=== PATIENT | male | born 1975 | race Caucasian/White ===

== ENCOUNTER 2021-09-03 09:50 | Inpatient (IN) | payer OTHER, MEDICAID ==
[2021-09-03] VITALS (11 sets, daily range): BP systolic 78–133; BP diastolic 50–86
[~2021-09-03] VITALS: Ht 177.8 cm; Wt 59.9 kg
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
[2021-09-03 15:05] LABS: BASO % 0 % (0-3); EOS % 0 % (0-3); HEMOGLOBIN 9.9 g/dL (13.0-17.5); LYMPH # 0.2 x10^3/uL (1.0-4.8); LYMPH % 2 % (24-48); MEAN CORPUSCULAR HEMOGLOBIN 30 pg (25-35); MEAN CORPUSCULAR HGB CONC 33 g/dL (31-37); MEAN CORPUSCULAR VOLUME 89 fL (79-100); MONO # 0.4 x10^3/uL (0.0-1.1); MONO % 4 % (0-9); NEUT # 9.2 x10^3/uL (1.8-7.7); NEUT % 94 % (31-73); PLATELET COUNT 472 x10^3/uL (140-400); RED BLOOD COUNT 3.36 x10^6/uL (4.30-5.70); RED CELL DISTRIBUTION WIDTH 14.4 % (11.5-14.5); WHITE BLOOD COUNT 9.8 x10^3/uL (4.0-11.0)
[2021-09-03 15:20] LABS: ALBUMIN 1.9 g/dL (3.4-5.0); ALBUMIN/GLOBULIN RATIO 0.5 (1.0-1.7); CALCIUM 7.9 mg/dL (8.5-10.1); CREATININE 0.5 mg/dL (0.7-1.3); GFR 177.5; POTASSIUM 3.7 mmol/L (3.5-5.1); TOTAL BILIRUBIN 0.1 mg/dL (0.2-1.0); TOTAL PROTEIN 6.1 g/dL (6.4-8.2)
[2021-09-03] MEDS ORDERED: VANCOMYCIN PER PHARMACY MC PRN (16:00)
--- NOTE | 2021-09-03 16:03 | NUR ---
Pharmacy Vancomycin Dosing Note S:Consulted to monitor and dose vancomycin started 09/03/21. O:KRISTA SOSA is a 46 year old M with r/o Osteomyelitis. Height: 5 feet, 10 inches Weight: 68.2 kg [place] Body Weight: 73.00 Adjusted Body Weight: 71.08 Dosing Weight: Actual Other Antibiotics: ceftriaxone doxy LABS: Last BUN: 32 Last Creatinine: 0.5 Creatinine Clearance: > 100 mL/min Last WBC: 9.8 Last Procalcitonin: -- Tmax (past 24 hours): Last dose given 09/03/21 at 1040 Vancomycin Dosing: Loading Dose: 1750 mg x1 (at [facility]) Dosing Weight: Actual Target Trough: 15-20 A: Based on: patient's age, weight and renal function. P: 1. Begin Vancomycin 1000 mg IV q8h after initial loading dose at [facility]. 2. Follow up Trough level on 09/04/21 at 1030. 3. Pharmacy will continue to monitor, follow and adjust therapy as needed. WALI LE, [facility], 09/03/21 [id number]
[2021-09-03 16:16] LABS: % BANDS 15 % (0-9); % LYMPHS 3 % (24-48); % MONOS 2 % (0-10); % SEGS 80 % (35-66)
[2021-09-03 16:17] LABS: PLT ESTIMATE INCREASED (ADEQUATE)
[2021-09-03] MEDS: DOXYCYCLINE HYCLATE 100 MG TABLET PO SCH ×2 (16:47→21:00)
[2021-09-03 18:18] LABS: COLOR,URINE YELLOW
[2021-09-03 18:19] LABS: BILIRUBIN,URINE NEGATIVE (NEG); CLARITY,URINE HAZY; NITRITE,URINE POSITIVE (NEG); PH,URINE 6.5 (<5.0-8.0); PROTEIN,URINE NEGATIVE (NEG-TRACE); UROBILINOGEN,URINE 0.2 mg/dL (0.2 mg/dL)
[2021-09-03 18:22] LABS: BACTERIA,URINE MANY /HPF (0-FEW)
[2021-09-03] MEDS ORDERED: ROCURONIUM 50 MG/5 ML VIAL. ONE (18:38)
[2021-09-03] MEDS ORDERED: PROPOFOL 50 ML IV ONE ×2 (18:47→20:04)
[2021-09-03] MEDS ORDERED: ePHEDrine PF IN SALINE 50 MG/10 ML SYRINGE. IV ONE (18:47)
[2021-09-03] MEDS ORDERED: DEXAMETHASONE SOD PHOS 4 MG/ML VIAL ONE (18:47)
[2021-09-03] MEDS ORDERED: REMIFENTANIL 2 MG VIAL. IV ONE (18:47)
[2021-09-03] MEDS ORDERED: LIDOCAINE 2% PF 5 ML VIAL. ONE (18:47)
[2021-09-03] MEDS ORDERED: PHENYLEPHRINE 10 MG/ML VIAL. ONE (18:48)
[2021-09-03] MEDS ORDERED: DESFLURANE > 120 MINUTES IH ONE (18:52)
[2021-09-03] MEDS ORDERED: GLYCOPYRROLATE 1 MG/5 ML VIAL. ONE (19:43)
[2021-09-03] MEDS ORDERED: GADOTERATE 7.5 MMOL/15ML VIAL. IVP ONE (19:45)
[2021-09-03] MEDS ORDERED: ONDANSETRON PF 4 MG/2 ML VIAL. ONE (20:16)
[2021-09-03] MEDS ORDERED: SEVOFLURANE > 120 MINUTES. IH ONE (20:17)
[2021-09-03] MEDS ORDERED: THROMBIN TOPICAL 20,000 UNIT SPRAY.SYRN KIT TP ONE ×2 (20:43→23:56)
[2021-09-03] MEDS ORDERED: GELATIN SPONGE SIZE 100. ONE (20:43)
[2021-09-03] MEDS ORDERED: BUPIVACAINE-EPI 0.5% 30 ML VIAL KIT. ONE (20:43)
--- NOTE | 2021-09-03 20:44 | RAD ---
EXAM: MRI CERVICAL SPINE WITH AND WITHOUT CONTRAST. HISTORY: Pain, discitis. TECHNIQUE: Magnetic resonance images of the cervical spine were obtained before and after the intrave nous administration of 13 mL Clariscan. COMPARISON: None. FINDINGS: There are limitations from motion artifact, decreased [id number] ratio and other techn ical artifacts. The examination remains diagnostic for the following. There is fluid within the disc space at C6-7. There are endplate erosions at C6 and C7 with mild volu me loss. Alignment is maintained. An epidural collection consistent with an abscess extends from the C4-5 disc level to the C7-T1 disc level. It is thin at C5, but becomes thicker on the left at C6-7. T his severely narrows the central canal on the left greater than right. Minimal anteroposterior centra l canal diameter is 4 mm a left. It is more severe within the left aspect of the central canal. The c ord is flattened. Fluid collections also extend into the retropharyngeal space bilaterally, measuring up to 1.4 x 1.1 cm transaxially on the right. Neural foraminal stenosis at C6-7 is severe on the rig ht and moderate on the left, mostly from uncovertebral osteoarthritis. More superiorly, there is no clear fluid within the disc spaces. Degenerative disc disease is moderat e to severe from C4 through C6 and moderate at C3-4. No fractures are identified. The craniocervical junction is unremarkable. There is no abnormal cord signal. There are no enhancing parenchymal lesion s. At C2-3, there is a small posterior disc bulge. There is no stenosis. At C3-4, there is a moderate posterior disc-osteophyte complex. Central canal stenosis is mild. There is abutment of the anterior cord without deformity. Uncovertebral osteoarthritis is moderate on the right and moderate to severe on the left. Neural foraminal stenosis is moderate to severe on the left and moderate on the right. At C4-5, there is a moderate posterior disc-osteophyte complex. This flattens the anterior cord with minimal anteroposterior central canal diameter 7 mm. Anterior cord is mildly flattened. Uncovertebral osteoarthritis is moderate to severe bilaterally. Neural foraminal stenosis is moderate to severe bi laterally. At C5-6, the epidural collection measures severe central canal stenosis with minimal anteroposterior central canal diameter 6 mm. There is more severe stenosis in the left lateral recess. Uncovertebral osteoarthritis is moderate to severe on the right and moderate on the right. Neural foraminal stenosi s is severe on the right and moderate on the left. At C6-7, the anterior epidural collection is small within the central and left paracentral territorie s. IMPRESSION: 1. Discitis at C5-6. There is no associated epidural abscess extending from C4-5 through C7-T1. This is largest at C5-6, resulting in severe central canal stenosis with cord flattening. There is lesser moderate to severe central canal stenosis at other involved levels as above. 2. Additional fluid collections extending from C5-6 into the retropharyngeal space bilaterally. 3. Severe degenerative changes for patient age resulting in additional moderate central canal stenosi s and multilevel severe central canal stenosis as above. These findings were called to Dr. Gonzalez by Bimal Cox on 09/03/2021 at 8:20 PM. Electronically signed by: Mona Cox MD (09/03/2021 8:42 PM) [facility]
[2021-09-03] MEDS: VANCOMYCIN 1 GM in IV NORMAL SALINE 250ML 250 ML IV SCH (20:45)
[2021-09-03] MEDS ORDERED: SUCCINYLCHOLINE 200 MG/10 ML VIAL. ONE (21:17)
[2021-09-03] MEDS ORDERED: fentaNYL PF VIAL 100 MCG/2 ML VIAL ONE (22:32)
[2021-09-04] VITALS (24 sets, daily range): BP systolic 81–108; BP diastolic 58–73
[2021-09-04] MEDS ORDERED: fentaNYL PF VIAL 100 MCG/2 ML VIAL IVP PRN ×3 (01:15→01:30)
[2021-09-04] MEDS ORDERED: HYDROmorphone 2 MG/ML INJ. IV PRN ×2 (01:15)
[2021-09-04] MEDS ORDERED: LABETALOL 20 MG/4 ML DISP.SYRIN. IVP PRN (01:15)
[2021-09-04] MEDS ORDERED: hydrALAZINE 20 MG/ML VIAL. IVP PRN (01:15)
[2021-09-04] MEDS ORDERED: PROCHLORPERAZINE 10 MG/2 ML VIAL. IVP PRN (01:15)
[2021-09-04] MEDS ORDERED: ONDANSETRON PF 4 MG/2 ML VIAL. IVP PRN (01:15)
[2021-09-04] MEDS: IV RINGERS,LACTATED 1000ML 1,000 ML IV SCH ×3 (01:15→20:16)
[2021-09-04] MEDS ORDERED: NALOXONE 0.4 MG/ML VIAL. IV PRN (01:30)
[2021-09-04] MEDS ORDERED: ACETAMINOPHEN 325 MG TABLET. PO PRN (01:30)
[2021-09-04] MEDS ORDERED: MAG HYDROX/ALUMINUM HYD/SIMETH 30 ML ORAL.SUSP PO PRN (01:30)
[2021-09-04] MEDS ORDERED: HYDROcodone/APAP 5/325MG 1 TAB TABLET PO PRN (01:30)
[2021-09-04] MEDS ORDERED: diphenhydrAMINE HCL 25 MG CAPSULE PO PRN (01:30)
[2021-09-04] MEDS ORDERED: 0.9 % SODIUM CHLORIDE 10 ML DISP.SYRIN. IV PRN (01:30)
[2021-09-04] MEDS ORDERED: CALCIUM CARBONATE 500 MG TAB.CHEW PO PRN (01:30)
[2021-09-04] MEDS: POTASSIUM CL 20MEQ D5-0.45NACL 1,000 ML IV SCH ×2 (02:32→14:42)
[2021-09-04] MEDS: VANCOMYCIN 1 GM in IV NORMAL SALINE 250ML 250 ML IV SCH (04:55)
--- NOTE | 2021-09-04 05:19 | NUR ---
Patient refused C-collar. Pt educated on the purpose and importance of the collar. Pt says he is claustrophobic and will freak out if he has anything around his neck. Pt went to surgery at 2114 Addendum: 09/04/21 at 0538 by ROSETTA LOPEZ RN RN Amended: Links added.
[2021-09-04 06:51] LABS: CREATININE 0.6 mg/dL (0.7-1.3); GFR 143.8
--- NOTE | 2021-09-04 06:52 | RAD ---
XR CHEST 1V 09/04/2021 6:30 AM INDICATION: Chest tube COMPARISON: 10/01/2021 TECHNIQUE: Portable frontal view of the chest is provided. FINDINGS: The cardiomediastinal silhouette is within normal limits. Lungs are clear. Left-sided thoracostomy tu be is in similar position. Left IJ central venous catheter is in similar position. Anterior cervical discectomy and fusion hardware is partially profiled. There are no significant pleural effusions. There is no pulmonary vascular congestion. No pneumothora x. No suspicious osseous abnormality. There is colonic distention. IMPRESSION: There is no acute cardiopulmonary process. There is colonic distention similar to the prior examination. Anterior discectomy and fusion hardware is partially profiled. No pneumothorax. Electronically signed by: Wendy Bloom MD (09/04/2021 6:50 AM) [facility]
[2021-09-04] MEDS ORDERED: HALOPERIDOL LACTATE 5 MG/ML VIAL. IM ONE (07:15)
[2021-09-04] MEDS: NOREPINEPHRINE VIAL 8 MG in IV DEXTROSE 5% 250 ML IV PRN (07:23)
--- NOTE | 2021-09-04 07:23 | CONS ---
DATE OF CONSULTATION: 09/03/2021 REASON FOR CONSULTATION: Abnormal CT scan of the cervical spine. HISTORY OF PRESENT ILLNESS: The patient was transferred to this institution and placed in intensive care unit today after presenting to the Emergency Room at [facility]. He was transferred there from [facility]. He was initially sent here because of mental status changes and worsening hypotension. When he arrived here, he was confused, hypotensive, hypothermic and the nurse reported to me that priapism was noted. He was gradually warmed, fluids given. His blood pressure improved and it became apparently in the afternoon that the patient was not moving his lower extremities. He denied any sensation below the shoulders inferiorly. He had difficulty with his hands bilaterally. He did have priapism. As far as his history, it is unclear how long the patient had been weak. The nurse reported that as he regained function, he thought initially he was able to drink without assistance, but when I saw him at about 6:00 in the evening, there was evidence of quadriplegia with normal strength in his biceps, 2/5 triceps and 0/5 hand intrinsics. There is no sensation below the C4 collar inferiorly. He did have priapism. He was somewhat hypotensive. His systolic blood pressure was in the 90s. I did review a CT scan, which showed abnormalities at C6-7 suggestive of osteomyelitis, diskitis or trauma. He did have a pneumothorax when he was admitted to the ICU and a rib fracture, so trauma was a leading diagnosis at that time. We moved ahead with an emergency MRI scan to evaluate his cervical spine. PAST MEDICAL HISTORY: Includes problems with drug addiction using crystal meth. He rarely drinks alcohol. His past medical history is unremarkable overall except for a psych history, in which he had anxiety, addiction problems, bipolar and schizophrenia. FAMILY HISTORY: There is no known significant family history. ALLERGIES: HE DID REPORT ALLERGIES TO PENICILLIN, TORADOL, AND TRAMADOL. He was unable to give a history and was uncooperative for the history and we were unable to do a good review of systems, but in the chart other than above it was negative. PHYSICAL EXAMINATION: He was poorly cooperative. He did move his upper extremities to command. He denied sensation in his trunk or lower extremities. He did have loss of intrinsic function in his hands. He was oriented and his speech was clear. ASSESSMENT AND PLAN: I was concerned that the most likely diagnosis was cervical epidural abscess. We proceeded with an emergency MRI scan. On that study, there was a large anterior spinal epidural abscess, which was centered at C6-7, but it was extended up to behind the body of C5 and down to the top of T1. I recommended emergent surgery anteriorly to evacuate the abscess. I did speak personally with the radiologist and reviewed the films with him. I did discuss this with the patient and we discussed the rationale and the risks. He understood and agreed to surgery. JACKY/MARINA/MORE DR: Teddy TID: [id number] IRIS
--- NOTE | 2021-09-04 07:25 | OP ---
DATE OF SURGERY: 09/03/2021 PREOPERATIVE DIAGNOSES: Cervical epidural abscess at C6-7 with severe cervical myelopathy. POSTOPERATIVE DIAGNOSES: Cervical epidural abscess at C6-7 with severe cervical myelopathy. OPERATIONS PERFORMED: Anterior cervical decompression with corpectomy of C6, partial corpectomy C7, evacuation of epidural abscess, placement of interbody fusion cage and anterior plate. The operation was done with multimodality monitoring including EMG, SSEP, NIMS monitoring, motor evoked potentials, fluoroscopy, microscopic dissection. SURGEON: Kali Gonzalez M.D. TECHNICAL BUSINESS ANALYST: KIP Jiang; assisted with the surgery. She assisted with the exposure, the decompression and corpectomy as well as the fusion. OPERATIVE INDICATIONS: This patient presented to the ICU today with hypotension, confusion, hypothermia and as he became more awake and alert, it was found that he was quadriplegic with no intrinsic hand function and no sensation from the neck down. He was evaluated and found to have a large cervical epidural abscess predominantly anterior of the cervical spine centered at about C6-7 and I recommended emergent surgery. He, I believe, understood the surgery and the risks and wished for me to go ahead. DESCRIPTION OF PROCEDURE: Following general endotracheal anesthesia, which was done very carefully to avoid any neck movement, he was placed in a neutral position. Anterior cervical region was then clipped, prepped and draped in the standard fashion. TIARA hose and AV impulse boots were applied for DVT prophylaxis. The microscope was draped, fluoroscopy was draped and brought in the field. Monitoring was established. He was on scheduled antibiotics, which included vancomycin and Rocephin. Using fluoroscopic guidance, an incision was made from the midline around to the right side in a skin crease. I dissected around the medial aspect of the sternocleidomastoid and carotid artery sheath down the anterior cervical vertebral bodies, which were largely obscured by thick tenacious phlegmon and tissue. I gradually worked through this, visualized the spine. There was spontaneous egress of pus, which I then cultured and collected. I then worked on my exposure and could visualize the body of C6 largely as well as the superior portion of body of C7. The inferior portion of C6 was not structurally sound and I removed this material in a piecemeal fashion. I did drill bone away working superiorly performing a corpectomy of C6, stopping the last several millimeters before reaching the disc at C5-6. Inferiorly, then I drilled the superior 25% of C7 and decompressing that region as I worked to considerable amount of purulence was removed from the epidural space. I did pass a Navjot superiorly behind C5 and again removed a great deal of purulent material and again worked and decompressed below the exposure with the Navjot and removing purulent material from the epidural space inferiorly behind the body of C7. The region was well decompressed. Then, I measured and placed interbody fusion cage of 14 mm. I did drill into it carefully to assure that it would fuse with the exposed bone above and below. I placed a plate and placed 2 screws above, which were purchased in the remnant of bone at C6, which did traverse into the disc space and inferiorly, I put 2 screws, which went into the body of C7. At this point, then, I felt I had an excellent decompression. A large amount of purulent material had been removed. I irrigated copiously. Hemostasis was excellent at this point. I irrigated again, closed the wound in layers with absorbable suture. The skin was closed with 4-0 subcuticular stitch. I felt the surgery went very well. JACKY/MARINA/LO DR: Teddy TID: [id number] IRIS
--- NOTE | 2021-09-04 07:41 | CONS ---
DATE OF CONSULTATION: 09/04/2021 REASON FOR CONSULTATION: I was asked to see this 46-year-old gentleman for left pneumothorax. HISTORY OF PRESENT ILLNESS: He does have significant history of smoking and using marijuana and methamphetamine. He is at [facility], details of history is not known, but he was taken to [facility] Emergency Room for mental status changes. He had multiple CTs done, which did show C5-C6 diskitis and left pneumothorax. Left chest tube was placed. Dr. Gonzalez, neurosurgeon did surgery last night. Details are not known. The patient is alert. He is moving his upper extremity, but is not able to move his lower extremities. He does have shortness of breath. He has cough. PAST MEDICAL HISTORY: Positive for smoking cigarettes and using marijuana and methamphetamine. FAMILY HISTORY: Hypertension. ALLERGIES: PENICILLIN, KETOROLAC, TRAMADOL. MEDICATIONS: Currently, he is on vancomycin, Rocephin, doxycycline, IV fluid, fentanyl p.r.n. REVIEW OF SYSTEMS: As mentioned as above. He has had cough. Other systems otherwise negative. PHYSICAL EXAMINATION: GENERAL: This is a chronically ill-appearing gentleman. VITAL SIGNS: His O2 saturation on room air is 93%, respiratory rate 16, heart rate 76, blood pressure 98/66, temperature 97.5. HEENT: Normocephalic, atraumatic. Pupils equal, round, reactive to light. Nose is clear. He has poor dentition. NECK: There is no JVD or lymphadenopathy. CARDIOVASCULAR: Regular rate and rhythm. PMI is nondisplaced. CHEST INSPECTION: There is left chest tube in place. LUNGS: Clear to auscultation. ABDOMEN: Soft, slightly distended. Bowel sounds are good. EXTREMITIES: There is no edema. LYMPHATICS: There is no lymphadenopathy. NEUROLOGIC: Alert and oriented. LABORATORY DATA: I reviewed the following lab data: WBC 9.8, hemoglobin 9.9, platelets 472. Sodium 142, potassium 3.7, chloride 105, CO2 is 30, BUN 32, creatinine 0.5, glucose 126. Lactic acid 1.5, AST 37, ALT 26, alkaline phosphatase 65. LDH 253. Apparently, his COVID testing is negative. IMPRESSION: 1. Left pneumothorax, status post chest tube placement. 2. C5-C6 diskitis, status post surgery. 3. Smoker question vanessa chronic obstructive pulmonary disease. 4. Drug abuse. 5. Anemia. 6. Sepsis. PLAN AND RECOMMENDATIONS: 1. Titrate FiO2 to keep O2 saturation 92%. 2. Start bronchodilator. 3. Stat portable chest x-ray was done. Left chest tube in place and no pneumothorax. There is distended bowel. 4. Neurosurgery is on the case. 5. I do recommend ID consultation. 6. Follow up blood cultures. 7. Monitor respiratory status very closely in ICU. 8. Urine drug screen. 9. The findings and recommendations were discussed with RN. 10. I have advised him to stop smoking and using drugs. Thank you very much for allowing me to participate in care of this very nice gentleman. LUCIA DR: Owen TID: [id number]
[2021-09-04] MEDS: IPRATRPIUM/ALBUTEROL 0.5/2.5MG 3 ML NEBU. NEB SCH ×4 (08:00→20:00)
[2021-09-04] MEDS ORDERED: BENZOCAINE/MENTHOL LOZENGE. PO PRN (09:15)
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
[2021-09-04] MEDS: DOXYCYCLINE HYCLATE 100 MG TABLET PO SCH (09:54)
[2021-09-04] MEDS ORDERED: cefTRIAXone IV Push 1 GM VIAL. IVP SCH (10:00)
--- NOTE | 2021-09-04 10:09 | NUR ---
approximately 10 am, this RN came to patient bedside, patient stated "i want to sign a refusal for the MRI!" This RN asked why he would want to refuse and patient states " I have my reasoning." when asked by this RN to elaborate on his reasonings, he states "My pedro in [employer]." This RN explained the medical necessity of an MRI, patient remains hostile and is adamant that he will not get the MRI. Patient repeatedly states " take me back to long term bro, just take me back to long term!" Shital SHIN notified of patients refusal for follow up MRI. Dr. Macario also notified.
[2021-09-04] MEDS ORDERED: BISACODYL 10 MG SUPP.RECT. PR ONE (11:00)
--- NOTE | 2021-09-04 11:51 | PDOC ---
PROGRESS NOTES Date of Service DATE: 09/04/21 TIME: 11:48 Subjective Subjective POD #1 S/P C6 corpectomy and partial corpectomy C7, fusion, evacuation of epidural abscess refusing follow up MRI drowsy currently after Ativan some sensation noted per Dr. Macario Objective Objective Vital Signs Date Time Temp Pulse Resp B/P (MAP) Pulse Ox O2 Delivery O2 Flow Rate FiO2 09/04/21 11:00 62 16 99/64 100 Nasal Cannula 2.0 09/04/21 08:00 97.0 97.0 Intake and Output 09/04/21 07:00 Intake Total 4283 ml Output Total 1230 ml Balance 3053 ml Intake Oral 815 ml IV Total 1571 ml Other 1897 ml Output Urine Total 1200 ml Chest Tube Drainage Total 0 ml Estimated Blood Loss 30 ml Physical Exam General: Other (Drowsy) Plan Plan of Care cervical x rays if patient will cooperate MRI when patient is agreeable D/W RN Comment Review of Relevant I have reviewed the following items vanessa (where applicable) has been applied. Labs Laboratory Tests Test 09/03/21 14:49 09/03/21 17:08 09/04/21 06:20 White Blood Count 9.8 x10^3/uL (4.0-11.0) Red Blood Count 3.36 x10^6/uL (4.30-5.70) Hemoglobin 9.9 g/dL (13.0-17.5) Hematocrit 30.0 % (39.0-53.0) Mean Corpuscular Volume 89 fL (79-100) Mean Corpuscular Hemoglobin 30 pg (25-35) Mean Corpuscular Hemoglobin Concent 33 g/dL (31-37) Red Cell Distribution Width 14.4 % (11.5-14.5) Platelet Count 472 x10^3/uL (140-400) Neutrophils (%) (Auto) 94 % (31-73) Lymphocytes (%) (Auto) 2 % (24-48) Monocytes (%) (Auto) 4 % (0-9) Eosinophils (%) (Auto) 0 % (0-3) Basophils (%) (Auto) 0 % (0-3) Neutrophils # (Auto) 9.2 x10^3/uL (1.8-7.7) Lymphocytes # (Auto) 0.2 x10^3/uL (1.0-4.8) Monocytes # (Auto) 0.4 x10^3/uL (0.0-1.1) Eosinophils # (Auto) 0.0 x10^3/uL (0.0-0.7) Basophils # (Auto) 0.0 x10^3/uL (0.0-0.2) Segmented Neutrophils % 80 % (35-66) Band Neutrophils % 15 % (0-9) Lymphocytes % 3 % (24-48) Monocytes % 2 % (0-10) Platelet Estimate Increased (ADEQUATE) Sodium Level 142 mmol/L (136-145) Potassium Level 3.7 mmol/L (3.5-5.1) Chloride Level 105 mmol/L (98-107) Carbon Dioxide Level 30 mmol/L (21-32) Anion Gap 7 (6-14) Blood Urea Nitrogen 32 mg/dL (8-26) Creatinine 0.5 mg/dL (0.7-1.3) 0.6 mg/dL (0.7-1.3) Estimated GFR (Cockcroft-Gault) 177.5 143.8 BUN/Creatinine Ratio 64 (6-20) Glucose Level 126 mg/dL (70-99) Lactic Acid Level 1.5 mmol/L (0.4-2.0) Calcium Level 7.9 mg/dL (8.5-10.1) Total Bilirubin 0.1 mg/dL (0.2-1.0) Aspartate Amino Transf (AST/SGOT) 37 U/L (15-37) Alanine Aminotransferase (ALT/SGPT) 26 U/L (16-63) Alkaline Phosphatase 65 U/L (46-116) Lactate Dehydrogenase 253 U/L (85-227) Total Protein 6.1 g/dL (6.4-8.2) Albumin 1.9 g/dL (3.4-5.0) Albumin/Globulin Ratio 0.5 (1.0-1.7) Thyroid Stimulating Hormone (TSH) 2.491 uIU/mL (0.358-3.74) Urine Collection Type Unknown Urine Color Yellow Urine Clarity Hazy Urine pH 6.5 (<5.0-8.0) Urine Specific [place] 1.015 (1.000-1.030) Urine Protein Negative mg/dL (NEG-TRACE) Urine Glucose (UA) Negative mg/dL (NEG) Urine Ketones (Stick) Negative mg/dL (NEG) Urine Blood Small (NEG) Urine Nitrite Positive (NEG) Urine Bilirubin Negative (NEG) Urine Urobilinogen Dipstick 0.2 mg/dL (0.2 mg/dL) Urine Leukocyte Esterase Negative (NEG) Urine RBC 3-5 /HPF (0-2) Urine WBC 1-4 /HPF (0-4) Urine Bacteria Many /HPF (0-FEW) Urine Mucus Mod /LPF Laboratory Tests Test 09/03/21 14:49 09/03/21 17:08 09/04/21 06:20 White Blood Count 9.8 x10^3/uL (4.0-11.0) Red Blood Count 3.36 x10^6/uL (4.30-5.70) Hemoglobin 9.9 g/dL (13.0-17.5) Hematocrit 30.0 % (39.0-53.0) Mean Corpuscular Volume 89 fL (79-100) Mean Corpuscular Hemoglobin 30 pg (25-35) Mean Corpuscular Hemoglobin Concent 33 g/dL (31-37) Red Cell Distribution Width 14.4 % (11.5-14.5) Platelet Count 472 x10^3/uL (140-400) Neutrophils (%) (Auto) 94 % (31-73) Lymphocytes (%) (Auto) 2 % (24-48) Monocytes (%) (Auto) 4 % (0-9) Eosinophils (%) (Auto) 0 % (0-3) Basophils (%) (Auto) 0 % (0-3) Neutrophils # (Auto) 9.2 x10^3/uL (1.8-7.7) Lymphocytes # (Auto) 0.2 x10^3/uL (1.0-4.8) Monocytes # (Auto) 0.4 x10^3/uL (0.0-1.1) Eosinophils # (Auto) 0.0 x10^3/uL (0.0-0.7) Basophils # (Auto) 0.0 x10^3/uL (0.0-0.2) Segmented Neutrophils % 80 % (35-66) Band Neutrophils % 15 % (0-9) Lymphocytes % 3 % (24-48) Monocytes % 2 % (0-10) Platelet Estimate Increased (ADEQUATE) Sodium Level 142 mmol/L (136-145) Potassium Level 3.7 mmol/L (3.5-5.1) Chloride Level 105 mmol/L (98-107) Carbon Dioxide Level 30 mmol/L (21-32) Anion Gap 7 (6-14) Blood Urea Nitrogen 32 mg/dL (8-26) Creatinine 0.5 mg/dL (0.7-1.3) 0.6 mg/dL (0.7-1.3) Estimated GFR (Cockcroft-Gault) 177.5 143.8 BUN/Creatinine Ratio 64 (6-20) Glucose Level 126 mg/dL (70-99) Lactic Acid Level 1.5 mmol/L (0.4-2.0) Calcium Level 7.9 mg/dL (8.5-10.1) Total Bilirubin 0.1 mg/dL (0.2-1.0) Aspartate Amino Transf (AST/SGOT) 37 U/L (15-37) Alanine Aminotransferase (ALT/SGPT) 26 U/L (16-63) Alkaline Phosphatase 65 U/L (46-116) Lactate Dehydrogenase 253 U/L (85-227) Total Protein 6.1 g/dL (6.4-8.2) Albumin 1.9 g/dL (3.4-5.0) Albumin/Globulin Ratio 0.5 (1.0-1.7) Thyroid Stimulating Hormone (TSH) 2.491 uIU/mL (0.358-3.74) Urine Collection Type Unknown Urine Color Yellow Urine Clarity Hazy Urine pH 6.5 (<5.0-8.0) Urine Specific [place] 1.015 (1.000-1.030) Urine Protein Negative mg/dL (NEG-TRACE) Urine Glucose (UA) Negative mg/dL (NEG) Urine Ketones (Stick) Negative mg/dL (NEG) Urine Blood Small (NEG) Urine Nitrite Positive (NEG) Urine Bilirubin Negative (NEG) Urine Urobilinogen Dipstick 0.2 mg/dL (0.2 mg/dL) Urine Leukocyte Esterase Negative (NEG) Urine RBC 3-5 /HPF (0-2) Urine WBC 1-4 /HPF (0-4) Urine Bacteria Many /HPF (0-FEW) Urine Mucus Mod /LPF Medications Current Medications Ceftriaxone Sodium (Rocephin) 1 gm Q24H IVP Last administered on 09/04/21at 09:54; Start 09/04/21 at 10:00 Doxycycline Hyclate (Vibra-Tab) 100 mg BID PO Last administered on 09/04/21at 09:54; Start 09/03/21 at 15:30 Vancomycin HCl (Vanco Per Pharmacy) 1 each PRN DAILY PRN MC SEE COMMENTS Last administered on 09/03/21at 16:01; Start 09/03/21 at 16:00 Vancomycin HCl 1 gm/Sodium Chloride 250 ml @ 250 mls/hr Q8H IV Last administered on 09/04/21at 04:55; Start 09/03/21 at 19:00 Vancomycin HCl (Vancomycin Trough Level) 1 each 1X ONCE MC ; Start 09/04/21 at 12:30; Stop 09/04/21 at 12:31 Norepinephrine Bitartrate 8 mg/ Dextrose 258 ml @ 13.197 mls/ hr CONT PRN IV PER PROTOCOL Last administered on 09/04/21at 07:23; Start 09/03/21 at 17:00 Gadoterate Meglumine (Clariscan) 13 ml 1X ONCE IVP Last administered on 09/03/21at 19:54; Start 09/03/21 at 19:45; Stop 09/03/21 at 19:46; Status DC Rocuronium Sidell (Zemuron) 50 mg STK-MED ONCE .ROUTE ; Start 09/03/21 at 18:38; Stop 09/03/21 at 20:39; Status DC Gelatin (Gelfoam Size 100) 1 each STK-MED ONCE .ROUTE Last administered on 09/03/21at 22:35; Start 09/03/21 at 20:43; Stop 09/03/21 at 20:43; Status DC Bupivacaine HCl/ Epinephrine Bitart (Sensorcain-Epi 0.5% Kit) 30 ml STK-MED ONCE .ROUTE Last administered on 09/03/21at 22:35; Start 09/03/21 at 20:43; Stop 09/03/21 at 20:43; Status DC Thrombin 20,000 unit STK-MED ONCE TP Last administered on 09/03/21 22:35; Start 09/03/21 at 20:43; Stop 09/03/21 at 20:43; Status DC Remifentanil HCl (Ultiva) 2 mg STK-MED ONCE IV ; Start 09/03/21 at 18:47; Stop 09/03/21 at 20:47; Status DC Propofol 50 ml @ As Directed STK-MED ONCE IV ; Start 09/03/21 at 18:47; Stop 09/03/21 at 20:47; Status DC Ephedrine Sulfate (ePHEDrine PF IN SALINE SYRINGE) 50 mg STK-MED ONCE IV ; Start 09/03/21 at 18:47; Stop 09/03/21 at 20:48; Status DC Lidocaine HCl (Lidocaine Pf 2% Vial) 5 ml STK-MED ONCE .ROUTE ; Start 09/03/21 at 18:47; Stop 09/03/21 at 20:48; Status DC Dexamethasone Sodium Phosphate (Decadron) 4 mg STK-MED ONCE .ROUTE ; Start 09/03/21 at 18:47; Stop 09/03/21 at 20:48; Status DC Phenylephrine HCl (Jerome-Synephrine Inj) 10 mg STK-MED ONCE .ROUTE ; Start 09/03/21 at 18:48; Stop 09/03/21 at 20:48; Status DC Desflurane (Suprane) 90 ml STK-MED ONCE IH ; Start 09/03/21 at 18:52; Stop 09/03/21 at 20:52; Status DC Succinylcholine Chloride (Anectine) 200 mg STK-MED ONCE .ROUTE ; Start 09/03/21 at 21:17; Stop 09/03/21 at 21:17; Status DC Glycopyrrolate (Robinul) 1 mg STK-MED ONCE .ROUTE ; Start 09/03/21 at 19:43; Stop 09/03/21 at 21:44; Status DC Propofol 50 ml @ As Directed STK-MED ONCE IV ; Start 09/03/21 at 20:04; Stop 09/03/21 at 22:05; Status DC Ondansetron HCl (Zofran) 4 mg STK-MED ONCE .ROUTE ; Start 09/03/21 at 20:16; Stop 09/03/21 at 22:16; Status DC Sevoflurane (Ultane) 90 ml STK-MED ONCE IH ; Start 09/03/21 at 20:17; Stop 09/03/21 at 22:17; Status DC Thrombin 20,000 unit STK-MED ONCE TP ; Start 09/03/21 at 23:56; Stop 09/03/21 at 23:56; Status DC Fentanyl Citrate (Fentanyl 2ml Vial) 100 mcg STK-MED ONCE .ROUTE ; Start 09/03/21 at 22:32; Stop 09/04/21 at 00:33; Status DC Fentanyl Citrate (Fentanyl 2ml Vial) 25 mcg PRN Q5MIN PRN IVP Acute Pain; Start 09/04/21 at 01:15; Stop 09/05/21 at 01:14 Fentanyl Citrate (Fentanyl 2ml Vial) 50 mcg PRN Q5MIN PRN IVP Acute Pain; Start 09/04/21 at 01:15; Stop 09/05/21 at 01:14 Hydromorphone HCl (Dilaudid) 0.2 mg PRN Q10MIN PRN IV MILD PAIN 1-3; Start 09/04/21 at 01:15; Stop 09/05/21 at 01:14 Hydromorphone HCl (Dilaudid) 0.4 mg PRN Q10MIN PRN IV MODERATE TO SEVERE PAIN; Start 09/04/21 at 01:15; Stop 09/05/21 at 01:14 Ondansetron HCl (Zofran) 4 mg PRN Q6HRS PRN IVP Nausea, 1st Choice; Start 09/04/21 at 01:15; Stop 09/05/21 at 01:14 Prochlorperazine Edisylate (Compazine) 5 mg PRN Q6HRS PRN IVP Nausea/Vomiting, 2nd Choice; Start 09/04/21 at 01:15; Stop 09/05/21 at 01:14 Hydralazine HCl (Apresoline Inj) 5 mg PRN Q15MIN PRN IVP SBP>180; Start 09/04/21 at 01:15; Stop 09/05/21 at 01:14 Labetalol HCl (Normodyne Iv Push) 5 mg PRN Q15MIN PRN IVP SBP GREATER THAN [18 0]; Start 09/04/21 at 01:15; Stop 09/05/21 at 01:14 Ringer's Solution 1,000 ml @ 100 mls/hr Q10H IV ; Start 09/04/21 at 01:15; Stop 09/05/21 at 01:14 Acetaminophen (Tylenol) 650 mg PRN Q6HRS PRN PO MILD PAIN / TEMP > 100.3'F; Start 09/04/21 at 01:30 Al Hydroxide/Mg Hydroxide (Mylanta Plus Xs) 30 ml PRN Q3HRS PRN PO HEARTBURN / GAS; Start 09/04/21 at 01:30 Calcium Carbonate/ Glycine (Tums) 500 mg PRN Q3HRS PRN PO INDIGESTION; Start 09/04/21 at 01:30 Diphenhydramine HCl (Benadryl) 25 mg PRN Q6HRS PRN PO ITCHING Last administered on 09/04/21at 09:54; Start 09/04/21 at 01:30 Naloxone HCl (Narcan) 0.1 mg PRN Q2MIN PRN IV SEE COMMENTS; Start 09/04/21 at 01:30 Sodium Chloride (Normal Saline Flush) 3 ml QSHIFT PRN IV AFTER MEDS AND BLOOD DRAWS; Start 09/04/21 at 01:30 Acetaminophen/ Hydrocodone Bitart (Lortab 5/325) 1 tab PRN Q4HRS PRN PO MILD PAIN 1-3; Start 09/04/21 at 01:30 Fentanyl Citrate (Fentanyl 2ml Vial) 50 mcg PRN Q2HR PRN IVP SEVERE PAIN 7-10; Start 09/04/21 at 01:30 Potassium Chloride/Dextrose/ Sod Cl 1,000 ml @ 75 mls/hr [id number] IV Last administered on 09/04/21at 02:32; Start 09/04/21 at 01:30 Albuterol/ Ipratropium (Duoneb) 3 ml RTQID NEB Last administered on 09/04/21at 11:46; Start 09/04/21 at 08:00 Haloperidol Lactate (Haldol Inj) 1 mg 1X ONCE IM Last administered on 09/04/21at 07:23; Start 09/04/21 at 07:15; Stop 09/04/21 at 07:17; Status DC Lorazepam (Ativan Inj) 2 mg PRN Q4HRS PRN IVP ANXIETY / AGITATION Last administered on 09/04/21at 09:54; Start 09/04/21 at 09:15 Throat Lozenges (Cepacol Sore Throat Lozenge) 1 amparo PRN Q2HRS PRN PO SORE THROAT Last administered on 09/04/21at 09:54; Start 09/04/21 at 09:15 Haloperidol (Haldol) 2 mg BID PO ; Start 09/04/21 at 11:00 Sertraline HCl (Zoloft) 25 mg DAILY PO ; Start 09/04/21 at 11:00 Bisacodyl (Dulcolax Supp) 10 mg 1X ONCE OR ; Start 09/04/21 at 11:00; Stop 09/04/21 at 11:01; Status DC Vitals/I & O Vital Sign - Last 24 Hours 09/03/21 09/03/21 09/03/21 09/03/21 14:59 15:01 16:00 17:00 Temp 92.0 92.0 Pulse 55 63 62 Resp 16 16 16 B/P (MAP) 97/70 81/55 85/57 Pulse Ox 100 100 93 O2 Delivery Nasal Cannula Nasal Cannula Nasal Cannula Room Air O2 Flow Rate 2.0 2.0 2.0 09/03/21 09/03/21 09/03/21 09/03/21 18:00 19:00 20:00 20:45 Temp 97.1 97.1 Pulse 77 77 77 77 Resp 16 16 16 16 B/P (MAP) 91/65 103/76 78/65 82/56 Pulse Ox 95 94 95 95 O2 Delivery Room Air Room Air Room Air Room Air 09/03/21 09/03/21 09/03/21 09/03/21 20:50 21:00 22:00 23:00 Pulse 77 69 63 76 Resp 16 16 16 16 B/P (MAP) 85/50 119/80 133/86 92/65 Pulse Ox 95 99 99 98 O2 Delivery Room Air Room Air Room Air Room Air 09/04/21 09/04/21 09/04/21 09/04/21 00:00 01:00 01:20 01:20 Temp 97.8 97.8 Pulse 64 74 84 Resp 16 16 18 B/P (MAP) 95/62 99/67 94/63 Pulse Ox 98 100 97 O2 Delivery Room Air Room Air Mask Simple Mask O2 Flow Rate 10 10 09/04/21 09/04/21 09/04/21 09/04/21 01:35 01:50 01:56 02:00 Pulse 74 79 76 Resp 16 16 16 B/P (MAP) 99/67 94/62 81/59 Pulse Ox 97 96 93 O2 Delivery Room Air Nasal Cannula Room Air Room Air O2 Flow Rate 2 09/04/21 09/04/21 09/04/21 09/04/21 02:07 03:00 04:00 05:00 Temp 97.5 97.5 Pulse 68 78 76 70 Resp 16 16 16 16 B/P (MAP) 87/59 98/66 98/66 102/70 Pulse Ox 94 93 93 94 O2 Delivery Room Air Room Air Room Air Room Air 09/04/21 09/04/21 09/04/21 09/04/21 06:00 07:00 08:00 08:00 Temp 97.0 97.0 Pulse 70 68 68 Resp 16 16 16 B/P (MAP) 94/58 102/70 104/70 Pulse Ox 93 95 94 O2 Delivery Room Air Room Air Room Air Room Air 09/04/21 09/04/21 09/04/21 09:00 10:00 11:00 Pulse 65 62 62 Resp 16 16 16 B/P (MAP) 104/73 108/67 99/64 Pulse Ox 93 92 100 O2 Delivery Room Air Room Air Nasal Cannula O2 Flow Rate 2.0 Intake and Output 09/03/21 09/03/21 09/04/21 15:00 23:00 07:00 Intake Total 400 ml 3883 ml Output Total 0 ml 700 ml 530 ml Balance 0 ml -300 ml 3353 ml Justifications for Admission Other Justification NIXON SAVAGE MD Sep 04, 2021 11:51
[2021-09-04 12:34] LABS: VANC TR 12.3 mcg/mL (10.0-20.0)
[2021-09-04] MEDS: DAPTOmycin (GENERIC) IVPB 680 MG in IV NORMAL SALINE 50ML 50 ML IV SCH (13:46)
[2021-09-04] MEDS: CEFEPIME HCL IV Push 2 GM VIAL. IVP SCH ×3 (13:46→22:21)
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
[2021-09-04] MEDS: HALOPERIDOL 2 MG TABLET. PO SCH ×2 (16:16→20:16)
[2021-09-04] MEDS: SERTRALINE 25 MG TABLET. PO SCH (16:16)
--- NOTE | 2021-09-04 16:29 | RAD ---
Three-view cervical spine dated 09/04/2021. COMPARISON: None. INDICATION: Postop corpectomy. FINDINGS: 3 views obtained. There has been interval corpectomy with anterior plate fixation screws from the C5- C6 disc level to the C7 superior endplate. This is not well evaluated due to overlap. Straightening o f the normal cervical lordosis. Sagittal alignment is otherwise anatomic. Vertebral body heights are maintained. Mild prevertebral soft tissue swelling with surgical drain in place. IMPRESSION: 1. Postsurgical changes at C6. Electronically signed by: Sotero Barahona MD (09/04/2021 4:27 PM) CHERI
[2021-09-04] MEDS: LACTOBACILLUS RHAMNOSUS GG 1 CAPSULE. PO SCH (20:15)
[2021-09-05] VITALS (24 sets, daily range): BP systolic 86–134; BP diastolic 52–82
[2021-09-05] MEDS: POTASSIUM CL 20MEQ D5-0.45NACL 1,000 ML IV SCH ×2 (01:48→17:48)
[2021-09-05] MEDS: NOREPINEPHRINE VIAL 8 MG in IV DEXTROSE 5% 250 ML IV PRN (01:59)
[2021-09-05] MEDS: CEFEPIME HCL IV Push 2 GM VIAL. IVP SCH ×3 (05:03→22:45)
--- NOTE | 2021-09-05 05:25 | RAD ---
EXAM: XR CHEST 1V 09/05/2021 4:47 AM CLINICAL INDICATION: Chest tube, pneumothorax COMPARISON: Chest radiograph 09/04/2021 TECHNIQUE: AP semiupright view of the chest FINDINGS: A left IJ central venous catheter is unchanged with tip over the superior vena cava. The le ft pleural catheter is now oriented toward the medial base. There is anterior cervical fusion hardwar e. There is an increased small left pleural effusion and basilar predominant opacities. No pneumothor ax. Mild right basilar opacities and small right pleural effusion. Heart is normal in size. IMPRESSION: 1. The left pleural catheter is now oriented toward the medial left lung base. No pneumothorax. 2. New small left greater than right pleural effusions and basilar opacities. Electronically signed by: Tiff Dunbar MD (09/05/2021 5:22 AM) MARIEL
--- NOTE | 2021-09-05 06:09 | PDOC ---
PULMONARY PROGRESS NOTES DATE: 09/05/21 TIME: 06:09 Subjective 02 02 8lpm is tired has cough Vitals Vital Signs Date Time Temp Pulse Resp B/P (MAP) Pulse Ox O2 Delivery O2 Flow Rate FiO2 09/05/21 00:00 96.1 61 16 108/76 98 Nasal Cannula 2.0 96.1 Comments ros as mentioned as above other sys otherwise neg ROS: No Nausea General: Alert HEENT: Other (nc at perrl nose throat clear neck no lad no thyromegaly) Lungs: Crackles, Other (dull at bases ) Cardiovascular: S1, S2 Abdomen: Soft, Non-tender Neuro Exam: Alert Extremities: No Edema Skin: Warm Labs Laboratory Tests Test 09/03/21 14:49 09/03/21 17:08 09/04/21 06:20 09/04/21 11:55 White Blood Count 9.8 x10^3/uL (4.0-11.0) Red Blood Count 3.36 x10^6/uL (4.30-5.70) Hemoglobin 9.9 g/dL (13.0-17.5) Hematocrit 30.0 % (39.0-53.0) Mean Corpuscular Volume 89 fL (79-100) Mean Corpuscular Hemoglobin 30 pg (25-35) Mean Corpuscular Hemoglobin Concent 33 g/dL (31-37) Red Cell Distribution Width 14.4 % (11.5-14.5) Platelet Count 472 x10^3/uL (140-400) Neutrophils (%) (Auto) 94 % (31-73) Lymphocytes (%) (Auto) 2 % (24-48) Monocytes (%) (Auto) 4 % (0-9) Eosinophils (%) (Auto) 0 % (0-3) Basophils (%) (Auto) 0 % (0-3) Neutrophils # (Auto) 9.2 x10^3/uL (1.8-7.7) Lymphocytes # (Auto) 0.2 x10^3/uL (1.0-4.8) Monocytes # (Auto) 0.4 x10^3/uL (0.0-1.1) Eosinophils # (Auto) 0.0 x10^3/uL (0.0-0.7) Basophils # (Auto) 0.0 x10^3/uL (0.0-0.2) Segmented Neutrophils % 80 % (35-66) Band Neutrophils % 15 % (0-9) Lymphocytes % 3 % (24-48) Monocytes % 2 % (0-10) Platelet Estimate Increased (ADEQUATE) Sodium Level 142 mmol/L (136-145) Potassium Level 3.7 mmol/L (3.5-5.1) Chloride Level 105 mmol/L (98-107) Carbon Dioxide Level 30 mmol/L (21-32) Anion Gap 7 (6-14) Blood Urea Nitrogen 32 mg/dL (8-26) Creatinine 0.5 mg/dL (0.7-1.3) 0.6 mg/dL (0.7-1.3) Estimated GFR (Cockcroft-Gault) 177.5 143.8 BUN/Creatinine Ratio 64 (6-20) Glucose Level 126 mg/dL (70-99) Lactic Acid Level 1.5 mmol/L (0.4-2.0) Calcium Level 7.9 mg/dL (8.5-10.1) Total Bilirubin 0.1 mg/dL (0.2-1.0) Aspartate Amino Transf (AST/SGOT) 37 U/L (15-37) Alanine Aminotransferase (ALT/SGPT) 26 U/L (16-63) Alkaline Phosphatase 65 U/L (46-116) Lactate Dehydrogenase 253 U/L (85-227) Total Protein 6.1 g/dL (6.4-8.2) Albumin 1.9 g/dL (3.4-5.0) Albumin/Globulin Ratio 0.5 (1.0-1.7) Thyroid Stimulating Hormone (TSH) 2.491 uIU/mL (0.358-3.74) Urine Collection Type Unknown Urine Color Yellow Urine Clarity Hazy Urine pH 6.5 (<5.0-8.0) Urine Specific [place] 1.015 (1.000-1.030) Urine Protein Negative mg/dL (NEG-TRACE) Urine Glucose (UA) Negative mg/dL (NEG) Urine Ketones (Stick) Negative mg/dL (NEG) Urine Blood Small (NEG) Urine Nitrite Positive (NEG) Urine Bilirubin Negative (NEG) Urine Urobilinogen Dipstick 0.2 mg/dL (0.2 mg/dL) Urine Leukocyte Esterase Negative (NEG) Urine RBC 3-5 /HPF (0-2) Urine WBC 1-4 /HPF (0-4) Urine Bacteria Many /HPF (0-FEW) Urine Mucus Mod /LPF Vancomycin Level Trough 12.3 mcg/mL (10.0-20.0) Vancomycin Last Dose Date 09/04/21 Vancomycin Last Dose Time 0500 Laboratory Tests Test 09/04/21 06:20 09/04/21 11:55 Creatinine 0.6 mg/dL (0.7-1.3) Estimated GFR (Cockcroft-Gault) 143.8 Vancomycin Level Trough 12.3 mcg/mL (10.0-20.0) Vancomycin Last Dose Date 09/04/21 Vancomycin Last Dose Time 0500 Comments 09/05 cxr reviewed 1. The left pleural catheter is now oriented toward the medial left lung base. No pneumothorax. 2. New small left greater than right pleural effusions and basilar opacities. Impression . IMPRESSION: 1. Left pneumothorax, status post chest tube placement. 2. S/P C6 corpectomy and partial corpectomy C7, fusion, evacuation of epidural abscess POD #2 3. Smoker question vanessa chronic obstructive pulmonary disease. 4. Drug abuse. 5. Anemia. 6. Sepsis/septic shock. 7. hypoxia multifactorial 8. abnl cxr b lat effusion infilt volume overload vs asp pneumonia/pneumonitis no ptx Plan . PLAN AND RECOMMENDATIONS: 1. Titrate FiO2 to keep O2 saturation 90%. 2. bronchodilator. IS to use multiple times an hr 3. cxr reviewed b lat effusion infilt volume overload vs asp pneumonia/pneumonitis no ptx cont ct increase suction to -40 decrease iv fluid 4. follow Neurosurgery rec 5. abx per id cefepime daptomycin 6. Follow up blood cultures. 7. Monitor respiratory status very closely in ICU. 8. Urine drug screen. neg 9. refusing follow up MRI advised to reconsider 10. I have advised him to stop smoking and using drugs. The findings and recommendations were discussed with KATIANA. SAYRA SALINAS MD Sep 05, 2021 06:09
[2021-09-05] MEDS ORDERED: BISACODYL 10 MG SUPP.RECT. PR PRN (07:45)
[2021-09-05] MEDS ORDERED: ACETAMINOPHEN 650 MG SUPP.RECT. PR PRN (07:45)
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
[2021-09-05 08:16] LABS: BASO % 0 % (0-3); EOS % 0 % (0-3); HEMATOCRIT 28.8 % (39.0-53.0); HEMOGLOBIN 9.3 g/dL (13.0-17.5); LYMPH # 0.5 x10^3/uL (1.0-4.8); LYMPH % 7 % (24-48); MEAN CORPUSCULAR HEMOGLOBIN 29 pg (25-35); MEAN CORPUSCULAR HGB CONC 32 g/dL (31-37); MEAN CORPUSCULAR VOLUME 91 fL (79-100); MONO # 0.3 x10^3/uL (0.0-1.1); MONO % 5 % (0-9); NEUT # 5.6 x10^3/uL (1.8-7.7); NEUT % 88 % (31-73); PLATELET COUNT 405 x10^3/uL (140-400); RED BLOOD COUNT 3.18 x10^6/uL (4.30-5.70); RED CELL DISTRIBUTION WIDTH 15.1 % (11.5-14.5); WHITE BLOOD COUNT 6.4 x10^3/uL (4.0-11.0)
[2021-09-05] MEDS: IPRATRPIUM/ALBUTEROL 0.5/2.5MG 3 ML NEBU. NEB SCH ×4 (08:26→21:43)
[2021-09-05] MEDS ORDERED: FUROSEMIDE 20 MG/2 ML VIAL. IVP ONE (08:30)
[2021-09-05 08:32] LABS: ALBUMIN 1.5 g/dL (3.4-5.0); ALBUMIN/GLOBULIN RATIO 0.4 (1.0-1.7); CALCIUM 7.4 mg/dL (8.5-10.1); CREATININE 0.4 mg/dL (0.7-1.3); GFR 229.6; POTASSIUM 3.5 mmol/L (3.5-5.1); TOTAL BILIRUBIN 0.1 mg/dL (0.2-1.0); TOTAL PROTEIN 5.7 g/dL (6.4-8.2)
[2021-09-05] MEDS: HALOPERIDOL 2 MG TABLET. PO SCH ×3 (08:57→20:43)
[2021-09-05] MEDS: SERTRALINE 25 MG TABLET. PO SCH ×2 (08:57→09:00)
[2021-09-05] MEDS: LACTOBACILLUS RHAMNOSUS GG 1 CAPSULE. PO SCH ×3 (08:57→20:43)
--- NOTE | 2021-09-05 12:00 | NUR ---
Patient refuses to wear soft collar. I educated importance of wearing the collar, patient still refuses. Per Dr Gonzalez patient is not to sit up to side of bed without soft collar in place.
--- NOTE | 2021-09-05 13:40 | PDOC ---
Infectious Disease Note Subjective: Subjective Pt awake and alert has cough on O2 by NC Vital Signs: Vital Signs Vital Signs Date Time Temp Pulse Resp B/P (MAP) Pulse Ox O2 Delivery O2 Flow Rate FiO2 09/05/21 13:00 70 16 96/61 91 Nasal Cannula 7.0 09/05/21 12:00 97.6 97.6 Physical Exam: PHYSICAL EXAM GENERAL: awake alert male in no acute distress, on O2 by nasal cannula. HEENT: Normocephalic, atraumatic. Anicteric. Pupils equal, reactive. Poor dentition. NECK: No JVD, no lymphadenopathy. Anterior cervical dressing present, intact, not taken down. LUNGS: Left chest tube, decreased breath sounds, otherwise no accessory muscle use. Clear on the right side. ABDOMEN: Soft, nontender, nondistended. Bowel sounds present. GENITOURINARY: Kuo in place. EXTREMITIES: No edema, no cyanosis. DERMATOLOGIC: Warm, dry, no generalized rash. NEUROLOGIC: alert awake able to move both upper ext, could not move lower ext PSYCHIATRIC: calm cooperative Central line RT Neck clean Placed 09/03 Medications: Inpatient Meds: Medications reviewed. Labs: Lab Laboratory Tests Test 09/05/21 05:50 White Blood Count 6.4 x10^3/uL (4.0-11.0) Red Blood Count 3.18 x10^6/uL (4.30-5.70) Hemoglobin 9.3 g/dL (13.0-17.5) Hematocrit 28.8 % (39.0-53.0) Mean Corpuscular Volume 91 fL (79-100) Mean Corpuscular Hemoglobin 29 pg (25-35) Mean Corpuscular Hemoglobin Concent 32 g/dL (31-37) Red Cell Distribution Width 15.1 % (11.5-14.5) Platelet Count 405 x10^3/uL (140-400) Neutrophils (%) (Auto) 88 % (31-73) Lymphocytes (%) (Auto) 7 % (24-48) Monocytes (%) (Auto) 5 % (0-9) Eosinophils (%) (Auto) 0 % (0-3) Basophils (%) (Auto) 0 % (0-3) Neutrophils # (Auto) 5.6 x10^3/uL (1.8-7.7) Lymphocytes # (Auto) 0.5 x10^3/uL (1.0-4.8) Monocytes # (Auto) 0.3 x10^3/uL (0.0-1.1) Eosinophils # (Auto) 0.0 x10^3/uL (0.0-0.7) Basophils # (Auto) 0.0 x10^3/uL (0.0-0.2) Sodium Level 140 mmol/L (136-145) Potassium Level 3.5 mmol/L (3.5-5.1) Chloride Level 104 mmol/L (98-107) Carbon Dioxide Level 34 mmol/L (21-32) Anion Gap 2 (6-14) Blood Urea Nitrogen 13 mg/dL (8-26) Creatinine 0.4 mg/dL (0.7-1.3) Estimated GFR (Cockcroft-Gault) 229.6 BUN/Creatinine Ratio 33 (6-20) Glucose Level 92 mg/dL (70-99) Calcium Level 7.4 mg/dL (8.5-10.1) Total Bilirubin 0.1 mg/dL (0.2-1.0) Aspartate Amino Transf (AST/SGOT) 24 U/L (15-37) Alanine Aminotransferase (ALT/SGPT) 24 U/L (16-63) Alkaline Phosphatase 57 U/L (46-116) Creatine Kinase 152 U/L (39-308) Total Protein 5.7 g/dL (6.4-8.2) Albumin 1.5 g/dL (3.4-5.0) Albumin/Globulin Ratio 0.4 (1.0-1.7) Objective: Assessment: 1 Cervical epidural abscess at C6-C7 with severe cervical myelopathy. 1. Status post anterior cervical decompression with corpectomy of C6, evacuation of epidural abscess, placement of interbody fusion cage and anterior plate on 09/04/2021. Cultures positive for staph aureus 3 Staphylococcus aureus bacteremia at [facility] on 09/03/2021 and here at [facility]. 4. Left pneumothorax, status post CDS. 5 polysubstance dependence. 6. Schizophrenia, bipolar disorder, anxiety. 7 chronic low back pain. 8 hypertension. 9. Protein-calorie malnutrition. 10 anemia. 11. PCN allergy with hives, does not recall taking amoxicillin or augmentin Plan: Plan of Care Continue daptomycin and cefepime. Follow-up BC staph aureus Follow repeat blood culture here Follow-up blood culture from [place] Maintain aspiration precautions Monitor labs and cultures Sputum for cult Continue supportive care Wound care as directed Critically ill Prognosis is guarded. Discussed with BENJI VICENTE MD Sep 05, 2021 13:40
--- NOTE | 2021-09-05 14:01 | PDOC ---
PROGRESS NOTES Date of Service DATE: 09/05/21 TIME: 13:58 Subjective Subjective POD #2 POD #1 S/P C6 corpectomy and partial corpectomy C7, fusion, evacuation of epidural abscess More cooperative today but still refusing follow up MRI denies pain, hungry remains NPO Objective Objective Vital Signs Date Time Temp Pulse Resp B/P (MAP) Pulse Ox O2 Delivery O2 Flow Rate FiO2 09/05/21 13:00 70 16 96/61 91 Nasal Cannula 7.0 09/05/21 12:00 97.6 97.6 Intake and Output 09/05/21 07:00 Intake Total 1207 ml Output Total 2750 ml Balance -1543 ml IV Total 1207 ml Output Urine Total 2750 ml Chest Tube Drainage Total 0 ml Physical Exam General: Alert, No acute distress Neuro: Normal speech, Other (remains weak, exam essentailly unchanged except he has sensation in LE ) Skin: Other (dressing dry and intact) Plan Plan of Care attempt MRI again tomorrow swallow eval SCDs Comment Review of Relevant I have reviewed the following items vanessa (where applicable) has been applied. Labs Laboratory Tests Test 09/03/21 14:49 09/03/21 17:08 09/04/21 06:20 09/04/21 11:55 White Blood Count 9.8 x10^3/uL (4.0-11.0) Red Blood Count 3.36 x10^6/uL (4.30-5.70) Hemoglobin 9.9 g/dL (13.0-17.5) Hematocrit 30.0 % (39.0-53.0) Mean Corpuscular Volume 89 fL (79-100) Mean Corpuscular Hemoglobin 30 pg (25-35) Mean Corpuscular Hemoglobin Concent 33 g/dL (31-37) Red Cell Distribution Width 14.4 % (11.5-14.5) Platelet Count 472 x10^3/uL (140-400) Neutrophils (%) (Auto) 94 % (31-73) Lymphocytes (%) (Auto) 2 % (24-48) Monocytes (%) (Auto) 4 % (0-9) Eosinophils (%) (Auto) 0 % (0-3) Basophils (%) (Auto) 0 % (0-3) Neutrophils # (Auto) 9.2 x10^3/uL (1.8-7.7) Lymphocytes # (Auto) 0.2 x10^3/uL (1.0-4.8) Monocytes # (Auto) 0.4 x10^3/uL (0.0-1.1) Eosinophils # (Auto) 0.0 x10^3/uL (0.0-0.7) Basophils # (Auto) 0.0 x10^3/uL (0.0-0.2) Segmented Neutrophils % 80 % (35-66) Band Neutrophils % 15 % (0-9) Lymphocytes % 3 % (24-48) Monocytes % 2 % (0-10) Platelet Estimate Increased (ADEQUATE) Sodium Level 142 mmol/L (136-145) Potassium Level 3.7 mmol/L (3.5-5.1) Chloride Level 105 mmol/L (98-107) Carbon Dioxide Level 30 mmol/L (21-32) Anion Gap 7 (6-14) Blood Urea Nitrogen 32 mg/dL (8-26) Creatinine 0.5 mg/dL (0.7-1.3) 0.6 mg/dL (0.7-1.3) Estimated GFR (Cockcroft-Gault) 177.5 143.8 BUN/Creatinine Ratio 64 (6-20) Glucose Level 126 mg/dL (70-99) Lactic Acid Level 1.5 mmol/L (0.4-2.0) Calcium Level 7.9 mg/dL (8.5-10.1) Total Bilirubin 0.1 mg/dL (0.2-1.0) Aspartate Amino Transf (AST/SGOT) 37 U/L (15-37) Alanine Aminotransferase (ALT/SGPT) 26 U/L (16-63) Alkaline Phosphatase 65 U/L (46-116) Lactate Dehydrogenase 253 U/L (85-227) Total Protein 6.1 g/dL (6.4-8.2) Albumin 1.9 g/dL (3.4-5.0) Albumin/Globulin Ratio 0.5 (1.0-1.7) Thyroid Stimulating Hormone (TSH) 2.491 uIU/mL (0.358-3.74) Urine Collection Type Unknown Urine Color Yellow Urine Clarity Hazy Urine pH 6.5 (<5.0-8.0) Urine Specific [place] 1.015 (1.000-1.030) Urine Protein Negative mg/dL (NEG-TRACE) Urine Glucose (UA) Negative mg/dL (NEG) Urine Ketones (Stick) Negative mg/dL (NEG) Urine Blood Small (NEG) Urine Nitrite Positive (NEG) Urine Bilirubin Negative (NEG) Urine Urobilinogen Dipstick 0.2 mg/dL (0.2 mg/dL) Urine Leukocyte Esterase Negative (NEG) Urine RBC 3-5 /HPF (0-2) Urine WBC 1-4 /HPF (0-4) Urine Bacteria Many /HPF (0-FEW) Urine Mucus Mod /LPF Vancomycin Level Trough 12.3 mcg/mL (10.0-20.0) Vancomycin Last Dose Date 09/04/21 Vancomycin Last Dose Time 0500 Test 09/05/21 05:50 White Blood Count 6.4 x10^3/uL (4.0-11.0) Red Blood Count 3.18 x10^6/uL (4.30-5.70) Hemoglobin 9.3 g/dL (13.0-17.5) Hematocrit 28.8 % (39.0-53.0) Mean Corpuscular Volume 91 fL (79-100) Mean Corpuscular Hemoglobin 29 pg (25-35) Mean Corpuscular Hemoglobin Concent 32 g/dL (31-37) Red Cell Distribution Width 15.1 % (11.5-14.5) Platelet Count 405 x10^3/uL (140-400) Neutrophils (%) (Auto) 88 % (31-73) Lymphocytes (%) (Auto) 7 % (24-48) Monocytes (%) (Auto) 5 % (0-9) Eosinophils (%) (Auto) 0 % (0-3) Basophils (%) (Auto) 0 % (0-3) Neutrophils # (Auto) 5.6 x10^3/uL (1.8-7.7) Lymphocytes # (Auto) 0.5 x10^3/uL (1.0-4.8) Monocytes # (Auto) 0.3 x10^3/uL (0.0-1.1) Eosinophils # (Auto) 0.0 x10^3/uL (0.0-0.7) Basophils # (Auto) 0.0 x10^3/uL (0.0-0.2) Sodium Level 140 mmol/L (136-145) Potassium Level 3.5 mmol/L (3.5-5.1) Chloride Level 104 mmol/L (98-107) Carbon Dioxide Level 34 mmol/L (21-32) Anion Gap 2 (6-14) Blood Urea Nitrogen 13 mg/dL (8-26) Creatinine 0.4 mg/dL (0.7-1.3) Estimated GFR (Cockcroft-Gault) 229.6 BUN/Creatinine Ratio 33 (6-20) Glucose Level 92 mg/dL (70-99) Calcium Level 7.4 mg/dL (8.5-10.1) Total Bilirubin 0.1 mg/dL (0.2-1.0) Aspartate Amino Transf (AST/SGOT) 24 U/L (15-37) Alanine Aminotransferase (ALT/SGPT) 24 U/L (16-63) Alkaline Phosphatase 57 U/L (46-116) Creatine Kinase 152 U/L (39-308) Total Protein 5.7 g/dL (6.4-8.2) Albumin 1.5 g/dL (3.4-5.0) Albumin/Globulin Ratio 0.4 (1.0-1.7) Laboratory Tests Test 09/05/21 05:50 White Blood Count 6.4 x10^3/uL (4.0-11.0) Red Blood Count 3.18 x10^6/uL (4.30-5.70) Hemoglobin 9.3 g/dL (13.0-17.5) Hematocrit 28.8 % (39.0-53.0) Mean Corpuscular Volume 91 fL (79-100) Mean Corpuscular Hemoglobin 29 pg (25-35) Mean Corpuscular Hemoglobin Concent 32 g/dL (31-37) Red Cell Distribution Width 15.1 % (11.5-14.5) Platelet Count 405 x10^3/uL (140-400) Neutrophils (%) (Auto) 88 % (31-73) Lymphocytes (%) (Auto) 7 % (24-48) Monocytes (%) (Auto) 5 % (0-9) Eosinophils (%) (Auto) 0 % (0-3) Basophils (%) (Auto) 0 % (0-3) Neutrophils # (Auto) 5.6 x10^3/uL (1.8-7.7) Lymphocytes # (Auto) 0.5 x10^3/uL (1.0-4.8) Monocytes # (Auto) 0.3 x10^3/uL (0.0-1.1) Eosinophils # (Auto) 0.0 x10^3/uL (0.0-0.7) Basophils # (Auto) 0.0 x10^3/uL (0.0-0.2) Sodium Level 140 mmol/L (136-145) Potassium Level 3.5 mmol/L (3.5-5.1) Chloride Level 104 mmol/L (98-107) Carbon Dioxide Level 34 mmol/L (21-32) Anion Gap 2 (6-14) Blood Urea Nitrogen 13 mg/dL (8-26) Creatinine 0.4 mg/dL (0.7-1.3) Estimated GFR (Cockcroft-Gault) 229.6 BUN/Creatinine Ratio 33 (6-20) Glucose Level 92 mg/dL (70-99) Calcium Level 7.4 mg/dL (8.5-10.1) Total Bilirubin 0.1 mg/dL (0.2-1.0) Aspartate Amino Transf (AST/SGOT) 24 U/L (15-37) Alanine Aminotransferase (ALT/SGPT) 24 U/L (16-63) Alkaline Phosphatase 57 U/L (46-116) Creatine Kinase 152 U/L (39-308) Total Protein 5.7 g/dL (6.4-8.2) Albumin 1.5 g/dL (3.4-5.0) Albumin/Globulin Ratio 0.4 (1.0-1.7) Microbiology 09/03/21 Gram Stain - Final, Resulted 09/03/21 Aerobic and Anaerobic Culture - Preliminary, Resulted Staphylococcus Aureus 09/03/21 Blood Culture - Final, Complete 09/03/21 Urine Culture - Preliminary, Resulted Staphylococcus Aureus Medications Current Medications Ceftriaxone Sodium (Rocephin) 1 gm Q24H IVP Last administered on 09/04/21at 09:54; Start 09/04/21 at 10:00; Stop 09/04/21 at 12:33; Status DC Doxycycline Hyclate (Vibra-Tab) 100 mg BID PO Last administered on 09/04/21at 09:54; Start 09/03/21 at 15:30; Stop 09/04/21 at 16:21; Status DC Vancomycin HCl (Vanco Per Pharmacy) 1 each PRN DAILY PRN MC SEE COMMENTS Last administered on 09/03/21 16:01; Start 09/03/21 at 16:00; Stop 09/04/21 at 12:33; Status DC Vancomycin HCl 1 gm/Sodium Chloride 250 ml @ 250 mls/hr Q8H IV Last administered on 09/04/21at 04:55; Start 09/03/21 at 19:00; Stop 09/04/21 at 12: 32; Status DC Vancomycin HCl (Vancomycin Trough Level) 1 each 1X ONCE MC Last administered on 09/04/21at 12:30; Start 09/04/21 at 12:30; Stop 09/04/21 at 12:31; Status DC Norepinephrine Bitartrate 8 mg/ Dextrose 258 ml @ 13.197 mls/ hr CONT PRN IV PER PROTOCOL Last administered on 09/05/21 01:59; Start 09/03/21 at 17:00 Gadoterate Meglumine (Clariscan) 13 ml 1X ONCE IVP Last administered on 09/03/21 19:54; Start 09/03/21 at 19:45; Stop 09/03/21 at 19:46; Status DC Rocuronium [place] (Zemuron) 50 mg STK-MED ONCE .ROUTE ; Start 09/03/21 at 18:38; Stop 09/03/21 at 20:39; Status DC Gelatin (Gelfoam Size 100) 1 each STK-MED ONCE .ROUTE Last administered on 09/03/21 22:35; Start 09/03/21 at 20:43; Stop 09/03/21 at 20:43; Status DC Bupivacaine HCl/ Epinephrine Bitart (Sensorcain-Epi 0.5% Kit) 30 ml STK-MED ONCE .ROUTE Last administered on 09/03/21 22:35; Start 09/03/21 at 20:43; Stop 09/03/21 at 20:43; Status DC Thrombin 20,000 unit STK-MED ONCE TP Last administered on 09/03/21 22:35; Start 09/03/21 at 20:43; Stop 09/03/21 at 20:43; Status DC Remifentanil HCl (Ultiva) 2 mg STK-MED ONCE IV ; Start 09/03/21 at 18:47; Stop 09/03/21 at 20:47; Status DC Propofol 50 ml @ As Directed STK-MED ONCE IV ; Start 09/03/21 at 18:47; Stop 09/03/21 at 20:47; Status DC Ephedrine Sulfate (ePHEDrine PF IN SALINE SYRINGE) 50 mg STK-MED ONCE IV ; Start 09/03/21 at 18:47; Stop 09/03/21 at 20:48; Status DC Lidocaine HCl (Lidocaine Pf 2% Vial) 5 ml STK-MED ONCE .ROUTE ; Start 09/03/21 at 18:47; Stop 09/03/21 at 20:48; Status DC Dexamethasone Sodium Phosphate (Decadron) 4 mg STK-MED ONCE .ROUTE ; Start 09/03/21 at 18:47; Stop 09/03/21 at 20:48; Status DC Phenylephrine HCl ([place]-Synephrine Inj) 10 mg STK-MED ONCE .ROUTE ; Start 09/03/21 at 18:48; Stop 09/03/21 at 20:48; Status DC Desflurane (Suprane) 90 ml STK-MED ONCE IH ; Start 09/03/21 at 18:52; Stop 09/03/21 at 20:52; Status DC Succinylcholine Chloride (Anectine) 200 mg STK-MED ONCE .ROUTE ; Start 09/03/21 at 21:17; Stop 09/03/21 at 21:17; Status DC Glycopyrrolate (Robinul) 1 mg STK-MED ONCE .ROUTE ; Start 09/03/21 at 19:43; Stop 09/03/21 at 21:44; Status DC Propofol 50 ml @ As Directed STK-MED ONCE IV ; Start 09/03/21 at 20:04; Stop 09/03/21 at 22:05; Status DC Ondansetron HCl (Zofran) 4 mg STK-MED ONCE .ROUTE ; Start 09/03/21 at 20:16; Stop 09/03/21 at 22:16; Status DC Sevoflurane (Ultane) 90 ml STK-MED ONCE IH ; Start 09/03/21 at 20:17; Stop 09/03/21 at 22:17; Status DC Thrombin 20,000 unit STK-MED ONCE TP ; Start 09/03/21 at 23:56; Stop 09/03/21 at 23:56; Status DC Fentanyl Citrate (Fentanyl 2ml Vial) 100 mcg STK-MED ONCE .ROUTE ; Start 09/03/21 at 22:32; Stop 09/04/21 at 00:33; Status DC Fentanyl Citrate (Fentanyl 2ml Vial) 25 mcg PRN Q5MIN PRN IVP Acute Pain; Start 09/04/21 at 01:15; Stop 09/05/21 at 01:14; Status DC Fentanyl Citrate (Fentanyl 2ml Vial) 50 mcg PRN Q5MIN PRN IVP Acute Pain; Start 09/04/21 at 01:15; Stop 09/05/21 at 01:14; Status DC Hydromorphone HCl (Dilaudid) 0.2 mg PRN Q10MIN PRN IV MILD PAIN 1-3; Start 09/04/21 at 01:15; Stop 09/05/21 at 01:14; Status DC Hydromorphone HCl (Dilaudid) 0.4 mg PRN Q10MIN PRN IV MODERATE TO SEVERE PAIN; Start 09/04/21 at 01:15; Stop 09/05/21 at 01:14; Status DC Ondansetron HCl (Zofran) 4 mg PRN Q6HRS PRN IVP Nausea, 1st Choice; Start 09/04/21 at 01:15; Stop 09/05/21 at 01:14; Status DC Prochlorperazine Edisylate (Compazine) 5 mg PRN Q6HRS PRN IVP Nausea/Vomiting, 2nd Choice; Start 09/04/21 at 01:15; Stop 09/05/21 at 01:14; Status DC Hydralazine HCl (Apresoline Inj) 5 mg PRN Q15MIN PRN IVP SBP>180; Start 09/04/21 at 01:15; Stop 09/05/21 at 01:14; Status DC Labetalol HCl (Normodyne Iv Push) 5 mg PRN Q15MIN PRN IVP SBP GREATER THAN [180]; Start 09/04/21 at 01:15; Stop 09/05/21 at 01:14; Status DC Ringer's Solution 1,000 ml @ 100 mls/hr Q10H IV ; Start 09/04/21 at 01:15; Stop 09/05/21 at 01:14; Status DC Acetaminophen (Tylenol) 650 mg PRN Q6HRS PRN PO MILD PAIN / TEMP > 100.3'F; Start 09/04/21 at 01:30 Al Hydroxide/Mg Hydroxide (Mylanta Plus Xs) 30 ml PRN Q3HRS PRN PO HEARTBURN / GAS; Start 09/04/21 at 01:30 Calcium Carbonate/ Glycine (Tums) 500 mg PRN Q3HRS PRN PO INDIGESTION; Start 09/04/21 at 01:30 Diphenhydramine HCl (Benadryl) 25 mg PRN Q6HRS PRN PO ITCHING Last administered on 09/04/21at 09:54; Start 09/04/21 at 01:30 Naloxone HCl (Narcan) 0.1 mg PRN Q2MIN PRN IV SEE COMMENTS; Start 09/04/21 at 01:30 Sodium Chloride (Normal Saline Flush) 3 ml QSHIFT PRN IV AFTER MEDS AND BLOOD DRAWS; Start 09/04/21 at 01:30 Acetaminophen/ Hydrocodone Bitart (Lortab 5/325) 1 tab PRN Q4HRS PRN PO MODERATE-SEVERE PAIN; Start 09/04/21 at 01:30 Fentanyl Citrate (Fentanyl 2ml Vial) 50 mcg PRN Q2HR PRN IVP SEVERE PAIN 7-10; Start 09/04/21 at 01:30 Potassium Chloride/Dextrose/ Sod Cl 1,000 ml @ 50 mls/hr Q20H IV Last administered on 09/05/21at 01:48; Start 09/04/21 at 01:30 Albuterol/ Ipratropium (Duoneb) 3 ml RTQID NEB Last administered on 09/05/21at 12:24; Start 09/04/21 at 08:00 Haloperidol Lactate (Haldol Inj) 1 mg 1X ONCE IM Last administered on 09/04/21at 07:23; Start 09/04/21 at 07:15; Stop 09/04/21 at 07:17; Status DC Lorazepam (Ativan Inj) 2 mg PRN Q4HRS PRN IVP ANXIETY / AGITATION Last administered on 09/04/21at 16:31; Start 09/04/21 at 09:15; Stop 09/05/21 at 07:47; Status DC Throat Lozenges (Cepacol Sore Throat Lozenge) 1 amparo PRN Q2HRS PRN PO SORE T HROAT Last administered on 09/04/21at 09:54; Start 09/04/21 at 09:15 Haloperidol (Haldol) 2 mg BID PO Last administered on 09/04/21at 16:16; Start 09/04/21 at 11:00 Sertraline HCl (Zoloft) 25 mg DAILY PO Last administered on 09/04/21at 16:16; Start 09/04/21 at 11:00 Bisacodyl (Dulcolax Supp) 10 mg 1X ONCE DC Last administered on 09/04/21at 11:00; Start 09/04/21 at 11:00; Stop 09/04/21 at 11:01; Status DC Daptomycin 680 mg/ Sodium Chloride 50 ml @ 100 mls/hr Q24H IV Last administered on 09/04/21at 13:46; Start 09/04/21 at 14:00 Cefepime HCl (Maxipime) 2 gm Q8HRS IVP Last administered on 09/05/21at 05:03; Start 09/04/21 at 13:30 Lactobacillus Rhamnosus (Culturelle) 1 cap BID PO ; Start 09/04/21 at 21:00 Lorazepam (Ativan Inj) 1 mg PRN Q4HRS PRN IVP ANXIETY / AGITATION; Start 09/05/21 at 07:45 Bisacodyl (Dulcolax Supp) 10 mg PRN DAILY PRN DC CONSTIPATION; Start 09/05/21 at 07:45 Acetaminophen (Tylenol Supp) 650 mg PRN Q6HRS PRN DC MILD PAIN / TEMP > 100.3'F; Start 09/05/21 at 07:45 Furosemide (Lasix) 20 mg 1X ONCE IVP Last administered on 09/05/21at 08:40; Start 09/05/21 at 08:30; Stop 09/05/21 at 08:31; Status DC Vitals/I & O Vital Sign - Last 24 Hours 09/04/21 09/04/21 09/04/21 09/04/21 14:00 15:00 16:00 16:02 Temp 97.4 97.4 Pulse 58 58 60 Resp 14 16 16 B/P (MAP) 103/67 95/68 93/61 Pulse Ox 100 100 100 100 O2 Delivery Nasal Cannula Nasal Cannula Nasal Cannula Nasal Cannula O2 Flow Rate 2.0 2.0 2.0 2.0 09/04/21 09/04/21 09/04/21 09/04/21 17:00 18:00 19:00 20:00 Temp 96.5 96.5 Pulse 54 65 63 53 Resp 16 16 16 16 B/P (MAP) 91/66 87/63 89/69 98/64 Pulse Ox 99 99 99 99 O2 Delivery Nasal Cannula Nasal Cannula Nasal Cannula Nasal Cannula O2 Flow Rate 2.0 2.0 2.0 2.0 09/04/21 09/04/21 09/04/21 09/04/21 20:00 20:49 21:00 22:00 Pulse 56 58 Resp 16 18 B/P (MAP) 98/68 95/69 Pulse Ox 100 98 98 O2 Delivery Nasal Cannula Nasal Cannula Nasal Cannula Nasal Cannula O2 Flow Rate 10.0 2.0 2.0 2.0 09/04/21 09/05/21 09/05/21 09/05/21 23:00 00:00 01:00 02:00 Temp 96.1 96.1 Pulse 66 61 62 60 Resp 18 16 18 18 B/P (MAP) 102/71 108/76 100/62 100/58 Pulse Ox 98 98 98 98 O2 Delivery Nasal Cannula Nasal Cannula Nasal Cannula Nasal Cannula O2 Flow Rate 2.0 2.0 6.0 6.0 09/05/21 09/05/21 09/05/21 09/05/21 03:00 04:00 05:00 06:00 Pulse 64 64 64 69 Resp 18 18 18 18 B/P (MAP) 92/67 95/67 95/68 106/75 Pulse Ox 98 98 98 98 O2 Delivery Nasal Cannula Nasal Cannula Nasal Cannula Nasal Cannula O2 Flow Rate 6.0 6.0 6.0 6.0 09/05/21 09/05/21 09/05/21 09/05/21 07:00 08:00 08:00 08:31 Temp 97.7 97.7 Pulse 68 68 Resp 18 18 B/P (MAP) 99/64 94/66 Pulse Ox 98 98 100 O2 Delivery Nasal Cannula Nasal Cannula Nasal Cannula Nasal Cannula O2 Flow Rate 6.0 6.0 5.0 2.0 09/05/21 09/05/21 09/05/21 09/05/21 09:00 10:00 11:00 12:00 Temp 97.6 97.6 Pulse 70 70 70 70 Resp 20 20 16 16 B/P (MAP) 97/65 86/54 95/64 101/66 Pulse Ox 93 93 93 94 O2 Delivery Nasal Cannula Nasal Cannula Nasal Cannula Nasal Cannula O2 Flow Rate 7.0 7.0 7.0 7.0 09/05/21 09/05/21 12:32 13:00 Pulse 70 Resp 16 B/P (MAP) 96/61 Pulse Ox 100 91 O2 Delivery Nasal Cannula Nasal Cannula O2 Flow Rate 2.0 7.0 Intake and Output 09/04/21 09/04/21 09/05/21 15:00 23:00 07:00 Intake Total 1207 ml Output Total 1100 ml 750 ml 900 ml Balance -1100 ml 457 ml -900 ml Justifications for Admission Other Justification NIXON SAVAGE MD Sep 05, 2021 14:01
[2021-09-05] MEDS: DAPTOmycin (GENERIC) IVPB 680 MG in IV NORMAL SALINE 50ML 50 ML IV SCH (14:57)
--- NOTE | 2021-09-05 15:36 | RAD ---
Single view chest dated 09/05/2021 3:32 PM: COMPARISON: 09/05/2021 Clinical Indication: Shortness of breath. Findings: Single upright portable exam of the chest was performed. Heart and mediastinal contours are stable. L eft internal jugular catheter and smallbore chest tube on the left, unchanged. There is been interval improvement in left basilar consolidation and pleural effusion. No pneumothorax. Mild patchy opacity at the right base. IMPRESSION: 1. Improving left basilar airspace disease and pleural effusion. 2. Mild patchy airspace disease at the right lung base, unchanged. 3. Stable position of tubes and lines. Electronically signed by: Sotero Barahona MD (09/05/2021 3:33 PM) [id number]
--- NOTE | 2021-09-05 15:45 | NUR ---
1515- Patient in resp distress, using accessory muscles to breath, O2 sat 68% on 10LNC. Placed 100% NRB on patient, O2 sat recovered >92%. RT paged and NTS suctioned patient. Large amount of thick white secretions suctioned from patient. O2 sats now 99% on 100% NRB. Will monitor
[2021-09-06] VITALS (24 sets, daily range): BP systolic 76–116; BP diastolic 38–79
[2021-09-06] MEDS: CEFEPIME HCL IV Push 2 GM VIAL. IVP SCH ×4 (05:25→22:00)
[2021-09-06 06:00] LABS: CALCIUM 7.6 mg/dL (8.5-10.1); CREATININE 0.5 mg/dL (0.7-1.3); GFR 177.5; POTASSIUM 3.6 mmol/L (3.5-5.1)
[2021-09-06 06:57] LABS: BASO % 0 % (0-3); EOS % 0 % (0-3); HEMATOCRIT 28.3 % (39.0-53.0); HEMOGLOBIN 9.2 g/dL (13.0-17.5); LYMPH # 0.5 x10^3/uL (1.0-4.8); LYMPH % 8 % (24-48); MEAN CORPUSCULAR HEMOGLOBIN 29 pg (25-35); MEAN CORPUSCULAR HGB CONC 32 g/dL (31-37); MEAN CORPUSCULAR VOLUME 90 fL (79-100); MONO # 0.4 x10^3/uL (0.0-1.1); MONO % 6 % (0-9); NEUT # 5.8 x10^3/uL (1.8-7.7); NEUT % 86 % (31-73); PLATELET COUNT 322 x10^3/uL (140-400); RED BLOOD COUNT 3.15 x10^6/uL (4.30-5.70); RED CELL DISTRIBUTION WIDTH 15.3 % (11.5-14.5); WHITE BLOOD COUNT 6.7 x10^3/uL (4.0-11.0)
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
[2021-09-06] MEDS: SERTRALINE 25 MG TABLET. PO SCH (09:00)
[2021-09-06] MEDS: HALOPERIDOL 2 MG TABLET. PO SCH ×2 (09:00→21:00)
[2021-09-06] MEDS: LACTOBACILLUS RHAMNOSUS GG 1 CAPSULE. PO SCH ×2 (09:00→21:00)
--- NOTE | 2021-09-06 09:01 | PDOC ---
PULMONARY PROGRESS NOTES DATE: 09/06/21 TIME: 09:01 Subjective Patient is currently on nonrebreather, wishes to eat, cough is weak Vitals Vital Signs Date Time Temp Pulse Resp B/P (MAP) Pulse Ox O2 Delivery O2 Flow Rate FiO2 09/06/21 07:00 14 76/38 99 NonRebreather Mask 15.0 09/06/21 04:00 99.6 99.6 09/06/21 01:00 64 Comments ros as mentioned as above other sys otherwise neg ROS: No Nausea, No Chest Pain, No Abdominal Pain, No Increase Cough General: Alert Lungs: Crackles, Other (dull at bases ) Cardiovascular: S1, S2 Abdomen: Soft, Non-tender Neuro Exam: Alert Extremities: No Edema Skin: Warm Labs Laboratory Tests Test 09/04/21 11:55 09/05/21 05:50 09/06/21 03:30 Vancomycin Level Trough 12.3 mcg/mL (10.0-20.0) Vancomycin Last Dose Date 09/04/21 Vancomycin Last Dose Time 0500 White Blood Count 6.4 x10^3/uL (4.0-11.0) 6.7 x10^3/uL (4.0-11.0) Red Blood Count 3.18 x10^6/uL (4.30-5.70) 3.15 x10^6/uL (4.30-5.70) Hemoglobin 9.3 g/dL (13.0-17.5) 9.2 g/dL (13.0-17.5) Hematocrit 28.8 % (39.0-53.0) 28.3 % (39.0-53.0) Mean Corpuscular Volume 91 fL (79-100) 90 fL (79-100) Mean Corpuscular Hemoglobin 29 pg (25-35) 29 pg (25-35) Mean Corpuscular Hemoglobin Concent 32 g/dL (31-37) 32 g/dL (31-37) Red Cell Distribution Width 15.1 % (11.5-14.5) 15.3 % (11.5-14.5) Platelet Count 405 x10^3/uL (140-400) 322 x10^3/uL (140-400) Neutrophils (%) (Auto) 88 % (31-73) 86 % (31-73) Lymphocytes (%) (Auto) 7 % (24-48) 8 % (24-48) Monocytes (%) (Auto) 5 % (0-9) 6 % (0-9) Eosinophils (%) (Auto) 0 % (0-3) 0 % (0-3) Basophils (%) (Auto) 0 % (0-3) 0 % (0-3) Neutrophils # (Auto) 5.6 x10^3/uL (1.8-7.7) 5.8 x10^3/uL (1.8-7.7) Lymphocytes # (Auto) 0.5 x10^3/uL (1.0-4.8) 0.5 x10^3/uL (1.0-4.8) Monocytes # (Auto) 0.3 x10^3/uL (0.0-1.1) 0.4 x10^3/uL (0.0-1.1) Eosinophils # (Auto) 0.0 x10^3/uL (0.0-0.7) 0.0 x10^3/uL (0.0-0.7) Basophils # (Auto) 0.0 x10^3/uL (0.0-0.2) 0.0 x10^3/uL (0.0-0.2) Sodium Level 140 mmol/L (136-145) 140 mmol/L (136-145) Potassium Level 3.5 mmol/L (3.5-5.1) 3.6 mmol/L (3.5-5.1) Chloride Level 104 mmol/L (98-107) 101 mmol/L (98-107) Carbon Dioxide Level 34 mmol/L (21-32) 38 mmol/L (21-32) Anion Gap 2 (6-14) 1 (6-14) Blood Urea Nitrogen 13 mg/dL (8-26) 10 mg/dL (8-26) Creatinine 0.4 mg/dL (0.7-1.3) 0.5 mg/dL (0.7-1.3) Estimated GFR (Cockcroft-Gault) 229.6 177.5 BUN/Creatinine Ratio 33 (6-20) Glucose Level 92 mg/dL (70-99) 90 mg/dL (70-99) Calcium Level 7.4 mg/dL (8.5-10.1) 7.6 mg/dL (8.5-10.1) Total Bilirubin 0.1 mg/dL (0.2-1.0) Aspartate Amino Transf (AST/SGOT) 24 U/L (15-37) Alanine Aminotransferase (ALT/SGPT) 24 U/L (16-63) Alkaline Phosphatase 57 U/L (46-116) Creatine Kinase 152 U/L (39-308) Total Protein 5.7 g/dL (6.4-8.2) Albumin 1.5 g/dL (3.4-5.0) Albumin/Globulin Ratio 0.4 (1.0-1.7) Laboratory Tests Test 09/06/21 03:30 White Blood Count 6.7 x10^3/uL (4.0-11.0) Red Blood Count 3.15 x10^6/uL (4.30-5.70) Hemoglobin 9.2 g/dL (13.0-17.5) Hematocrit 28.3 % (39.0-53.0) Mean Corpuscular Volume 90 fL (79-100) Mean Corpuscular Hemoglobin 29 pg (25-35) Mean Corpuscular Hemoglobin Concent 32 g/dL (31-37) Red Cell Distribution Width 15.3 % (11.5-14.5) Platelet Count 322 x10^3/uL (140-400) Neutrophils (%) (Auto) 86 % (31-73) Lymphocytes (%) (Auto) 8 % (24-48) Monocytes (%) (Auto) 6 % (0-9) Eosinophils (%) (Auto) 0 % (0-3) Basophils (%) (Auto) 0 % (0-3) Neutrophils # (Auto) 5.8 x10^3/uL (1.8-7.7) Lymphocytes # (Auto) 0.5 x10^3/uL (1.0-4.8) Monocytes # (Auto) 0.4 x10^3/uL (0.0-1.1) Eosinophils # (Auto) 0.0 x10^3/uL (0.0-0.7) Basophils # (Auto) 0.0 x10^3/uL (0.0-0.2) Sodium Level 140 mmol/L (136-145) Potassium Level 3.6 mmol/L (3.5-5.1) Chloride Level 101 mmol/L (98-107) Carbon Dioxide Level 38 mmol/L (21-32) Anion Gap 1 (6-14) Blood Urea Nitrogen 10 mg/dL (8-26) Creatinine 0.5 mg/dL (0.7-1.3) Estimated GFR (Cockcroft-Gault) 177.5 Glucose Level 90 mg/dL (70-99) Calcium Level 7.6 mg/dL (8.5-10.1) Comments Chest x-ray from 09/06 reviewed no significant pneumo Impression . IMPRESSION: 1. Left pneumothorax, status post chest tube placement., Suspect from trauma, presented with a pneumo 2. S/P C6 corpectomy and partial corpectomy C7, fusion, evacuation of epidural abscess POD #2 3. Smoker question vanessa chronic obstructive pulmonary disease. 4. Drug abuse. 5. Anemia. 6. Sepsis/septic shock. 7. Suspect COPD 8. Abnormal x-ray revealing pneumothorax, bilateral effusions, atelectasis. 9. Multifactorial hypoxemic respiratory failure Plan . Updated 09/06 Continue current support with oxygen supplementation as needed BiPAP Antibiotics per ID Chest x-ray reviewed, no air leak seen, place chest tube on waterseal Repeat x-ray in the a.m. Follow neurosurgery input Speech eval CCT 30 minutes PLAN AND RECOMMENDATIONS: 1. Titrate FiO2 to keep O2 saturation 90%. 2. bronchodilator. IS to use multiple times an hr 3. cxr reviewed b lat effusion infilt volume overload vs asp pneumonia/pneumonitis no ptx cont ct increase suction to -40 decrease iv fluid 4. follow Neurosurgery rec 5. abx per id cefepime daptomycin 6. Follow up blood cultures. 7. Monitor respiratory status very closely in ICU. 8. Urine drug screen. neg 9. refusing follow up MRI advised to reconsider 10. I have advised him to stop smoking and using drugs. The findings and recommendations were discussed with KATIANA. GREGORY ROSE MD Sep 06, 2021 09:01
--- NOTE | 2021-09-06 09:21 | RAD ---
XR CHEST 1V History: Worsening hypoxia, left pneumothorax, possible aspiration. Comparison: 09/05/21 Technique: Portable AP chest radiograph. FINDINGS/ IMPRESSION: Tubes and lines: Left internal jugular central venous catheter tip projects at the mid SVC. Left ches t small bore thoracostomy tube. Lungs and pleura: Small bilateral pleural effusions, increased from comparison. Redemonstrated bilate ral lower lobe opacities. Cardiac silhouette and pulmonary vasculature: Unchanged. Osseous structures and other: Rib fracture not well seen on current exam. Electronically signed by: Crow Fagan MD (09/06/2021 9:19 AM) [id number]
[2021-09-06] MEDS: NOREPINEPHRINE VIAL 8 MG in IV DEXTROSE 5% 250 ML IV PRN (09:23)
[2021-09-06] MEDS: IPRATRPIUM/ALBUTEROL 0.5/2.5MG 3 ML NEBU. NEB SCH ×4 (09:31→20:00)
--- NOTE | 2021-09-06 10:27 | NUR ---
SS following for discharge planning. SS reviewed pt chart and discussed with pt RN. Pt was brought to hospital by [facility] on 09/03/2021. Pt was issued medical furlough while in the hospital but is to be remanded back into custody upon discharge from the hospital. SS contacted [facility] and verified discharge plans. SS was notified that the plan at this time is to remand pt back to police custody at discharge. Pt is currently requiring non-rebreather. Pt on IV Cefepime and IV Daptomycin. TAN ordered. Per physician and staff pharmacist hospital, it is probable that pt will be W/C bound at discharge. SS spoke with nuclear medical tech at the [facility] and provided update. SS will continue to follow for discharge planning.
[2021-09-06] MEDS: POTASSIUM CL 20MEQ D5-0.45NACL 1,000 ML IV SCH (11:24)
--- NOTE | 2021-09-06 12:40 | PDOC ---
Infectious Disease Note Subjective Subjective Pt awake and alert has cough on O2 by ROS ROS no n/v/d/sob Vital Sign Vital Signs Vital Signs Date Time Temp Pulse Resp B/P (MAP) Pulse Ox O2 Delivery O2 Flow Rate FiO2 09/06/21 11:00 12 116/71 97 NonRebreather Mask 15.0 09/06/21 08:00 98.1 98.1 09/06/21 01:00 64 Physical Exam PHYSICAL EXAM GENERAL: awake alert male in no acute distress, on O2 by HEENT: Normocephalic, atraumatic. Anicteric. Pupils equal, reactive. Poor dentition. NECK: No JVD, no lymphadenopathy. Anterior cervical dressing present, intact, not taken down. LUNGS: Left chest tube, decreased breath sounds, otherwise no accessory muscle use. Clear on the right side. ABDOMEN: Soft, nontender, nondistended. Bowel sounds present. GENITOURINARY: Kuo in place. EXTREMITIES: No edema, no cyanosis. DERMATOLOGIC: Warm, dry, no generalized rash. NEUROLOGIC: alert awake able to move both upper ext, could not move lower ext PSYCHIATRIC: calm cooperative Central line RT Neck clean Placed 09/03 Labs Lab Laboratory Tests Test 09/06/21 03:30 White Blood Count 6.7 x10^3/uL (4.0-11.0) Red Blood Count 3.15 x10^6/uL (4.30-5.70) Hemoglobin 9.2 g/dL (13.0-17.5) Hematocrit 28.3 % (39.0-53.0) Mean Corpuscular Volume 90 fL (79-100) Mean Corpuscular Hemoglobin 29 pg (25-35) Mean Corpuscular Hemoglobin Concent 32 g/dL (31-37) Red Cell Distribution Width 15.3 % (11.5-14.5) Platelet Count 322 x10^3/uL (140-400) Neutrophils (%) (Auto) 86 % (31-73) Lymphocytes (%) (Auto) 8 % (24-48) Monocytes (%) (Auto) 6 % (0-9) Eosinophils (%) (Auto) 0 % (0-3) Basophils (%) (Auto) 0 % (0-3) Neutrophils # (Auto) 5.8 x10^3/uL (1.8-7.7) Lymphocytes # (Auto) 0.5 x10^3/uL (1.0-4.8) Monocytes # (Auto) 0.4 x10^3/uL (0.0-1.1) Eosinophils # (Auto) 0.0 x10^3/uL (0.0-0.7) Basophils # (Auto) 0.0 x10^3/uL (0.0-0.2) Sodium Level 140 mmol/L (136-145) Potassium Level 3.6 mmol/L (3.5-5.1) Chloride Level 101 mmol/L (98-107) Carbon Dioxide Level 38 mmol/L (21-32) Anion Gap 1 (6-14) Blood Urea Nitrogen 10 mg/dL (8-26) Creatinine 0.5 mg/dL (0.7-1.3) Estimated GFR (Cockcroft-Gault) 177.5 Glucose Level 90 mg/dL (70-99) Calcium Level 7.6 mg/dL (8.5-10.1) Micro Microbiology 09/05/21 Blood Culture - Preliminary, Resulted NO GROWTH AFTER 1 DAY 09/03/21 Gram Stain - Final, Resulted 09/03/21 Aerobic and Anaerobic Culture - Preliminary, Resulted Staphylococcus Aureus 09/03/21 Urine Culture - Final, Complete Staphylococcus Aureus Objective Assessment 1 Cervical epidural abscess at C6-C7 with severe cervical myelopathy. 1. Status post anterior cervical decompression with corpectomy of C6, evacuation of epidural abscess, placement of interbody fusion cage and anterior plate on 09/04/2021. Cultures positive for staph aureus 3 Staphylococcus aureus bacteremia at [facility] on 09/03/2021 and here at [facility]. 4. Left pneumothorax, status post CDS. 5 polysubstance dependence. 6. Schizophrenia, bipolar disorder, anxiety. 7 chronic low back pain. 8 hypertension. 9. Protein-calorie malnutrition. 10 anemia. 11. PCN allergy with hives, does not recall taking amoxicillin or augmentin Plan Plan of Care Continue daptomycin and cefepime. Follow-up BC staph aureus Follow repeat blood culture here Follow-up blood culture from [place] Maintain aspiration precautions Monitor labs and cultures Sputum for cult Continue supportive care Wound care as directed Critically ill Prognosis is guarded. Discussed with LOGAN VICENTE MD Sep 06, 2021 12:40
[2021-09-06 13:10] LABS: BASE EXCESS ABG 13 mmol/L (-3-3); HCO3 ABG 37 mmol/L (21-28); PCO2 ABG 46 mmHg (35-46); PO2 ABG 60 mmHg (75-108); SAT O2 ABG 92 % (92-99)
[2021-09-06 13:13] LABS: FIO2 ABG 100
--- NOTE | 2021-09-06 15:29 | PDOC ---
PROGRESS NOTES Date of Service DATE: 09/06/21 TIME: 15:20 Subjective Subjective patient seen at 0930 POD #3 S/P C6 corpectomy and partial corpectomy C7, fusion, evacuation of epidural abscess still refusing follow up MRI denies pain, hungry remains NPO Objective Objective Vital Signs Date Time Temp Pulse Resp B/P (MAP) Pulse Ox O2 Delivery O2 Flow Rate FiO2 09/06/21 13:00 77 16 90/53 90 NonRebreather Mask 15.0 09/06/21 12:00 98.4 98.4 Intake and Output 09/06/21 07:00 Intake Total 1434.3 ml Output Total 5070 ml Balance -3635.7 ml IV Total 1434.3 ml Output Urine Total 5070 ml Chest Tube Drainage Total 0 ml Physical Exam General: Alert, Other (W) Neuro: Normal speech, Other (remains weak, exam essentailly unchanged, he has sensation in LE, not moving lower extemities) Skin: Other (dressing C,D,I, flat) Plan Plan of Care attempt MRI again tomorrow swallow eval SCDs Comment Review of Relevant I have reviewed the following items vanessa (where applicable) has been applied. Labs Laboratory Tests Test 09/05/21 05:50 09/06/21 03:30 09/06/21 13:00 White Blood Count 6.4 x10^3/uL (4.0-11.0) 6.7 x10^3/uL (4.0-11.0) Red Blood Count 3.18 x10^6/uL (4.30-5.70) 3.15 x10^6/uL (4.30-5.70) Hemoglobin 9.3 g/dL (13.0-17.5) 9.2 g/dL (13.0-17.5) Hematocrit 28.8 % (39.0-53.0) 28.3 % (39.0-53.0) Mean Corpuscular Volume 91 fL (79-100) 90 fL (79-100) Mean Corpuscular Hemoglobin 29 pg (25-35) 29 pg (25-35) Mean Corpuscular Hemoglobin Concent 32 g/dL (31-37) 32 g/dL (31-37) Red Cell Distribution Width 15.1 % (11.5-14.5) 15.3 % (11.5-14.5) Platelet Count 405 x10^3/uL (140-400) 322 x10^3/uL (140-400) Neutrophils (%) (Auto) 88 % (31-73) 86 % (31-73) Lymphocytes (%) (Auto) 7 % (24-48) 8 % (24-48) Monocytes (%) (Auto) 5 % (0-9) 6 % (0-9) Eosinophils (%) (Auto) 0 % (0-3) 0 % (0-3) Basophils (%) (Auto) 0 % (0-3) 0 % (0-3) Neutrophils # (Auto) 5.6 x10^3/uL (1.8-7.7) 5.8 x10^3/uL (1.8-7.7) Lymphocytes # (Auto) 0.5 x10^3/uL (1.0-4.8) 0.5 x10^3/uL (1.0-4.8) Monocytes # (Auto) 0.3 x10^3/uL (0.0-1.1) 0.4 x10^3/uL (0.0-1.1) Eosinophils # (Auto) 0.0 x10^3/uL (0.0-0.7) 0.0 x10^3/uL (0.0-0.7) Basophils # (Auto) 0.0 x10^3/uL (0.0-0.2) 0.0 x10^3/uL (0.0-0.2) Sodium Level 140 mmol/L (136-145) 140 mmol/L (136-145) Potassium Level 3.5 mmol/L (3.5-5.1) 3.6 mmol/L (3.5-5.1) Chloride Level 104 mmol/L (98-107) 101 mmol/L (98-107) Carbon Dioxide Level 34 mmol/L (21-32) 38 mmol/L (21-32) Anion Gap 2 (6-14) 1 (6-14) Blood Urea Nitrogen 13 mg/dL (8-26) 10 mg/dL (8-26) Creatinine 0.4 mg/dL (0.7-1.3) 0.5 mg/dL (0.7-1.3) Estimated GFR (Cockcroft-Gault) 229.6 177.5 BUN/Creatinine Ratio 33 (6-20) Glucose Level 92 mg/dL (70-99) 90 mg/dL (70-99) Calcium Level 7.4 mg/dL (8.5-10.1) 7.6 mg/dL (8.5-10.1) Total Bilirubin 0.1 mg/dL (0.2-1.0) Aspartate Amino Transf (AST/SGOT) 24 U/L (15-37) Alanine Aminotransferase (ALT/SGPT) 24 U/L (16-63) Alkaline Phosphatase 57 U/L (46-116) Creatine Kinase 152 U/L (39-308) Total Protein 5.7 g/dL (6.4-8.2) Albumin 1.5 g/dL (3.4-5.0) Albumin/Globulin Ratio 0.4 (1.0-1.7) O2 Saturation 92 % (92-99) Arterial Blood pH 7.53 (7.35-7.45) Arterial Blood pCO2 at Patient Temp 46 mmHg (35-46) Arterial Blood pO2 at Patient Temp 60 mmHg (75-108) Arterial Blood HCO3 37 mmol/L (21-28) Arterial Blood Base Excess 13 mmol/L (-3-3) FiO2 100 Laboratory Tests Test 09/06/21 03:30 09/06/21 13:00 White Blood Count 6.7 x10^3/uL (4.0-11.0) Red Blood Count 3.15 x10^6/uL (4.30-5.70) Hemoglobin 9.2 g/dL (13.0-17.5) Hematocrit 28.3 % (39.0-53.0) Mean Corpuscular Volume 90 fL (79-100) Mean Corpuscular Hemoglobin 29 pg (25-35) Mean Corpuscular Hemoglobin Concent 32 g/dL (31-37) Red Cell Distribution Width 15.3 % (11.5-14.5) Platelet Count 322 x10^3/uL (140-400) Neutrophils (%) (Auto) 86 % (31-73) Lymphocytes (%) (Auto) 8 % (24-48) Monocytes (%) (Auto) 6 % (0-9) Eosinophils (%) (Auto) 0 % (0-3) Basophils (%) (Auto) 0 % (0-3) Neutrophils # (Auto) 5.8 x10^3/uL (1.8-7.7) Lymphocytes # (Auto) 0.5 x10^3/uL (1.0-4.8) Monocytes # (Auto) 0.4 x10^3/uL (0.0-1.1) Eosinophils # (Auto) 0.0 x10^3/uL (0.0-0.7) Basophils # (Auto) 0.0 x10^3/uL (0.0-0.2) Sodium Level 140 mmol/L (136-145) Potassium Level 3.6 mmol/L (3.5-5.1) Chloride Level 101 mmol/L (98-107) Carbon Dioxide Level 38 mmol/L (21-32) Anion Gap 1 (6-14) Blood Urea Nitrogen 10 mg/dL (8-26) Creatinine 0.5 mg/dL (0.7-1.3) Estimated GFR (Cockcroft-Gault) 177.5 Glucose Level 90 mg/dL (70-99) Calcium Level 7.6 mg/dL (8.5-10.1) O2 Saturation 92 % (92-99) Arterial Blood pH 7.53 (7.35-7.45) Arterial Blood pCO2 at Patient Temp 46 mmHg (35-46) Arterial Blood pO2 at Patient Temp 60 mmHg (75-108) Arterial Blood HCO3 37 mmol/L (21-28) Arterial Blood Base Excess 13 mmol/L (-3-3) FiO2 100 Microbiology 09/05/21 Blood Culture - Preliminary, Resulted NO GROWTH AFTER 1 DAY 09/03/21 Gram Stain - Final, Resulted 09/03/21 Aerobic and Anaerobic Culture - Preliminary, Resulted Staphylococcus Aureus 09/03/21 Urine Culture - Final, Complete Staphylococcus Aureus Medications Current Medications Ceftriaxone Sodium (Rocephin) 1 gm Q24H IVP Last administered on 09/04/21at 09:54; Start 09/04/21 at 10:00; Stop 09/04/21 at 12:33; Status DC Doxycycline Hyclate (Vibra-Tab) 100 mg BID PO Last administered on 09/04/21at 09:54; Start 09/03/21 at 15:30; Stop 09/04/21 at 16:21; Status DC Vancomycin HCl (Vanco Per Pharmacy) 1 each PRN DAILY PRN MC SEE COMMENTS Last administered on 09/03/21at 16:01; Start 09/03/21 at 16:00; Stop 09/04/21 at 12:33; Status DC Vancomycin HCl 1 gm/Sodium Chloride 250 ml @ 250 mls/hr Q8H IV Last administered on 09/04/21at 04:55; Start 09/03/21 at 19:00; Stop 09/04/21 at 12:32; Status DC Vancomycin HCl (Vancomycin Trough Level) 1 each 1X ONCE MC Last administered on 09/04/21at 12:30; Start 09/04/21 at 12:30; Stop 09/04/21 at 12:31; Status DC Norepinephrine Bitartrate 8 mg/ Dextrose 258 ml @ 13.197 mls/ hr CONT PRN IV PER PROTOCOL Last administered on 09/06/21at 09:23; Start 09/03/21 at 17:00 Gadoterate Meglumine (Clariscan) 13 ml 1X ONCE IVP Last administered on 09/03/21at 19:54; Start 09/03/21 at 19:45; Stop 09/03/21 at 19:46; Status DC Rocuronium [place] (Zemuron) 50 mg STK-MED ONCE .ROUTE ; Start 09/03/21 at 18:38; Stop 09/03/21 at 20:39; Status DC Gelatin (Gelfoam Size 100) 1 each STK-MED ONCE .ROUTE Last administered on 09/03/21at 22:35; Start 09/03/21 at 20:43; Stop 09/03/21 at 20:43; Status DC Bupivacaine HCl/ Epinephrine Bitart (Sensorcain-Epi 0.5% Kit) 30 ml STK-MED ONCE .ROUTE Last administered on 09/03/21at 22:35; Start 09/03/21 at 20:43; Stop 09/03/21 at 20:43; Status DC Thrombin 20,000 unit STK-MED ONCE TP Last administered on 09/03/21at 22:35; S tart 09/03/21 at 20:43; Stop 09/03/21 at 20:43; Status DC Remifentanil HCl (Ultiva) 2 mg STK-MED ONCE IV ; Start 09/03/21 at 18:47; Stop 09/03/21 at 20:47; Status DC Propofol 50 ml @ As Directed STK-MED ONCE IV ; Start 09/03/21 at 18:47; Stop 09/03/21 at 20:47; Status DC Ephedrine Sulfate (ePHEDrine PF IN SALINE SYRINGE) 50 mg STK-MED ONCE IV ; Start 09/03/21 at 18:47; Stop 09/03/21 at 20:48; Status DC Lidocaine HCl (Lidocaine Pf 2% Vial) 5 ml STK-MED ONCE .ROUTE ; Start 09/03/21 at 18:47; Stop 09/03/21 at 20:48; Status DC Dexamethasone Sodium Phosphate (Decadron) 4 mg STK-MED ONCE .ROUTE ; Start 09/03/21 at 18:47; Stop 09/03/21 at 20:48; Status DC Phenylephrine HCl (Jerome-Synephrine Inj) 10 mg STK-MED ONCE .ROUTE ; Start 09/03/21 at 18:48; Stop 09/03/21 at 20:48; Status DC Desflurane (Suprane) 90 ml STK-MED ONCE IH ; Start 09/03/21 at 18:52; Stop 09/03/21 at 20:52; Status DC Succinylcholine Chloride (Anectine) 200 mg STK-MED ONCE .ROUTE ; Start 09/03/21 at 21:17; Stop 09/03/21 at 21:17; Status DC Glycopyrrolate (Robinul) 1 mg STK-MED ONCE .ROUTE ; Start 09/03/21 at 19:43; Stop 09/03/21 at 21:44; Status DC Propofol 50 ml @ As Directed STK-MED ONCE IV ; Start 09/03/21 at 20:04; Stop 09/03/21 at 22:05; Status DC Ondansetron HCl (Zofran) 4 mg STK-MED ONCE .ROUTE ; Start 09/03/21 at 20:16; Stop 09/03/21 at 22:16; Status DC Sevoflurane (Ultane) 90 ml STK-MED ONCE IH ; Start 09/03/21 at 20:17; Stop 09/03/21 at 22:17; Status DC Thrombin 20,000 unit STK-MED ONCE TP ; Start 09/03/21 at 23:56; Stop 09/03/21 at 23:56; Status DC Fentanyl Citrate (Fentanyl 2ml Vial) 100 mcg STK-MED ONCE .ROUTE ; Start 09/03/21 at 22:32; Stop 09/04/21 at 00:33; Status DC Fentanyl Citrate (Fentanyl 2ml Vial) 25 mcg PRN Q5MIN PRN IVP Acute Pain; Start 09/04/21 at 01:15; Stop 09/05/21 at 01:14; Status DC Fentanyl Citrate (Fentanyl 2ml Vial) 50 mcg PRN Q5MIN PRN IVP Acute Pain; Start 09/04/21 at 01:15; Stop 09/05/21 at 01:14; Status DC Hydromorphone HCl (Dilaudid) 0.2 mg PRN Q10MIN PRN IV MILD PAIN 1-3; Start 09/04/21 at 01:15; Stop 09/05/21 at 01:14; Status DC Hydromorphone HCl (Dilaudid) 0.4 mg PRN Q10MIN PRN IV MODERATE TO SEVERE PAIN; Start 09/04/21 at 01:15; Stop 09/05/21 at 01:14; Status DC Ondansetron HCl (Zofran) 4 mg PRN Q6HRS PRN IVP Nausea, 1st Choice; Start 09/04/21 at 01:15; Stop 09/05/21 at 01:14; Status DC Prochlorperazine Edisylate (Compazine) 5 mg PRN Q6HRS PRN IVP Nausea/Vomiting, 2nd Choice; Start 09/04/21 at 01:15; Stop 09/05/21 at 01:14; Status DC Hydralazine HCl (Apresoline Inj) 5 mg PRN Q15MIN PRN IVP SBP>180; Start 09/04/21 at 01:15; Stop 09/05/21 at 01:14; Status DC Labetalol HCl (Normodyne Iv Push) 5 mg PRN Q15MIN PRN IVP SBP GREATER THAN [180]; Start 09/04/21 at 01:15; Stop 09/05/21 at 01:14; Status DC Ringer's Solution 1,000 ml @ 100 mls/hr Q10H IV ; Start 09/04/21 at 01:15; Stop 09/05/21 at 01:14; Status DC Acetaminophen (Tylenol) 650 mg PRN Q6HRS PRN PO MILD PAIN / TEMP > 100.3'F; Start 09/04/21 at 01:30 Al Hydroxide/Mg Hydroxide (Mylanta Plus Xs) 30 ml PRN Q3HRS PRN PO HEARTBURN / GAS; Start 09/04/21 at 01:30 Calcium Carbonate/ Glycine (Tums) 500 mg PRN Q3HRS PRN PO INDIGESTION; Start 09/04/21 at 01:30 Diphenhydramine HCl (Benadryl) 25 mg PRN Q6HRS PRN PO ITCHING Last administered on 09/04/21at 09:54; Start 09/04/21 at 01:30 Naloxone HCl (Narcan) 0.1 mg PRN Q2MIN PRN IV SEE COMMENTS; Start 09/04/21 at 01:30 Sodium Chloride (Normal Saline Flush) 3 ml QSHIFT PRN IV AFTER MEDS AND BLOOD DRAWS; Start 09/04/21 at 01:30 Acetaminophen/ Hydrocodone Bitart (Lortab 5/325) 1 tab PRN Q4HRS PRN PO MO DERATE-SEVERE PAIN; Start 09/04/21 at 01:30 Fentanyl Citrate (Fentanyl 2ml Vial) 50 mcg PRN Q2HR PRN IVP SEVERE PAIN 7-10; Start 09/04/21 at 01:30 Potassium Chloride/Dextrose/ Sod Cl 1,000 ml @ 50 mls/hr Q20H IV Last administered on 09/06/21at 11:24; Start 09/04/21 at 01:30 Albuterol/ Ipratropium (Duoneb) 3 ml RTQID NEB Last administered on 09/06/21at 12:33; Start 09/04/21 at 08:00 Haloperidol Lactate (Haldol Inj) 1 mg 1X ONCE IM Last administered on 09/04/21at 07:23; Start 09/04/21 at 07:15; Stop 09/04/21 at 07:17; Status DC Lorazepam (Ativan Inj) 2 mg PRN Q4HRS PRN IVP ANXIETY / AGITATION Last administered on 09/04/21at 16:31; Start 09/04/21 at 09:15; Stop 09/05/21 at 07:47; Status DC Throat Lozenges (Cepacol Sore Throat Lozenge) 1 amparo PRN Q2HRS PRN PO SORE THROAT Last administered on 09/04/21at 09:54; Start 09/04/21 at 09:15 Haloperidol (Haldol) 2 mg BID PO Last administered on 09/04/21at 16:16; Start 09/04/21 at 11:00 Sertraline HCl (Zoloft) 25 mg DAILY PO Last administered on 09/04/21at 16:16; Start 09/04/21 at 11:00 Bisacodyl (Dulcolax Supp) 10 mg 1X ONCE [place] Last administered on 09/04/21at 11:00; Start 09/04/21 at 11:00; Stop 09/04/21 at 11:01; Status DC Daptomycin 680 mg/ Sodium Chloride 50 ml @ 100 mls/hr Q24H IV Last administered on 09/05/21at 14:57; Start 09/04/21 at 14:00 Cefepime HCl (Maxipime) 2 gm Q8HRS IVP Last administered on 09/05/21at 22:45; Start 09/04/21 at 13:30 Lactobacillus Rhamnosus (Culturelle) 1 cap BID PO ; Start 09/04/21 at 21:00 Lorazepam (Ativan Inj) 1 mg PRN Q4HRS PRN IVP ANXIETY / AGITATION; Start 09/05/21 at 07:45 Bisacodyl (Dulcolax Supp) 10 mg PRN DAILY PRN [place] CONSTIPATION; Start 09/05/21 at 07:45 Acetaminophen (Tylenol Supp) 650 mg PRN Q6HRS PRN [place] MILD PAIN / TEMP > 100.3'F; Start 09/05/21 at 07:45 Furosemide (Lasix) 20 mg 1X ONCE IVP Last administered on 09/05/21at 08:40; Start 09/05/21 at 08:30; Stop 09/05/21 at 08:31; Status DC Vitals/I & O Vital Sign - Last 24 Hours 09/05/21 09/05/21 09/05/21 09/05/21 16:00 16:08 17:00 18:00 Pulse 75 82 73 Resp 16 16 16 B/P (MAP) 91/54 86/52 96/56 Pulse Ox 97 97 95 98 O2 Delivery Nasal Cannula High Flow Nasal Cannula Nasal Cannula Nasal Cannula O2 Flow Rate 7.0 7.0 6.0 6.0 09/05/21 09/05/21 09/05/21 09/05/21 19:00 20:00 20:00 21:00 Temp 99.8 99.8 Pulse 72 66 68 Resp 18 19 18 B/P (MAP) 101/60 96/60 99/62 Pulse Ox 98 99 99 O2 Delivery Nasal Cannula Nasal Cannula Nasal Cannula Nasal Cannula O2 Flow Rate 6.0 6.0 5.0 6.0 09/05/21 09/05/21 09/05/21 09/06/21 21:43 22:00 23:00 00:00 Temp 99.0 99.0 Pulse 86 78 Resp 16 18 B/P (MAP) 92/52 103/76 Pulse Ox 99 92 98 O2 Delivery High Flow Nasal Cannula Nasal Cannula Nasal Cannula O2 Flow Rate 6.0 6.0 6.0 09/06/21 09/06/21 09/06/21 09/06/21 00:00 01:00 02:00 03:00 Pulse 68 64 Resp 14 13 12 14 B/P (MAP) 105/61 105/73 114/72 107/71 Pulse Ox 98 99 99 99 O2 Delivery Nasal Cannula Nasal Cannula Nasal Cannula Nasal Cannula O2 Flow Rate 6.0 6.0 6.0 6.0 09/06/21 09/06/21 09/06/21 09/06/21 04:00 05:00 06:00 07:00 Temp 99.6 99.6 Resp 11 11 11 14 B/P (MAP) 116/73 85/48 84/51 76/38 Pulse Ox 100 98 98 99 O2 Delivery Nasal Cannula Nasal Cannula Nasal Cannula NonRebreather Mask O2 Flow Rate 5.0 5.0 5.0 15.0 09/06/21 09/06/21 09/06/21 09/06/21 08:00 08:00 09:00 09:31 Temp 98.1 98.1 Resp 14 14 B/P (MAP) 103/61 83/58 Pulse Ox 91 91 92 O2 Delivery Non-Rebreather NonRebreather Mask NonRebreather Mask NonRebreather Mask O2 Flow Rate 15.0 15.0 15.0 15.0 09/06/21 09/06/21 09/06/2109/06/22 10:00 10:00 11:00 12:00 Temp 98.4 98.4 Pulse 86 Resp 16 12 12 16 B/P (MAP) 95/61 105/68 116/71 103/60 Pulse Ox 94 94 97 91 O2 Delivery NonRebreather Mask NonRebreather Mask NonRebreather Mask NonRebreather Mask O2 Flow Rate 15.0 15.0 15.0 15.0 09/06/21 09/06/21 12:34 13:00 Pulse 77 Resp 16 B/P (MAP) 90/53 Pulse Ox 91 90 O2 Delivery NonRebreather Mask NonRebreather Mask O2 Flow Rate 15.0 15.0 Intake and Output 09/05/21 09/05/21 09/06/21 15:00 23:00 07:00 Intake Total 579.8 ml 854.5 ml Output Total 1735 ml 1200 ml 2135 ml Balance -1735 ml -620.2 ml -1280.5 ml Justifications for Admission Other Justification CLAIRE KAM APRN Sep 06, 2021 15:29
[2021-09-06] MEDS: DAPTOmycin (GENERIC) IVPB 680 MG in IV NORMAL SALINE 50ML 50 ML IV SCH (15:59)
[2021-09-07] VITALS (24 sets, daily range): BP systolic 61–133; BP diastolic 52–84
[2021-09-07] MEDS: POTASSIUM CL 20MEQ D5-0.45NACL 1,000 ML IV SCH ×2 (04:28→21:16)
--- NOTE | 2021-09-07 05:49 | RAD ---
EXAM: XR CHEST 1V 09/07/2021 4:11 AM CLINICAL INDICATION: Pneumothorax COMPARISON: Chest radiograph 08/29/2021 TECHNIQUE: AP upright view of the chest FINDINGS: A left basilar pleural catheter is unchanged. A left IJ central venous catheter is unchang ed with tip over the superior the heart is normal in size. Lungs are adequately expanded. Small bilat eral pleural effusions are unchanged. Left pulmonary opacities have mildly increased in the perihilar region. No pneumothorax. IMPRESSION: 1. Unchanged lines and tubes. 2. Unchanged small pleural effusions. 3. Left pulmonary opacities, mildly increased in the perihilar region. Electronically signed by: Tiff Dunbar MD (09/07/2021 5:47 AM) MARIEL
[2021-09-07] MEDS: CEFEPIME HCL IV Push 2 GM VIAL. IVP SCH ×3 (06:00→20:18)
[2021-09-07 06:12] LABS: CREATININE 0.4 mg/dL (0.7-1.3); GFR 229.6; POTASSIUM 3.6 mmol/L (3.5-5.1)
[2021-09-07] MEDS: IPRATRPIUM/ALBUTEROL 0.5/2.5MG 3 ML NEBU. NEB SCH ×4 (07:37→20:00)
[2021-09-07] MEDS: HALOPERIDOL 2 MG TABLET. PO SCH ×2 (08:35→20:02)
[2021-09-07] MEDS: LACTOBACILLUS RHAMNOSUS GG 1 CAPSULE. PO SCH ×2 (08:35→20:02)
[2021-09-07] MEDS: SERTRALINE 25 MG TABLET. PO SCH (08:36)
--- NOTE | 2021-09-07 10:25 | PDOC ---
PULMONARY PROGRESS NOTES DATE: 09/07/21 TIME: 10:19 Subjective Patient currently on 5L NC with O2 saturation of 94%, patient wishes to eat, speech therapy consulted. Chest x-ray reviewed and Chest tube to be clamped; new CXR ordered for tomorrow. Vitals Vital Signs Date Time Temp Pulse Resp B/P (MAP) Pulse Ox O2 Delivery O2 Flow Rate FiO2 09/07/21 08:00 98.5 67 14 61/67 88 Nasal Cannula 5.0 98.5 Comments ros as mentioned as above other sys otherwise neg ROS: No Nausea, No Chest Pain, No Abdominal Pain, No Increase Cough General: Alert Lungs: Crackles, Other (dull at bases ) Cardiovascular: S1, S2 Abdomen: Soft, Non-tender Neuro Exam: Alert Extremities: No Edema Skin: Warm Labs Laboratory Tests Test 09/06/21 03:30 09/06/21 13:00 09/07/21 05:38 White Blood Count 6.7 x10^3/uL (4.0-11.0) Red Blood Count 3.15 x10^6/uL (4.30-5.70) Hemoglobin 9.2 g/dL (13.0-17.5) Hematocrit 28.3 % (39.0-53.0) Mean Corpuscular Volume 90 fL (79-100) Mean Corpuscular Hemoglobin 29 pg (25-35) Mean Corpuscular Hemoglobin Concent 32 g/dL (31-37) Red Cell Distribution Width 15.3 % (11.5-14.5) Platelet Count 322 x10^3/uL (140-400) Neutrophils (%) (Auto) 86 % (31-73) Lymphocytes (%) (Auto) 8 % (24-48) Monocytes (%) (Auto) 6 % (0-9) Eosinophils (%) (Auto) 0 % (0-3) Basophils (%) (Auto) 0 % (0-3) Neutrophils # (Auto) 5.8 x10^3/uL (1.8-7.7) Lymphocytes # (Auto) 0.5 x10^3/uL (1.0-4.8) Monocytes # (Auto) 0.4 x10^3/uL (0.0-1.1) Eosinophils # (Auto) 0.0 x10^3/uL (0.0-0.7) Basophils # (Auto) 0.0 x10^3/uL (0.0-0.2) Sodium Level 140 mmol/L (136-145) 138 mmol/L (136-145) Potassium Level 3.6 mmol/L (3.5-5.1) 3.6 mmol/L (3.5-5.1) Chloride Level 101 mmol/L (98-107) 99 mmol/L (98-107) Carbon Dioxide Level 38 mmol/L (21-32) 39 mmol/L (21-32) Anion Gap 1 (6-14) 0 (6-14) Blood Urea Nitrogen 10 mg/dL (8-26) 12 mg/dL (8-26) Creatinine 0.5 mg/dL (0.7-1.3) 0.4 mg/dL (0.7-1.3) Estimated GFR (Cockcroft-Gault) 177.5 229.6 Glucose Level 90 mg/dL (70-99) 123 mg/dL (70-99) Calcium Level 7.6 mg/dL (8.5-10.1) 8.0 mg/dL (8.5-10.1) O2 Saturation 92 % (92-99) Arterial Blood pH 7.53 (7.35-7.45) Arterial Blood pCO2 at Patient Temp 46 mmHg (35-46) Arterial Blood pO2 at Patient Temp 60 mmHg (75-108) Arterial Blood HCO3 37 mmol/L (21-28) Arterial Blood Base Excess 13 mmol/L (-3-3) FiO2 100 Laboratory Tests Test 09/06/21 13:00 09/07/21 05:38 O2 Saturation 92 % (92-99) Arterial Blood pH 7.53 (7.35-7.45) Arterial Blood pCO2 at Patient Temp 46 mmHg (35-46) Arterial Blood pO2 at Patient Temp 60 mmHg (75-108) Arterial Blood HCO3 37 mmol/L (21-28) Arterial Blood Base Excess 13 mmol/L (-3-3) FiO2 100 Sodium Level 138 mmol/L (136-145) Potassium Level 3.6 mmol/L (3.5-5.1) Chloride Level 99 mmol/L (98-107) Carbon Dioxide Level 39 mmol/L (21-32) Anion Gap 0 (6-14) Blood Urea Nitrogen 12 mg/dL (8-26) Creatinine 0.4 mg/dL (0.7-1.3) Estimated GFR (Cockcroft-Gault) 229.6 Glucose Level 123 mg/dL (70-99) Calcium Level 8.0 mg/dL (8.5-10.1) Comments Chest x-ray from 09/06 reviewed no significant pneumo Impression . IMPRESSION: 1. Left pneumothorax, status post chest tube placement., Suspect from trauma, presented with a pneumo 2. S/P C6 corpectomy and partial corpectomy C7, fusion, evacuation of epidural abscess POD #2 3. Smoker question vanessa chronic obstructive pulmonary disease. 4. Drug abuse. 5. Anemia. 6. Sepsis/septic shock. 7. Suspect COPD 8. Abnormal x-ray revealing pneumothorax, bilateral effusions, atelectasis. 9. Multifactorial hypoxemic respiratory failure Plan . Updated 09/07 CXR reviewed: IMPRESSION: 1. Unchanged lines and tubes. 2. Unchanged small pleural effusions. 3. Left pulmonary opacities, mildly increased in the perihilar region. Clamp chest tube; new CXR ordered for tomorrow AM Labs reviewed; stable Microbiology reviewed; antibiotics per ID Follow neurosurgery input Speech evaluation Updated 09/06 Continue current support with oxygen supplementation as needed BiPAP Antibiotics per ID Chest x-ray reviewed, no air leak seen, place chest tube on waterseal Repeat x-ray in the a.m. Follow neurosurgery input Speech eval CCT 30 minutes PLAN AND RECOMMENDATIONS: 1. Titrate FiO2 to keep O2 saturation 90%. 2. bronchodilator. IS to use multiple times an hr 3. cxr reviewed b lat effusion infilt volume overload vs asp pneumonia/pneumonitis no ptx cont ct increase suction to -40 decrease iv fluid 4. follow Neurosurgery rec 5. abx per id cefepime daptomycin 6. Follow up blood cultures. 7. Monitor respiratory status very closely in ICU. 8. Urine drug screen. neg 9. refusing follow up MRI advised to reconsider 10. I have advised him to stop smoking and using drugs. The findings and recommendations were discussed with KATIANA. LORIE MARKHAM MD Sep 07, 2021 10:25
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
--- NOTE | 2021-09-07 11:18 | PDOC ---
Infectious Disease Note Subjective: Subjective Pt awake and alert T max 101 last pm Cough is improving on O2 by nasal cannula Pain is under control Vital Signs: Vital Signs Vital Signs Date Time Temp Pulse Resp B/P (MAP) Pulse Ox O2 Delivery O2 Flow Rate FiO2 09/07/21 10:00 68 16 95/72 94 Nasal Cannula 5.0 09/07/21 08:00 98.5 98.5 Physical Exam: PHYSICAL EXAM GENERAL: awake alert male in no acute distress, on O2 by HEENT: Normocephalic, atraumatic. Anicteric. Pupils equal, reactive. Poor dentition. NECK: No JVD, no lymphadenopathy. Anterior cervical dressing present, intact, not taken down. LUNGS: Left chest tube, decreased breath sounds, otherwise no accessory muscle use. Clear on the right side. ABDOMEN: Soft, nontender, nondistended. Bowel sounds present. GENITOURINARY: Kuo in place. EXTREMITIES: No edema, no cyanosis. DERMATOLOGIC: Warm, dry, no generalized rash. NEUROLOGIC: alert awake able to move both upper ext, could not move lower ext PSYCHIATRIC: calm cooperative Central line RT Neck clean Placed 09/03 Medications: Inpatient Meds: Medications reviewed. Labs: Lab Laboratory Tests Test 09/06/21 13:00 09/07/21 05:38 O2 Saturation 92 % (92-99) Arterial Blood pH 7.53 (7.35-7.45) Arterial Blood pCO2 at Patient Temp 46 mmHg (35-46) Arterial Blood pO2 at Patient Temp 60 mmHg (75-108) Arterial Blood HCO3 37 mmol/L (21-28) Arterial Blood Base Excess 13 mmol/L (-3-3) FiO2 100 Sodium Level 138 mmol/L (136-145) Potassium Level 3.6 mmol/L (3.5-5.1) Chloride Level 99 mmol/L (98-107) Carbon Dioxide Level 39 mmol/L (21-32) Anion Gap 0 (6-14) Blood Urea Nitrogen 12 mg/dL (8-26) Creatinine 0.4 mg/dL (0.7-1.3) Estimated GFR (Cockcroft-Gault) 229.6 Glucose Level 123 mg/dL (70-99) Calcium Level 8.0 mg/dL (8.5-10.1) Objective: Assessment: 1 MSSA Cervical epidural abscess at C6-C7 with severe cervical myelopathy. Status post anterior cervical decompression with corpectomy of C6, evacuation of epidural abscess, placement of interbody fusion cage and anterior plate on 09/04/2021. Cultures positive for staph aureus MSSA 2. Staphylococcus aureus bacteremia MSSA at [facility] on 09/03/2021 and here at [facility]. 3. MSSA UC likely spillage from bacteremia 4. Left pneumothorax, status post CTS. 5 polysubstance dependence. 6. Schizophrenia, bipolar disorder, anxiety. 7 chronic low back pain. 8 hypertension. 9. Protein-calorie malnutrition. 10 anemia. 11. PCN allergy with hives, does not recall taking amoxicillin or augmentin Plan: Plan of Care Cont Daptomycin Cont cefepime due to concerns for aspiration pneumonia We will add Zyvox for pulmonary coverage. Monitor closely as patient is on sertraline Check HIV and hepatitis profile Follow repeat blood culture neg so far Wound care as directed Maintain aspiration precautions Monitor labs and cultures Continue supportive care Discussed with BENJI VICENTE MD Sep 07, 2021 11:18
[2021-09-07] MEDS: LINEZOLID 600 MG TABLET PO SCH ×2 (12:00→20:02)
[2021-09-07] MEDS: DAPTOmycin (GENERIC) IVPB 680 MG in IV NORMAL SALINE 50ML 50 ML IV SCH (14:00)
--- NOTE | 2021-09-07 14:39 | RAD ---
MRI cervical spine without contrast HISTORY: Status post corpectomy. Spinal cord compression. COMPARISON: MRI cervical spine September 03, 2021 and postsurgical cervical spine x-rays September 04, 2021 FINDINGS: Exam is somewhat motion degraded on the sagittal sequences decreasing sensitivity to detect subtle pathology. There is marked motion artifact on the axial sequences significantly limiting sens itivity to detect pathology. Some diagnostic information remains. Craniocervical junction is intact. Straightening of the cervical spine with loss of the tip of the lordotic curvature is similar to the prior exam. Cervical vertebral height and alignment remains intact. Large left apical pleural effusio n is noted. Since the prior exam there has been postoperative change C6-C7 corpectomy at the prior in terbody osseous fusion, with susceptibility artifact associated with a vertical strut graft and anter ior plate and screws across C5-C7. The expansile prevertebral soft tissue edema/fluid on the prior ex am is no longer apparent. Additionally there has been decompression of the ventral epidural spinal ca nal fluid collection since the prior exam, there is a recurrent/residual fluid collection at the vent ral epidural spinal canal at C5-C7 with a fluid AP thickness currently of 2.5 mm, on the prior exam t he fluid was much greater in size with an AP thickness 6 mm. There is recurrent severe spinal canal s tenosis and impingement with deformity of the spinal cord by recurrent fluid collection at C6-C7 with the spinal cord compressed to a diameter of 4.5 mm and there is subtle spinal cord intramedullary T2 signal hyperintensity at the level of compression on sagittal image 9 somewhat obscured by motion on the axial sequences, likely cord edema. On the prior study there was greater stenosis of the central spinal canal and left lateral recess and the spinal cord was previously compressed and deformed to a greater degree with a cord diameter of 3 mm previously. There is heterogeneous signal about the hard reese at C5-C7 vertebra limiting assessment for immediate surrounding bony abnormality. No gross evide nce of bony edema or destruction. Cervical degenerative disc disease at C3-C4 and C4-C5 is similar to the prior study. IMPRESSION: 1. Since the prior study there are postsurgical changes of cervical corpectomy at C6-C7 and anterior fusion with interbody vertical strut graft and anterior plate and screws across C5-C7. There has been surgical decompression of the ventral epidural spinal canal fluid collection since the prior exam. T here is a smaller in size recurrent ventral epidural spinal canal fluid collection at C5-C7 since the prior study, with associated severe spinal canal stenosis and cord impingement and cord deformity wi th focal spinal cord edema. See above. 2. The prevertebral phlegmonous edema/fluid collection on the prior exam is no longer present. 3. Large left apical pleural effusion new from the prior study. FOR INTERNAL CODING PURPOSES Critical result: Findings discussed with ICU nurse Abbey Cervantes at 09/07/2021 2:28 PM. RN read back of report was perf ormed. The nurse is calling the treating physician with these results. RESULT CODE: (C) Electronically signed by: Keon Olivas MD (09/07/2021 2:36 PM) [facility]
--- NOTE | 2021-09-07 17:57 | PDOC ---
PROGRESS NOTES Date of Service DATE: 09/07/21 TIME: 17:48 Subjective Subjective patient seen at 1230 POD #4 S/P C6 corpectomy and partial corpectomy C7, fusion, evacuation of epidural abscess agreeable to MRI today denies pain Objective Objective Vital Signs Date Time Temp Pulse Resp B/P (MAP) Pulse Ox O2 Delivery O2 Flow Rate FiO2 09/07/21 16:10 Nasal Cannula 6.0 09/07/21 16:00 97.9 72 16 93/57 93 97.9 Intake and Output 09/07/21 07:00 Intake Total 1573.5 ml Output Total 2525 ml Balance -951.5 ml IV Total 1573.5 ml Output Urine Total 2525 ml # Bowel Movements 1 Physical Exam General: Alert, Cooperative, No acute distress Neuro: Other (deltoid and biceps 5/5, triceps 3/5, hand intrinsics 2/5, 0/5 lower extremity strength, sensation intact) Skin: Other (dressing C,D,I) Plan Plan of Care Will await follow up MRI SCDs, no anticoagulants D/W RN Comment Review of Relevant I have reviewed the following items vanessa (where applicable) has been applied. Labs Laboratory Tests Test 09/06/21 03:30 09/06/21 13:00 09/07/21 05:38 White Blood Count 6.7 x10^3/uL (4.0-11.0) Red Blood Count 3.15 x10^6/uL (4.30-5.70) Hemoglobin 9.2 g/dL (13.0-17.5) Hematocrit 28.3 % (39.0-53.0) Mean Corpuscular Volume 90 fL (79-100) Mean Corpuscular Hemoglobin 29 pg (25-35) Mean Corpuscular Hemoglobin Concent 32 g/dL (31-37) Red Cell Distribution Width 15.3 % (11.5-14.5) Platelet Count 322 x10^3/uL (140-400) Neutrophils (%) (Auto) 86 % (31-73) Lymphocytes (%) (Auto) 8 % (24-48) Monocytes (%) (Auto) 6 % (0-9) Eosinophils (%) (Auto) 0 % (0-3) Basophils (%) (Auto) 0 % (0-3) Neutrophils # (Auto) 5.8 x10^3/uL (1.8-7.7) Lymphocytes # (Auto) 0.5 x10^3/uL (1.0-4.8) Monocytes # (Auto) 0.4 x10^3/uL (0.0-1.1) Eosinophils # (Auto) 0.0 x10^3/uL (0.0-0.7) Basophils # (Auto) 0.0 x10^3/uL (0.0-0.2) Sodium Level 140 mmol/L (136-145) 138 mmol/L (136-145) Potassium Level 3.6 mmol/L (3.5-5.1) 3.6 mmol/L (3.5-5.1) Chloride Level 101 mmol/L (98-107) 99 mmol/L (98-107) Carbon Dioxide Level 38 mmol/L (21-32) 39 mmol/L (21-32) Anion Gap 1 (6-14) 0 (6-14) Blood Urea Nitrogen 10 mg/dL (8-26) 12 mg/dL (8-26) Creatinine 0.5 mg/dL (0.7-1.3) 0.4 mg/dL (0.7-1.3) Estimated GFR (Cockcroft-Gault) 177.5 229.6 Glucose Level 90 mg/dL (70-99) 123 mg/dL (70-99) Calcium Level 7.6 mg/dL (8.5-10.1) 8.0 mg/dL (8.5-10.1) O2 Saturation 92 % (92-99) Arterial Blood pH 7.53 (7.35-7.45) Arterial Blood pCO2 at Patient Temp 46 mmHg (35-46) Arterial Blood pO2 at Patient Temp 60 mmHg (75-108) Arterial Blood HCO3 37 mmol/L (21-28) Arterial Blood Base Excess 13 mmol/L (-3-3) FiO2 100 Hepatitis A IgM Antibody Nonreactive (Nonreactive) Hepatitis B Surface Antigen Nonreactive (Nonreactive) Hepatitis B Core IgM Antibody Nonreactive (Nonreactive) Hepatitis C IgG Antibody Nonreactive (Nonreactive) Laboratory Tests Test 09/07/21 05:38 Sodium Level 138 mmol/L (136-145) Potassium Level 3.6 mmol/L (3.5-5.1) Chloride Level 99 mmol/L (98-107) Carbon Dioxide Level 39 mmol/L (21-32) Anion Gap 0 (6-14) Blood Urea Nitrogen 12 mg/dL (8-26) Creatinine 0.4 mg/dL (0.7-1.3) Estimated GFR (Cockcroft-Gault) 229.6 Glucose Level 123 mg/dL (70-99) Calcium Level 8.0 mg/dL (8.5-10.1) Hepatitis A IgM Antibody Nonreactive (Nonreactive) Hepatitis B Surface Antigen Nonreactive (Nonreactive) Hepatitis B Core IgM Antibody Nonreactive (Nonreactive) Hepatitis C IgG Antibody Nonreactive (Nonreactive) Microbiology 09/06/21 Respiratory Culture Gram Stain - Final, Resulted 09/06/21 Respiratory Culture - Preliminary, Resulted 09/05/21 Blood Culture - Preliminary, Resulted NO GROWTH AFTER 2 DAYS 09/03/21 AFB Specimen Processing Tissue - Final, Resulted 09/03/21 Acid Fast Bacilli Culture, Resulted Pending 09/03/21 Gram Stain - Final, Resulted 09/03/21 Fungal Culture, Resulted Pending 09/03/21 Fungal Culture Result 1, Resulted Pending 09/03/21 Urine Culture - Final, Complete Staphylococcus Aureus Medications Current Medications Ceftriaxone Sodium (Rocephin) 1 gm Q24H IVP Last administered on 09/04/21at 09:54; Start 09/04/21 at 10:00; Stop 09/04/21 at 12:33; Status DC Doxycycline Hyclate (Vibra-Tab) 100 mg BID PO Last administered on 09/04/21at 09:54; Start 09/03/21 at 15:30; Stop 09/04/21 at 16:21; Status DC Vancomycin HCl (Vanco Per Pharmacy) 1 each PRN DAILY PRN MC SEE COMMENTS Last administered on 09/03/21at 16:01; Start 09/03/21 at 16:00; Stop 09/04/21 at 12:33; Status DC Vancomycin HCl 1 gm/Sodium Chloride 250 ml @ 250 mls/hr Q8H IV Last administered on 09/04/21at 04:55; Start 09/03/21 at 19:00; Stop 09/04/21 at 12:32; Status DC Vancomycin HCl (Vancomycin Trough Level) 1 each 1X ONCE MC Last administered on 09/04/21at 12:30; Start 09/04/21 at 12:30; Stop 09/04/21 at 12:31; Status DC Norepinephrine Bitartrate 8 mg/ Dextrose 258 ml @ 13.197 mls/ hr CONT PRN IV PER PROTOCOL Last administered on 09/06/21at 09:23; Start 09/03/21 at 17:00 Gadoterate Meglumine (Clariscan) 13 ml 1X ONCE IVP Last administered on 09/03/21at 19:54; Start 09/03/21 at 19:45; Stop 09/03/21 at 19:46; Status DC Rocuronium [place] (Zemuron) 50 mg STK-MED ONCE .ROUTE ; Start 09/03/21 at 18:38; Stop 09/03/21 at 20:39; Status DC Gelatin (Gelfoam Size 100) 1 each STK-MED ONCE .ROUTE Last administered on 09/03/21at 22:35; Start 09/03/21 at 20:43; Stop 09/03/21 at 20:43; Status DC Bupivacaine HCl/ Epinephrine Bitart (Sensorcain-Epi 0.5% Kit) 30 ml STK-MED ONCE .ROUTE Last administered on 09/03/21at 22:35; Start 09/03/21 at 20:43; Stop 09/03/21 at 20:43; Status DC Thrombin 20,000 unit STK-MED ONCE TP Last administered on 09/03/21at 22:35; Start 09/03/21 at 20:43; Stop 09/03/21 at 20:43; Status DC Remifentanil HCl (Ultiva) 2 mg STK-MED ONCE IV ; Start 09/03/21 at 18:47; Stop 09/03/21 at 20:47; Status DC Propofol 50 ml @ As Directed STK-MED ONCE IV ; Start 09/03/21 at 18:47; Stop 09/03/21 at 20:47; Status DC Ephedrine Sulfate (ePHEDrine PF IN SALINE SYRINGE) 50 mg STK-MED ONCE IV ; Start 09/03/21 at 18:47; Stop 09/03/21 at 20:48; Status DC Lidocaine HCl (Lidocaine Pf 2% Vial) 5 ml STK-MED ONCE .ROUTE ; Start 09/03/21 at 18:47; Stop 09/03/21 at 20:48; Status DC Dexamethasone Sodium Phosphate (Decadron) 4 mg STK-MED ONCE .ROUTE ; Start 09/03/21 at 18:47; Stop 09/03/21 at 20:48; Status DC Phenylephrine HCl (Jerome-Synephrine Inj) 10 mg STK-MED ONCE .ROUTE ; Start 09/03/21 at 18:48; Stop 09/03/21 at 20:48; Status DC Desflurane (Suprane) 90 ml STK-MED ONCE IH ; Start 09/03/21 at 18:52; Stop 09/03/21 at 20:52; Status DC Succinylcholine Chloride (Anectine) 200 mg STK-MED ONCE .ROUTE ; Start 09/03/21 at 21:17; Stop 09/03/21 at 21:17; Status DC Glycopyrrolate (Robinul) 1 mg STK-MED ONCE .ROUTE ; Start 09/03/21 at 19:43; Stop 09/03/21 at 21:44; Status DC Propofol 50 ml @ As Directed STK-MED ONCE IV ; Start 09/03/21 at 20:04; Stop 09/03/21 at 22:05; Status DC Ondansetron HCl (Zofran) 4 mg STK-MED ONCE .ROUTE ; Start 09/03/21 at 20:16; Stop 09/03/21 at 22:16; Status DC Sevoflurane (Ultane) 90 ml STK-MED ONCE IH ; Start 09/03/21 at 20:17; Stop 09/03/21 at 22:17; Status DC Thrombin 20,000 unit STK-MED ONCE TP ; Start 09/03/21 at 23:56; Stop 09/03/21 at 23:56; Status DC Fentanyl Citrate (Fentanyl 2ml Vial) 100 mcg STK-MED ONCE .ROUTE ; Start 09/03/21 at 22:32; Stop 09/04/21 at 00:33; Status DC Fentanyl Citrate (Fentanyl 2ml Vial) 25 mcg PRN Q5MIN PRN IVP Acute Pain; Start 09/04/21 at 01:15; Stop 09/05/21 at 01:14; Status DC Fentanyl Citrate (Fentanyl 2ml Vial) 50 mcg PRN Q5MIN PRN IVP Acute Pain; Start 09/04/21 at 01:15; Stop 09/05/21 at 01:14; Status DC Hydromorphone HCl (Dilaudid) 0.2 mg PRN Q10MIN PRN IV MILD PAIN 1-3; Start 09/04/21 at 01:15; Stop 09/05/21 at 01:14; Status DC Hydromorphone HCl (Dilaudid) 0.4 mg PRN Q10MIN PRN IV MODERATE TO SEVERE PAIN; Start 09/04/21 at 01:15; Stop 09/05/21 at 01:14; Status DC Ondansetron HCl (Zofran) 4 mg PRN Q6HRS PRN IVP Nausea, 1st Choice; Start 09/04/21 at 01:15; Stop 09/05/21 at 01:14; Status DC Prochlorperazine Edisylate (Compazine) 5 mg PRN Q6HRS PRN IVP Nausea/Vomiting, 2nd Choice; Start 09/04/21 at 01:15; Stop 09/05/21 at 01:14; Status DC Hydralazine HCl (Apresoline Inj) 5 mg PRN Q15MIN PRN IVP SBP>180; Start 09/04/21 at 01:15; Stop 09/05/21 at 01:14; Status DC Labetalol HCl (Normodyne Iv Push) 5 mg PRN Q15MIN PRN IVP SBP GREATER THAN [180]; Start 09/04/21 at 01:15; Stop 09/05/21 at 01:14; Status DC Ringer's Solution 1,000 ml @ 100 mls/hr Q10H IV ; Start 09/04/21 at 01:15; Stop 09/05/21 at 01:14; Status DC Acetaminophen (Tylenol) 650 mg PRN Q6HRS PRN PO MILD PAIN / TEMP > 100.3'F; Start 09/04/21 at 01:30 Al Hydroxide/Mg Hydroxide (Mylanta Plus Xs) 30 ml PRN Q3HRS PRN PO HEARTBURN / GAS; Start 09/04/21 at 01:30 Calcium Carbonate/ Glycine (Tums) 500 mg PRN Q3HRS PRN PO INDIGESTION; Start 09/04/21 at 01:30 Diphenhydramine HCl (Benadryl) 25 mg PRN Q6HRS PRN PO ITCHING Last administered on 09/04/21at 09:54; Start 09/04/21 at 01:30 Naloxone HCl (Narcan) 0.1 mg PRN Q2MIN PRN IV SEE COMMENTS; Start 09/04/21 at 01:30 Sodium Chloride (Normal Saline Flush) 3 ml QSHIFT PRN IV AFTER MEDS AND BLOOD DRAWS; Start 09/04/21 at 01:30 Acetaminophen/ Hydrocodone Bitart (Lortab 5/325) 1 tab PRN Q4HRS PRN PO MODERAT E-SEVERE PAIN; Start 09/04/21 at 01:30 Fentanyl Citrate (Fentanyl 2ml Vial) 50 mcg PRN Q2HR PRN IVP SEVERE PAIN 7-10; Start 09/04/21 at 01:30 Potassium Chloride/Dextrose/ Sod Cl 1,000 ml @ 50 mls/hr Q20H IV Last administered on 09/07/21at 04:28; Start 09/04/21 at 01:30 Albuterol/ Ipratropium (Duoneb) 3 ml RTQID NEB Last administered on 09/07/21at 16:00; Start 09/04/21 at 08:00 Haloperidol Lactate (Haldol Inj) 1 mg 1X ONCE IM Last administered on 09/04/21at 07:23; Start 09/04/21 at 07:15; Stop 09/04/21 at 07:17; Status DC Lorazepam (Ativan Inj) 2 mg PRN Q4HRS PRN IVP ANXIETY / AGITATION Last administered on 09/04/21at 16:31; Start 09/04/21 at 09:15; Stop 09/05/21 at 07:47; Status DC Throat Lozenges (Cepacol Sore Throat Lozenge) 1 amparo PRN Q2HRS PRN PO SORE THROAT Last administered on 09/04/21at 09:54; Start 09/04/21 at 09:15 Haloperidol (Haldol) 2 mg BID PO Last administered on 09/04/21at 16:16; Start 09/04/21 at 11:00 Sertraline HCl (Zoloft) 25 mg DAILY PO Last administered on 09/04/21at 16:16; Start 09/04/21 at 11:00 Bisacodyl (Dulcolax Supp) 10 mg 1X ONCE NV Last administered on 09/04/21at 11:00; Start 09/04/21 at 11:00; Stop 09/04/21 at 11:01; Status DC Daptomycin 680 mg/ Sodium Chloride 50 ml @ 100 mls/hr Q24H IV Last administered on 09/07/21at 14:00; Start 09/04/21 at 14:00 Cefepime HCl (Maxipime) 2 gm Q8HRS IVP Last administered on 09/07/21at 16:26; Start 09/04/21 at 13:30 Lactobacillus Rhamnosus (Culturelle) 1 cap BID PO ; Start 09/04/21 at 21:00 Lorazepam (Ativan Inj) 1 mg PRN Q4HRS PRN IVP ANXIETY / AGITATION; Start 09/05/21 at 07:45 Bisacodyl (Dulcolax Supp) 10 mg PRN DAILY PRN NV CONSTIPATION; Start 09/05/21 at 07:45 Acetaminophen (Tylenol Supp) 650 mg PRN Q6HRS PRN NV MILD PAIN / TEMP > 100.3'F; Start 09/05/21 at 07:45 Furosemide (Lasix) 20 mg 1X ONCE IVP Last administered on 09/05/21at 08:40; Start 09/05/21 at 08:30; Stop 09/05/21 at 08:31; Status DC Linezolid (Zyvox) 600 mg BID PO ; Start 09/07/21 at 12:00 Vitals/I & O Vital Sign - Last 24 Hours 09/06/21 09/06/21 09/06/21 09/06/21 18:00 19:00 20:00 20:00 Temp 101.6 101.6 Pulse 75 70 70 Resp 16 19 14 B/P (MAP) 107/72 113/79 103/75 Pulse Ox 94 98 98 O2 Delivery NonRebreather Mask NonRebreather Mask Non-Rebreather NonRebreather M ask O2 Flow Rate 15.0 15.0 15.0 15.0 09/06/21 09/06/21 09/06/21 09/06/21 20:17 21:00 22:00 23:00 Pulse 72 74 78 Resp 14 17 14 B/P (MAP) 112/73 104/66 103/69 Pulse Ox 96 98 98 97 O2 Delivery NonRebreather Mask NonRebreather Mask NonRebreather Mask NonRebreather Mask O2 Flow Rate 15.0 15.0 15.0 15.0 09/07/21 09/07/21 09/07/21 09/07/21 00:00 01:00 02:00 03:00 Pulse 74 82 67 Resp 14 16 12 22 B/P (MAP) 86/52 93/56 94/62 96/60 Pulse Ox 99 97 99 98 O2 Delivery NonRebreather Mask NonRebreather Mask NonRebreather Mask NonRebreather Mask O2 Flow Rate 15.0 15.0 15.0 15.0 09/07/21 09/07/21 09/07/21 09/07/21 04:00 05:00 06:02 07:00 Temp 98.9 98.9 Resp 12 14 11 14 B/P (MAP) 90/60 98/67 100/70 96/67 Pulse Ox 99 99 99 92 O2 Delivery NonRebreather Mask NonRebreather Mask NonRebreather Mask Nasal Cannula O2 Flow Rate 15.0 15.0 15.0 5.0 09/07/21 09/07/21 09/07/21 09/07/21 07:39 08:00 08:00 09:00 Temp 98.5 98.5 Pulse 67 66 Resp 14 14 B/P (MAP) 61/67 93/73 Pulse Ox 97 88 95 O2 Delivery Nasal Cannula Nasal Cannula Nasal Cannula Nasal Cannula O2 Flow Rate 6.0 5.0 5.0 5.0 09/07/21 09/07/21 09/07/21 09/07/21 10:00 11:00 12:00 12:40 Temp 97.7 97.7 Pulse 68 75 57 Resp 16 18 18 B/P (MAP) 95/72 127/78 124/84 Pulse Ox 94 94 94 O2 Delivery Nasal Cannula Nasal Cannula Nasal Cannula Nasal Cannula O2 Flow Rate 5.0 5.0 5.0 6.0 09/07/21 09/07/21 09/07/21 09/07/21 13:00 14:00 15:00 16:00 Temp 97.9 97.9 Pulse 55 51 61 72 Resp 18 16 16 16 B/P (MAP) 131/75 117/75 121/74 93/57 Pulse Ox 96 95 90 93 O2 Delivery Nasal Cannula Nasal Cannula Nasal Cannula Nasal Cannula O2 Flow Rate 5.0 6.0 6.0 6.0 09/07/21 16:10 O2 Delivery Nasal Cannula O2 Flow Rate 6.0 Intake and Output 09/06/21 09/06/21 09/07/21 15:00 23:00 07:00 Intake Total 100 ml 1473.5 ml Output Total 750 ml 1225 ml 550 ml Balance -750 ml -1125 ml 923.5 ml Justifications for Admission Other Justification Nutrition Consultation Dietary Evaluation: Recommendations by RD: Dietary education by RD, Increase Calorie Intake, Protein supplementation Comments: REC diet per MOLD CAPPER HELPER pt likes chocolate or vanilla Ensure enlive vanilla ensure puddings, Mt dew Expected Outcomes/Goals: to meet >75% est nutr needs Malnutrition Findings: Body Fat Depletion (Non Severe: Mild Depletion Weight Status: Underweight NIXON SAVAGE MD Sep 07, 2021 17:57
[2021-09-07] MEDS ORDERED: OXYMETAZOLINE 0.05% NASAL SPRAY 30ML BOTTLE. NS ONE (19:15)
[2021-09-08] VITALS (25 sets, daily range): BP systolic 84–124; BP diastolic 47–82
--- NOTE | 2021-09-08 03:59 | NUR ---
Refusing bed bath and linen change this morning. Angry. Restless. Refusing q2hr turns as well. "Just leave and don't come back in my room".
[2021-09-08] MEDS: CEFEPIME HCL IV Push 2 GM VIAL. IVP SCH ×3 (05:02→23:21)
[2021-09-08 05:42] LABS: BASO % 1 % (0-3); EOS % 0 % (0-3); HEMATOCRIT 28.6 % (39.0-53.0); HEMOGLOBIN 9.4 g/dL (13.0-17.5); LYMPH # 0.6 x10^3/uL (1.0-4.8); LYMPH % 11 % (24-48); MEAN CORPUSCULAR HEMOGLOBIN 29 pg (25-35); MEAN CORPUSCULAR HGB CONC 33 g/dL (31-37); MEAN CORPUSCULAR VOLUME 90 fL (79-100); MONO # 0.4 x10^3/uL (0.0-1.1); MONO % 7 % (0-9); NEUT # 4.4 x10^3/uL (1.8-7.7); NEUT % 82 % (31-73); PLATELET COUNT 282 x10^3/uL (140-400); RED BLOOD COUNT 3.18 x10^6/uL (4.30-5.70); RED CELL DISTRIBUTION WIDTH 15.3 % (11.5-14.5); WHITE BLOOD COUNT 5.4 x10^3/uL (4.0-11.0)
[2021-09-08 05:54] LABS: CALCIUM 7.9 mg/dL (8.5-10.1); CREATININE 0.4 mg/dL (0.7-1.3); GFR 229.6; POTASSIUM 3.3 mmol/L (3.5-5.1)
[2021-09-08] MEDS: HALOPERIDOL 2 MG TABLET. PO SCH ×2 (07:37→21:00)
[2021-09-08] MEDS: SERTRALINE 25 MG TABLET. PO SCH (07:37)
[2021-09-08] MEDS: LACTOBACILLUS RHAMNOSUS GG 1 CAPSULE. PO SCH ×2 (07:37→21:00)
[2021-09-08] MEDS: LINEZOLID 600 MG TABLET PO SCH ×2 (07:38→21:00)
[2021-09-08] MEDS: IPRATRPIUM/ALBUTEROL 0.5/2.5MG 3 ML NEBU. NEB SCH ×4 (08:39→20:00)
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
--- NOTE | 2021-09-08 10:04 | NUR ---
Pt refusing potassium until he sees speech therapist and gets video swallow. Educated pt on importance of potassium infusion but he still refused. Notified Dr. Macario.
--- NOTE | 2021-09-08 11:12 | PDOC ---
PULMONARY PROGRESS NOTES DATE: 09/08/21 TIME: 11:10 Subjective Patient currently on 5L NC with O2 saturation of 94%, patient wishes to eat, speech therapy consulted. Chest x-ray reviewed and Chest tube to be clamped; new CXR ordered for tomorrow. Vitals Vital Signs Date Time Temp Pulse Resp B/P (MAP) Pulse Ox O2 Delivery O2 Flow Rate FiO2 09/08/21 11:00 66 101/72 100 Nasal Cannula 6.0 09/08/21 10:00 14 09/08/21 08:00 97.7 97.7 Comments ros as mentioned as above other sys otherwise neg ROS: No Nausea, No Chest Pain, No Abdominal Pain, No Increase Cough General: Alert Lungs: Crackles, Other (dull at bases ) Cardiovascular: S1, S2 Abdomen: Soft, Non-tender Neuro Exam: Alert Extremities: No Edema Skin: Warm Labs Laboratory Tests Test 09/06/21 13:00 09/07/21 05:38 09/07/21 17:22 09/08/21 05:00 O2 Saturation 92 % (92-99) Arterial Blood pH 7.53 (7.35-7.45) Arterial Blood pCO2 at Patient Temp 46 mmHg (35-46) Arterial Blood pO2 at Patient Temp 60 mmHg (75-108) Arterial Blood HCO3 37 mmol/L (21-28) Arterial Blood Base Excess 13 mmol/L (-3-3) FiO2 100 Sodium Level 138 mmol/L (136-145) 142 mmol/L (136-145) Potassium Level 3.6 mmol/L (3.5-5.1) 3.3 mmol/L (3.5-5.1) Chloride Level 99 mmol/L (98-107) 101 mmol/L (98-107) Carbon Dioxide Level 39 mmol/L (21-32) 35 mmol/L (21-32) Anion Gap 0 (6-14) 6 (6-14) Blood Urea Nitrogen 12 mg/dL (8-26) 11 mg/dL (8-26) Creatinine 0.4 mg/dL (0.7-1.3) 0.4 mg/dL (0.7-1.3) Estimated GFR (Cockcroft-Gault) 229.6 229.6 Glucose Level 123 mg/dL (70-99) 97 mg/dL (70-99) Calcium Level 8.0 mg/dL (8.5-10.1) 7.9 mg/dL (8.5-10.1) Hepatitis A IgM Antibody Nonreactive (Nonreactive) Hepatitis B Surface Antigen Nonreactive (Nonreactive) Hepatitis B Core IgM Antibody Nonreactive (Nonreactive) Hepatitis C IgG Antibody Nonreactive (Nonreactive) HIV (1&2) Antibody Screen Nonreactive (Nonreactive) White Blood Count 5.4 x10^3/uL (4.0-11.0) Red Blood Count 3.18 x10^6/uL (4.30-5.70) Hemoglobin 9.4 g/dL (13.0-17.5) Hematocrit 28.6 % (39.0-53.0) Mean Corpuscular Volume 90 fL (79-100) Mean Corpuscular Hemoglobin 29 pg (25-35) Mean Corpuscular Hemoglobin Concent 33 g/dL (31-37) Red Cell Distribution Width 15.3 % (11.5-14.5) Platelet Count 282 x10^3/uL (140-400) Neutrophils (%) (Auto) 82 % (31-73) Lymphocytes (%) (Auto) 11 % (24-48) Monocytes (%) (Auto) 7 % (0-9) Eosinophils (%) (Auto) 0 % (0-3) Basophils (%) (Auto) 1 % (0-3) Neutrophils # (Auto) 4.4 x10^3/uL (1.8-7.7) Lymphocytes # (Auto) 0.6 x10^3/uL (1.0-4.8) Monocytes # (Auto) 0.4 x10^3/uL (0.0-1.1) Eosinophils # (Auto) 0.0 x10^3/uL (0.0-0.7) Basophils # (Auto) 0.0 x10^3/uL (0.0-0.2) Laboratory Tests Test 09/07/21 17:22 09/08/21 05:00 HIV (1&2) Antibody Screen Nonreactive (Nonreactive) White Blood Count 5.4 x10^3/uL (4.0-11.0) Red Blood Count 3.18 x10^6/uL (4.30-5.70) Hemoglobin 9.4 g/dL (13.0-17.5) Hematocrit 28.6 % (39.0-53.0) Mean Corpuscular Volume 90 fL (79-100) Mean Corpuscular Hemoglobin 29 pg (25-35) Mean Corpuscular Hemoglobin Concent 33 g/dL (31-37) Red Cell Distribution Width 15.3 % (11.5-14.5) Platelet Count 282 x10^3/uL (140-400) Neutrophils (%) (Auto) 82 % (31-73) Lymphocytes (%) (Auto) 11 % (24-48) Monocytes (%) (Auto) 7 % (0-9) Eosinophils (%) (Auto) 0 % (0-3) Basophils (%) (Auto) 1 % (0-3) Neutrophils # (Auto) 4.4 x10^3/uL (1.8-7.7) Lymphocytes # (Auto) 0.6 x10^3/uL (1.0-4.8) Monocytes # (Auto) 0.4 x10^3/uL (0.0-1.1) Eosinophils # (Auto) 0.0 x10^3/uL (0.0-0.7) Basophils # (Auto) 0.0 x10^3/uL (0.0-0.2) Sodium Level 142 mmol/L (136-145) Potassium Level 3.3 mmol/L (3.5-5.1) Chloride Level 101 mmol/L (98-107) Carbon Dioxide Level 35 mmol/L (21-32) Anion Gap 6 (6-14) Blood Urea Nitrogen 11 mg/dL (8-26) Creatinine 0.4 mg/dL (0.7-1.3) Estimated GFR (Cockcroft-Gault) 229.6 Glucose Level 97 mg/dL (70-99) Calcium Level 7.9 mg/dL (8.5-10.1) Comments Chest x-ray reviewed 09/08/2021 No pneumothorax seen. Chest x-ray from 09/06 reviewed no significant pneumo Impression . IMPRESSION: 1. Left pneumothorax, status post chest tube placement., Suspect from trauma, presented with a pneumo, chest tube has been clamped for 24 hours. No pneumothorax seen. 2. S/P C6 corpectomy and partial corpectomy C7, fusion, evacuation of epidural abscess POD #2 3. Smoker question vanessa chronic obstructive pulmonary disease. 4. Drug abuse. 5. Anemia. 6. Sepsis/septic shock. 7. Suspect COPD 8. Abnormal x-ray revealing pneumothorax, bilateral effusions, atelectasis. 9. Multifactorial hypoxemic respiratory failure Plan . Updated 3/ Chest x-ray reviewed. No pneumothorax seen. Chest tube has been clamped in the last 24 hours. We will proceed with removal of the chest tube. Follow neurosurgery recommendations. Antibiotics per infectious disease. Respiratory status is stable. Discussed with LORIE CORTEZ MD Sep 08, 2021 11:12
[2021-09-08] MEDS ORDERED: BARIUM SULFATE 40% (APPLE) 148 GM PWD. PO ONE (11:15)
--- NOTE | 2021-09-08 11:24 | PDOC ---
Infectious Disease Note Subjective: Subjective Pt awake and alert Fever pattern improving Cough is improving on O2 6L/NC Vital Signs: Vital Signs Vital Signs Date Time Temp Pulse Resp B/P (MAP) Pulse Ox O2 Delivery O2 Flow Rate FiO2 09/08/21 11:00 66 101/72 100 Nasal Cannula 6.0 09/08/21 10:00 14 09/08/21 08:00 97.7 97.7 Physical Exam: PHYSICAL EXAM GENERAL: awake alert male in no acute distress, on O2 by HEENT: Normocephalic, atraumatic. Anicteric. Pupils equal, reactive. Poor dentition. NECK: No JVD, no lymphadenopathy. Anterior cervical dressing present, intact, not taken down. LUNGS: Left chest tube, decreased breath sounds, otherwise no accessory muscle use. Clear on the right side. ABDOMEN: Soft, nontender, nondistended. Bowel sounds present. GENITOURINARY: Kuo in place. EXTREMITIES: No edema, no cyanosis. DERMATOLOGIC: Warm, dry, no generalized rash. NEUROLOGIC: alert awake able to move both upper ext, could not move lower ext PSYCHIATRIC: calm cooperative Central line RT Neck clean Placed 09/03 Medications: Inpatient Meds: Medications reviewed. Labs: Lab Laboratory Tests Test 09/07/21 17:22 09/08/21 05:00 HIV (1&2) Antibody Screen Nonreactive (Nonreactive) White Blood Count 5.4 x10^3/uL (4.0-11.0) Red Blood Count 3.18 x10^6/uL (4.30-5.70) Hemoglobin 9.4 g/dL (13.0-17.5) Hematocrit 28.6 % (39.0-53.0) Mean Corpuscular Volume 90 fL (79-100) Mean Corpuscular Hemoglobin 29 pg (25-35) Mean Corpuscular Hemoglobin Concent 33 g/dL (31-37) Red Cell Distribution Width 15.3 % (11.5-14.5) Platelet Count 282 x10^3/uL (140-400) Neutrophils (%) (Auto) 82 % (31-73) Lymphocytes (%) (Auto) 11 % (24-48) Monocytes (%) (Auto) 7 % (0-9) Eosinophils (%) (Auto) 0 % (0-3) Basophils (%) (Auto) 1 % (0-3) Neutrophils # (Auto) 4.4 x10^3/uL (1.8-7.7) Lymphocytes # (Auto) 0.6 x10^3/uL (1.0-4.8) Monocytes # (Auto) 0.4 x10^3/uL (0.0-1.1) Eosinophils # (Auto) 0.0 x10^3/uL (0.0-0.7) Basophils # (Auto) 0.0 x10^3/uL (0.0-0.2) Sodium Level 142 mmol/L (136-145) Potassium Level 3.3 mmol/L (3.5-5.1) Chloride Level 101 mmol/L (98-107) Carbon Dioxide Level 35 mmol/L (21-32) Anion Gap 6 (6-14) Blood Urea Nitrogen 11 mg/dL (8-26) Creatinine 0.4 mg/dL (0.7-1.3) Estimated GFR (Cockcroft-Gault) 229.6 Glucose Level 97 mg/dL (70-99) Calcium Level 7.9 mg/dL (8.5-10.1) Objective: Assessment: 1 MSSA Cervical epidural abscess at C6-C7 with severe cervical myelopathy. Status post anterior cervical decompression with corpectomy of C6, evacuation of epidural abscess, placement of interbody fusion cage and anterior plate on 09/04/2021. Cultures positive for staph aureus MSSA 2. Staphylococcus aureus bacteremia MSSA at [facility] on 09/03/2021 and here at [facility]. 3. MSSA UC likely spillage from bacteremia 4. Left pneumothorax, status post CTS. 5 polysubstance dependence. HIV and hepatitis profile negative 6. Schizophrenia, bipolar disorder, anxiety. 7 chronic low back pain. 8 hypertension. 9. Protein-calorie malnutrition. 10 anemia. 11. PCN allergy with hives, does not recall taking amoxicillin or augmentin Plan: Plan of Care Cont Daptomycin and Cefepime due to concerns for aspiration pneumonia Cont Zyvox for pulmonary coverage. Monitor closely as patient is on sertraline Follow repeat blood culture neg so far from 09/05,if positive will need to dc central line as placed on 09/03 Wound care as directed Maintain aspiration precautions Monitor labs and cultures swallow evaluation pending Continue supportive care BENJI PECK MD Sep 08, 2021 11:24
--- NOTE | 2021-09-08 12:12 | RAD ---
Exam: Video Swallowing Study History: Rule out aspiration Comparison: None Procedure: Video fluoroscopy of the neck was performed from the lateral projection following ingesti on of various consistency barium which was administered by the speech pathologist. Fluoroscopy time: 2.4 minutes Total saved images/series: 1 Findings/ Impression: Silent aspiration was identified with thin liquids. Please see speech pathology's report for further details of examination. Electronically signed by: Crow Fagan MD (09/08/2021 12:10 PM) [id number]
[2021-09-08] MEDS: POTASSIUM CHLORIDE 10MEQ 100 ML IV SCH ×2 (12:51→14:17)
[2021-09-08] MEDS ORDERED: ALBUMIN HUMAN 5% 250 ML IV ONE (13:30)
--- NOTE | 2021-09-08 13:44 | PDOC ---
PROGRESS NOTES Date of Service DATE: 09/08/21 TIME: 13:41 Subjective Subjective Patient seen at 0930 awake, alert wants to eat denies pain Objective Objective Vital Signs Date Time Temp Pulse Resp B/P (MAP) Pulse Ox O2 Delivery O2 Flow Rate FiO2 09/08/21 13:00 87 84/57 95 Nasal Cannula 4.0 09/08/21 12:00 97.1 16 97.1 Intake and Output 09/08/21 07:00 Intake Total 1000 ml Output Total 2500 ml Balance -1500 ml Intake Oral 0 ml IV Total 1000 ml Output Urine Total 2500 ml # Bowel Movements 2 Physical Exam Neuro: Other (deltoid and biceps 5/5, triceps 3/5, hand intrinsics 2/5, 0/5 lower extremity strength, sensation intact) Skin: Other (dresing C,D,I) Plan Plan of Care MRI with post op changes, improved but there is a smaller in size recurrent ventral epidural spinal canal fluid collection at C5-C7 since the prior study, with associated severe spinal canal stenosis and cord impingement and cord deformity with focal spinal cord edema spoke with patient regarding further surgery to include a posterior cervical laminectomy, he refuses antibiotics per ID D/W RN and Dr. Macario SCDs Comment Review of Relevant I have reviewed the following items vanessa (where applicable) has been applied. Labs Laboratory Tests Test 09/07/21 05:38 09/07/21 17:22 09/08/21 05:00 Sodium Level 138 mmol/L (136-145) 142 mmol/L (136-145) Potassium Level 3.6 mmol/L (3.5-5.1) 3.3 mmol/L (3.5-5.1) Chloride Level 99 mmol/L (98-107) 101 mmol/L (98-107) Carbon Dioxide Level 39 mmol/L (21-32) 35 mmol/L (21-32) Anion Gap 0 (6-14) 6 (6-14) Blood Urea Nitrogen 12 mg/dL (8-26) 11 mg/dL (8-26) Creatinine 0.4 mg/dL (0.7-1.3) 0.4 mg/dL (0.7-1.3) Estimated GFR (Cockcroft-Gault) 229.6 229.6 Glucose Level 123 mg/dL (70-99) 97 mg/dL (70-99) Calcium Level 8.0 mg/dL (8.5-10.1) 7.9 mg/dL (8.5-10.1) Hepatitis A IgM Antibody Nonreactive (Nonreactive) Hepatitis B Surface Antigen Nonreactive (Nonreactive) Hepatitis B Core IgM Antibody Nonreactive (Nonreactive) Hepatitis C IgG Antibody Nonreactive (Nonreactive) HIV (1&2) Antibody Screen Nonreactive (Nonreactive) White Blood Count 5.4 x10^3/uL (4.0-11.0) Red Blood Count 3.18 x10^6/uL (4.30-5.70) Hemoglobin 9.4 g/dL (13.0-17.5) Hematocrit 28.6 % (39.0-53.0) Mean Corpuscular Volume 90 fL (79-100) Mean Corpuscular Hemoglobin 29 pg (25-35) Mean Corpuscular Hemoglobin Concent 33 g/dL (31-37) Red Cell Distribution Width 15.3 % (11.5-14.5) Platelet Count 282 x10^3/uL (140-400) Neutrophils (%) (Auto) 82 % (31-73) Lymphocytes (%) (Auto) 11 % (24-48) Monocytes (%) (Auto) 7 % (0-9) Eosinophils (%) (Auto) 0 % (0-3) Basophils (%) (Auto) 1 % (0-3) Neutrophils # (Auto) 4.4 x10^3/uL (1.8-7.7) Lymphocytes # (Auto) 0.6 x10^3/uL (1.0-4.8) Monocytes # (Auto) 0.4 x10^3/uL (0.0-1.1) Eosinophils # (Auto) 0.0 x10^3/uL (0.0-0.7) Basophils # (Auto) 0.0 x10^3/uL (0.0-0.2) Laboratory Tests Test 09/07/21 17:22 09/08/21 05:00 HIV (1&2) Antibody Screen Nonreactive (Nonreactive) White Blood Count 5.4 x10^3/uL (4.0-11.0) Red Blood Count 3.18 x10^6/uL (4.30-5.70) Hemoglobin 9.4 g/dL (13.0-17.5) Hematocrit 28.6 % (39.0-53.0) Mean Corpuscular Volume 90 fL (79-100) Mean Corpuscular Hemoglobin 29 pg (25-35) Mean Corpuscular Hemoglobin Concent 33 g/dL (31-37) Red Cell Distribution Width 15.3 % (11.5-14.5) Platelet Count 282 x10^3/uL (140-400) Neutrophils (%) (Auto) 82 % (31-73) Lymphocytes (%) (Auto) 11 % (24-48) Monocytes (%) (Auto) 7 % (0-9) Eosinophils (%) (Auto) 0 % (0-3) Basophils (%) (Auto) 1 % (0-3) Neutrophils # (Auto) 4.4 x10^3/uL (1.8-7.7) Lymphocytes # (Auto) 0.6 x10^3/uL (1.0-4.8) Monocytes # (Auto) 0.4 x10^3/uL (0.0-1.1) Eosinophils # (Auto) 0.0 x10^3/uL (0.0-0.7) Basophils # (Auto) 0.0 x10^3/uL (0.0-0.2) Sodium Level 142 mmol/L (136-145) Potassium Level 3.3 mmol/L (3.5-5.1) Chloride Level 101 mmol/L (98-107) Carbon Dioxide Level 35 mmol/L (21-32) Anion Gap 6 (6-14) Blood Urea Nitrogen 11 mg/dL (8-26) Creatinine 0.4 mg/dL (0.7-1.3) Estimated GFR (Cockcroft-Gault) 229.6 Glucose Level 97 mg/dL (70-99) Calcium Level 7.9 mg/dL (8.5-10.1) Microbiology 09/06/21 Respiratory Culture Gram Stain - Final, Complete 09/06/21 Respiratory Culture - Final, Complete 09/05/21 Blood Culture - Preliminary, Resulted NO GROWTH AFTER 3 DAYS 09/03/21 AFB Specimen Processing Tissue - Final, Resulted 09/03/21 Acid Fast Bacilli Culture, Resulted Pending 09/03/21 Gram Stain - Final, Resulted 09/03/21 Fungal Culture, Resulted Pending 09/03/21 Fungal Culture Result 1, Resulted Pending 09/03/21 Urine Culture - Final, Complete Staphylococcus Aureus Medications Current Medications Ceftriaxone Sodium (Rocephin) 1 gm Q24H IVP Last administered on 09/04/21at 09:54; Start 09/04/21 at 10:00; Stop 09/04/21 at 12:33; Status DC Doxycycline Hyclate (Vibra-Tab) 100 mg BID PO Last administered on 09/04/21at 09:54; Start 09/03/21 at 15:30; Stop 09/04/21 at 16:21; Status DC Vancomycin HCl (Vanco Per Pharmacy) 1 each PRN DAILY PRN MC SEE COMMENTS Last administered on 09/03/21at 16:01; Start 09/03/21 at 16:00; Stop 09/04/21 at 12:33; Status DC Vancomycin HCl 1 gm/Sodium Chloride 250 ml @ 250 mls/hr Q8H IV Last administered on 09/04/21at 04:55; Start 09/03/21 at 19:00; Stop 09/04/21 at 12:32; Status DC Vancomycin HCl (Vancomycin Trough Level) 1 each 1X ONCE MC Last administered on 09/04/21at 12:30; Start 09/04/21 at 12:30; Stop 09/04/21 at 12:31; Status DC Norepinephrine Bitartrate 8 mg/ Dextrose 258 ml @ 13.197 mls/ hr CONT PRN IV PER PROTOCOL Last administered on 09/06/21at 09:23; Start 09/03/21 at 17:00 Gadoterate Meglumine (Clariscan) 13 ml 1X ONCE IVP Last administered on 09/03/21at 19:54; Start 09/03/21 at 19:45; Stop 09/03/21 at 19:46; Status DC Rocuronium [place] (Zemuron) 50 mg STK-MED ONCE .ROUTE ; Start 09/03/21 at 18:38; Stop 09/03/21 at 20:39; Status DC Gelatin (Gelfoam Size 100) 1 each STK-MED ONCE .ROUTE Last administered on 09/03/21at 22:35; Start 09/03/21 at 20:43; Stop 09/03/21 at 20:43; Status DC Bupivacaine HCl/ Epinephrine Bitart (Sensorcain-Epi 0.5% Kit) 30 ml STK-MED ONCE .ROUTE Last administered on 09/03/21at 22:35; Start 09/03/21 at 20:43; Stop 09/03/21 at 20:43; Status DC Thrombin 20,000 unit STK-MED ONCE TP Last administered on 09/03/21at 22:35; Start 09/03/21 at 20:43; Stop 09/03/21 at 20:43; Status DC Remifentanil HCl (Ultiva) 2 mg STK-MED ONCE IV ; Start 09/03/21 at 18:47; Stop 09/03/21 at 20:47; Status DC Propofol 50 ml @ As Directed STK-MED ONCE IV ; Start 09/03/21 at 18:47; Stop 09/03/21 at 20:47; Status DC Ephedrine Sulfate (ePHEDrine PF IN SALINE SYRINGE) 50 mg STK-MED ONCE IV ; Start 09/03/21 at 18:47; Stop 09/03/21 at 20:48; Status DC Lidocaine HCl (Lidocaine Pf 2% Vial) 5 ml STK-MED ONCE .ROUTE ; Start 09/03/21 at 18:47; Stop 09/03/21 at 20:48; Status DC Dexamethasone Sodium Phosphate (Decadron) 4 mg STK-MED ONCE .ROUTE ; Start 09/03/21 at 18:47; Stop 09/03/21 at 20:48; Status DC Phenylephrine HCl (Jerome-Synephrine Inj) 10 mg STK-MED ONCE .ROUTE ; Start 09/03/21 at 18:48; Stop 09/03/21 at 20:48; Status DC Desflurane (Suprane) 90 ml STK-MED ONCE IH ; Start 09/03/21 at 18:52; Stop 09/03/21 at 20:52; Status DC Succinylcholine Chloride (Anectine) 200 mg STK-MED ONCE .ROUTE ; Start 09/03/21 at 21:17; Stop 09/03/21 at 21:17; Status DC Glycopyrrolate (Robinul) 1 mg STK-MED ONCE .ROUTE ; Start 09/03/21 at 19:43; Stop 09/03/21 at 21:44; Status DC Propofol 50 ml @ As Directed STK-MED ONCE IV ; Start 09/03/21 at 20:04; Stop 09/03/21 at 22:05; Status DC Ondansetron HCl (Zofran) 4 mg STK-MED ONCE .ROUTE ; Start 09/03/21 at 20:16; Stop 09/03/21 at 22:16; Status DC Sevoflurane (Ultane) 90 ml STK-MED ONCE IH ; Start 09/03/21 at 20:17; Stop 09/03/21 at 22:17; Status DC Thrombin 20,000 unit STK-MED ONCE TP ; Start 09/03/21 at 23:56; Stop 09/03/21 at 23:56; Status DC Fentanyl Citrate (Fentanyl 2ml Vial) 100 mcg STK-MED ONCE .ROUTE ; Start 09/03/21 at 22:32; Stop 09/04/21 at 00:33; Status DC Fentanyl Citrate (Fentanyl 2ml Vial) 25 mcg PRN Q5MIN PRN IVP Acute Pain; Start 09/04/21 at 01:15; Stop 09/05/21 at 01:14; Status DC Fentanyl Citrate (Fentanyl 2ml Vial) 50 mcg PRN Q5MIN PRN IVP Acute Pain; Start 09/04/21 at 01:15; Stop 09/05/21 at 01:14; Status DC Hydromorphone HCl (Dilaudid) 0.2 mg PRN Q10MIN PRN IV MILD PAIN 1-3; Start 09/04/21 at 01:15; Stop 09/05/21 at 01:14; Status DC Hydromorphone HCl (Dilaudid) 0.4 mg PRN Q10MIN PRN IV MODERATE TO SEVERE PAIN; Start 09/04/21 at 01:15; Stop 09/05/21 at 01:14; Status DC Ondansetron HCl (Zofran) 4 mg PRN Q6HRS PRN IVP Nausea, 1st Choice; Start 09/04/21 at 01:15; Stop 09/05/21 at 01:14; Status DC Prochlorperazine Edisylate (Compazine) 5 mg PRN Q6HRS PRN IVP Nausea/Vomiting, 2nd Choice; Start 09/04/21 at 01:15; Stop 09/05/21 at 01:14; Status DC Hydralazine HCl (Apresoline Inj) 5 mg PRN Q15MIN PRN IVP SBP>180; Start 09/04/21 at 01:15; Stop 09/05/21 at 01:14; Status DC Labetalol HCl (Normodyne Iv Push) 5 mg PRN Q15MIN PRN IVP SBP GREATER THAN [180]; Start 09/04/21 at 01:15; Stop 09/05/21 at 01:14; Status DC Ringer's Solution 1,000 ml @ 100 mls/hr Q10H IV ; Start 09/04/21 at 01:15; Stop 09/05/21 at 01:14; Status DC Acetaminophen (Tylenol) 650 mg PRN Q6HRS PRN PO MILD PAIN / TEMP > 100.3'F; Start 09/04/21 at 01:30 Al Hydroxide/Mg Hydroxide (Mylanta Plus Xs) 30 ml PRN Q3HRS PRN PO HEARTBURN / GAS; Start 09/04/21 at 01:30 Calcium Carbonate/ Glycine (Tums) 500 mg PRN Q3HRS PRN PO INDIGESTION; Start 09/04/21 at 01:30 Diphenhydramine HCl (Benadryl) 25 mg PRN Q6HRS PRN PO ITCHING Last administered on 09/04/21at 09:54; Start 09/04/21 at 01:30 Naloxone HCl (Narcan) 0.1 mg PRN Q2MIN PRN IV SEE COMMENTS; Start 09/04/21 at 01:30 Sodium Chloride (Normal Saline Flush) 3 ml QSHIFT PRN IV AFTER MEDS AND BLOOD DRAWS; Start 09/04/21 at 01:30 Acetaminophen/ Hydrocodone Bitart (Lortab 5/325) 1 tab PRN Q4HRS PRN PO MODERATE-SEVERE PAIN; Start 09/04/21 at 01:30 Fentanyl Citrate (Fentanyl 2ml Vial) 50 mcg PRN Q2HR PRN IVP SEVERE PAIN 7-10; Start 09/04/21 at 01:30 Potassium Chloride/Dextrose/ Sod Cl 1,000 ml @ 50 mls/hr Q20H IV Last administered on 09/07/21at 21:16; Start 09/04/21 at 01:30 Albuterol/ Ipratropium (Duoneb) 3 ml RTQID NEB Last administered on 09/08/21at 12:18; Start 09/04/21 at 08:00 Haloperidol Lactate (Haldol Inj) 1 mg 1X ONCE IM Last administered on 09/04/21at 07:23; Start 09/04/21 at 07:15; Stop 09/04/21 at 07:17; Status DC Lorazepam (Ativan Inj) 2 mg PRN Q4HRS PRN IVP ANXIETY / AGITATION Last administered on 09/04/21at 16:31; Start 09/04/21 at 09:15; Stop 09/05/21 at 07:47; Status DC Throat Lozenges (Cepacol Sore Throat Lozenge) 1 amparo PRN Q2HRS PRN PO SORE THROAT Last administered on 09/04/21at 09:54; Start 09/04/21 at 09:15 Haloperidol (Haldol) 2 mg BID PO Last administered on 09/04/21at 16:16; Start 09/04/21 at 11:00 Sertraline HCl (Zoloft) 25 mg DAILY PO Last administered on 09/04/21at 16:16; Start 09/04/21 at 11:00 Bisacodyl (Dulcolax Supp) 10 mg 1X ONCE MD Last administered on 09/04/21at 11:00; Start 09/04/21 at 11:00; Stop 09/04/21 at 11:01; Status DC Daptomycin 680 mg/ Sodium Chloride 50 ml @ 100 mls/hr Q24H IV Last admini stered on 09/07/21at 14:00; Start 09/04/21 at 14:00 Cefepime HCl (Maxipime) 2 gm Q8HRS IVP Last administered on 09/08/21at 05:02; Start 09/04/21 at 13:30 Lactobacillus Rhamnosus (Culturelle) 1 cap BID PO ; Start 09/04/21 at 21:00 Lorazepam (Ativan Inj) 1 mg PRN Q4HRS PRN IVP ANXIETY / AGITATION; Start 09/05/21 at 07:45 Bisacodyl (Dulcolax Supp) 10 mg PRN DAILY PRN MD CONSTIPATION; Start 09/05/21 at 07:45 Acetaminophen (Tylenol Supp) 650 mg PRN Q6HRS PRN MD MILD PAIN / TEMP > 100.3'F; Start 09/05/21 at 07:45 Furosemide (Lasix) 20 mg 1X ONCE IVP Last administered on 09/05/21at 08:40; Start 09/05/21 at 08:30; Stop 09/05/21 at 08:31; Status DC Linezolid (Zyvox) 600 mg BID PO ; Start 09/07/21 at 12:00 Oxymetazoline HCl (Afrin) 2 spray 1X ONCE NS Last administered on 09/07/21at 20:01; Start 09/07/21 at 19:15; Stop 09/07/21 at 19:16; Status DC Potassium Chloride/Water 100 ml @ 100 mls/hr Q1H IV Last administered on 09/08/21at 12:51; Start 09/08/21 at 10:00; Stop 09/08/21 at 11:59; Status DC Barium Sulfate (Varibar Thin Liquid Apple) 148 gm 1X ONCE PO Last administered on 09/08/21at 11:30; Start 09/08/21 at 11:15; Stop 09/08/21 at 11:21; Status DC Albumin Human 250 ml @ 62.5 mls/hr 1X ONCE IV ; Start 09/08/21 at 13:30; Stop 09/08/21 at 17:29 Vitals/I & O Vital Sign - Last 24 Hours 09/07/21 09/07/21 09/07/21 09/07/21 14:00 15:00 16:00 16:10 Temp 97.9 97.9 Pulse 51 61 72 Resp 16 16 16 B/P (MAP) 117/75 121/74 93/57 Pulse Ox 95 90 93 O2 Delivery Nasal Cannula Nasal Cannula Nasal Cannula Nasal Cannula O2 Flow Rate 6.0 6.0 6.0 6.0 09/07/21 09/07/21 09/07/21 09/07/21 17:00 18:00 19:00 20:00 Pulse 55 62 60 Resp 16 16 16 B/P (MAP) 92/64 100/66 105/61 Pulse Ox 97 97 97 O2 Delivery Nasal Cannula Nasal Cannula Nasal Cannula Nasal Cannula O2 Flow Rate 6.0 6.0 6.0 5.0 09/07/21 09/07/21 09/07/21 09/07/21 20:00 20:49 21:00 22:00 Temp 97.9 97.9 Pulse 56 53 62 Resp 16 16 16 B/P (MAP) 118/80 133/82 113/76 Pulse Ox 96 98 96 96 O2 Delivery Nasal Cannula Nasal Cannula Nasal Cannula Nasal Cannula O2 Flow Rate 6.0 6.0 6.0 6.0 09/07/21 09/08/21 09/08/21 09/08/21 23:04 00:04 01:05 02:00 Temp 97.7 97.7 Pulse 62 62 57 54 Resp 16 16 16 16 B/P (MAP) 129/72 124/80 107/64 119/72 Pulse Ox 96 97 100 100 O2 Delivery Nasal Cannula Nasal Cannula Nasal Cannula Nasal Cannula O2 Flow Rate 6.0 6.0 6.0 6.0 09/08/21 09/08/21 09/08/21 09/08/21 03:11 05:14 06:07 07:00 Pulse 68 68 68 59 Resp 16 16 16 14 B/P (MAP) 93/54 97/65 91/61 102/56 Pulse Ox 100 100 94 99 O2 Delivery Nasal Cannula Nasal Cannula Nasal Cannula Nasal Cannula O2 Flow Rate 6.0 6.0 6.0 6.0 09/08/21 09/08/21 09/08/21 09/08/21 08:00 08:00 08:39 09:00 Temp 97.7 97.7 Pulse 66 60 Resp 16 16 B/P (MAP) 116/82 105/74 Pulse Ox 95 99 99 O2 Delivery Nasal Cannula Nasal Cannula Nasal Cannula Nasal Cannula O2 Flow Rate 6.0 6.0 6.0 6.0 09/08/21 09/08/21 09/08/21 09/08/21 10:00 11:00 12:00 12:23 Temp 97.1 97.1 Pulse 60 66 86 Resp 14 16 B/P (MAP) 115/73 101/72 102/62 Pulse Ox 99 100 96 98 O2 Delivery Nasal Cannula Nasal Cannula Nasal Cannula Nasal Cannula O2 Flow Rate 6.0 6.0 4.0 5.0 09/08/21 13:00 Pulse 87 B/P (MAP) 84/57 Pulse Ox 95 O2 Delivery Nasal Cannula O2 Flow Rate 4.0 Intake and Output 09/07/21 09/07/21 09/08/21 15:00 23:00 07:00 Intake Total 1000 ml 0 ml Output Total 650 ml 300 ml 1550 ml Balance -650 ml 700 ml -1550 ml Justifications for Admission Other Justification Nutrition Consultation Dietary Evaluation: Recommendations by RD: Dietary education by RD, Increase Calorie Intake, Protein supplementation Comments: REC diet per CSW pt likes chocolate or vanilla Ensure enlive vanilla ensure puddings, Mt dew Expected Outcomes/Goals: to meet >75% est nutr needs Malnutrition Findings: Body Fat Depletion (Non Severe: Mild Depletion Weight Status: Underweight NIXON SAVAGE MD Sep 08, 2021 13:44
[2021-09-08] MEDS: DAPTOmycin (GENERIC) IVPB 680 MG in IV NORMAL SALINE 50ML 50 ML IV SCH (15:10)
[2021-09-08] MEDS: NOREPINEPHRINE VIAL 8 MG in IV DEXTROSE 5% 250 ML IV PRN (15:48)
[2021-09-08] MEDS: POTASSIUM CL 20MEQ D5-0.45NACL 1,000 ML IV SCH (15:48)
[2021-09-08] MEDS ORDERED: ALBUTEROL SULFATE 2.5 MG/3 ML NEBU. NEB PRN (20:45)
--- NOTE | 2021-09-08 21:00 | NUR ---
PT REFUSING CARE HOLLERS THAT HE IS GOING TO START THROWING THINGS. ALL HIS REQUESTS ARE READY. PUDDING 2. CRUSHED CONNIE CRACKER IN HIS PEANUT BUTTER AND JELLY. CRUSHED HIS PILLS AND PUT IN PEANUT BUTT AND JELLY. HE ALSO REQUESTED MILK, HAD TO THICKEN THAT AND PUDDING VANNILA AND CHOCOLATE. HE ID LOUD AND DEMANDING. HE HAD FALLEN ASLEEP BUT ITEMS WERE READY. 2144. LCRN
[2021-09-09] VITALS (29 sets, daily range): BP systolic 81–121; BP diastolic 48–76
[2021-09-09] MEDS: CEFEPIME HCL IV Push 2 GM VIAL. IVP SCH ×3 (06:00→20:29)
--- NOTE | 2021-09-09 06:04 | NUR ---
PT BEING DIFFICULT . DOESNT WANT TO BE TOUCHED. AGREED TO DO HIS PORTABLE XRAY AFTER BREAKFAST. AGREED AFTER SPEAKING VERY SOFTLY TO LET HIS BLOOD GET DRAWN AND HIS ANTIBIOTIC GIVEN. LCRN
[2021-09-09 06:28] LABS: CALCIUM 7.7 mg/dL (8.5-10.1); CREATININE 0.5 mg/dL (0.7-1.3); GFR 177.5; POTASSIUM 3.4 mmol/L (3.5-5.1)
[2021-09-09] MEDS: LINEZOLID 600 MG TABLET PO SCH ×3 (09:00→20:29)
[2021-09-09] MEDS: SERTRALINE 25 MG TABLET. PO SCH (09:00)
[2021-09-09] MEDS: LACTOBACILLUS RHAMNOSUS GG 1 CAPSULE. PO SCH ×3 (09:00→20:28)
[2021-09-09] MEDS: HALOPERIDOL 2 MG TABLET. PO SCH ×3 (09:00→20:28)
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
--- NOTE | 2021-09-09 10:00 | NUR ---
Pt refusing all medications, says he can only take Bactrim for antibiotics. Nurse explained to him that Bactrim does not cover all infections and if he refuses he may get sicker. Pt replied that he does not care. Reported refusal to An.
--- NOTE | 2021-09-09 10:34 | NUR ---
SS following up with discharge planning. SS reviewed pt chart and discussed with pt RN. Pt is currently on room air. PO diet. Pt is on IV Daptomycin, IV Cefepime, and PO Zyvox. Per RN, pt is refusing antibiotics and only wants PO Bactrim. SS contacted RN Desulphuring Operator, Claudia, at [facility], , and discussed. Claudia spoke with pt via speaker phone and pt now agreeable to take IV antibiotics. Claudia to contact Dr. Macario to discuss medical status. SS will continue to follow for discharge planning.
--- NOTE | 2021-09-09 10:47 | RAD ---
XR CHEST 1V History: Pneumothorax Comparison: 09/08/2021 Technique: Portable AP chest radiograph. FINDINGS/ IMPRESSION: Tubes and lines: Left internal jugular central venous catheter projects at the mid SVC. Interval silvino anthony of left thoracostomy tube. Lungs and pleura: No pneumothorax. Small left effusion. Left basilar opacities similar to comparison. Cardiac silhouette and pulmonary vasculature: Unremarkable. Osseous structures and other: ACDF changes. Rib fracture not well seen. Electronically signed by: Crow Fagan MD (09/09/2021 10:45 AM) [id number]
[2021-09-09] MEDS ORDERED: ALBUMIN HUMAN 5% 500 ML IV ONE (11:00)
[2021-09-09] MEDS ORDERED: ALBUTEROL SULFATE 2.5 MG/3 ML NEBU. NEB PRN (11:00)
--- NOTE | 2021-09-09 11:03 | PDOC ---
PULMONARY PROGRESS NOTES DATE: 09/09/21 TIME: 11:01 Subjective Patient doing well. Chest tube was removed yesterday. Vitals Vital Signs Date Time Temp Pulse Resp B/P (MAP) Pulse Ox O2 Delivery O2 Flow Rate FiO2 09/09/21 06:19 84 18 81/48 92 Room Air 09/09/21 05:00 97.6 97.6 09/09/21 04:00 4.0 Comments ros as mentioned as above other sys otherwise neg ROS: No Nausea, No Chest Pain, No Abdominal Pain, No Increase Cough General: Alert Lungs: Crackles, Other (dull at bases ) Cardiovascular: S1, S2 Abdomen: Soft, Non-tender Neuro Exam: Alert Extremities: No Edema Skin: Warm Labs Laboratory Tests Test 09/07/21 17:22 09/08/21 05:00 09/09/21 06:00 HIV (1&2) Antibody Screen Nonreactive (Nonreactive) White Blood Count 5.4 x10^3/uL (4.0-11.0) Red Blood Count 3.18 x10^6/uL (4.30-5.70) Hemoglobin 9.4 g/dL (13.0-17.5) Hematocrit 28.6 % (39.0-53.0) Mean Corpuscular Volume 90 fL (79-100) Mean Corpuscular Hemoglobin 29 pg (25-35) Mean Corpuscular Hemoglobin Concent 33 g/dL (31-37) Red Cell Distribution Width 15.3 % (11.5-14.5) Platelet Count 282 x10^3/uL (140-400) Neutrophils (%) (Auto) 82 % (31-73) Lymphocytes (%) (Auto) 11 % (24-48) Monocytes (%) (Auto) 7 % (0-9) Eosinophils (%) (Auto) 0 % (0-3) Basophils (%) (Auto) 1 % (0-3) Neutrophils # (Auto) 4.4 x10^3/uL (1.8-7.7) Lymphocytes # (Auto) 0.6 x10^3/uL (1.0-4.8) Monocytes # (Auto) 0.4 x10^3/uL (0.0-1.1) Eosinophils # (Auto) 0.0 x10^3/uL (0.0-0.7) Basophils # (Auto) 0.0 x10^3/uL (0.0-0.2) Sodium Level 142 mmol/L (136-145) 145 mmol/L (136-145) Potassium Level 3.3 mmol/L (3.5-5.1) 3.4 mmol/L (3.5-5.1) Chloride Level 101 mmol/L (98-107) 105 mmol/L (98-107) Carbon Dioxide Level 35 mmol/L (21-32) 36 mmol/L (21-32) Anion Gap 6 (6-14) 4 (6-14) Blood Urea Nitrogen 11 mg/dL (8-26) 18 mg/dL (8-26) Creatinine 0.4 mg/dL (0.7-1.3) 0.5 mg/dL (0.7-1.3) Estimated GFR (Cockcroft-Gault) 229.6 177.5 Glucose Level 97 mg/dL (70-99) 101 mg/dL (70-99) Calcium Level 7.9 mg/dL (8.5-10.1) 7.7 mg/dL (8.5-10.1) Laboratory Tests Test 09/09/21 06:00 Sodium Level 145 mmol/L (136-145) Potassium Level 3.4 mmol/L (3.5-5.1) Chloride Level 105 mmol/L (98-107) Carbon Dioxide Level 36 mmol/L (21-32) Anion Gap 4 (6-14) Blood Urea Nitrogen 18 mg/dL (8-26) Creatinine 0.5 mg/dL (0.7-1.3) Estimated GFR (Cockcroft-Gault) 177.5 Glucose Level 101 mg/dL (70-99) Calcium Level 7.7 mg/dL (8.5-10.1) Comments Chest x-ray reviewed 09/08/2021 No pneumothorax seen. Chest x-ray from 09/06 reviewed no significant pneumo Impression . IMPRESSION: 1. Left pneumothorax, status post chest tube placement., Suspect from trauma, presented with a pneumo, chest tube removed 09-28. No recurrent pneumothorax on follow-up chest x-ray 2. S/P C6 corpectomy and partial corpectomy C7, fusion, evacuation of epidural abscess POD #2 3. Smoker question vanessa chronic obstructive pulmonary disease. 4. Drug abuse. 5. Anemia. 6. Sepsis/septic shock. On low-dose Levophed 7. Suspect COPD 8. Abnormal x-ray revealing pneumothorax, bilateral effusions, atelectasis. 9. Multifactorial hypoxemic respiratory failure Plan . Updated 09/09 Chest x-ray reviewed. No pneumothorax seen. Tiny left basal effusion. Monitor for now. We will try colloids and crystalloids and wean off Levophed. Follow neurosurgery recommendations. Antibiotics per infectious disease. Respiratory status is stable. Discussed with LORIE CORTEZ MD Sep 09, 2021 11:03
--- NOTE | 2021-09-09 11:15 | NUR ---
Pt called this nurse into the room and said "I'm sorry that I lied to you. I can take other antibiotics. But I do not want and other medications, only antibiotics." Reported to Riffel of refusal to other medications.
--- NOTE | 2021-09-09 12:38 | PDOC ---
Infectious Disease Note Subjective: Subjective Pt feels better Pain is under control afebrile last 48 hrs Vital Signs: Vital Signs Vital Signs Date Time Temp Pulse Resp B/P (MAP) Pulse Ox O2 Delivery O2 Flow Rate FiO2 09/09/21 10:00 84 20 108/58 (75) 92 Room Air 09/09/21 08:00 4.0 09/09/21 05:00 97.6 97.6 Physical Exam: PHYSICAL EXAM GENERAL: awake alert male in no acute distress, on O2 by HEENT: Normocephalic, atraumatic. Anicteric. Pupils equal, reactive. Poor dentition. NECK: No JVD, no lymphadenopathy. Anterior cervical dressing present, intact, not taken down. LUNGS: Left chest tube, decreased breath sounds, otherwise no accessory muscle use. Clear on the right side. ABDOMEN: Soft, nontender, nondistended. Bowel sounds present. GENITOURINARY: Kuo in place. EXTREMITIES: No edema, no cyanosis. DERMATOLOGIC: Warm, dry, no generalized rash. NEUROLOGIC: alert awake able to move both upper ext, could not move lower ext PSYCHIATRIC: calm cooperative Central line RT Neck clean Placed 09/03 Medications: Inpatient Meds: Medications reviewed. Labs: Lab Laboratory Tests Test 09/09/21 06:00 Sodium Level 145 mmol/L (136-145) Potassium Level 3.4 mmol/L (3.5-5.1) Chloride Level 105 mmol/L (98-107) Carbon Dioxide Level 36 mmol/L (21-32) Anion Gap 4 (6-14) Blood Urea Nitrogen 18 mg/dL (8-26) Creatinine 0.5 mg/dL (0.7-1.3) Estimated GFR (Cockcroft-Gault) 177.5 Glucose Level 101 mg/dL (70-99) Calcium Level 7.7 mg/dL (8.5-10.1) Objective: Assessment: 1 MSSA Cervical epidural abscess at C6-C7 with severe cervical myelopathy. Status post anterior cervical decompression with corpectomy of C6, evacuation of epidural abscess, placement of interbody fusion cage and anterior plate on 09/04/2021. Cultures positive for staph aureus MSSA 2. Staphylococcus aureus bacteremia MSSA at [facility] on 09/03/2021 and here at [facility]. 3. MSSA UC likely spillage from bacteremia 4. Left pneumothorax, status post CTS. 5 polysubstance dependence. HIV and hepatitis profile negative 6. Schizophrenia, bipolar disorder, anxiety. 7 chronic low back pain. 8 hypertension. 9. Protein-calorie malnutrition. 10 anemia. 11. PCN allergy with hives, does not recall taking amoxicillin or augmentin Plan: Plan of Care Cont Daptomycin and Cefepime Cont Zyvox for pulmonary coverage. Monitor closely as patient is on sertraline Follow repeat blood culture neg so far from 09/05,if positive will need to dc central line as placed on 09/03 Wound care as directed Maintain aspiration precautions Monitor labs and cultures swallow evaluation pending Continue supportive care D/W BENJI VICENTE MD Sep 09, 2021 12:38
[2021-09-09] MEDS: DAPTOmycin (GENERIC) IVPB 680 MG in IV NORMAL SALINE 50ML 50 ML IV SCH (12:47)
[2021-09-09] MEDS ORDERED: BENZOCAINE/MENTHOL LOZENGE. PO PRN (14:30)
--- NOTE | 2021-09-09 16:26 | PDOC ---
PROGRESS NOTES Date of Service DATE: 09/09/21 TIME: 16:25 Subjective Subjective POD #6 patient seen at 1400 awake, alert eating denies pain Objective Objective Vital Signs Date Time Temp Pulse Resp B/P (MAP) Pulse Ox O2 Delivery O2 Flow Rate FiO2 09/09/21 15:05 84 18 107/62 92 Room Air 09/09/21 12:00 98.0 98.0 09/09/21 08:00 4.0 Intake and Output 09/09/21 07:00 Intake Total 1150 ml Output Total 775 ml Balance 375 ml Intake Oral 1150 ml Output Urine Total 775 ml Physical Exam General: Alert, No acute distress Neuro: Normal speech, Other (deltoid and biceps 5/5, triceps 3/5, hand intrinsics 2/5, 0/5 lower extremity strength, sensation intact) Plan Plan of Care Antibiotics per ID has refused any further surgery SCDs, consider lovenox D/W RN Comment Review of Relevant I have reviewed the following items vanessa (where applicable) has been applied. Labs Laboratory Tests Test 09/07/21 17:22 09/08/21 05:00 09/09/21 06:00 HIV (1&2) Antibody Screen Nonreactive (Nonreactive) White Blood Count 5.4 x10^3/uL (4.0-11.0) Red Blood Count 3.18 x10^6/uL (4.30-5.70) Hemoglobin 9.4 g/dL (13.0-17.5) Hematocrit 28.6 % (39.0-53.0) Mean Corpuscular Volume 90 fL (79-100) Mean Corpuscular Hemoglobin 29 pg (25-35) Mean Corpuscular Hemoglobin Concent 33 g/dL (31-37) Red Cell Distribution Width 15.3 % (11.5-14.5) Platelet Count 282 x10^3/uL (140-400) Neutrophils (%) (Auto) 82 % (31-73) Lymphocytes (%) (Auto) 11 % (24-48) Monocytes (%) (Auto) 7 % (0-9) Eosinophils (%) (Auto) 0 % (0-3) Basophils (%) (Auto) 1 % (0-3) Neutrophils # (Auto) 4.4 x10^3/uL (1.8-7.7) Lymphocytes # (Auto) 0.6 x10^3/uL (1.0-4.8) Monocytes # (Auto) 0.4 x10^3/uL (0.0-1.1) Eosinophils # (Auto) 0.0 x10^3/uL (0.0-0.7) Basophils # (Auto) 0.0 x10^3/uL (0.0-0.2) Sodium Level 142 mmol/L (136-145) 145 mmol/L (136-145) Potassium Level 3.3 mmol/L (3.5-5.1) 3.4 mmol/L (3.5-5.1) Chloride Level 101 mmol/L (98-107) 105 mmol/L (98-107) Carbon Dioxide Level 35 mmol/L (21-32) 36 mmol/L (21-32) Anion Gap 6 (6-14) 4 (6-14) Blood Urea Nitrogen 11 mg/dL (8-26) 18 mg/dL (8-26) Creatinine 0.4 mg/dL (0.7-1.3) 0.5 mg/dL (0.7-1.3) Estimated GFR (Cockcroft-Gault) 229.6 177.5 Glucose Level 97 mg/dL (70-99) 101 mg/dL (70-99) Calcium Level 7.9 mg/dL (8.5-10.1) 7.7 mg/dL (8.5-10.1) Laboratory Tests Test 09/09/21 06:00 Sodium Level 145 mmol/L (136-145) Potassium Level 3.4 mmol/L (3.5-5.1) Chloride Level 105 mmol/L (98-107) Carbon Dioxide Level 36 mmol/L (21-32) Anion Gap 4 (6-14) Blood Urea Nitrogen 18 mg/dL (8-26) Creatinine 0.5 mg/dL (0.7-1.3) Estimated GFR (Cockcroft-Gault) 177.5 Glucose Level 101 mg/dL (70-99) Calcium Level 7.7 mg/dL (8.5-10.1) Microbiology 09/06/21 Respiratory Culture Gram Stain - Final, Complete 09/06/21 Respiratory Culture - Final, Complete 09/05/21 Blood Culture - Preliminary, Resulted NO GROWTH AFTER 4 DAYS 09/03/21 AFB Specimen Processing Tissue - Final, Resulted 09/03/21 Acid Fast Bacilli Culture, Resulted Pending 09/03/21 Gram Stain - Final, Resulted 09/03/21 Fungal Culture, Resulted Pending 09/03/21 Fungal Culture Result 1, Resulted Pending 09/03/21 Urine Culture - Final, Complete Staphylococcus Aureus Medications Current Medications Ceftriaxone Sodium (Rocephin) 1 gm Q24H IVP Last administered on 09/04/21at 09:54; Start 09/04/21 at 10:00; Stop 09/04/21 at 12:33; Status DC Doxycycline Hyclate (Vibra-Tab) 100 mg BID PO Last administered on 09/04/21at 09:54; Start 09/03/21 at 15:30; Stop 09/04/21 at 16:21; Status DC Vancomycin HCl (Vanco Per Pharmacy) 1 each PRN DAILY PRN MC SEE COMMENTS Last administered on 09/03/21at 16:01; Start 09/03/21 at 16:00; Stop 09/04/21 at 12:33; Status DC Vancomycin HCl 1 gm/Sodium Chloride 250 ml @ 250 mls/hr Q8H IV Last administer ed on 09/04/21at 04:55; Start 09/03/21 at 19:00; Stop 09/04/21 at 12:32; Status DC Vancomycin HCl (Vancomycin Trough Level) 1 each 1X ONCE MC Last administered on 09/04/21at 12:30; Start 09/04/21 at 12:30; Stop 09/04/21 at 12:31; Status DC Norepinephrine Bitartrate 8 mg/ Dextrose 258 ml @ 13.197 mls/ hr CONT PRN IV PER PROTOCOL Last administered on 09/08/21at 15:48; Start 09/03/21 at 17:00 Gadoterate Meglumine (Clariscan) 13 ml 1X ONCE IVP Last administered on 09/03/21at 19:54; Start 09/03/21 at 19:45; Stop 09/03/21 at 19:46; Status DC Rocuronium [place] (Zemuron) 50 mg STK-MED ONCE .ROUTE ; Start 09/03/21 at 18:38; Stop 09/03/21 at 20:39; Status DC Gelatin (Gelfoam Size 100) 1 each STK-MED ONCE .ROUTE Last administered on 09/03/21at 22:35; Start 09/03/21 at 20:43; Stop 09/03/21 at 20:43; Status DC Bupivacaine HCl/ Epinephrine Bitart (Sensorcain-Epi 0.5% Kit) 30 ml STK-MED ONCE .ROUTE Last administered on 09/03/21at 22:35; Start 09/03/21 at 20:43; Stop 09/03/21 at 20:43; Status DC Thrombin 20,000 unit STK-MED ONCE TP Last administered on 09/03/21at 22:35; Start 09/03/21 at 20:43; Stop 09/03/21 at 20:43; Status DC Remifentanil HCl (Ultiva) 2 mg STK-MED ONCE IV ; Start 09/03/21 at 18:47; Stop 09/03/21 at 20:47; Status DC Propofol 50 ml @ As Directed STK-MED ONCE IV ; Start 09/03/21 at 18:47; Stop 09/03/21 at 20:47; Status DC Ephedrine Sulfate (ePHEDrine PF IN SALINE SYRINGE) 50 mg STK-MED ONCE IV ; Start 09/03/21 at 18:47; Stop 09/03/21 at 20:48; Status DC Lidocaine HCl (Lidocaine Pf 2% Vial) 5 ml STK-MED ONCE .ROUTE ; Start 09/03/21 at 18:47; Stop 09/03/21 at 20:48; Status DC Dexamethasone Sodium Phosphate (Decadron) 4 mg STK-MED ONCE .ROUTE ; Start 09/03/21 at 18:47; Stop 09/03/21 at 20:48; Status DC Phenylephrine HCl (Jerome-Synephrine Inj) 10 mg STK-MED ONCE .ROUTE ; Start 09/03/21 at 18:48; Stop 09/03/21 at 20:48; Status DC Desflurane (Suprane) 90 ml STK-MED ONCE IH ; Start 09/03/21 at 18:52; Stop 09/03/21 at 20:52; Status DC Succinylcholine Chloride (Anectine) 200 mg STK-MED ONCE .ROUTE ; Start 09/03/21 at 21:17; Stop 09/03/21 at 21:17; Status DC Glycopyrrolate (Robinul) 1 mg STK-MED ONCE .ROUTE ; Start 09/03/21 at 19:43; Stop 09/03/21 at 21:44; Status DC Propofol 50 ml @ As Directed STK-MED ONCE IV ; Start 09/03/21 at 20:04; Stop 09/03/21 at 22:05; Status DC Ondansetron HCl (Zofran) 4 mg STK-MED ONCE .ROUTE ; Start 09/03/21 at 20:16; Stop 09/03/21 at 22:16; Status DC Sevoflurane (Ultane) 90 ml STK-MED ONCE IH ; Start 09/03/21 at 20:17; Stop 09/03/21 at 22:17; Status DC Thrombin 20,000 unit STK-MED ONCE TP ; Start 09/03/21 at 23:56; Stop 09/03/21 at 23:56; Status DC Fentanyl Citrate (Fentanyl 2ml Vial) 100 mcg STK-MED ONCE .ROUTE ; Start 09/03/21 at 22:32; Stop 09/04/21 at 00:33; Status DC Fentanyl Citrate (Fentanyl 2ml Vial) 25 mcg PRN Q5MIN PRN IVP Acute Pain; Start 09/04/21 at 01:15; Stop 09/05/21 at 01:14; Status DC Fentanyl Citrate (Fentanyl 2ml Vial) 50 mcg PRN Q5MIN PRN IVP Acute Pain; Start 09/04/21 at 01:15; Stop 09/05/21 at 01:14; Status DC Hydromorphone HCl (Dilaudid) 0.2 mg PRN Q10MIN PRN IV MILD PAIN 1-3; Start 09/04/21 at 01:15; Stop 09/05/21 at 01:14; Status DC Hydromorphone HCl (Dilaudid) 0.4 mg PRN Q10MIN PRN IV MODERATE TO SEVERE PAIN; Start 09/04/21 at 01:15; Stop 09/05/21 at 01:14; Status DC Ondansetron HCl (Zofran) 4 mg PRN Q6HRS PRN IVP Nausea, 1st Choice; Start 09/04/21 at 01:15; Stop 09/05/21 at 01:14; Status DC Prochlorperazine Edisylate (Compazine) 5 mg PRN Q6HRS PRN IVP Nausea/Vomiting, 2nd Choice; Start 09/04/21 at 01:15; Stop 09/05/21 at 01:14; Status DC Hydralazine HCl (Apresoline Inj) 5 mg PRN Q15MIN PRN IVP SBP>180; Start 09/04/21 at 01:15; Stop 09/05/21 at 01:14; Status DC Labetalol HCl (Normodyne Iv Push) 5 mg PRN Q15MIN PRN IVP SBP GREATER THAN [180]; Start 09/04/21 at 01:15; Stop 09/05/21 at 01:14; Status DC Ringer's Solution 1,000 ml @ 100 mls/hr Q10H IV ; Start 09/04/21 at 01:15; Stop 09/05/21 at 01:14; Status DC Acetaminophen (Tylenol) 650 mg PRN Q6HRS PRN PO MILD PAIN / TEMP > 100.3'F; Start 09/04/21 at 01:30 Al Hydroxide/Mg Hydroxide (Mylanta Plus Xs) 30 ml PRN Q3HRS PRN PO HEARTBURN / GAS; Start 09/04/21 at 01:30 Calcium Carbonate/ Glycine (Tums) 500 mg PRN Q3HRS PRN PO INDIGESTION; Start 09/04/21 at 01:30 Diphenhydramine HCl (Benadryl) 25 mg PRN Q6HRS PRN PO ITCHING Last administered on 09/04/21at 09:54; Start 09/04/21 at 01:30 Naloxone HCl (Narcan) 0.1 mg PRN Q2MIN PRN IV SEE COMMENTS; Start 09/04/21 at 01:30 Sodium Chloride (Normal Saline Flush) 3 ml QSHIFT PRN IV AFTER MEDS AND BLOOD DRAWS; Start 09/04/21 at 01:30 Acetaminophen/ Hydrocodone Bitart (Lortab 5/325) 1 tab PRN Q4HRS PRN PO MODERATE-SEVERE PAIN; Start 09/04/21 at 01:30 Fentanyl Citrate (Fentanyl 2ml Vial) 50 mcg PRN Q2HR PRN IVP SEVERE PAIN 7-10; Start 09/04/21 at 01:30 Potassium Chloride/Dextrose/ Sod Cl 1,000 ml @ 50 mls/hr Q20H IV Last administered on 09/08/21 15:48; Start 09/04/21 at 01:30 Albuterol/ Ipratropium (Duoneb) 3 ml RTQID NEB Last administered on 09/08/21 12:18; Start 09/04/21 at 08:00; Stop 09/08/21 at 20:29; Status DC Haloperidol Lactate (Haldol Inj) 1 mg 1X ONCE IM Last administered on 09/04/21 07:23; Start 09/04/21 at 07:15; Stop 09/04/21 at 07:17; Status DC Lorazepam (Ativan Inj) 2 mg PRN Q4HRS PRN IVP ANXIETY / AGITATION Last administered on 09/04/21 16:31; Start 09/04/21 at 09:15; Stop 09/05/21 at 07:47; Status DC Throat Lozenges (Cepacol Sore Throat Lozenge) 1 amparo PRN Q2HRS PRN PO SORE THROAT Last administered on 09/04/21 09:54; Start 09/04/21 at 09:15; Stop 09/09/21 at 15:43; Status DC Haloperidol (Haldol) 2 mg BID PO Last administered on 09/08/21 21:00; Start 09/04/21 at 11:00 Sertraline HCl (Zoloft) 25 mg DAILY PO Last administered on 09/04/21 16:16; Start 09/04/21 at 11:00 Bisacodyl (Dulcolax Supp) 10 mg 1X ONCE OH Last administered on 09/04/21at 11:00; Start 09/04/21 at 11:00; Stop 09/04/21 at 11:01; Status DC Daptomycin 680 mg/ Sodium Chloride 50 ml @ 100 mls/hr Q24H IV Last administered on 09/09/21 12:47; Start 09/04/21 at 14:00 Cefepime HCl (Maxipime) 2 gm Q8HRS IVP Last administered on 09/09/21 14:00; Start 09/04/21 at 13:30 Lactobacillus Rhamnosus (Culturelle) 1 cap BID PO Last administered on 09/08/21 21:00; Start 09/04/21 at 21:00 Lorazepam (Ativan Inj) 1 mg PRN Q4HRS PRN IVP ANXIETY / AGITATION; Start 09/05/21 at 07:45 Bisacodyl (Dulcolax Supp) 10 mg PRN DAILY PRN OH CONSTIPATION; Start 09/05/21 at 07:45 Acetaminophen (Tylenol Supp) 650 mg PRN Q6HRS PRN OH MILD PAIN / TEMP > 100.3'F; Start 09/05/21 at 07:45 Furosemide (Lasix) 20 mg 1X ONCE IVP Last administered on 09/05/21at 08:40; Start 09/05/21 at 08:30; Stop 09/05/21 at 08:31; Status DC Linezolid (Zyvox) 600 mg BID PO Last administered on 09/08/21at 21:00; Start 09/07/21 at 12:00 Oxymetazoline HCl (Afrin) 2 spray 1X ONCE NS Last administered on 09/07/21at 20:01; Start 09/07/21 at 19:15; Stop 09/07/21 at 19:16; Status DC Potassium Chloride/Water 100 ml @ 100 mls/hr Q1H IV Last administered on 09/08/21at 14:17; Start 09/08/21 at 10:00; Stop 09/08/21 at 11:59; Status DC Barium Sulfate (Varibar Thin Liquid Apple) 148 gm 1X ONCE PO Last administered on 09/08/21at 11:30; Start 09/08/21 at 11:15; Stop 09/08/21 at 11:21; Status DC Albumin Human 250 ml @ 62.5 mls/hr 1X ONCE IV Last administered on 09/08/21at 14:19; Start 09/08/21 at 13:30; Stop 09/08/21 at 17:29; Status DC Albuterol Sulfate (Ventolin Neb Soln) 2.5 mg PRN Q6HRS PRN NEB SHORTNESS OF BREATH; Start 09/08/21 at 20:45; Stop 09/09/21 at 11:00; Status DC Albuterol Sulfate (Ventolin Neb Soln) 2.5 mg PRN Q6HRS PRN NEB SHORTNESS OF BREATH; Start 09/09/21 at 11:00 Albumin Human 500 ml @ 125 mls/hr 1X ONCE IV Last administered on 09/09/21at 12:46; Start 09/09/21 at 11:00; Stop 09/09/21 at 14:59; Status DC Throat Lozenges (Cepacol Sore Throat Lozenge) 1 amparo PRN Q2HRS PRN PO SORE THROAT; Start 09/09/21 at 14:30 Vitals/I & O Vital Sign - Last 24 Hours 09/08/21 09/08/21 09/08/21 09/08/21 17:00 18:00 19:00 20:00 Temp 97.8 97.8 Pulse 64 78 67 Resp 16 16 18 B/P (MAP) 96/52 98/58 109/63 Pulse Ox 94 95 96 O2 Delivery Nasal Cannula Nasal Cannula Nasal Cannula Nasal Cannula O2 Flow Rate 4.0 4.0 4.0 4.0 09/08/21 09/08/21 09/08/21 09/08/21 20:00 21:00 22:00 22:50 Temp 97.8 97.8 97.8 97.8 Pulse 67 85 72 65 Resp 18 18 18 20 B/P (MAP) 109/63 108/66 104/60 92/55 Pulse Ox 96 96 96 91 O2 Delivery Nasal Cannula Nasal Cannula Nasal Cannula Nasal Cannula O2 Flow Rate 4.0 4.0 4.0 4.0 09/08/21 09/08/21 09/09/21 09/09/21 23:00 23:45 00:01 01:00 Temp 97.2 97.8 97.2 97.8 Pulse 76 62 80 68 Resp 18 18 18 18 B/P (MAP) 106/61 92/51 100/64 100/60 Pulse Ox 94 93 96 96 O2 Delivery Nasal Cannula Nasal Cannula Nasal Cannula Nasal Cannula O2 Flow Rate 4.0 4.0 4.0 4.0 09/09/21 09/09/21 09/09/21 09/09/21 01:50 02:04 03:09 04:00 Pulse 76 69 74 74 Resp 18 20 18 18 B/P (MAP) 116/67 113/66 (82) 111/71 120/76 Pulse Ox 94 94 93 O2 Delivery Nasal Cannula Room Air Nasal Cannula Room Air O2 Flow Rate 4.0 4.0 4.0 09/09/21 09/09/21 09/09/21 09/09/21 05:00 06:19 07:00 07:00 Temp 97.6 97.6 Pulse 74 84 86 84 Resp 18 18 20 18 B/P (MAP) 117/73 81/48 121/74 (90) 118/52 Pulse Ox 93 92 89 92 O2 Delivery Room Air Room Air Room Air Room Air 09/09/21 09/09/21 09/09/21 09/09/21 08:00 08:00 08:00 08:00 Pulse 84 69 Resp 18 20 B/P (MAP) 121/74 96/57 (70) Pulse Ox 92 90 O2 Delivery Room Air Room Air Room Air Nasal Cannula O2 Flow Rate 4.0 09/09/21 09/09/21 09/09/21 09/09/21 09:00 09:00 10:00 10:00 Pulse 90 84 84 84 Resp 20 18 18 20 B/P (MAP) 102/57 (72) 96/57 102/57 108/58 (75) Pulse Ox 89 92 92 92 O2 Delivery Room Air Room Air Room Air Room Air 09/09/21 09/09/21 09/09/21 09/09/21 11:00 12:00 12:05 13:00 Temp 98.0 98.0 Pulse 84 84 84 84 Resp 18 18 18 18 B/P (MAP) 118/62 108/57 102/56 121/71 Pulse Ox 92 92 92 92 O2 Delivery Room Air Room Air Room Air Room Air 09/09/21 09/09/21 09/09/21 09/09/21 13:05 14:00 14:05 15:00 Pulse 84 84 84 84 Resp 18 18 18 18 B/P (MAP) 93/58 115/67 102/48 100/58 Pulse Ox 92 92 92 92 O2 Delivery Room Air Room Air Room Air Room Air 09/09/21 15:05 Pulse 84 Resp 18 B/P (MAP) 107/62 Pulse Ox 92 O2 Delivery Room Air Intake and Output 09/08/21 09/08/21 09/09/21 15:00 23:00 07:00 Intake Total 350 ml 600 ml 200 ml Output Total 50 ml 725 ml Balance 300 ml -125 ml 200 ml Justifications for Admission Other Justification Nutrition Consultation Dietary Evaluation: Recommendations by RD: Dietary education by RD, Increase Calorie Intake, Protein supplementation Comments: REC diet per [employer] pt likes chocolate or vanilla Ensure enlive vanilla ensure puddings, Mt dew Expected Outcomes/Goals: to meet >75% est nutr needs Malnutrition Findings: Body Fat Depletion (Non Severe: Mild Depletion Weight Status: Underweight NIXON SAVAGE MD Sep 09, 2021 16:26
--- NOTE | 2021-09-09 19:07 | PATHOLOGY ---
[facility] Accession Number: [id number] . 01 Material submitted: . vertebral column - CERVICAL DISC AND DECOMPRESSION . 01 Clinical history: . OSTEOMYELITIS, DISCITIS ACDF . 02 Diagnosis: Bone and soft tissue "cervical disc", excision: - Marked osteomyelitis, and associated marked acute inflammation involving fibrocartilage (discitis). - Negative for malignancy. (MLK:pit; 09/08/2021) QTP 09/09/2021 1849 Local . 02 Electronically signed: . Adalberto Lake MD, Pathologist NPI- [id number] . 01 Gross description: . The specimen is received in formalin, labeled "Dorian Tiwari, cervical disc and decompression". Received are multiple segments of pale chávez to li-chávez fibrous tissue admixed with fragments of gritty bone measuring 2.7 x 2.5 x 1.0 cm in aggregate dimensions. The specimen is submitted representatively in cassette A1, following light decalcification. ([facility]; 09/06/2021) NRI/NRI 09/06/2021 1718 Local . 02 Pathologist provided ICD-10: M46.22, M46.42 . 02 CPT . 761641, 602852 Specimen Comment: A courtesy copy of this report has been sent to [phone] Specimen Comment: [id number], Specimen Comment: Report sent to , DR PA / DR LANDIS Specimen Comment: A duplicate report has been generated due to demographic updates. Performed at: [address], [place], [place] [id number] MD Yrn Wheeler MD Phone: [phone] Performed at: 02 [facility] [address] [place], [place] [id number] MD Vega Hinson MD Phone: [phone]
--- NOTE | 2021-09-09 22:56 | NUR ---
Patient declined to take his evening medications including all antibiotics. This RN attempted to educate patient on importance of antibiotics. Patient stated that he would like to speak with a medical doctor prior to taking any medications. This RN suggested she could page the provider so they could attempt a phone conversation. The patient stated he would only speak with provider in person, and would wait until tomorrow when the providers come to bedside. This RN also offered patient a bed bath this evening either with water or bath wipes. Patient declined stating the hygiene products we have make him break out.
[2021-09-10] VITALS (14 sets, daily range): BP systolic 84–105; BP diastolic 43–75
[2021-09-10] MEDS: LINEZOLID 600 MG TABLET PO SCH ×3 (02:49→21:00)
[2021-09-10] MEDS: POTASSIUM CL 20MEQ D5-0.45NACL 1,000 ML IV SCH ×2 (02:55→21:56)
[2021-09-10] MEDS: CEFEPIME HCL IV Push 2 GM VIAL. IVP SCH ×3 (05:59→21:56)
--- NOTE | 2021-09-10 06:29 | NUR ---
Throughout shift, patient periodically declined nursing cares, and periodically agreeable to cares. Patient declined evening meds (see previous note). however, at approx 230 patient called rn into room and stated he would not be able to sleep without taking them. PO abx given at that time. patient declined rn help with bath, however, was able to change his gown and wipe himself off with wipes. patient declined rn assistance with repositioning. patient central line dressing almost off. patient agreeable for rn to place new dressing on top, however, would not allow rn to clean area. Currently resting comfortably. Call light in reach. Will monitor patient until handing off care to oncoming rn.
[2021-09-10 06:47] LABS: ANION GAP 5 (6-14); BLOOD UREA NITROGEN 16 mg/dL (8-26); CALCIUM 8.2 mg/dL (8.5-10.1); CARBON DIOXIDE 34 mmol/L (21-32); CHLORIDE 103 mmol/L (98-107); CREATININE 0.3 mg/dL (0.7-1.3); GFR > 300.0; GLUCOSE 78 mg/dL (70-99); POTASSIUM 3.4 mmol/L (3.5-5.1); SODIUM 142 mmol/L (136-145)
[2021-09-10] MEDS: LACTOBACILLUS RHAMNOSUS GG 1 CAPSULE. PO SCH ×2 (08:20→21:00)
[2021-09-10] MEDS: SERTRALINE 25 MG TABLET. PO SCH (08:20)
[2021-09-10] MEDS: HALOPERIDOL 2 MG TABLET. PO SCH ×2 (08:20→21:00)
--- NOTE | 2021-09-10 10:38 | NUR ---
SS following up with discharge planning. SS reviewed pt chart and discussed with pt RN. Pt is currently on room air. Pt on IV Daptomycin and IV Cefepime. Max assist and dependent with cares. SS discussed with physician. Pt on Medical Furlough from [facility] until release from the hospital but is needing care home IV antibiotics possibly up to 12 weeks. Referral sent to [facility], ; fax [phone], and pt clinically declined. SS discussed pt's case with [facility], ; fax [phone], and [facility], ; fax [phone], and pt was denied. Facilities stating that they cannot accept for IV antibiotics due to pt's history and chronic illegal use of IV drugs. Physician notified. SS will continue to follow for discharge planning.
--- NOTE | 2021-09-10 11:25 | PDOC ---
PULMONARY PROGRESS NOTES DATE: 09/10/21 TIME: 11:24 Subjective Patient doing well. Chest tube was removed 09/08/2021 Vitals Vital Signs Date Time Temp Pulse Resp B/P (MAP) Pulse Ox O2 Delivery O2 Flow Rate FiO2 09/10/21 10:00 60 17 86/57 (67) 99 Room Air 09/10/21 07:00 97.8 97.8 09/09/21 08:00 4.0 Comments ros as mentioned as above other sys otherwise neg ROS: No Nausea, No Chest Pain, No Abdominal Pain, No Increase Cough General: Alert Lungs: Crackles, Other (dull at bases ) Cardiovascular: S1, S2 Abdomen: Soft, Non-tender Neuro Exam: Alert Extremities: No Edema Skin: Warm Labs Laboratory Tests Test 09/09/21 06:00 09/10/21 06:10 Sodium Level 145 mmol/L (136-145) 142 mmol/L (136-145) Potassium Level 3.4 mmol/L (3.5-5.1) 3.4 mmol/L (3.5-5.1) Chloride Level 105 mmol/L (98-107) 103 mmol/L (98-107) Carbon Dioxide Level 36 mmol/L (21-32) 34 mmol/L (21-32) Anion Gap 4 (6-14) 5 (6-14) Blood Urea Nitrogen 18 mg/dL (8-26) 16 mg/dL (8-26) Creatinine 0.5 mg/dL (0.7-1.3) 0.3 mg/dL (0.7-1.3) Estimated GFR (Cockcroft-Gault) 177.5 > 300.0 Glucose Level 101 mg/dL (70-99) 78 mg/dL (70-99) Calcium Level 7.7 mg/dL (8.5-10.1) 8.2 mg/dL (8.5-10.1) Laboratory Tests Test 09/10/21 06:10 Sodium Level 142 mmol/L (136-145) Potassium Level 3.4 mmol/L (3.5-5.1) Chloride Level 103 mmol/L (98-107) Carbon Dioxide Level 34 mmol/L (21-32) Anion Gap 5 (6-14) Blood Urea Nitrogen 16 mg/dL (8-26) Creatinine 0.3 mg/dL (0.7-1.3) Estimated GFR (Cockcroft-Gault) > 300.0 Glucose Level 78 mg/dL (70-99) Calcium Level 8.2 mg/dL (8.5-10.1) Comments Chest x-ray reviewed 09/08/2021 No pneumothorax seen. Chest x-ray from 09/06 reviewed no significant pneumo Impression . IMPRESSION: 1. Left pneumothorax, status post chest tube placement., Suspect from trauma, presented with a pneumo, chest tube removed 3. No recurrent pneumothorax on follow-up chest x-ray 2. S/P C6 corpectomy and partial corpectomy C7, fusion, evacuation of epidural abscess POD #2 3. Smoker question vanessa chronic obstructive pulmonary disease. 4. Drug abuse. 5. Anemia. 6. Sepsis/septic shock. Off Levophed 7. Suspect COPD 8. Abnormal x-ray revealing pneumothorax, bilateral effusions, atelectasis. 9. Multifactorial hypoxemic respiratory failure Plan . Chest x-ray reviewed. No pneumothorax seen. Tiny left basal effusion. Monitor for now. off Levophed. Follow neurosurgery recommendations. Antibiotics per infectious disease. Respiratory status is stable. Discussed with RN Will sign off. LORIE MARKHAM MD Sep 10, 2021 11:25
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
--- NOTE | 2021-09-10 12:30 | PDOC ---
Infectious Disease Note Subjective Subjective Pt feels better Pain is under control afebrile last 48 hrs ROS ROS no n/v/d/ Vital Sign Vital Signs Vital Signs Date Time Temp Pulse Resp B/P (MAP) Pulse Ox O2 Delivery O2 Flow Rate FiO2 09/10/21 11:00 61 16 87/52 (64) 96 Room Air 09/10/21 07:00 97.8 97.8 09/09/21 08:00 4.0 Physical Exam PHYSICAL EXAM GENERAL: awake alert male in no acute distress, on O2 by HEENT: Normocephalic, atraumatic. Anicteric. Pupils equal, reactive. Poor dentition. NECK: No JVD, no lymphadenopathy. Anterior cervical dressing present, intact, not taken down. LUNGS: Left chest tube, decreased breath sounds, otherwise no accessory muscle use. Clear on the right side. ABDOMEN: Soft, nontender, nondistended. Bowel sounds present. GENITOURINARY: Kuo in place. EXTREMITIES: No edema, no cyanosis. DERMATOLOGIC: Warm, dry, no generalized rash. NEUROLOGIC: alert awake able to move both upper ext, could not move lower ext PSYCHIATRIC: calm cooperative Central line RT Neck clean Placed 09/03 Labs Lab Laboratory Tests Test 09/10/21 06:10 Sodium Level 142 mmol/L (136-145) Potassium Level 3.4 mmol/L (3.5-5.1) Chloride Level 103 mmol/L (98-107) Carbon Dioxide Level 34 mmol/L (21-32) Anion Gap 5 (6-14) Blood Urea Nitrogen 16 mg/dL (8-26) Creatinine 0.3 mg/dL (0.7-1.3) Estimated GFR (Cockcroft-Gault) > 300.0 Glucose Level 78 mg/dL (70-99) Calcium Level 8.2 mg/dL (8.5-10.1) Micro Microbiology 09/05/21 Blood Culture - Preliminary, Resulted NO GROWTH AFTER 1 DAY 09/03/21 Gram Stain - Final, Resulted 09/03/21 Aerobic and Anaerobic Culture - Preliminary, Resulted Staphylococcus Aureus 09/03/21 Urine Culture - Final, Complete Staphylococcus Aureus Objective Assessment 1 Cervical epidural abscess at C6-C7 with severe cervical myelopathy. 1. Status post anterior cervical decompression with corpectomy of C6, evacuation of epidural abscess, placement of interbody fusion cage and anterior plate on 09/04/2021. Cultures positive for staph aureus 3 Staphylococcus aureus bacteremia at [facility] on 09/03/2021 and here at [facility]. 4. Left pneumothorax, status post CDS. 5 polysubstance dependence. 6. Schizophrenia, bipolar disorder, anxiety. 7 chronic low back pain. 8 hypertension. 9. Protein-calorie malnutrition. 10 anemia. 11. PCN allergy with hives, does not recall taking amoxicillin or augmentin Plan Plan of Care Cont Daptomycin and Cefepime Cont Zyvox for pulmonary coverage. Monitor closely as patient is on sertraline Follow repeat blood culture neg so far from 09/05,if positive will need to dc central line as placed on 09/03 Wound care as directed Maintain aspiration precautions Monitor labs and cultures swallow evaluation pending Continue supportive care D/W LOGAN VICENTE MD Sep 10, 2021 12:30
[2021-09-10] MEDS: DAPTOmycin (GENERIC) IVPB 680 MG in IV NORMAL SALINE 50ML 50 ML IV SCH (13:39)
--- NOTE | 2021-09-10 16:08 | PDOC ---
PROGRESS NOTES Date of Service DATE: 09/10/21 TIME: 16:04 Subjective Subjective seen at 1345 POD #7 patient seen at 1400 awake, alert eating denies pain Objective Objective Vital Signs Date Time Temp Pulse Resp B/P (MAP) Pulse Ox O2 Delivery O2 Flow Rate FiO2 09/10/21 15:00 66 17 84/61 (69) 99 Room Air 09/10/21 13:28 4.0 09/10/21 07:00 97.8 97.8 Intake and Output 09/10/21 07:00 Intake Total 1140 ml Output Total 2700 ml Balance -1560 ml Intake Oral 1140 ml Output Urine Total 2700 ml Physical Exam General: Alert, Oriented X3, Cooperative, No acute distress Neuro: Normal speech, Other (not moving lower extremities, sensation intact, upper extremities continue to improve, stronger) Skin: Other (dressing C,D,I, flat) Plan Plan of Care continue Antibiotics per ID PT SCDs, consider Lovenox/ heparin has refused any further surgery Comment Review of Relevant I have reviewed the following items vanessa (where applicable) has been applied. Labs Laboratory Tests Test 09/09/21 06:00 09/10/21 06:10 Sodium Level 145 mmol/L (136-145) 142 mmol/L (136-145) Potassium Level 3.4 mmol/L (3.5-5.1) 3.4 mmol/L (3.5-5.1) Chloride Level 105 mmol/L (98-107) 103 mmol/L (98-107) Carbon Dioxide Level 36 mmol/L (21-32) 34 mmol/L (21-32) Anion Gap 4 (6-14) 5 (6-14) Blood Urea Nitrogen 18 mg/dL (8-26) 16 mg/dL (8-26) Creatinine 0.5 mg/dL (0.7-1.3) 0.3 mg/dL (0.7-1.3) Estimated GFR (Cockcroft-Gault) 177.5 > 300.0 Glucose Level 101 mg/dL (70-99) 78 mg/dL (70-99) Calcium Level 7.7 mg/dL (8.5-10.1) 8.2 mg/dL (8.5-10.1) Laboratory Tests Test 09/10/21 06:10 Sodium Level 142 mmol/L (136-145) Potassium Level 3.4 mmol/L (3.5-5.1) Chloride Level 103 mmol/L (98-107) Carbon Dioxide Level 34 mmol/L (21-32) Anion Gap 5 (6-14) Blood Urea Nitrogen 16 mg/dL (8-26) Creatinine 0.3 mg/dL (0.7-1.3) Estimated GFR (Cockcroft-Gault) > 300.0 Glucose Level 78 mg/dL (70-99) Calcium Level 8.2 mg/dL (8.5-10.1) Microbiology 09/06/21 Respiratory Culture Gram Stain - Final, Complete 09/06/21 Respiratory Culture - Final, Complete 09/05/21 Blood Culture - Final, Complete NO GROWTH AFTER 5 DAYS 09/03/21 AFB Specimen Processing Tissue - Final, Resulted 09/03/21 Acid Fast Bacilli Culture, Resulted Pending 09/03/21 Gram Stain - Final, Resulted 09/03/21 Fungal Culture, Resulted Pending 09/03/21 Fungal Culture Result 1, Resulted Pending 09/03/21 Urine Culture - Final, Complete Staphylococcus Aureus Medications Current Medications Ceftriaxone Sodium (Rocephin) 1 gm Q24H IVP Last administered on 09/04/21at 09:54; Start 09/04/21 at 10:00; Stop 09/04/21 at 12:33; Status DC Doxycycline Hyclate (Vibra-Tab) 100 mg BID PO Last administered on 09/04/21at 09:54; Start 09/03/21 at 15:30; Stop 09/04/21 at 16:21; Status DC Vancomycin HCl (Vanco Per Pharmacy) 1 each PRN DAILY PRN MC SEE COMMENTS Last administered on 09/03/21at 16:01; Start 09/03/21 at 16:00; Stop 09/04/21 at 12:33; Status DC Vancomycin HCl 1 gm/Sodium Chloride 250 ml @ 250 mls/hr Q8H IV Last administered on 09/04/21at 04:55; Start 09/03/21 at 19:00; Stop 09/04/21 at 12:32; Status DC Vancomycin HCl (Vancomycin Trough Level) 1 each 1X ONCE MC Last administered on 09/04/21at 12:30; Start 09/04/21 at 12:30; Stop 09/04/21 at 12:31; Status DC Norepinephrine Bitartrate 8 mg/ Dextrose 258 ml @ 13.197 mls/ hr CONT PRN IV PER PROTOCOL Last administered on 09/08/21at 15:48; Start 09/03/21 at 17:00 Gadoterate Meglumine (Clariscan) 13 ml 1X ONCE IVP Last administered on 09/03/21at 19:54; Start 09/03/21 at 19:45; Stop 09/03/21 at 19:46; Status DC Rocuronium [place] (Zemuron) 50 mg STK-MED ONCE .ROUTE ; Start 09/03/21 at 18:38; Stop 09/03/21 at 20:39; Status DC Gelatin (Gelfoam Size 100) 1 each STK-MED ONCE .ROUTE Last administered on 09/03/21at 22:35; Start 09/03/21 at 20:43; Stop 09/03/21 at 20:43; Status DC Bupivacaine HCl/ Epinephrine Bitart (Sensorcain-Epi 0.5% Kit) 30 ml STK-MED ONCE .ROUTE Last administered on 09/03/21 22:35; Start 09/03/21 at 20:43; Stop 08/11 11/28 at 20:43; Status DC Thrombin 20,000 unit STK-MED ONCE TP Last administered on 09/03/21 22:35; Start 09/03/21 at 20:43; Stop 09/03/21 at 20:43; Status DC Remifentanil HCl (Ultiva) 2 mg STK-MED ONCE IV ; Start 09/03/21 at 18:47; Stop 09/03/21 at 20:47; Status DC Propofol 50 ml @ As Directed STK-MED ONCE IV ; Start 09/03/21 at 18:47; Stop 09/03/21 at 20:47; Status DC Ephedrine Sulfate (ePHEDrine PF IN SALINE SYRINGE) 50 mg STK-MED ONCE IV ; Start 09/03/21 at 18:47; Stop 09/03/21 at 20:48; Status DC Lidocaine HCl (Lidocaine Pf 2% Vial) 5 ml STK-MED ONCE .ROUTE ; Start 09/03/21 at 18:47; Stop 09/03/21 at 20:48; Status DC Dexamethasone Sodium Phosphate (Decadron) 4 mg STK-MED ONCE .ROUTE ; Start 09/03/21 at 18:47; Stop 09/03/21 at 20:48; Status DC Phenylephrine HCl (Jerome-Synephrine Inj) 10 mg STK-MED ONCE .ROUTE ; Start 09/03/21 at 18:48; Stop 09/03/21 at 20:48; Status DC Desflurane (Suprane) 90 ml STK-MED ONCE IH ; Start 09/03/21 at 18:52; Stop 09/03/21 at 20:52; Status DC Succinylcholine Chloride (Anectine) 200 mg STK-MED ONCE .ROUTE ; Start 09/03/21 at 21:17; Stop 09/03/21 at 21:17; Status DC Glycopyrrolate (Robinul) 1 mg STK-MED ONCE .ROUTE ; Start 09/03/21 at 19:43; Stop 09/03/21 at 21:44; Status DC Propofol 50 ml @ As Directed STK-MED ONCE IV ; Start 09/03/21 at 20:04; Stop 09/03/21 at 22:05; Status DC Ondansetron HCl (Zofran) 4 mg STK-MED ONCE .ROUTE ; Start 09/03/21 at 20:16; Stop 09/03/21 at 22:16; Status DC Sevoflurane (Ultane) 90 ml STK-MED ONCE IH ; Start 09/03/21 at 20:17; Stop 09/03/21 at 22:17; Status DC Thrombin 20,000 unit STK-MED ONCE TP ; Start 09/03/21 at 23:56; Stop 09/03/21 at 23:56; Status DC Fentanyl Citrate (Fentanyl 2ml Vial) 100 mcg STK-MED ONCE .ROUTE ; Start 09/03/21 at 22:32; Stop 09/04/21 at 00:33; Status DC Fentanyl Citrate (Fentanyl 2ml Vial) 25 mcg PRN Q5MIN PRN IVP Acute Pain; Start 09/04/21 at 01:15; Stop 09/05/21 at 01:14; Status DC Fentanyl Citrate (Fentanyl 2ml Vial) 50 mcg PRN Q5MIN PRN IVP Acute Pain; Start 09/04/21 at 01:15; Stop 09/05/21 at 01:14; Status DC Hydromorphone HCl (Dilaudid) 0.2 mg PRN Q10MIN PRN IV MILD PAIN 1-3; Start 09/04/21 at 01:15; Stop 09/05/21 at 01:14; Status DC Hydromorphone HCl (Dilaudid) 0.4 mg PRN Q10MIN PRN IV MODERATE TO SEVERE PAIN; Start 09/04/21 at 01:15; Stop 09/05/21 at 01:14; Status DC Ondansetron HCl (Zofran) 4 mg PRN Q6HRS PRN IVP Nausea, 1st Choice; Start 09/04/21 at 01:15; Stop 09/05/21 at 01:14; Status DC Prochlorperazine Edisylate (Compazine) 5 mg PRN Q6HRS PRN IVP Nausea/Vomiting, 2nd Choice; Start 09/04/21 at 01:15; Stop 09/05/21 at 01:14; Status DC Hydralazine HCl (Apresoline Inj) 5 mg PRN Q15MIN PRN IVP SBP>180; Start 09/04/21 at 01:15; Stop 09/05/21 at 01:14; Status DC Labetalol HCl (Normodyne Iv Push) 5 mg PRN Q15MIN PRN IVP SBP GREATER THAN [180]; Start 09/04/21 at 01:15; Stop 09/05/21 at 01:14; Status DC Ringer's Solution 1,000 ml @ 100 mls/hr Q10H IV ; Start 09/04/21 at 01:15; Stop 09/05/21 at 01:14; Status DC Acetaminophen (Tylenol) 650 mg PRN Q6HRS PRN PO MILD PAIN / TEMP > 100.3'F; Start 09/04/21 at 01:30 Al Hydroxide/Mg Hydroxide (Mylanta Plus Xs) 30 ml PRN Q3HRS PRN PO HEARTBURN / GAS; Start 09/04/21 at 01:30 Calcium Carbonate/ Glycine (Tums) 500 mg PRN Q3HRS PRN PO INDIGESTION; Start 09/04/21 at 01:30 Diphenhydramine HCl (Benadryl) 25 mg PRN Q6HRS PRN PO ITCHING Last administered on 09/04/21at 09:54; Start 09/04/21 at 01:30 Naloxone HCl (Narcan) 0.1 mg PRN Q2MIN PRN IV SEE COMMENTS; Start 09/04/21 at 01:30 Sodium Chloride (Normal Saline Flush) 3 ml QSHIFT PRN IV AFTER MEDS AND BLOOD DRAWS; Start 09/04/21 at 01:30 Acetaminophen/ Hydrocodone Bitart (Lortab 5/325) 1 tab PRN Q4HRS PRN PO MODERATE-SEVERE PAIN; Start 09/04/21 at 01:30 Fentanyl Citrate (Fentanyl 2ml Vial) 50 mcg PRN Q2HR PRN IVP SEVERE PAIN 7-10; Start 09/04/21 at 01:30 Potassium Chloride/Dextrose/ Sod Cl 1,000 ml @ 50 mls/hr Q20H IV Last administered on 09/10/21at 02:55; Start 09/04/21 at 01:30 Albuterol/ Ipratropium (Duoneb) 3 ml RTQID NEB Last administered on 09/08/21at 12:18; Start 09/04/21 at 08:00; Stop 09/08/21 at 20:29; Status DC Haloperidol Lactate (Haldol Inj) 1 mg 1X ONCE IM Last administered on 09/04/21at 07:23; Start 09/04/21 at 07:15; Stop 09/04/21 at 07:17; Status DC Lorazepam (Ativan Inj) 2 mg PRN Q4HRS PRN IVP ANXIETY / AGITATION Last administered on 09/04/21at 16:31; Start 09/04/21 at 09:15; Stop 09/05/21 at 07:47; Status DC Throat Lozenges (Cepacol Sore Throat Lozenge) 1 amparo PRN Q2HRS PRN PO SORE THROAT Last administered on 09/04/21at 09:54; Start 09/04/21 at 09:15; Stop 09/09/21 at 15:43; Status DC Haloperidol (Haldol) 2 mg BID PO Last administered on 09/10/21 08:20; Start 09/04/21 at 11:00 Sertraline HCl (Zoloft) 25 mg DAILY PO Last administered on 09/10/21 08:20; Start 09/04/21 at 11:00 Bisacodyl (Dulcolax Supp) 10 mg 1X ONCE DC Last administered on 2/26/22at 11:00; Start 09/04/21 at 11:00; Stop 09/04/21 at 11:01; Status DC Daptomycin 680 mg/ Sodium Chloride 50 ml @ 100 mls/hr Q24H IV Last administered on 09/10/21 13:39; Start 09/04/21 at 14:00 Cefepime HCl (Maxipime) 2 gm Q8HRS IVP Last administered on 09/10/21 13:38; Start 09/04/21 at 13:30 Lactobacillus Rhamnosus (Culturelle) 1 cap BID PO Last administered on 09/10/21 08:20; Start 09/04/21 at 21:00 Lorazepam (Ativan Inj) 1 mg PRN Q4HRS PRN IVP ANXIETY / AGITATION Last administered on 09/10/21 02:50; Start 09/05/21 at 07:45 Bisacodyl (Dulcolax Supp) 10 mg PRN DAILY PRN DC CONSTIPATION; Start 09/05/21 at 07:45 Acetaminophen (Tylenol Supp) 650 mg PRN Q6HRS PRN DC MILD PAIN / TEMP > 100.3'F; Start 09/05/21 at 07:45 Furosemide (Lasix) 20 mg 1X ONCE IVP Last administered on 09/05/21at 08:40; Start 09/05/21 at 08:30; Stop 09/05/21 at 08:31; Status DC Linezolid (Zyvox) 600 mg BID PO Last administered on 09/10/21 08:20; Start 09/07/21 at 12:00 Oxymetazoline HCl (Afrin) 2 spray 1X ONCE NS Last administered on 09/07/21at 20:01; Start 09/07/21 at 19:15; Stop 09/07/21 at 19:16; Status DC Potassium Chloride/Water 100 ml @ 100 mls/hr Q1H IV Last administered on 09/08/21 14:17; Start 09/08/21 at 10:00; Stop 09/08/21 at 11:59; Status DC Barium Sulfate (Varibar Thin Liquid Apple) 148 gm 1X ONCE PO Last administered on 09/08/21 11:30; Start 09/08/21 at 11:15; Stop 09/08/21 at 11:21; Status DC Albumin Human 250 ml @ 62.5 mls/hr 1X ONCE IV Last administered on 09/08/21at 14:19; Start 09/08/21 at 13:30; Stop 09/08/21 at 17:29; Status DC Albuterol Sulfate (Ventolin Neb Soln) 2.5 mg PRN Q6HRS PRN NEB SHORTNESS OF BREATH; Start 09/08/21 at 20:45; Stop 09/09/21 at 11:00; Status DC Albuterol Sulfate (Ventolin Neb Soln) 2.5 mg PRN Q6HRS PRN NEB SHORTNESS OF BREATH; Start 09/09/21 at 11:00 Albumin Human 500 ml @ 125 mls/hr 1X ONCE IV Last administered on 09/09/21at 12:46; Start 09/09/21 at 11:00; Stop 09/09/21 at 14:59; Status DC Throat Lozenges (Cepacol Sore Throat Lozenge) 1 amparo PRN Q2HRS PRN PO SORE THROAT; Start 09/09/21 at 14:30 Vitals/I & O Vital Sign - Last 24 Hours 09/09/21 09/09/21 09/09/21 09/09/21 17:00 18:00 19:00 20:00 Temp 97.9 97.9 Pulse 83 83 78 74 Resp 18 18 24 34 B/P (MAP) 110/62 109/62 93/51 88/61 Pulse Ox 92 92 93 95 O2 Delivery Room Air Room Air Room Air Room Air 09/09/21 09/09/21 09/09/21 09/09/21 20:00 21:00 22:00 23:00 Pulse 62 64 60 Resp 20 19 13 B/P (MAP) 96/66 92/63 96/65 Pulse Ox 96 97 95 O2 Delivery Room Air Room Air Room Air Room Air 09/10/21 09/10/21 09/10/21 09/10/21 00:00 01:00 02:00 03:00 Temp 98.4 98.4 Pulse 72 68 70 68 Resp 20 22 26 25 B/P (MAP) 95/64 100/69 105/69 Pulse Ox 94 94 93 93 O2 Delivery Room Air Room Air Room Air Room Air 09/10/21 09/10/21 09/10/21 09/10/21 04:00 05:00 06:00 07:00 Temp 98.0 97.8 98.0 97.8 Pulse 59 59 48 Resp 14 16 20 17 B/P (MAP) 101/64 95/64 104/75 97/73 (81) Pulse Ox 94 98 98 98 O2 Delivery Room Air Room Air Room Air Room Air 09/10/21 09/10/21 09/10/21 09/10/21 08:00 08:00 09:00 10:00 Pulse 62 63 60 Resp 16 17 17 B/P (MAP) 90/59 (69) 93/60 (71) 86/57 (67) Pulse Ox 99 98 99 O2 Delivery Room Air Room Air Room Air Room Air 09/10/21 09/10/21 09/10/21 11:00 13:28 15:00 Pulse 61 66 Resp 16 17 B/P (MAP) 87/52 (64) 84/61 (69) Pulse Ox 96 99 99 O2 Delivery Room Air Nasal Cannula Room Air O2 Flow Rate 4.0 Intake and Output 09/09/21 09/09/21 09/10/21 15:00 23:00 07:00 Intake Total 650 ml 250 ml 240 ml Output Total 1400 ml 725 ml 575 ml Balance -750 ml -475 ml -335 ml Justifications for Admission Other Justification Nutrition Consultation Dietary Evaluation: Recommendations by RD: Dietary education by RD, Increase Calorie Intake, Protein supplementation Comments: REC diet per [employer] pt likes chocolate or vanilla Ensure enlive vanilla ensure puddings, Mt dew Expected Outcomes/Goals: to meet >75% est nutr needs Malnutrition Findings: Body Fat Depletion (Non Severe: Mild Depletion Weight Status: Underweight CLAIRE KAM APRN Sep 10, 2021 16:07
[2021-09-11 03:00] VITALS: BP 86/53
[2021-09-11] MEDS: CEFEPIME HCL IV Push 2 GM VIAL. IVP SCH ×2 (06:04→14:02)
[2021-09-11 07:00] VITALS: BP 96/61
[2021-09-11] MEDS: SERTRALINE 25 MG TABLET. PO SCH (08:58)
[2021-09-11] MEDS: LINEZOLID 600 MG TABLET PO SCH (08:58)
[2021-09-11] MEDS: HALOPERIDOL 2 MG TABLET. PO SCH ×2 (08:58→21:30)
[2021-09-11] MEDS: LACTOBACILLUS RHAMNOSUS GG 1 CAPSULE. PO SCH ×2 (09:00→21:30)
--- NOTE | 2021-09-11 10:15 | NUR ---
1015h- Dr. Gonzalez at bedside, seen that central line dressing is peeling off but patient refused to get dressing changed. Told to leave him alone or he'll intentionally pull it off. Doesn't wanna get convinced so I left him as per his request. Refused to take his lactobacillus capsule. Not administered. 1300h- Finally patient allowed me to change dressing but doesn't want his central line site cleaned, only to change the adhesive. Done as instructed as patient gets physically and verbally aggressive if not followed. Dr. Jonh Castillo informed.
[2021-09-11 11:00] VITALS: BP 140/87
--- NOTE | 2021-09-11 12:43 | PDOC ---
Infectious Disease Note Subjective Subjective Pt feels better Pain is under control afebrile last 48 hrs ROS ROS No nausea vomiting diarrhea Vital Sign Vital Signs Vital Signs Date Time Temp Pulse Resp B/P (MAP) Pulse Ox O2 Delivery O2 Flow Rate FiO2 09/11/21 11:00 75 19 140/87 (104) 97 Room Air 09/10/21 13:28 4.0 09/10/21 07:00 97.8 97.8 Physical Exam PHYSICAL EXAM GENERAL: awake alert male in no acute distress, on O2 by VM HEENT: Normocephalic, atraumatic. Anicteric. Pupils equal, reactive. Poor dentition. NECK: No JVD, no lymphadenopathy. Anterior cervical dressing present, intact, not taken down. LUNGS: Left chest tube, decreased breath sounds, otherwise no accessory muscle use. Clear on the right side. ABDOMEN: Soft, nontender, nondistended. Bowel sounds present. GENITOURINARY: Kuo in place. EXTREMITIES: No edema, no cyanosis. DERMATOLOGIC: Warm, dry, no generalized rash. NEUROLOGIC: alert awake able to move both upper ext, could not move lower ext PSYCHIATRIC: calm cooperative Central line RT Neck clean Placed 09/03 Labs Micro Microbiology 09/05/21 Blood Culture - Preliminary, Resulted NO GROWTH AFTER 1 DAY 09/03/21 Gram Stain - Final, Resulted 09/03/21 Aerobic and Anaerobic Culture - Preliminary, Resulted Staphylococcus Aureus 09/03/21 Urine Culture - Final, Complete Staphylococcus Aureus Objective Assessment 1 Cervical epidural abscess at C6-C7 with severe cervical myelopathy. 1. Status post anterior cervical decompression with corpectomy of C6, evacuation of epidural abscess, placement of interbody fusion cage and anterior plate on 09/04/2021. Cultures positive for staph aureus 3 Staphylococcus aureus bacteremia at [facility] on 09/03/[address] [facility]. 4. Left pneumothorax, status post CDS. 5 polysubstance dependence. 6. Schizophrenia, bipolar disorder, anxiety. 7 chronic low back pain. 8 hypertension. 9. Protein-calorie malnutrition. 10 anemia. 11. PCN allergy with hives, does not recall taking amoxicillin or augmentin Plan Plan of Care Change antibiotics to IV cefazolin Patient refuses to discontinue central line Refuses PICC line D/W LOGAN VICENTE MD Sep 11, 2021 12:43
[2021-09-11] MEDS: DAPTOmycin (GENERIC) IVPB 680 MG in IV NORMAL SALINE 50ML 50 ML IV SCH (14:01)
[2021-09-11 15:00] VITALS: BP 116/62
[2021-09-11] MEDS: POTASSIUM CL 20MEQ D5-0.45NACL 1,000 ML IV SCH (16:37)
--- NOTE | 2021-09-11 16:43 | PDOC ---
GENERAL General: Patient examined chart reviewed today's hospital day 9 for this patient admitted from the [facility] with malaise and acute metabolic syndrome found to have staph aureus bacteremia and a C6-7 epidural abscess. He was operated on urgently and has slowly clinically recovered from there. Appreciate subspecialty support it sounds like he is clinically improving. Patient is unaccompanied at bedside this afternoon was seen earlier today by infectious diseases. He will need a robust disposition plan to avoid readmission and it sounds like he will need intravenous antibiotics. We will continue current management otherwise. Problems: (1) Abscess in epidural space of cervical spine (2) Staphylococcus aureus bacteremia (3) History of drug abuse (4) Schizophrenia VITAL SIGNS Vital Signs/I&O: Vital Signs Date Time Temp Pulse Resp B/P (MAP) Pulse Ox O2 Delivery O2 Flow Rate FiO2 09/11/21 15:00 73 18 116/62 (80) 96 Room Air 09/10/21 13:28 4.0 09/10/21 07:00 97.8 97.8 I & O 09/10/21 09/10/21 09/11/21 15:00 23:00 07:00 Intake Total 620 ml 120 ml 1193.61 ml Output Total 350 ml 365 ml Balance 620 ml -230 ml 828.61 ml Patient is sleeping comfortably on my assessment this afternoon I did not wake him. ALLERGIES Allergies: Allergies Coded Allergies Type Severity Reaction Last Updated Verified Penicillins Allergy Intermediate 09/04/21 Yes ketorolac Allergy Intermediate 09/04/21 Yes tramadol Allergy Intermediate 09/04/21 Yes MEDS Medications: Current Medications Medications (Trade) Dose Ordered Sig/Reinier Start Time Stop Time Status Last Admin Dose Admin Acetaminophen (Tylenol Supp) 650 mg PRN Q6HRS PRN 09/05/21 07:45 Acetaminophen (Tylenol) 650 mg PRN Q6HRS PRN 09/04/21 01:30 Acetaminophen/ Hydrocodone Bitart (Lortab 5/325) 1 tab PRN Q4HRS PRN 09/04/21 01:30 Al Hydroxide/Mg Hydroxide (Mylanta Plus Xs) 30 ml PRN Q3HRS PRN 09/04/21 01:30 Albumin Human 500 ml @ 125 mls/hr 1X ONCE 09/09/21 11:00 09/09/21 14:59 DC 09/09/21 12:46 Albuterol Sulfate (Ventolin Neb Soln) 2.5 mg PRN Q6HRS PRN 09/09/21 11:00 Albuterol/ Ipratropium (Duoneb) 3 ml RTQID 09/04/21 08:00 09/08/21 20:29 DC 09/08/21 12:18 Barium Sulfate (Varibar Thin Liquid Apple) 148 gm 1X ONCE 09/08/21 11:15 09/08/21 11:21 DC 09/08/21 11:30 Bisacodyl (Dulcolax Supp) 10 mg PRN DAILY PRN 09/05/21 07:45 Bupivacaine HCl/ Epinephrine Bitart (Sensorcain-Epi 0.5% Kit) 30 ml STK-MED ONCE 09/03/21 20:43 09/03/21 20:43 DC 09/03/21 22:35 Calcium Carbonate/ Glycine (Tums) 500 mg PRN Q3HRS PRN 09/04/21 01:30 Cefazolin Sodium/ Dextrose 50 ml @ 100 mls/hr Q8HRS 09/11/21 22:00 Cefepime HCl (Maxipime) 2 gm Q8HRS 09/04/21 13:30 09/11/21 14:06 DC 09/11/21 14:02 Ceftriaxone Sodium (Rocephin) 1 gm Q24H 09/04/21 10:00 09/04/21 12:33 DC 09/04/21 09:54 Daptomycin 680 mg/ Sodium Chloride 50 ml @ 100 mls/hr Q24H 09/04/21 14:00 09/11/21 14:06 DC 09/11/21 14:01 Desflurane (Suprane) 90 ml STK-MED ONCE 09/03/21 18:52 09/03/21 20:52 DC Dexamethasone Sodium Phosphate (Decadron) 4 mg STK-MED ONCE 09/03/21 18:47 09/03/21 20:48 DC Diphenhydramine HCl (Benadryl) 25 mg PRN Q6HRS PRN 09/04/21 01:30 09/04/21 09:54 Doxycycline Hyclate (Vibra-Tab) 100 mg BID 09/03/21 15:30 09/04/21 16:21 DC 09/04/21 09:54 Ephedrine Sulfate (ePHEDrine PF IN SALINE SYRINGE) 50 mg STK-MED ONCE 09/03/21 18:47 09/03/21 20:48 DC Fentanyl Citrate (Fentanyl 2ml Vial) 50 mcg PRN Q2HR PRN 09/04/21 01:30 Furosemide (Lasix) 20 mg 1X ONCE 09/05/21 08:30 09/05/21 08:31 DC 09/05/21 08:40 Gadoterate Meglumine (Clariscan) 13 ml 1X ONCE 09/03/21 19:45 09/03/21 19:46 DC 09/03/21 19:54 Gelatin (Gelfoam Size 100) 1 each STK-MED ONCE 09/03/21 20:43 09/03/21 20:43 DC 09/03/21 22:35 Glycopyrrolate (Robinul) 1 mg STK-MED ONCE 09/03/21 19:43 09/03/21 21:44 DC Haloperidol (Haldol) 2 mg BID 09/04/21 11:00 09/11/21 08:58 Haloperidol Lactate (Haldol Inj) 1 mg 1X ONCE 09/04/21 07:15 09/04/21 07:17 DC 09/04/21 07:23 Hydralazine HCl (Apresoline Inj) 5 mg PRN Q15MIN PRN 09/04/21 01:15 09/05/21 01:14 DC Hydromorphone HCl (Dilaudid) 0.4 mg PRN Q10MIN PRN 09/04/21 01:15 09/05/21 01:14 DC Labetalol HCl (Normodyne Iv Push) 5 mg PRN Q15MIN PRN 09/04/21 01:15 09/05/21 01:14 DC Lactobacillus Rhamnosus (Culturelle) 1 cap BID 09/04/21 21:00 09/10/21 08:20 Lidocaine HCl (Lidocaine Pf 2% Vial) 5 ml STK-MED ONCE 09/03/21 18:47 09/03/21 20:48 DC Linezolid (Zyvox) 600 mg BID 09/07/21 12:00 09/11/21 14:06 DC 09/11/21 08:58 Lorazepam (Ativan Inj) 1 mg PRN Q4HRS PRN 09/05/21 07:45 Naloxone HCl (Narcan) 0.1 mg PRN Q2MIN PRN 09/04/21 01:30 Norepinephrine Bitartrate 8 mg/ Dextrose 258 ml @ 13.197 mls/ hr CONT PRN 09/03/21 17:00 09/08/21 15:48 Ondansetron HCl (Zofran) 4 mg PRN Q6HRS PRN 09/04/21 01:15 09/05/21 01:14 DC Oxymetazoline HCl (Afrin) 2 spray 1X ONCE 09/07/21 19:15 09/07/21 19:16 DC 09/07/21 20:01 Phenylephrine HCl (Jerome-Synephrine Inj) 10 mg STK-MED ONCE 09/03/21 18:48 09/03/21 20:48 DC Potassium Chloride/Dextrose/ Sod Cl 1,000 ml @ 50 mls/hr Q20H 09/04/21 01:30 09/10/21 21:56 Potassium Chloride/Water 100 ml @ 100 mls/hr Q1H 09/08/21 10:00 09/08/21 11:59 DC 09/08/21 14:17 Prochlorperazine Edisylate (Compazine) 5 mg PRN Q6HRS PRN 09/04/21 01:15 09/05/21 01:14 DC Propofol 50 ml @ As Directed STK-MED ONCE 09/03/21 20:04 09/03/21 22:05 DC Remifentanil HCl (Ultiva) 2 mg STK-MED ONCE 09/03/21 18:47 09/03/21 20:47 DC Ringer's Solution 1,000 ml @ 100 mls/hr Q10H 09/04/21 01:15 09/05/21 01:14 DC Rocuronium Harris (Zemuron) 50 mg STK-MED ONCE 09/03/21 18:38 09/03/21 20:39 DC Sertraline HCl (Zoloft) 25 mg DAILY 09/04/21 11:00 09/11/21 08:58 Sevoflurane (Ultane) 90 ml STK-MED ONCE 09/03/21 20:17 09/03/21 22:17 DC Sodium Chloride (Normal Saline Flush) 3 ml QSHIFT PRN 09/04/21 01:30 Succinylcholine Chloride (Anectine) 200 mg STK-MED ONCE 09/03/21 21:17 09/03/21 21:17 DC Throat Lozenges (Cepacol Sore Throat Lozenge) 1 amparo PRN Q2HRS PRN 09/09/21 14:30 Thrombin 20,000 unit STK-MED ONCE 09/03/21 23:56 09/03/21 23:56 DC Vancomycin HCl (Vanco Per Pharmacy) 1 each PRN DAILY PRN 09/03/21 16:00 09/04/21 12:33 DC 09/03/21 16:01 Vancomycin HCl (Vancomycin Trough Level) 1 each 1X ONCE 09/04/21 12:30 09/04/21 12:31 DC 09/04/21 12:30 Vancomycin HCl 1 gm/Sodium Chloride 250 ml @ 250 mls/hr Q8H 09/03/21 19:00 09/04/21 12:32 DC 09/04/21 04:55 ASSESSMENT & PLAN A&P Plan as noted above This note was created using [employer] and may have omissions and/or errors due to the nature of real-time voice director of tax services. Justifications for Admission Other Justification Nutrition Consultation Dietary Evaluation: Recommendations by RD: Dietary education by RD, Increase Calorie Intake, Protein supplementation Comments: REC diet per TEACHER COUNSELOR pt likes chocolate or vanilla Ensure enlive vanilla ensure puddings, Mt dew Expected Outcomes/Goals: to meet >75% est nutr needs Malnutrition Findings: Body Fat Depletion (Non Severe: Mild Depletion Weight Status: Underweight DAREN ROMERO MD Sep 11, 2021 16:43
--- NOTE | 2021-09-11 18:57 | PDOC ---
PROGRESS NOTES Date of Service DATE: 09/11/21 TIME: 18:54 Subjective Subjective Patient seen at 1000 POD #8 S/P C6 corpectomy and partial corpectomy C7, fusion, evacuation of epidural abscess Objective Objective Vital Signs Date Time Temp Pulse Resp B/P (MAP) Pulse Ox O2 Delivery O2 Flow Rate FiO2 09/11/21 15:00 73 18 116/62 (80) 96 Room Air 09/10/21 13:28 4.0 09/10/21 07:00 97.8 97.8 Intake and Output 09/11/21 07:00 Intake Total 1933.61 ml Output Total 715 ml Balance 1218.61 ml Intake Oral 740 ml IV Total 1193.61 ml Output Urine Total 715 ml Physical Exam General: Alert, Cooperative Neuro: Normal speech, Other (not moving lower extremities, sensation intact, upper extremities continue to improve, stronger) Skin: Other (dressing C,D,I) Plan Plan of Care continue Antibiotics per ID PT SCDs, consider Lovenox/ heparin has refused any further surgery Comment Review of Relevant I have reviewed the following items vanessa (where applicable) has been applied. Labs Laboratory Tests Test 09/10/21 06:10 Sodium Level 142 mmol/L (136-145) Potassium Level 3.4 mmol/L (3.5-5.1) Chloride Level 103 mmol/L (98-107) Carbon Dioxide Level 34 mmol/L (21-32) Anion Gap 5 (6-14) Blood Urea Nitrogen 16 mg/dL (8-26) Creatinine 0.3 mg/dL (0.7-1.3) Estimated GFR (Cockcroft-Gault) > 300.0 Glucose Level 78 mg/dL (70-99) Calcium Level 8.2 mg/dL (8.5-10.1) Microbiology 09/06/21 Respiratory Culture Gram Stain - Final, Complete 09/06/21 Respiratory Culture - Final, Complete 09/05/21 Blood Culture - Final, Complete NO GROWTH AFTER 5 DAYS 09/03/21 AFB Specimen Processing Tissue - Final, Resulted 09/03/21 Acid Fast Bacilli Culture, Resulted Pending 09/03/21 Gram Stain - Final, Resulted 09/03/21 Fungal Culture, Resulted Pending 09/03/21 Fungal Culture Result 1, Resulted Pending 09/03/21 Urine Culture - Final, Complete Staphylococcus Aureus Medications Current Medications Ceftriaxone Sodium (Rocephin) 1 gm Q24H IVP Last administered on 09/04/21 09:54; Start 09/04/21 at 10:00; Stop 09/04/21 at 12:33; Status DC Doxycycline Hyclate (Vibra-Tab) 100 mg BID PO Last administered on 09/04/21 09:54; Start 09/03/21 at 15:30; Stop 09/04/21 at 16:21; Status DC Vancomycin HCl (Vanco Per Pharmacy) 1 each PRN DAILY PRN MC SEE COMMENTS Last administered on 09/03/21at 16:01; Start 09/03/21 at 16:00; Stop 09/04/21 at 12:33; Status DC Vancomycin HCl 1 gm/Sodium Chloride 250 ml @ 250 mls/hr Q8H IV Last administered on 09/04/21at 04:55; Start 09/03/21 at 19:00; Stop 09/04/21 at 12:32; Status DC Vancomycin HCl (Vancomycin Trough Level) 1 each 1X ONCE MC Last administered on 09/04/21at 12:30; Start 09/04/21 at 12:30; Stop 09/04/21 at 12:31; Status DC Norepinephrine Bitartrate 8 mg/ Dextrose 258 ml @ 13.197 mls/ hr CONT PRN IV PER PROTOCOL Last administered on 09/08/21 15:48; Start 09/03/21 at 17:00 Gadoterate Meglumine (Clariscan) 13 ml 1X ONCE IVP Last administered on 09/03/21 19:54; Start 09/03/21 at 19:45; Stop 09/03/21 at 19:46; Status DC Rocuronium Keldron (Zemuron) 50 mg STK-MED ONCE .ROUTE ; Start 09/03/21 at 18:38; Stop 09/03/21 at 20:39; Status DC Gelatin (Gelfoam Size 100) 1 each STK-MED ONCE .ROUTE Last administered on 09/03/21at 22:35; Start 09/03/21 at 20:43; Stop 09/03/21 at 20:43; Status DC Bupivacaine HCl/ Epinephrine Bitart (Sensorcain-Epi 0.5% Kit) 30 ml STK-MED ONCE .ROUTE Last administered on 09/03/21at 22:35; Start 09/03/21 at 20:43; Stop 09/03/21 at 20:43; Status DC Thrombin 20,000 unit STK-MED ONCE TP Last administered on 09/03/21at 22:35; Start 09/03/21 at 20:43; Stop 09/03/21 at 20:43; Status DC Remifentanil HCl (Ultiva) 2 mg STK-MED ONCE IV ; Start 09/03/21 at 18:47; Stop 09/03/21 at 20:47; Status DC Propofol 50 ml @ As Directed STK-MED ONCE IV ; Start 09/03/21 at 18:47; Stop 09/03/21 at 20:47; Status DC Ephedrine Sulfate (ePHEDrine PF IN SALINE SYRINGE) 50 mg STK-MED ONCE IV ; Start 09/03/21 at 18:47; Stop 09/03/21 at 20:48; Status DC Lidocaine HCl (Lidocaine Pf 2% Vial) 5 ml STK-MED ONCE .ROUTE ; Start 09/03/21 at 18:47; Stop 09/03/21 at 20:48; Status DC Dexamethasone Sodium Phosphate (Decadron) 4 mg STK-MED ONCE .ROUTE ; Start 09/03/21 at 18:47; Stop 09/03/21 at 20:48; Status DC Phenylephrine HCl (Jerome-Synephrine Inj) 10 mg STK-MED ONCE .ROUTE ; Start 09/03/21 at 18:48; Stop 09/03/21 at 20:48; Status DC Desflurane (Suprane) 90 ml STK-MED ONCE IH ; Start 09/03/21 at 18:52; Stop 09/03/21 at 20:52; Status DC Succinylcholine Chloride (Anectine) 200 mg STK-MED ONCE .ROUTE ; Start 09/03/21 at 21:17; Stop 09/03/21 at 21:17; Status DC Glycopyrrolate (Robinul) 1 mg STK-MED ONCE .ROUTE ; Start 09/03/21 at 19:43; Stop 09/03/21 at 21:44; Status DC Propofol 50 ml @ As Directed STK-MED ONCE IV ; Start 09/03/21 at 20:04; Stop 09/03/21 at 22:05; Status DC Ondansetron HCl (Zofran) 4 mg STK-MED ONCE .ROUTE ; Start 09/03/21 at 20:16; Stop 09/03/21 at 22:16; Status DC Sevoflurane (Ultane) 90 ml STK-MED ONCE IH ; Start 09/03/21 at 20:17; Stop 09/03/21 at 22:17; Status DC Thrombin 20,000 unit STK-MED ONCE TP ; Start 09/03/21 at 23:56; Stop 09/03/21 at 23:56; Status DC Fentanyl Citrate (Fentanyl 2ml Vial) 100 mcg STK-MED ONCE .ROUTE ; Start 09/03/21 at 22:32; Stop 09/04/21 at 00:33; Status DC Fentanyl Citrate (Fentanyl 2ml Vial) 25 mcg PRN Q5MIN PRN IVP Acute Pain; Start 09/04/21 at 01:15; Stop 09/05/21 at 01:14; Status DC Fentanyl Citrate (Fentanyl 2ml Vial) 50 mcg PRN Q5MIN PRN IVP Acute Pain; Start 09/04/21 at 01:15; Stop 09/05/21 at 01:14; Status DC Hydromorphone HCl (Dilaudid) 0.2 mg PRN Q10MIN PRN IV MILD PAIN 1-3; Start 09/04/21 at 01:15; Stop 09/05/21 at 01:14; Status DC Hydromorphone HCl (Dilaudid) 0.4 mg PRN Q10MIN PRN IV MODERATE TO SEVERE PAIN; Start 09/04/21 at 01:15; Stop 09/05/21 at 01:14; Status DC Ondansetron HCl (Zofran) 4 mg PRN Q6HRS PRN IVP Nausea, 1st Choice; Start 09/04/21 at 01:15; Stop 09/05/21 at 01:14; Status DC Prochlorperazine Edisylate (Compazine) 5 mg PRN Q6HRS PRN IVP Nausea/Vomiting, 2nd Choice; Start 09/04/21 at 01:15; Stop 09/05/21 at 01:14; Status DC Hydralazine HCl (Apresoline Inj) 5 mg PRN Q15MIN PRN IVP SBP>180; Start 09/04/21 at 01:15; Stop 09/05/21 at 01:14; Status DC Labetalol HCl (Normodyne Iv Push) 5 mg PRN Q15MIN PRN IVP SBP GREATER THAN [180]; Start 09/04/21 at 01:15; Stop 09/05/21 at 01:14; Status DC Ringer's Solution 1,000 ml @ 100 mls/hr Q10H IV ; Start 09/04/21 at 01:15; Stop 09/05/21 at 01:14; Status DC Acetaminophen (Tylenol) 650 mg PRN Q6HRS PRN PO MILD PAIN / TEMP > 100.3'F; Start 09/04/21 at 01:30 Al Hydroxide/Mg Hydroxide (Mylanta Plus Xs) 30 ml PRN Q3HRS PRN PO HEARTBURN / GAS; Start 09/04/21 at 01:30 Calcium Carbonate/ Glycine (Tums) 500 mg PRN Q3HRS PRN PO INDIGESTION; Start 09/04/21 at 01:30 Diphenhydramine HCl (Benadryl) 25 mg PRN Q6HRS PRN PO ITCHING Last administered on 09/04/21at 09:54; Start 09/04/21 at 01:30 Naloxone HCl (Narcan) 0.1 mg PRN Q2MIN PRN IV SEE COMMENTS; Start 09/04/21 at 01:30 Sodium Chloride (Normal Saline Flush) 3 ml QSHIFT PRN IV AFTER MEDS AND BLOOD DRAWS; Start 09/04/21 at 01:30 Acetaminophen/ Hydrocodone Bitart (Lortab 5/325) 1 tab PRN Q4HRS PRN PO MODERATE-SEVERE PAIN; Start 09/04/21 at 01:30 Fentanyl Citrate (Fentanyl 2ml Vial) 50 mcg PRN Q2HR PRN IVP SEVERE PAIN 7-10; Start 09/04/21 at 01:30 Potassium Chloride/Dextrose/ Sod Cl 1,000 ml @ 50 mls/hr Q20H IV Last administered on 09/11/21at 16:37; Start 09/04/21 at 01:30 Albuterol/ Ipratropium (Duoneb) 3 ml RTQID NEB Last administered on 09/08/21at 12:18; Start 09/04/21 at 08:00; Stop 09/08/21 at 20:29; Status DC Haloperidol Lactate (Haldol Inj) 1 mg 1X ONCE IM Last administered on 09/04/21at 07:23; Start 09/04/21 at 07:15; Stop 09/04/21 at 07:17; Status DC Lorazepam (Ativan Inj) 2 mg PRN Q4HRS PRN IVP ANXIETY / AGITATION Last administered on 09/04/21at 16:31; Start 09/04/21 at 09:15; Stop 09/05/21 at 07:4 7; Status DC Throat Lozenges (Cepacol Sore Throat Lozenge) 1 amparo PRN Q2HRS PRN PO SORE THROAT Last administered on 09/04/21at 09:54; Start 09/04/21 at 09:15; Stop 09/09/21 at 15:43; Status DC Haloperidol (Haldol) 2 mg BID PO Last administered on 09/11/21at 08:58; Start 09/04/21 at 11:00 Sertraline HCl (Zoloft) 25 mg DAILY PO Last administered on 09/11/21at 08:58; Start 09/04/21 at 11:00 Bisacodyl (Dulcolax Supp) 10 mg 1X ONCE [place] Last administered on 09/04/21at 11:00; Start 09/04/21 at 11:00; Stop 09/04/21 at 11:01; Status DC Daptomycin 680 mg/ Sodium Chloride 50 ml @ 100 mls/hr Q24H IV Last administered on 09/11/21at 14:01; Start 09/04/21 at 14:00; Stop 09/11/21 at 14:06; Status DC Cefepime HCl (Maxipime) 2 gm Q8HRS IVP Last administered on 09/11/21at 14:02; Start 09/04/21 at 13:30; Stop 09/11/21 at 14:06; Status DC Lactobacillus Rhamnosus (Culturelle) 1 cap BID PO Last administered on 09/10/21at 08:20; Start 09/04/21 at 21:00 Lorazepam (Ativan Inj) 1 mg PRN Q4HRS PRN IVP ANXIETY / AGITATION; Start 09/05/21 at 07:45 Bisacodyl (Dulcolax Supp) 10 mg PRN DAILY PRN [place] CONSTIPATION; Start 09/05/21 at 07:45 Acetaminophen (Tylenol Supp) 650 mg PRN Q6HRS PRN [place] MILD PAIN / TEMP > 100.3'F; Start 09/05/21 at 07:45 Furosemide (Lasix) 20 mg 1X ONCE IVP Last administered on 09/05/21at 08:40; Start 09/05/21 at 08:30; Stop 09/05/21 at 08:31; Status DC Linezolid (Zyvox) 600 mg BID PO Last administered on 09/11/21at 08:58; Start 09/07/21 at 12:00; Stop 09/11/21 at 14:06; Status DC Oxymetazoline HCl (Afrin) 2 spray 1X ONCE NS Last administered on 09/07/21at 20:01; Start 09/07/21 at 19:15; Stop 09/07/21 at 19:16; Status DC Potassium Chloride/Water 100 ml @ 100 mls/hr Q1H IV Last administered on 09/08/21at 14:17; Start 09/08/21 at 10:00; Stop 09/08/21 at 11:59; Status DC Barium Sulfate (Varibar Thin Liquid Apple) 148 gm 1X ONCE PO Last administered on 09/08/21at 11:30; Start 09/08/21 at 11:15; Stop 09/08/21 at 11:21; Status DC Albumin Human 250 ml @ 62.5 mls/hr 1X ONCE IV Last administered on 09/08/21at 14:19; Start 09/08/21 at 13:30; Stop 09/08/21 at 17:29; Status DC Albuterol Sulfate (Ventolin Neb Soln) 2.5 mg PRN Q6HRS PRN NEB SHORTNESS OF BREATH; Start 09/08/21 at 20:45; Stop 09/09/21 at 11:00; Status DC Albuterol Sulfate (Ventolin Neb Soln) 2.5 mg PRN Q6HRS PRN NEB SHORTNESS OF BREATH; Start 09/09/21 at 11:00 Albumin Human 500 ml @ 125 mls/hr 1X ONCE IV Last administered on 09/09/21at 12:46; Start 09/09/21 at 11:00; Stop 09/09/21 at 14:59; Status DC Throat Lozenges (Cepacol Sore Throat Lozenge) 1 amparo PRN Q2HRS PRN PO SORE THROAT; Start 09/09/21 at 14:30 Cefazolin Sodium/ Dextrose 50 ml @ 100 mls/hr Q8HRS IV ; Start 09/11/21 at 22:00 Vitals/I & O Vital Sign - Last 24 Hours 09/10/21 09/10/21 09/10/21 09/11/21 19:00 20:00 23:00 03:00 Pulse 80 76 78 Resp 18 14 18 B/P (MAP) 90/43 (59) 104/59 (74) 86/53 (64) Pulse Ox 97 97 95 O2 Delivery Room Air Room Air Room Air Room Air 09/11/21 09/11/21 09/11/21 09/11/21 07:00 07:45 11:00 15:00 Pulse 68 75 73 Resp 17 19 18 B/P (MAP) 96/61 (73) 140/87 (104) 116/62 (80) Pulse Ox 96 97 96 O2 Delivery Room Air Room Air Room Air Room Air Intake and Output 09/10/21 09/10/21 09/11/21 15:00 23:00 07:00 Intake Total 620 ml 120 ml 1193.61 ml Output Total 350 ml 365 ml Balance 620 ml -230 ml 828.61 ml Justifications for Admission Other Justification Nutrition Consultation Dietary Evaluation: Recommendations by RD: Dietary education by RD, Increase Calorie Intake, Protein supplementation Comments: REC diet per ENVIRONMENTAL EDUCATOR pt likes chocolate or vanilla Ensure enlive vanilla ensure puddings, Mt dew Expected Outcomes/Goals: to meet >75% est nutr needs Malnutrition Findings: Body Fat Depletion (Non Severe: Mild Depletion Weight Status: Underweight NIXON SAVAGE MD Sep 11, 2021 18:57
[2021-09-11 19:00] VITALS: BP 140/66
[2021-09-11 23:01] VITALS: BP 112/64
--- NOTE | 2021-09-11 23:30 | NUR ---
Pt refused any part of head to toe that involved touching. This RN was able to do what she could see. Pt has refused repositioning, temp checks, and evening meds except for IV Cefazolin. Pt continually asking for snack foods or any foods he could get. Will continue to monitor.
[2021-09-12 03:00] VITALS: BP 127/67
[2021-09-12 05:55] LABS: BASO % 1 % (0-3); EOS % 1 % (0-3); HEMOGLOBIN 8.6 g/dL (13.0-17.5); LYMPH # 0.9 x10^3/uL (1.0-4.8); LYMPH % 16 % (24-48); MEAN CORPUSCULAR HEMOGLOBIN 29 pg (25-35); MEAN CORPUSCULAR HGB CONC 33 g/dL (31-37); MEAN CORPUSCULAR VOLUME 88 fL (79-100); MONO # 0.4 x10^3/uL (0.0-1.1); MONO % 8 % (0-9); NEUT # 4.2 x10^3/uL (1.8-7.7); NEUT % 75 % (31-73); PLATELET COUNT 175 x10^3/uL (140-400); RED BLOOD COUNT 2.95 x10^6/uL (4.30-5.70); RED CELL DISTRIBUTION WIDTH 15.4 % (11.5-14.5); WHITE BLOOD COUNT 5.6 x10^3/uL (4.0-11.0)
[2021-09-12 06:04] LABS: ALBUMIN 1.7 g/dL (3.4-5.0); ALBUMIN/GLOBULIN RATIO 0.4 (1.0-1.7); CALCIUM 7.7 mg/dL (8.5-10.1); CREATININE 0.5 mg/dL (0.7-1.3); GFR 177.5; POTASSIUM 3.6 mmol/L (3.5-5.1); TOTAL BILIRUBIN 0.2 mg/dL (0.2-1.0); TOTAL PROTEIN 5.6 g/dL (6.4-8.2)
[2021-09-12 07:00] VITALS: BP 132/66
[2021-09-12] MEDS: LACTOBACILLUS RHAMNOSUS GG 1 CAPSULE. PO SCH ×2 (09:00→21:00)
[2021-09-12] MEDS: SERTRALINE 25 MG TABLET. PO SCH (09:00)
[2021-09-12] MEDS: HALOPERIDOL 2 MG TABLET. PO SCH ×2 (09:00→21:00)
[2021-09-12] MEDS: POTASSIUM CL 20MEQ D5-0.45NACL 1,000 ML IV SCH (10:40)
[2021-09-12 11:00] VITALS: BP 96/46
--- NOTE | 2021-09-12 11:33 | PDOC ---
PROGRESS NOTES Date of Service DATE: 09/12/21 TIME: 11:26 Subjective Subjective Patient seen at 1000 POD #9 S/P C6 corpectomy and partial corpectomy C7, fusion, evacuation of epidural abscess denies pain Objective Objective Vital Signs Date Time Temp Pulse Resp B/P (MAP) Pulse Ox O2 Delivery O2 Flow Rate FiO2 09/12/21 08:00 Room Air 09/12/21 07:00 78 24 132/66 (88) 98 2.0 09/10/21 07:00 97.8 97.8 Intake and Output 09/12/21 07:00 Intake Total 1518 ml Output Total 2725 ml Balance -1207 ml Intake Oral 870 ml IV Total 648 ml Output Urine Total 2725 ml Physical Exam General: Alert, No acute distress Neck: Other Neuro: Normal speech, Other (not moving lower extremities, sensation intact, upper extremities continue to improve, stronger) Skin: Other (some erythema of cervical incision) Plan Plan of Care continue Antibiotics per ID PT SCDs, consider Lovenox/ heparin has refused any further surgery Comment Review of Relevant I have reviewed the following items vanessa (where applicable) has been applied. Labs Laboratory Tests Test 09/12/21 05:40 White Blood Count 5.6 x10^3/uL (4.0-11.0) Red Blood Count 2.95 x10^6/uL (4.30-5.70) Hemoglobin 8.6 g/dL (13.0-17.5) Hematocrit 26.0 % (39.0-53.0) Mean Corpuscular Volume 88 fL (79-100) Mean Corpuscular Hemoglobin 29 pg (25-35) Mean Corpuscular Hemoglobin Concent 33 g/dL (31-37) Red Cell Distribution Width 15.4 % (11.5-14.5) Platelet Count 175 x10^3/uL (140-400) Neutrophils (%) (Auto) 75 % (31-73) Lymphocytes (%) (Auto) 16 % (24-48) Monocytes (%) (Auto) 8 % (0-9) Eosinophils (%) (Auto) 1 % (0-3) Basophils (%) (Auto) 1 % (0-3) Neutrophils # (Auto) 4.2 x10^3/uL (1.8-7.7) Lymphocytes # (Auto) 0.9 x10^3/uL (1.0-4.8) Monocytes # (Auto) 0.4 x10^3/uL (0.0-1.1) Eosinophils # (Auto) 0.0 x10^3/uL (0.0-0.7) Basophils # (Auto) 0.0 x10^3/uL (0.0-0.2) Sodium Level 139 mmol/L (136-145) Potassium Level 3.6 mmol/L (3.5-5.1) Chloride Level 102 mmol/L (98-107) Carbon Dioxide Level 35 mmol/L (21-32) Anion Gap 2 (6-14) Blood Urea Nitrogen 11 mg/dL (8-26) Creatinine 0.5 mg/dL (0.7-1.3) Estimated GFR (Cockcroft-Gault) 177.5 BUN/Creatinine Ratio 22 (6-20) Glucose Level 84 mg/dL (70-99) Calcium Level 7.7 mg/dL (8.5-10.1) Total Bilirubin 0.2 mg/dL (0.2-1.0) Aspartate Amino Transf (AST/SGOT) 33 U/L (15-37) Alanine Aminotransferase (ALT/SGPT) 33 U/L (16-63) Alkaline Phosphatase 60 U/L (46-116) Total Protein 5.6 g/dL (6.4-8.2) Albumin 1.7 g/dL (3.4-5.0) Albumin/Globulin Ratio 0.4 (1.0-1.7) Laboratory Tests Test 09/12/21 05:40 White Blood Count 5.6 x10^3/uL (4.0-11.0) Red Blood Count 2.95 x10^6/uL (4.30-5.70) Hemoglobin 8.6 g/dL (13.0-17.5) Hematocrit 26.0 % (39.0-53.0) Mean Corpuscular Volume 88 fL (79-100) Mean Corpuscular Hemoglobin 29 pg (25-35) Mean Corpuscular Hemoglobin Concent 33 g/dL (31-37) Red Cell Distribution Width 15.4 % (11.5-14.5) Platelet Count 175 x10^3/uL (140-400) Neutrophils (%) (Auto) 75 % (31-73) Lymphocytes (%) (Auto) 16 % (24-48) Monocytes (%) (Auto) 8 % (0-9) Eosinophils (%) (Auto) 1 % (0-3) Basophils (%) (Auto) 1 % (0-3) Neutrophils # (Auto) 4.2 x10^3/uL (1.8-7.7) Lymphocytes # (Auto) 0.9 x10^3/uL (1.0-4.8) Monocytes # (Auto) 0.4 x10^3/uL (0.0-1.1) Eosinophils # (Auto) 0.0 x10^3/uL (0.0-0.7) Basophils # (Auto) 0.0 x10^3/uL (0.0-0.2) Sodium Level 139 mmol/L (136-145) Potassium Level 3.6 mmol/L (3.5-5.1) Chloride Level 102 mmol/L (98-107) Carbon Dioxide Level 35 mmol/L (21-32) Anion Gap 2 (6-14) Blood Urea Nitrogen 11 mg/dL (8-26) Creatinine 0.5 mg/dL (0.7-1.3) Estimated GFR (Cockcroft-Gault) 177.5 BUN/Creatinine Ratio 22 (6-20) Glucose Level 84 mg/dL (70-99) Calcium Level 7.7 mg/dL (8.5-10.1) Total Bilirubin 0.2 mg/dL (0.2-1.0) Aspartate Amino Transf (AST/SGOT) 33 U/L (15-37) Alanine Aminotransferase (ALT/SGPT) 33 U/L (16-63) Alkaline Phosphatase 60 U/L (46-116) Total Protein 5.6 g/dL (6.4-8.2) Albumin 1.7 g/dL (3.4-5.0) Albumin/Globulin Ratio 0.4 (1.0-1.7) Microbiology 09/06/21 Respiratory Culture Gram Stain - Final, Complete 09/06/21 Respiratory Culture - Final, Complete 09/05/21 Blood Culture - Final, Complete NO GROWTH AFTER 5 DAYS 09/03/21 AFB Specimen Processing Tissue - Final, Resulted 09/03/21 Acid Fast Bacilli Culture, Resulted Pending 09/03/21 Gram Stain - Final, Resulted 09/03/21 Fungal Culture, Resulted Pending 09/03/21 Fungal Culture Result 1, Resulted Pending 09/03/21 Urine Culture - Final, Complete Staphylococcus Aureus Medications Current Medications Ceftriaxone Sodium (Rocephin) 1 gm Q24H IVP Last administered on 09/04/21at 09:54; Start 09/04/21 at 10:00; Stop 09/04/21 at 12:33; Status DC Doxycycline Hyclate (Vibra-Tab) 100 mg BID PO Last administered on 09/04/21at 09:54; Start 09/03/21 at 15:30; Stop 09/04/21 at 16:21; Status DC Vancomycin HCl (Vanco Per Pharmacy) 1 each PRN DAILY PRN MC SEE COMMENTS Last administered on 09/03/21at 16:01; Start 09/03/21 at 16:00; Stop 09/04/21 at 12:33; Status DC Vancomycin HCl 1 gm/Sodium Chloride 250 ml @ 250 mls/hr Q8H IV Last administered on 09/04/21at 04:55; Start 09/03/21 at 19:00; Stop 09/04/21 at 12:32; Status DC Vancomycin HCl (Vancomycin Trough Level) 1 each 1X ONCE MC Last administered on 09/04/21at 12:30; Start 09/04/21 at 12:30; Stop 09/04/21 at 12:31; Status DC Norepinephrine Bitartrate 8 mg/ Dextrose 258 ml @ 13.197 mls/ hr CONT PRN IV PER PROTOCOL Last administered on 09/08/21at 15:48; Start 09/03/21 at 17:00 Gadoterate Meglumine (Clariscan) 13 ml 1X ONCE IVP Last administered on 09/03/21at 19:54; Start 09/03/21 at 19:45; Stop 09/03/21 at 19:46; Status DC Rocuronium [place] (Zemuron) 50 mg STK-MED ONCE .ROUTE ; Start 09/03/21 at 18:38; Stop 09/03/21 at 20:39; Status DC Gelatin (Gelfoam Size 100) 1 each STK-MED ONCE .ROUTE Last administered on 09/03/21at 22:35; Start 09/03/21 at 20:43; Stop 09/03/21 at 20:43; Status DC Bupivacaine HCl/ Epinephrine Bitart (Sensorcain-Epi 0.5% Kit) 30 ml STK-MED ONCE .ROUTE Last administered on 09/03/21at 22:35; Start 09/03/21 at 20:43; Stop 09/03/21 at 20:43; Status DC Thrombin 20,000 unit STK-MED ONCE TP Last administered on 09/03/21at 22:35; Start 09/03/21 at 20:43; Stop 09/03/21 at 20:43; Status DC Remifentanil HCl (Ultiva) 2 mg STK-MED ONCE IV ; Start 09/03/21 at 18:47; Stop 09/03/21 at 20:47; Status DC Propofol 50 ml @ As Directed STK-MED ONCE IV ; Start 09/03/21 at 18:47; Stop 09/03/21 at 20:47; Status DC Ephedrine Sulfate (ePHEDrine PF IN SALINE SYRINGE) 50 mg STK-MED ONCE IV ; Start 09/03/21 at 18:47; Stop 09/03/21 at 20:48; Status DC Lidocaine HCl (Lidocaine Pf 2% Vial) 5 ml STK-MED ONCE .ROUTE ; Start 09/03/21 at 18:47; Stop 09/03/21 at 20:48; Status DC Dexamethasone Sodium Phosphate (Decadron) 4 mg STK-MED ONCE .ROUTE ; Start 09/03/21 at 18:47; Stop 09/03/21 at 20:48; Status DC Phenylephrine HCl (Jerome-Synephrine Inj) 10 mg STK-MED ONCE .ROUTE ; Start 09/03/21 at 18:48; Stop 09/03/21 at 20:48; Status DC Desflurane (Suprane) 90 ml STK-MED ONCE IH ; Start 09/03/21 at 18:52; Stop 09/03/21 at 20:52; Status DC Succinylcholine Chloride (Anectine) 200 mg STK-MED ONCE .ROUTE ; Start 09/03/21 at 21:17; Stop 09/03/21 at 21:17; Status DC Glycopyrrolate (Robinul) 1 mg STK-MED ONCE .ROUTE ; Start 09/03/21 at 19:43; Stop 09/03/21 at 21:44; Status DC Propofol 50 ml @ As Directed STK-MED ONCE IV ; Start 09/03/21 at 20:04; Stop 09/03/21 at 22:05; Status DC Ondansetron HCl (Zofran) 4 mg STK-MED ONCE .ROUTE ; Start 09/03/21 at 20:16; Stop 09/03/21 at 22:16; Status DC Sevoflurane (Ultane) 90 ml STK-MED ONCE IH ; Start 09/03/21 at 20:17; Stop 09/03/21 at 22:17; Status DC Thrombin 20,000 unit STK-MED ONCE TP ; Start 09/03/21 at 23:56; Stop 09/03/21 at 23:56; Status DC Fentanyl Citrate (Fentanyl 2ml Vial) 100 mcg STK-MED ONCE .ROUTE ; Start 09/03/21 at 22:32; Stop 09/04/21 at 00:33; Status DC Fentanyl Citrate (Fentanyl 2ml Vial) 25 mcg PRN Q5MIN PRN IVP Acute Pain; Start 09/04/21 at 01:15; Stop 09/05/21 at 01:14; Status DC Fentanyl Citrate (Fentanyl 2ml Vial) 50 mcg PRN Q5MIN PRN IVP Acute Pain; Start 09/04/21 at 01:15; Stop 09/05/21 at 01:14; Status DC Hydromorphone HCl (Dilaudid) 0.2 mg PRN Q10MIN PRN IV MILD PAIN 1-3; Start 09/04/21 at 01:15; Stop 09/05/21 at 01:14; Status DC Hydromorphone HCl (Dilaudid) 0.4 mg PRN Q10MIN PRN IV MODERATE TO SEVERE PAIN; Start 09/04/21 at 01:15; Stop 09/05/21 at 01:14; Status DC Ondansetron HCl (Zofran) 4 mg PRN Q6HRS PRN IVP Nausea, 1st Choice; Start 09/04/21 at 01:15; Stop 09/05/21 at 01:14; Status DC Prochlorperazine Edisylate (Compazine) 5 mg PRN Q6HRS PRN IVP Nausea/Vomiting, 2nd Choice; Start 09/04/21 at 01:15; Stop 09/05/21 at 01:14; Status DC Hydralazine HCl (Apresoline Inj) 5 mg PRN Q15MIN PRN IVP SBP>180; Start 09/04/21 at 01:15; Stop 09/05/21 at 01:14; Status DC Labetalol HCl (Normodyne Iv Push) 5 mg PRN Q15MIN PRN IVP SBP GREATER THAN [180]; Start 09/04/21 at 01:15; Stop 09/05/21 at 01:14; Status DC Ringer's Solution 1,000 ml @ 100 mls/hr Q10H IV ; Start 09/04/21 at 01:15; Stop 09/05/21 at 01:14; Status DC Acetaminophen (Tylenol) 650 mg PRN Q6HRS PRN PO MILD PAIN / TEMP > 100.3'F; Start 09/04/21 at 01:30 Al Hydroxide/Mg Hydroxide (Mylanta Plus Xs) 30 ml PRN Q3HRS PRN PO HEARTBURN / GAS; Start 09/04/21 at 01:30 Calcium Carbonate/ Glycine (Tums) 500 mg PRN Q3HRS PRN PO INDIGESTION; Start 09/04/21 at 01:30 Diphenhydramine HCl (Benadryl) 25 mg PRN Q6HRS PRN PO ITCHING Last administered on 09/04/21at 09:54; Start 09/04/21 at 01:30 Naloxone HCl (Narcan) 0.1 mg PRN Q2MIN PRN IV SEE COMMENTS; Start 09/04/21 at 01:30 Sodium Chloride (Normal Saline Flush) 3 ml QSHIFT PRN IV AFTER MEDS AND BLOOD DRAWS; Start 09/04/21 at 01:30 Acetaminophen/ Hydrocodone Bitart (Lortab 5/325) 1 tab PRN Q4HRS PRN PO MODERATE-SEVERE PAIN; Start 09/04/21 at 01:30 Fentanyl Citrate (Fentanyl 2ml Vial) 50 mcg PRN Q2HR PRN IVP SEVERE PAIN 7-10; Start 09/04/21 at 01:30 Potassium Chloride/Dextrose/ Sod Cl 1,000 ml @ 50 mls/hr Q20H IV Last administered on 09/12/21at 10:40; Start 09/04/21 at 01:30 Albuterol/ Ipratropium (Duoneb) 3 ml RTQID NEB Last administered on 09/08/21 12:18; Start 09/04/21 at 08:00; Stop 09/08/21 at 20:29; Status DC Haloperidol Lactate (Haldol Inj) 1 mg 1X ONCE IM Last administered on 09/04/21at 07:23; Start 09/04/21 at 07:15; Stop 09/04/21 at 07:17; Status DC Lorazepam (Ativan Inj) 2 mg PRN Q4HRS PRN IVP ANXIETY / AGITATION Last administered on 09/04/21at 16:31; Start 09/04/21 at 09:15; Stop 09/05/21 at 07:47; Status DC Throat Lozenges (Cepacol Sore Throat Lozenge) 1 amparo PRN Q2HRS PRN PO SORE THROAT Last administered on 09/04/21at 09:54; Start 09/04/21 at 09:15; Stop 09/09/21 at 15:43; Status DC Haloperidol (Haldol) 2 mg BID PO Last administered on 09/11/21at 08:58; Start 09/04/21 at 11:00 Sertraline HCl (Zoloft) 25 mg DAILY PO Last administered on 09/11/21 08:58; Start 09/04/21 at 11:00 Bisacodyl (Dulcolax Supp) 10 mg 1X ONCE [place] Last administered on 09/04/21at 11:00; Start 09/04/21 at 11:00; Stop 09/04/21 at 11:01; Status DC Daptomycin 680 mg/ Sodium Chloride 50 ml @ 100 mls/hr Q24H IV Last administered on 09/11/21at 14:01; Start 09/04/21 at 14:00; Stop 09/11/21 at 14:06; Status DC Cefepime HCl (Maxipime) 2 gm Q8HRS IVP Last administered on 09/11/21at 14:02; Start 09/04/21 at 13:30; Stop 09/11/21 at 14:06; Status DC Lactobacillus Rhamnosus (Culturelle) 1 cap BID PO Last administered on 09/10/21at 08:20; Start 09/04/21 at 21:00 Lorazepam (Ativan Inj) 1 mg PRN Q4HRS PRN IVP ANXIETY / AGITATION; Start 09/05/21 at 07:45 Bisacodyl (Dulcolax Supp) 10 mg PRN DAILY PRN NH CONSTIPATION; Start 09/05/21 at 07:45 Acetaminophen (Tylenol Supp) 650 mg PRN Q6HRS PRN NH MILD PAIN / TEMP > 100.3'F; Start 09/05/21 at 07:45 Furosemide (Lasix) 20 mg 1X ONCE IVP Last administered on 09/05/21at 08:40; Start 09/05/21 at 08:30; Stop 09/05/21 at 08:31; Status DC Linezolid (Zyvox) 600 mg BID PO Last administered on 09/11/21at 08:58; Start 09/07/21 at 12:00; Stop 09/11/21 at 14:06; Status DC Oxymetazoline HCl (Afrin) 2 spray 1X ONCE NS Last administered on 09/07/21at 20:01; Start 09/07/21 at 19:15; Stop 09/07/21 at 19:16; Status DC Potassium Chloride/Water 100 ml @ 100 mls/hr Q1H IV Last administered on 09/08/21at 14:17; Start 09/08/21 at 10:00; Stop 09/08/21 at 11:59; Status DC Barium Sulfate (Varibar Thin Liquid Apple) 148 gm 1X ONCE PO Last administered on 09/08/21at 11:30; Start 09/08/21 at 11:15; Stop 09/08/21 at 11:21; Status DC Albumin Human 250 ml @ 62.5 mls/hr 1X ONCE IV Last administered on 09/08/21at 14:19; Start 09/08/21 at 13:30; Stop 09/08/21 at 17:29; Status DC Albuterol Sulfate (Ventolin Neb Soln) 2.5 mg PRN Q6HRS PRN NEB SHORTNESS OF BREATH; Start 09/08/21 at 20:45; Stop 09/09/21 at 11:00; Status DC Albuterol Sulfate (Ventolin Neb Soln) 2.5 mg PRN Q6HRS PRN NEB SHORTNESS OF BREATH; Start 09/09/21 at 11:00 Albumin Human 500 ml @ 125 mls/hr 1X ONCE IV Last administered on 09/09/21at 12:46; Start 09/09/21 at 11:00; Stop 09/09/21 at 14:59; Status DC Throat Lozenges (Cepacol Sore Throat Lozenge) 1 amparo PRN Q2HRS PRN PO SORE THROAT; Start 09/09/21 at 14:30 Cefazolin Sodium/ Dextrose 50 ml @ 100 mls/hr Q8HRS IV Last administered on 09/12/21at 05:22; Start 09/11/21 at 22:00 Vitals/I & O Vital Sign - Last 24 Hours 09/11/21 09/11/21 09/11/21 09/12/21 15:00 19:00 23:01 03:00 Pulse 73 84 69 67 Resp 18 36 14 14 B/P (MAP) 116/62 (80) 140/66 (90) 112/64 (80) 127/67 (87) Pulse Ox 96 97 97 97 O2 Delivery Room Air Room Air Room Air Nasal Cannula O2 Flow Rate 2.0 09/12/21 09/12/21 07:00 08:00 Pulse 78 Resp 24 B/P (MAP) 132/66 (88) Pulse Ox 98 O2 Delivery Nasal Cannula Room Air O2 Flow Rate 2.0 Intake and Output 09/11/21 09/11/21 09/12/21 15:00 23:00 07:00 Intake Total 870 ml 648 ml 0 ml Output Total 400 ml 875 ml 1450 ml Balance 470 ml -227 ml -1450 ml Justifications for Admission Other Justification Nutrition Consultation Dietary Evaluation: Recommendations by RD: Dietary education by RD, Increase Calorie Intake, Protein supplementation Comments: REC diet per [employer] pt likes chocolate or vanilla Ensure enlive vanilla ensure puddings, Mt dew Expected Outcomes/Goals: to meet >75% est nutr needs Malnutrition Findings: Body Fat Depletion (Non Severe: Mild Depletion Weight Status: Underweight NIXON SAVAGE MD Sep 12, 2021 11:33
--- NOTE | 2021-09-12 12:30 | PDOC ---
Infectious Disease Note Subjective: Subjective Pt feels better Pain is under control Remains afebrile Vital Signs: Vital Signs Vital Signs Date Time Temp Pulse Resp B/P (MAP) Pulse Ox O2 Delivery O2 Flow Rate FiO2 09/12/21 11:00 74 20 97 Room Air 09/12/21 07:00 2.0 Physical Exam: PHYSICAL EXAM GENERAL: awake alert male in no acute distress, on O2 by VM HEENT: Normocephalic, atraumatic. Anicteric. Pupils equal, reactive. Poor dentition. NECK: No JVD, no lymphadenopathy. Anterior cervical incision site redness present, mild swelling present Left IJ present clean LUNGS: Left chest tube removed, decreased breath sounds, otherwise no accessory muscle use. ABDOMEN: Soft, nontender, nondistended. Bowel sounds present. GENITOURINARY: Kuo in place. EXTREMITIES: No edema, no cyanosis. DERMATOLOGIC: Warm, dry, no generalized rash. NEUROLOGIC: alert awake able to move both upper ext, could not move lower ext PSYCHIATRIC: calm cooperative Central line RT Neck clean Placed 09/03 Medications: Inpatient Meds: Medications reviewed. Labs: Lab Laboratory Tests Test 09/12/21 05:40 White Blood Count 5.6 x10^3/uL (4.0-11.0) Red Blood Count 2.95 x10^6/uL (4.30-5.70) Hemoglobin 8.6 g/dL (13.0-17.5) Hematocrit 26.0 % (39.0-53.0) Mean Corpuscular Volume 88 fL (79-100) Mean Corpuscular Hemoglobin 29 pg (25-35) Mean Corpuscular Hemoglobin Concent 33 g/dL (31-37) Red Cell Distribution Width 15.4 % (11.5-14.5) Platelet Count 175 x10^3/uL (140-400) Neutrophils (%) (Auto) 75 % (31-73) Lymphocytes (%) (Auto) 16 % (24-48) Monocytes (%) (Auto) 8 % (0-9) Eosinophils (%) (Auto) 1 % (0-3) Basophils (%) (Auto) 1 % (0-3) Neutrophils # (Auto) 4.2 x10^3/uL (1.8-7.7) Lymphocytes # (Auto) 0.9 x10^3/uL (1.0-4.8) Monocytes # (Auto) 0.4 x10^3/uL (0.0-1.1) Eosinophils # (Auto) 0.0 x10^3/uL (0.0-0.7) Basophils # (Auto) 0.0 x10^3/uL (0.0-0.2) Sodium Level 139 mmol/L (136-145) Potassium Level 3.6 mmol/L (3.5-5.1) Chloride Level 102 mmol/L (98-107) Carbon Dioxide Level 35 mmol/L (21-32) Anion Gap 2 (6-14) Blood Urea Nitrogen 11 mg/dL (8-26) Creatinine 0.5 mg/dL (0.7-1.3) Estimated GFR (Cockcroft-Gault) 177.5 BUN/Creatinine Ratio 22 (6-20) Glucose Level 84 mg/dL (70-99) Calcium Level 7.7 mg/dL (8.5-10.1) Total Bilirubin 0.2 mg/dL (0.2-1.0) Aspartate Amino Transf (AST/SGOT) 33 U/L (15-37) Alanine Aminotransferase (ALT/SGPT) 33 U/L (16-63) Alkaline Phosphatase 60 U/L (46-116) Total Protein 5.6 g/dL (6.4-8.2) Albumin 1.7 g/dL (3.4-5.0) Albumin/Globulin Ratio 0.4 (1.0-1.7) Objective: Assessment: 1 MSSA Cervical epidural abscess at C6-C7 with severe cervical myelopathy. Status post anterior cervical decompression with corpectomy of C6, evacuation of epidural abscess, placement of interbody fusion cage and anterior plate on 09/04/2021. Cultures positive for staph aureus MSSA 2. Staphylococcus aureus bacteremia MSSA at [facility] on 09/03/2021 and here at [facility]. 3. MSSA UC likely spillage from bacteremia 4. Left pneumothorax, status post CTS. 5 polysubstance dependence. HIV and hepatitis profile negative 6. Schizophrenia, bipolar disorder, anxiety. 7 chronic low back pain. 8 hypertension. 9. Protein-calorie malnutrition. 10 anemia. 11. PCN allergy with hives, does not recall taking amoxicillin or augmentin Plan: Plan of Care Cont IV cefazolin Monitor cervical incision site swelling and redness closely. Neurosurgery following. DC central line patient refuses Refuses PICC line D/W BENJI VICENTE MD Sep 12, 2021 12:30
--- NOTE | 2021-09-12 16:30 | PDOC ---
GENERAL General: Patient examined chart reviewed discussed with nursing. Patient is a lot more feisty today refusing his mood medication or pain medication says he does not need it. He is willing to continue his antibiotics right now but wondering when those can be stopped. He knows that he has had a very serious infection. At this point he seems stable off of the mood mediating medications. We will react quickly if needed. Appreciate subspecialty support. Continue current management. Problems: (1) Abscess in epidural space of cervical spine (2) Staphylococcus aureus bacteremia (3) History of drug abuse (4) Schizophrenia VITAL SIGNS Vital Signs/I&O: Vital Signs Date Time Temp Pulse Resp B/P (MAP) Pulse Ox O2 Delivery O2 Flow Rate FiO2 09/12/21 15:00 69 22 98 Room Air 09/12/21 07:00 2.0 I & O 09/11/21 09/11/21 09/12/21 15:00 23:00 07:00 Intake Total 870 ml 648 ml 0 ml Output Total 400 ml 875 ml 1450 ml Balance 470 ml -227 ml -1450 ml Patient is feisty this afternoon very chatty tells me that he is not interested in taking any of his medications and he wants me to stop all of them. He refused his antidepressant, antipsychotic, and pain medication today. He is not told me how he wants to handle his antibiotics but knows that his infection is serious. HEENT exam is notable for poor dentition Neck is soft and supple no adenopathy or thyromegaly noted. Neck surgical wound was not assessed Chest is clear to auscultation Heart S1-S2 normal regular rate and rhythm no murmurs or gallops are noted Abdomen scaphoid soft nontender nondistended no masses organomegaly noted Extremity exam is unremarkable for acute abnormality ALLERGIES Allergies: Allergies Coded Allergies Type Severity Reaction Last Updated Verified Penicillins Allergy Intermediate 09/04/21 Yes ketorolac Allergy Intermediate 09/04/21 Yes tramadol Allergy Intermediate 09/04/21 Yes MEDS Medications: Current Medications Medications (Trade) Dose Ordered Sig/Reinier Start Time Stop Time Status Last Admin Dose Admin Acetaminophen (Tylenol Supp) 650 mg PRN Q6HRS PRN 09/05/21 07:45 Acetaminophen (Tylenol) 650 mg PRN Q6HRS PRN 09/04/21 01:30 Acetaminophen/ Hydrocodone Bitart (Lortab 5/325) 1 tab PRN Q4HRS PRN 09/04/21 01:30 Al Hydroxide/Mg Hydroxide (Mylanta Plus Xs) 30 ml PRN Q3HRS PRN 09/04/21 01:30 Albumin Human 500 ml @ 125 mls/hr 1X ONCE 09/09/21 11:00 09/09/21 14:59 DC 09/09/21 12:46 Albuterol Sulfate (Ventolin Neb Soln) 2.5 mg PRN Q6HRS PRN 09/09/21 11:00 Albuterol/ Ipratropium (Duoneb) 3 ml RTQID 09/04/21 08:00 09/08/21 20:29 DC 09/08/21 12:18 Barium Sulfate (Varibar Thin Liquid Apple) 148 gm 1X ONCE 09/08/21 11:15 09/08/21 11:21 DC 09/08/21 11:30 Bisacodyl (Dulcolax Supp) 10 mg PRN DAILY PRN 09/05/21 07:45 Bupivacaine HCl/ Epinephrine Bitart (Sensorcain-Epi 0.5% Kit) 30 ml STK-MED ONCE 09/03/21 20:43 09/03/21 20:43 DC 09/03/21 22:35 Calcium Carbonate/ Glycine (Tums) 500 mg PRN Q3HRS PRN 09/04/21 01:30 Cefazolin Sodium/ Dextrose 50 ml @ 100 mls/hr Q8HRS 09/11/21 22:00 09/12/21 14:09 Cefepime HCl (Maxipime) 2 gm Q8HRS 09/04/21 13:30 09/11/21 14:06 DC 09/11/21 14:02 Ceftriaxone Sodium (Rocephin) 1 gm Q24H 09/04/21 10:00 09/04/21 12:33 DC 09/04/21 09:54 Daptomycin 680 mg/ Sodium Chloride 50 ml @ 100 mls/hr Q24H 09/04/21 14:00 09/11/21 14:06 DC 09/11/21 14:01 Desflurane (Suprane) 90 ml STK-MED ONCE 09/03/21 18:52 09/03/21 20:52 DC Dexamethasone Sodium Phosphate (Decadron) 4 mg STK-MED ONCE 09/03/21 18:47 09/03/21 20:48 DC Diphenhydramine HCl (Benadryl) 25 mg PRN Q6HRS PRN 09/04/21 01:30 09/04/21 09:54 Doxycycline Hyclate (Vibra-Tab) 100 mg BID 09/03/21 15:30 09/04/21 16:21 DC 09/04/21 09:54 Ephedrine Sulfate (ePHEDrine PF IN SALINE SYRINGE) 50 mg STK-MED ONCE 09/03/21 18:47 09/03/21 20:48 DC Fentanyl Citrate (Fentanyl 2ml Vial) 50 mcg PRN Q2HR PRN 09/04/21 01:30 Furosemide (Lasix) 20 mg 1X ONCE 09/05/21 08:30 09/05/21 08:31 DC 09/05/21 08:40 Gadoterate Meglumine (Clariscan) 13 ml 1X ONCE 09/03/21 19:45 09/03/21 19:46 DC 09/03/21 19:54 Gelatin (Gelfoam Size 100) 1 each STK-MED ONCE 09/03/21 20:43 09/03/21 20:43 DC 09/03/21 22:35 Glycopyrrolate (Robinul) 1 mg STK-MED ONCE 09/03/21 19:43 09/03/21 21:44 DC Haloperidol (Haldol) 2 mg BID 09/04/21 11:00 09/11/21 08:58 Haloperidol Lactate (Haldol Inj) 1 mg 1X ONCE 09/04/21 07:15 09/04/21 07:17 DC 09/04/21 07:23 Hydralazine HCl (Apresoline Inj) 5 mg PRN Q15MIN PRN 09/04/21 01:15 09/05/21 01:14 DC Hydromorphone HCl (Dilaudid) 0.4 mg PRN Q10MIN PRN 09/04/21 01:15 09/05/21 01:14 DC Labetalol HCl (Normodyne Iv Push) 5 mg PRN Q15MIN PRN 09/04/21 01:15 09/05/21 01:14 DC Lactobacillus Rhamnosus (Culturelle) 1 cap BID 09/04/21 21:00 09/10/21 08:20 Lidocaine HCl (Lidocaine Pf 2% Vial) 5 ml STK-MED ONCE 09/03/21 18:47 09/03/21 20:48 DC Linezolid (Zyvox) 600 mg BID 09/07/21 12:00 09/11/21 14:06 DC 09/11/21 08:58 Lorazepam (Ativan Inj) 1 mg PRN Q4HRS PRN 09/05/21 07:45 Naloxone HCl (Narcan) 0.1 mg PRN Q2MIN PRN 09/04/21 01:30 Norepinephrine Bitartrate 8 mg/ Dextrose 258 ml @ 13.197 mls/ hr CONT PRN 09/03/21 17:00 09/08/21 15:48 Ondansetron HCl (Zofran) 4 mg PRN Q6HRS PRN 09/04/21 01:15 09/05/21 01:14 DC Oxymetazoline HCl (Afrin) 2 spray 1X ONCE 09/07/21 19:15 09/07/21 19:16 DC 09/07/21 20:01 Phenylephrine HCl (Jerome-Synephrine Inj) 10 mg STK-MED ONCE 09/03/21 18:48 09/03/21 20:48 DC Potassium Chloride/Dextrose/ Sod Cl 1,000 ml @ 50 mls/hr Q20H 09/04/21 01:30 09/12/21 10:40 Potassium Chloride/Water 100 ml @ 100 mls/hr Q1H 09/08/21 10:00 09/08/21 11:59 DC 09/08/21 14:17 Prochlorperazine Edisylate (Compazine) 5 mg PRN Q6HRS PRN 09/04/21 01:15 09/05/21 01:14 DC Propofol 50 ml @ As Directed STK-MED ONCE 09/03/21 20:04 09/03/21 22:05 DC Remifentanil HCl (Ultiva) 2 mg STK-MED ONCE 09/03/21 18:47 09/03/21 20:47 DC Ringer's Solution 1,000 ml @ 100 mls/hr Q10H 09/04/21 01:15 09/05/21 01:14 DC Rocuronium [place] (Zemuron) 50 mg STK-MED ONCE 09/03/21 18:38 09/03/21 20:39 DC Sertraline HCl (Zoloft) 25 mg DAILY 09/04/21 11:00 09/11/21 08:58 Sevoflurane (Ultane) 90 ml STK-MED ONCE 09/03/21 20:17 09/03/21 22:17 DC Sodium Chloride (Normal Saline Flush) 3 ml QSHIFT PRN 09/04/21 01:30 Succinylcholine Chloride (Anectine) 200 mg STK-MED ONCE 09/03/21 21:17 09/03/21 21:17 DC Throat Lozenges (Cepacol Sore Throat Lozenge) 1 amparo PRN Q2HRS PRN 09/09/21 14:30 Thrombin 20,000 unit STK-MED ONCE 09/03/21 23:56 09/03/21 23:56 DC Vancomycin HCl (Vanco Per Pharmacy) 1 each PRN DAILY PRN 09/03/21 16:00 09/04/21 12:33 DC 09/03/21 16:01 Vancomycin HCl (Vancomycin Trough Level) 1 each 1X ONCE 09/04/21 12:30 09/04/21 12:31 DC 09/04/21 12:30 Vancomycin HCl 1 gm/Sodium Chloride 250 ml @ 250 mls/hr Q8H 09/03/21 19:00 09/04/21 12:32 DC 09/04/21 04:55 Current Medications Medications (Trade) Dose Ordered Sig/Reinier Route PRN Reason Start Time Stop Time Status Last Admin Dose Admin Cefazolin Sodium/ Dextrose 50 ml @ 100 mls/hr Q8HRS IV 09/11/21 22:00 09/12/21 14:09 LAB Lab: Laboratory Tests Test 09/12/21 05:40 White Blood Count 5.6 x10^3/uL (4.0-11.0) Red Blood Count 2.95 x10^6/uL (4.30-5.70) L Hemoglobin 8.6 g/dL (13.0-17.5) L Hematocrit 26.0 % (39.0-53.0) L Mean Corpuscular Volume 88 fL (79-100) Mean Corpuscular Hemoglobin 29 pg (25-35) Mean Corpuscular Hemoglobin Concent 33 g/dL (31-37) Red Cell Distribution Width 15.4 % (11.5-14.5) H Platelet Count 175 x10^3/uL (140-400) Neutrophils (%) (Auto) 75 % (31-73) H Lymphocytes (%) (Auto) 16 % (24-48) L Monocytes (%) (Auto) 8 % (0-9) Eosinophils (%) (Auto) 1 % (0-3) Basophils (%) (Auto) 1 % (0-3) Neutrophils # (Auto) 4.2 x10^3/uL (1.8-7.7) Lymphocytes # (Auto) 0.9 x10^3/uL (1.0-4.8) L Monocytes # (Auto) 0.4 x10^3/uL (0.0-1.1) Eosinophils # (Auto) 0.0 x10^3/uL (0.0-0.7) Basophils # (Auto) 0.0 x10^3/uL (0.0-0.2) Sodium Level 139 mmol/L (136-145) Potassium Level 3.6 mmol/L (3.5-5.1) Chloride Level 102 mmol/L (98-107) Carbon Dioxide Level 35 mmol/L (21-32) H Anion Gap 2 (6-14) L Blood Urea Nitrogen 11 mg/dL (8-26) Creatinine 0.5 mg/dL (0.7-1.3) L Estimated GFR (Cockcroft-Gault) 177.5 BUN/Creatinine Ratio 22 (6-20) H Glucose Level 84 mg/dL (70-99) Calcium Level 7.7 mg/dL (8.5-10.1) L Total Bilirubin 0.2 mg/dL (0.2-1.0) Aspartate Amino Transferase (AST) 33 U/L (15-37) Alanine Aminotransferase (ALT) 33 U/L (16-63) Alkaline Phosphatase 60 U/L (46-116) Total Protein 5.6 g/dL (6.4-8.2) L Albumin 1.7 g/dL (3.4-5.0) L Albumin/Globulin Ratio 0.4 (1.0-1.7) L Laboratory Tests 09/12/21 05:40 Laboratory Tests 09/12/21 05:40 ASSESSMENT & PLAN A&P Plan as noted above This note was created using [employer] and may have omissions and/or errors due to the nature of real-time voice tight cooper. Justifications for Admission Other Justification Nutrition Consultation Dietary Evaluation: Recommendations by RD: Dietary education by RD, Increase Calorie Intake, Protein supplementation Comments: REC diet per T[employer] I INSTRUCTIONAL ASSISTANT pt likes chocolate or vanilla Ensure enlive vanilla ensure puddings, Mt dew Expected Outcomes/Goals: to meet >75% est nutr needs Malnutrition Findings: Body Fat Depletion (Non Severe: Mild Depletion Weight Status: Underweight DAREN ROMERO MD Sep 12, 2021 16:30
[2021-09-12 19:00] VITALS: BP 98/62
[2021-09-13 03:00] VITALS: BP 103/63
[2021-09-13] MEDS: POTASSIUM CL 20MEQ D5-0.45NACL 1,000 ML IV SCH ×2 (05:21→23:07)
[2021-09-13 06:44] LABS: BASO # 0.1 x10^3/uL (0.0-0.2); BASO % 1 % (0-3); EOS % 1 % (0-3); HEMATOCRIT 26.6 % (39.0-53.0); HEMOGLOBIN 8.6 g/dL (13.0-17.5); LYMPH # 0.9 x10^3/uL (1.0-4.8); LYMPH % 16 % (24-48); MEAN CORPUSCULAR HEMOGLOBIN 29 pg (25-35); MEAN CORPUSCULAR HGB CONC 32 g/dL (31-37); MEAN CORPUSCULAR VOLUME 91 fL (79-100); MONO # 0.4 x10^3/uL (0.0-1.1); MONO % 7 % (0-9); NEUT # 4.3 x10^3/uL (1.8-7.7); NEUT % 75 % (31-73); PLATELET COUNT 166 x10^3/uL (140-400); RED BLOOD COUNT 2.92 x10^6/uL (4.30-5.70); RED CELL DISTRIBUTION WIDTH 15.4 % (11.5-14.5); WHITE BLOOD COUNT 5.8 x10^3/uL (4.0-11.0)
[2021-09-13 07:00] VITALS: BP 102/72
[2021-09-13 07:08] LABS: ALBUMIN 1.7 g/dL (3.4-5.0); ALBUMIN/GLOBULIN RATIO 0.4 (1.0-1.7); CALCIUM 7.6 mg/dL (8.5-10.1); CREATININE 0.5 mg/dL (0.7-1.3); GFR 177.5; POTASSIUM 3.4 mmol/L (3.5-5.1); TOTAL BILIRUBIN 0.2 mg/dL (0.2-1.0); TOTAL PROTEIN 5.7 g/dL (6.4-8.2)
[2021-09-13] MEDS: HALOPERIDOL 2 MG TABLET. PO SCH ×2 (08:57→20:58)
[2021-09-13] MEDS: SERTRALINE 25 MG TABLET. PO SCH (08:57)
[2021-09-13] MEDS: LACTOBACILLUS RHAMNOSUS GG 1 CAPSULE. PO SCH ×3 (08:57→20:58)
[2021-09-13 11:00] VITALS: BP 102/75
--- NOTE | 2021-09-13 11:00 | NUR ---
SS following up with discharge planning. SS reviewed pt chart and discussed with pt RN. Pt is currently on room air. Pt on IV Cefazolin. PO diet. Script for wheelchair received and phoned and faxed with clinical to [facility], [phone], fax [phone]. [facility] unable to provided IV antibiotics. Pt needing to be switched to PO antibiotics prior to discharge. Clinical update provided to RNClaudia, at [facility]. Pt's RN and physician notified. SS will continue to follow for discharge planning.
--- NOTE | 2021-09-13 12:39 | NUR ---
Wound/Ostomy Care Wound Type/Assessment: Wound consult for buttock wounds. Pt has stage III PU to bilateral buttocks and coccyx. Pt also has DTI to right lateral foot and an abscess to left posterior calf. Cleansed, pictured and measured wounds. Pt had large BM, full linen change performed. Pt was very talkative and was trying to get his RN in trouble for telling him he was going back to half-way, but then stated not to switch his nurse because everyone deserves a chance. He was also trying to figure out who his doctors were and which was which, he asked the same questions multiple times and was very scattered in his speech and train of thought. Treatment Recommendations/Plan: buttocks: apply A&D ointment BID and PRN. Left calf- pack with betadine soaked gauzed packing and cover with foam, change every 2-3 days. Right foot-paint with Betadine and cover with foam, change 2x week. Education provided: WC POC and PU prevention discussed with pt. Pt refused to float heels or turn to side to off load buttocks. Pt re-educated on importance of offloading to prevent further breakdown but still refused to turn or float heels. Offloading surface/device: Currently on ICU bed. Would benefit from P500 if transferred. Recommended Referrals/Tests: na Discharge Recommendations for dressings: see above
--- NOTE | 2021-09-13 13:50 | PDOC ---
Infectious Disease Note Subjective: Subjective Pt feels better Pain is under control Remains afebrile Vital Signs: Vital Signs Vital Signs Date Time Temp Pulse Resp B/P (MAP) Pulse Ox O2 Delivery O2 Flow Rate FiO2 09/13/21 11:00 98.2 76 17 102/75 (84) 94 Room Air 98.2 09/13/21 09:23 Physical Exam: PHYSICAL EXAM GENERAL: awake alert male in no acute distress, on O2 by VM HEENT: Normocephalic, atraumatic. Anicteric. Pupils equal, reactive. Poor dentition. NECK: No JVD, no lymphadenopathy. Anterior cervical incision site redness present, mild swelling present Left IJ present clean LUNGS: Left chest tube removed, decreased breath sounds, otherwise no accessory muscle use. ABDOMEN: Soft, nontender, nondistended. Bowel sounds present. GENITOURINARY: Kuo in place. EXTREMITIES: No edema, no cyanosis. DERMATOLOGIC: Warm, dry, no generalized rash. NEUROLOGIC: alert awake able to move both upper ext, could not move lower ext PSYCHIATRIC: calm cooperative Central line RT Neck clean Placed 09/03 Medications: Inpatient Meds: Medications reviewed. Labs: Lab Laboratory Tests Test 09/13/21 06:30 White Blood Count 5.8 x10^3/uL (4.0-11.0) Red Blood Count 2.92 x10^6/uL (4.30-5.70) Hemoglobin 8.6 g/dL (13.0-17.5) Hematocrit 26.6 % (39.0-53.0) Mean Corpuscular Volume 91 fL (79-100) Mean Corpuscular Hemoglobin 29 pg (25-35) Mean Corpuscular Hemoglobin Concent 32 g/dL (31-37) Red Cell Distribution Width 15.4 % (11.5-14.5) Platelet Count 166 x10^3/uL (140-400) Neutrophils (%) (Auto) 75 % (31-73) Lymphocytes (%) (Auto) 16 % (24-48) Monocytes (%) (Auto) 7 % (0-9) Eosinophils (%) (Auto) 1 % (0-3) Basophils (%) (Auto) 1 % (0-3) Neutrophils # (Auto) 4.3 x10^3/uL (1.8-7.7) Lymphocytes # (Auto) 0.9 x10^3/uL (1.0-4.8) Monocytes # (Auto) 0.4 x10^3/uL (0.0-1.1) Eosinophils # (Auto) 0.0 x10^3/uL (0.0-0.7) Basophils # (Auto) 0.1 x10^3/uL (0.0-0.2) Sodium Level 136 mmol/L (136-145) Potassium Level 3.4 mmol/L (3.5-5.1) Chloride Level 99 mmol/L (98-107) Carbon Dioxide Level 30 mmol/L (21-32) Anion Gap 7 (6-14) Blood Urea Nitrogen 13 mg/dL (8-26) Creatinine 0.5 mg/dL (0.7-1.3) Estimated GFR (Cockcroft-Gault) 177.5 BUN/Creatinine Ratio 26 (6-20) Glucose Level 119 mg/dL (70-99) Calcium Level 7.6 mg/dL (8.5-10.1) Total Bilirubin 0.2 mg/dL (0.2-1.0) Aspartate Amino Transf (AST/SGOT) 36 U/L (15-37) Alanine Aminotransferase (ALT/SGPT) 34 U/L (16-63) Alkaline Phosphatase 67 U/L (46-116) Total Protein 5.7 g/dL (6.4-8.2) Albumin 1.7 g/dL (3.4-5.0) Albumin/Globulin Ratio 0.4 (1.0-1.7) Objective: Assessment: 1 MSSA Cervical epidural abscess at C6-C7 with severe cervical myelopathy. Status post anterior cervical decompression with corpectomy of C6, evacuation of epidural abscess, placement of interbody fusion cage and anterior plate on 09/04/2021. Cultures positive for staph aureus MSSA 2. Staphylococcus aureus bacteremia MSSA at [facility] on 09/03/2021 and here at [facility]. 3. MSSA UC likely spillage from bacteremia 4. Left pneumothorax, status post CTS. 5 polysubstance dependence. HIV and hepatitis profile negative 6. Schizophrenia, bipolar disorder, anxiety. 7 chronic low back pain. 8 hypertension. 9. Protein-calorie malnutrition. 10 anemia. 11. PCN allergy with hives, does not recall taking amoxicillin or augmentin Plan: Plan of Care Cont IV cefazolin Repeat blood cultures negative from 09/05/2021 Monitor cervical incision site swelling and redness closely. Neurosurgery following. DC central line patient Maintain aspiration precautions Awaiting swallow evaluation Monitor labs and cultures Continue supportive care D/W BENJI VICENTE MD Sep 13, 2021 13:50
[2021-09-13 15:00] VITALS: BP 117/88
--- NOTE | 2021-09-13 16:52 | PDOC ---
PROGRESS NOTES Date of Service DATE: 09/13/21 TIME: 16:49 Subjective Subjective POD #10 S/P C6 corpectomy and partial corpectomy C7, fusion, evacuation of epidural abscess denies pain c/o Cough Objective Objective Vital Signs Date Time Temp Pulse Resp B/P (MAP) Pulse Ox O2 Delivery O2 Flow Rate FiO2 09/13/21 15:00 98.4 80 18 117/88 (98) 95 Room Air 98.4 09/13/21 09:23 Intake and Output 09/13/21 07:00 Intake Total 3017.15 ml Output Total 1280 ml Balance 1737.15 ml Intake Oral 1040 ml IV Total 1977.15 ml Output Urine Total 1280 ml Physical Exam General: Alert, Cooperative Neuro: Normal speech, Other ((not moving lower extremities, sensation intact, upper extremities continue to improve, stronger)) Skin: Other (anterior cervical incision with erythema, no drainge noted, non tender) Plan Plan of Care continue Antibiotics per ID, has agreed to PICC PT SCDs, consider Lovenox/ heparin has refused any further surgery Comment Review of Relevant I have reviewed the following items vanessa (where applicable) has been applied. Labs Laboratory Tests Test 09/12/21 05:40 09/13/21 06:30 White Blood Count 5.6 x10^3/uL (4.0-11.0) 5.8 x10^3/uL (4.0-11.0) Red Blood Count 2.95 x10^6/uL (4.30-5.70) 2.92 x10^6/uL (4.30-5.70) Hemoglobin 8.6 g/dL (13.0-17.5) 8.6 g/dL (13.0-17.5) Hematocrit 26.0 % (39.0-53.0) 26.6 % (39.0-53.0) Mean Corpuscular Volume 88 fL (79-100) 91 fL (79-100) Mean Corpuscular Hemoglobin 29 pg (25-35) 29 pg (25-35) Mean Corpuscular Hemoglobin Concent 33 g/dL (31-37) 32 g/dL (31-37) Red Cell Distribution Width 15.4 % (11.5-14.5) 15.4 % (11.5-14.5) Platelet Count 175 x10^3/uL (140-400) 166 x10^3/uL (140-400) Neutrophils (%) (Auto) 75 % (31-73) 75 % (31-73) Lymphocytes (%) (Auto) 16 % (24-48) 16 % (24-48) Monocytes (%) (Auto) 8 % (0-9) 7 % (0-9) Eosinophils (%) (Auto) 1 % (0-3) 1 % (0-3) Basophils (%) (Auto) 1 % (0-3) 1 % (0-3) Neutrophils # (Auto) 4.2 x10^3/uL (1.8-7.7) 4.3 x10^3/uL (1.8-7.7) Lymphocytes # (Auto) 0.9 x10^3/uL (1.0-4.8) 0.9 x10^3/uL (1.0-4.8) Monocytes # (Auto) 0.4 x10^3/uL (0.0-1.1) 0.4 x10^3/uL (0.0-1.1) Eosinophils # (Auto) 0.0 x10^3/uL (0.0-0.7) 0.0 x10^3/uL (0.0-0.7) Basophils # (Auto) 0.0 x10^3/uL (0.0-0.2) 0.1 x10^3/uL (0.0-0.2) Sodium Level 139 mmol/L (136-145) 136 mmol/L (136-145) Potassium Level 3.6 mmol/L (3.5-5.1) 3.4 mmol/L (3.5-5.1) Chloride Level 102 mmol/L (98-107) 99 mmol/L (98-107) Carbon Dioxide Level 35 mmol/L (21-32) 30 mmol/L (21-32) Anion Gap 2 (6-14) 7 (6-14) Blood Urea Nitrogen 11 mg/dL (8-26) 13 mg/dL (8-26) Creatinine 0.5 mg/dL (0.7-1.3) 0.5 mg/dL (0.7-1.3) Estimated GFR (Cockcroft-Gault) 177.5 177.5 BUN/Creatinine Ratio 22 (6-20) 26 (6-20) Glucose Level 84 mg/dL (70-99) 119 mg/dL (70-99) Calcium Level 7.7 mg/dL (8.5-10.1) 7.6 mg/dL (8.5-10.1) Total Bilirubin 0.2 mg/dL (0.2-1.0) 0.2 mg/dL (0.2-1.0) Aspartate Amino Transf (AST/SGOT) 33 U/L (15-37) 36 U/L (15-37) Alanine Aminotransferase (ALT/SGPT) 33 U/L (16-63) 34 U/L (16-63) Alkaline Phosphatase 60 U/L (46-116) 67 U/L (46-116) Total Protein 5.6 g/dL (6.4-8.2) 5.7 g/dL (6.4-8.2) Albumin 1.7 g/dL (3.4-5.0) 1.7 g/dL (3.4-5.0) Albumin/Globulin Ratio 0.4 (1.0-1.7) 0.4 (1.0-1.7) Laboratory Tests Test 09/13/21 06:30 White Blood Count 5.8 x10^3/uL (4.0-11.0) Red Blood Count 2.92 x10^6/uL (4.30-5.70) Hemoglobin 8.6 g/dL (13.0-17.5) Hematocrit 26.6 % (39.0-53.0) Mean Corpuscular Volume 91 fL (79-100) Mean Corpuscular Hemoglobin 29 pg (25-35) Mean Corpuscular Hemoglobin Concent 32 g/dL (31-37) Red Cell Distribution Width 15.4 % (11.5-14.5) Platelet Count 166 x10^3/uL (140-400) Neutrophils (%) (Auto) 75 % (31-73) Lymphocytes (%) (Auto) 16 % (24-48) Monocytes (%) (Auto) 7 % (0-9) Eosinophils (%) (Auto) 1 % (0-3) Basophils (%) (Auto) 1 % (0-3) Neutrophils # (Auto) 4.3 x10^3/uL (1.8-7.7) Lymphocytes # (Auto) 0.9 x10^3/uL (1.0-4.8) Monocytes # (Auto) 0.4 x10^3/uL (0.0-1.1) Eosinophils # (Auto) 0.0 x10^3/uL (0.0-0.7) Basophils # (Auto) 0.1 x10^3/uL (0.0-0.2) Sodium Level 136 mmol/L (136-145) Potassium Level 3.4 mmol/L (3.5-5.1) Chloride Level 99 mmol/L (98-107) Carbon Dioxide Level 30 mmol/L (21-32) Anion Gap 7 (6-14) Blood Urea Nitrogen 13 mg/dL (8-26) Creatinine 0.5 mg/dL (0.7-1.3) Estimated GFR (Cockcroft-Gault) 177.5 BUN/Creatinine Ratio 26 (6-20) Glucose Level 119 mg/dL (70-99) Calcium Level 7.6 mg/dL (8.5-10.1) Total Bilirubin 0.2 mg/dL (0.2-1.0) Aspartate Amino Transf (AST/SGOT) 36 U/L (15-37) Alanine Aminotransferase (ALT/SGPT) 34 U/L (16-63) Alkaline Phosphatase 67 U/L (46-116) Total Protein 5.7 g/dL (6.4-8.2) Albumin 1.7 g/dL (3.4-5.0) Albumin/Globulin Ratio 0.4 (1.0-1.7) Microbiology 09/06/21 Respiratory Culture Gram Stain - Final, Complete 09/06/21 Respiratory Culture - Final, Complete 09/05/21 Blood Culture - Final, Complete NO GROWTH AFTER 5 DAYS 09/03/21 AFB Specimen Processing Tissue - Final, Resulted 09/03/21 Acid Fast Bacilli Culture, Resulted Pending 09/03/21 Gram Stain - Final, Resulted 09/03/21 Fungal Culture, Resulted Pending 09/03/21 Fungal Culture Result 1, Resulted Pending 09/03/21 Urine Culture - Final, Complete Staphylococcus Aureus Medications Current Medications Ceftriaxone Sodium (Rocephin) 1 gm Q24H IVP Last administered on 09/04/21 09:54; Start 09/04/21 at 10:00; Stop 09/04/21 at 12:33; Status DC Doxycycline Hyclate (Vibra-Tab) 100 mg BID PO Last administered on 09/04/21 09:54; Start 09/03/21 at 15:30; Stop 09/04/21 at 16:21; Status DC Vancomycin HCl (Vanco Per Pharmacy) 1 each PRN DAILY PRN MC SEE COMMENTS Last administered on 09/03/21at 16:01; Start 09/03/21 at 16:00; Stop 09/04/21 at 12:33; Status DC Vancomycin HCl 1 gm/Sodium Chloride 250 ml @ 250 mls/hr Q8H IV Last administered on 09/04/21at 04:55; Start 09/03/21 at 19:00; Stop 09/04/21 at 12:32; Status DC Vancomycin HCl (Vancomycin Trough Level) 1 each 1X ONCE MC Last administered on 09/04/21at 12:30; Start 09/04/21 at 12:30; Stop 09/04/21 at 12:31; Status DC Norepinephrine Bitartrate 8 mg/ Dextrose 258 ml @ 13.197 mls/ hr CONT PRN IV PER PROTOCOL Last administered on 09/08/21 15:48; Start 09/03/21 at 17:00 Gadoterate Meglumine (Clariscan) 13 ml 1X ONCE IVP Last administered on 09/03/21 19:54; Start 09/03/21 at 19:45; Stop 09/03/21 at 19:46; Status DC Rocuronium [place] (Zemuron) 50 mg STK-MED ONCE .ROUTE ; Start 09/03/21 at 18:38; Stop 09/03/21 at 20:39; Status DC Gelatin (Gelfoam Size 100) 1 each STK-MED ONCE .ROUTE Last administered on 09/03/21at 22:35; Start 09/03/21 at 20:43; Stop 09/03/21 at 20:43; Status DC Bupivacaine HCl/ Epinephrine Bitart (Sensorcain-Epi 0.5% Kit) 30 ml STK-MED ONCE .ROUTE Last administered on 09/03/21at 22:35; Start 09/03/21 at 20:43; Stop 09/03/21 at 20:43; Status DC Thrombin 20,000 unit STK-MED ONCE TP Last administered on 09/03/21at 22:35; Start 09/03/21 at 20:43; Stop 09/03/21 at 20:43; Status DC Remifentanil HCl (Ultiva) 2 mg STK-MED ONCE IV ; Start 09/03/21 at 18:47; Stop 09/03/21 at 20:47; Status DC Propofol 50 ml @ As Directed STK-MED ONCE IV ; Start 09/03/21 at 18:47; Stop 09/03/21 at 20:47; Status DC Ephedrine Sulfate (ePHEDrine PF IN SALINE SYRINGE) 50 mg STK-MED ONCE IV ; Start 09/03/21 at 18:47; Stop 09/03/21 at 20:48; Status DC Lidocaine HCl (Lidocaine Pf 2% Vial) 5 ml STK-MED ONCE .ROUTE ; Start 09/03/21 at 18:47; Stop 09/03/21 at 20:48; Status DC Dexamethasone Sodium Phosphate (Decadron) 4 mg STK-MED ONCE .ROUTE ; Start 09/03/21 at 18:47; Stop 09/03/21 at 20:48; Status DC Phenylephrine HCl (Jerome-Synephrine Inj) 10 mg STK-MED ONCE .ROUTE ; Start 09/03/21 at 18:48; Stop 09/03/21 at 20:48; Status DC Desflurane (Suprane) 90 ml STK-MED ONCE IH ; Start 09/03/21 at 18:52; Stop 09/03/21 at 20:52; Status DC Succinylcholine Chloride (Anectine) 200 mg STK-MED ONCE .ROUTE ; Start 09/03/21 at 21:17; Stop 09/03/21 at 21:17; Status DC Glycopyrrolate (Robinul) 1 mg STK-MED ONCE .ROUTE ; Start 09/03/21 at 19:43; Stop 09/03/21 at 21:44; Status DC Propofol 50 ml @ As Directed STK-MED ONCE IV ; Start 09/03/21 at 20:04; Stop 09/03/21 at 22:05; Status DC Ondansetron HCl (Zofran) 4 mg STK-MED ONCE .ROUTE ; Start 09/03/21 at 20:16; Stop 09/03/21 at 22:16; Status DC Sevoflurane (Ultane) 90 ml STK-MED ONCE IH ; Start 09/03/21 at 20:17; Stop 09/03/21 at 22:17; Status DC Thrombin 20,000 unit STK-MED ONCE TP ; Start 09/03/21 at 23:56; Stop 09/03/21 at 23:56; Status DC Fentanyl Citrate (Fentanyl 2ml Vial) 100 mcg STK-MED ONCE .ROUTE ; Start 09/03/21 at 22:32; Stop 09/04/21 at 00:33; Status DC Fentanyl Citrate (Fentanyl 2ml Vial) 25 mcg PRN Q5MIN PRN IVP Acute Pain; Start 09/04/21 at 01:15; Stop 09/05/21 at 01:14; Status DC Fentanyl Citrate (Fentanyl 2ml Vial) 50 mcg PRN Q5MIN PRN IVP Acute Pain; Start 09/04/21 at 01:15; Stop 09/05/21 at 01:14; Status DC Hydromorphone HCl (Dilaudid) 0.2 mg PRN Q10MIN PRN IV MILD PAIN 1-3; Start 09/04/21 at 01:15; Stop 09/05/21 at 01:14; Status DC Hydromorphone HCl (Dilaudid) 0.4 mg PRN Q10MIN PRN IV MODERATE TO SEVERE PAIN; Start 09/04/21 at 01:15; Stop 09/05/21 at 01:14; Status DC Ondansetron HCl (Zofran) 4 mg PRN Q6HRS PRN IVP Nausea, 1st Choice; Start 09/04/21 at 01:15; Stop 09/05/21 at 01:14; Status DC Prochlorperazine Edisylate (Compazine) 5 mg PRN Q6HRS PRN IVP Nausea/Vomiting, 2nd Choice; Start 09/04/21 at 01:15; Stop 09/05/21 at 01:14; Status DC Hydralazine HCl (Apresoline Inj) 5 mg PRN Q15MIN PRN IVP SBP>180; Start 09/04/21 at 01:15; Stop 09/05/21 at 01:14; Status DC Labetalol HCl (Normodyne Iv Push) 5 mg PRN Q15MIN PRN IVP SBP GREATER THAN [180]; Start 09/04/21 at 01:15; Stop 09/05/21 at 01:14; Status DC Ringer's Solution 1,000 ml @ 100 mls/hr Q10H IV ; Start 09/04/21 at 01:15; Stop 09/05/21 at 01:14; Status DC Acetaminophen (Tylenol) 650 mg PRN Q6HRS PRN PO MILD PAIN / TEMP > 100.3'F; Start 09/04/21 at 01:30 Al Hydroxide/Mg Hydroxide (Mylanta Plus Xs) 30 ml PRN Q3HRS PRN PO HEARTBURN / GAS; Start 09/04/21 at 01:30 Calcium Carbonate/ Glycine (Tums) 500 mg PRN Q3HRS PRN PO INDIGESTION; Start 09/04/21 at 01:30 Diphenhydramine HCl (Benadryl) 25 mg PRN Q6HRS PRN PO ITCHING Last administered on 09/04/21at 09:54; Start 09/04/21 at 01:30 Naloxone HCl (Narcan) 0.1 mg PRN Q2MIN PRN IV SEE COMMENTS; Start 09/04/21 at 01:30 Sodium Chloride (Normal Saline Flush) 3 ml QSHIFT PRN IV AFTER MEDS AND BLOOD DRAWS; Start 09/04/21 at 01:30 Acetaminophen/ Hydrocodone Bitart (Lortab 5/325) 1 tab PRN Q4HRS PRN PO MODERATE-SEVERE PAIN; Start 09/04/21 at 01:30 Fentanyl Citrate (Fentanyl 2ml Vial) 50 mcg PRN Q2HR PRN IVP SEVERE PAIN 7-10; Start 09/04/21 at 01:30 Potassium Chloride/Dextrose/ Sod Cl 1,000 ml @ 50 mls/hr Q20H IV Last administered on 09/13/21at 05:21; Start 09/04/21 at 01:30 Albuterol/ Ipratropium (Duoneb) 3 ml RTQID NEB Last administered on 09/08/21at 12:18; Start 09/04/21 at 08:00; Stop 09/08/21 at 20:29; Status DC Haloperidol Lactate (Haldol Inj) 1 mg 1X ONCE IM Last administered on 09/04/21at 07:23; Start 09/04/21 at 07:15; Stop 09/04/21 at 07:17; Status DC Lorazepam (Ativan Inj) 2 mg PRN Q4HRS PRN IVP ANXIETY / AGITATION Last administered on 09/04/21at 16:31; Start 09/04/21 at 09:15; Stop 09/05/21 at 07:47; Status DC Throat Lozenges (Cepacol Sore Throat Lozenge) 1 amparo PRN Q2HRS PRN PO SORE THROAT Last administered on 09/04/21at 09:54; Start 09/04/21 at 09:15; Stop 09/09/21 at 15:43; Status DC Haloperidol (Haldol) 2 mg BID PO Last administered on 09/13/21at 08:57; Start 09/04/21 at 11:00 Sertraline HCl (Zoloft) 25 mg DAILY PO Last administered on 09/13/21at 08:57; Start 09/04/21 at 11:00 Bisacodyl (Dulcolax Supp) 10 mg 1X ONCE [place] Last administered on 09/04/21at 11:00; Start 09/04/21 at 11:00; Stop 09/04/21 at 11:01; Status DC Daptomycin 680 mg/ Sodium Chloride 50 ml @ 100 mls/hr Q24H IV Last administered on 09/11/21at 14:01; Start 09/04/21 at 14:00; Stop 09/11/21 at 14:06; Status DC Cefepime HCl (Maxipime) 2 gm Q8HRS IVP Last administered on 09/11/21at 14:02; Start 09/04/21 at 13:30; Stop 09/11/21 at 14:06; Status DC Lactobacillus Rhamnosus (Culturelle) 1 cap BID PO Last administered on 09/10/21at 08:20; Start 09/04/21 at 21:00 Lorazepam (Ativan Inj) 1 mg PRN Q4HRS PRN IVP ANXIETY / AGITATION; Start 09/05/21 at 07:45 Bisacodyl (Dulcolax Supp) 10 mg PRN DAILY PRN [place] CONSTIPATION; Start 09/05/21 at 07:45 Acetaminophen (Tylenol Supp) 650 mg PRN Q6HRS PRN [place] MILD PAIN / TEMP > 100.3'F; Start 09/05/21 at 07:45 Furosemide (Lasix) 20 mg 1X ONCE IVP Last administered on 09/05/21at 08:40; Start 09/05/21 at 08:30; Stop 09/05/21 at 08:31; Status DC Linezolid (Zyvox) 600 mg BID PO Last administered on 09/11/21at 08:58; Start 09/07/21 at 12:00; Stop 09/11/21 at 14:06; Status DC Oxymetazoline HCl (Afrin) 2 spray 1X ONCE NS Last administered on 09/07/21at 20:01; Start 09/07/21 at 19:15; Stop 09/07/21 at 19:16; Status DC Potassium Chloride/Water 100 ml @ 100 mls/hr Q1H IV Last administered on 09/08/21at 14:17; Start 09/08/21 at 10:00; Stop 09/08/21 at 11:59; Status DC Barium Sulfate (Varibar Thin Liquid Apple) 148 gm 1X ONCE PO Last administered on 09/08/21at 11:30; Start 09/08/21 at 11:15; Stop 09/08/21 at 11:21; Status DC Albumin Human 250 ml @ 62.5 mls/hr 1X ONCE IV Last administered on 09/08/21at 14:19; Start 09/08/21 at 13:30; Stop 09/08/21 at 17:29; Status DC Albuterol Sulfate (Ventolin Neb Soln) 2.5 mg PRN Q6HRS PRN NEB SHORTNESS OF BREATH; Start 09/08/21 at 20:45; Stop 09/09/21 at 11:00; Status DC Albuterol Sulfate (Ventolin Neb Soln) 2.5 mg PRN Q6HRS PRN NEB SHORTNESS OF BREATH; Start 09/09/21 at 11:00 Albumin Human 500 ml @ 125 mls/hr 1X ONCE IV Last administered on 09/09/21at 12:46; Start 09/09/21 at 11:00; Stop 09/09/21 at 14:59; Status DC Throat Lozenges (Cepacol Sore Throat Lozenge) 1 amparo PRN Q2HRS PRN PO SORE THROAT; Start 09/09/21 at 14:30 Cefazolin Sodium/ Dextrose 50 ml @ 100 mls/hr Q8HRS IV Last administered on 09/13/21at 15:04; Start 09/11/21 at 22:00 Vitamin A/Vitamin D (Vitamin A & D Ointment) 1 trinity PRN Q1HR PRN TP SKIN PROTECTION; Start 09/13/21 at 12:45 Vitals/I & O Vital Sign - Last 24 Hours 09/12/21 09/12/21 09/13/21 09/13/21 19:00 20:00 03:00 07:00 Temp 97.7 97.9 97.7 97.9 Pulse 64 80 64 Resp 12 12 12 B/P (MAP) 98/62 (74) 103/63 (76) 102/72 (82) Pulse Ox 97 96 96 O2 Delivery Room Air Room Air Room Air Room Air 09/13/21 09/13/21 09/13/21 09/13/21 08:00 09:23 11:00 15:00 Temp 98.2 98.4 98.2 98.4 Pulse 76 80 Resp 17 18 B/P (MAP) 102/75 (84) 117/88 (98) Pulse Ox 72 94 95 O2 Delivery Room Air Room Air Room Air Room Air O2 Flow Rate Intake and Output 09/12/21 09/12/21 09/13/21 15:00 23:00 07:00 Intake Total 200 ml 50 ml 2767.15 ml Output Total 300 ml 350 ml 630 ml Balance -100 ml -300 ml 2137.15 ml Justifications for Admission Other Justification CLAIRE KAM PROPERTY DEVELOPER Sep 13, 2021 16:52
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
[2021-09-13 19:20] VITALS: BP 96/60
[2021-09-13] MEDS: VITS A & D/LANOLIN TOPICAL OINTMENT 42GM TUBE. TP PRN (20:58)
[2021-09-13 23:12] VITALS: BP 101/64
[2021-09-14 07:00] VITALS: BP 90/53
[2021-09-14] MEDS: VITS A & D/LANOLIN TOPICAL OINTMENT 42GM TUBE. TP PRN (09:23)
[2021-09-14] MEDS: HALOPERIDOL 2 MG TABLET. PO SCH ×2 (09:23→21:00)
[2021-09-14] MEDS: SERTRALINE 25 MG TABLET. PO SCH (09:23)
[2021-09-14] MEDS: LACTOBACILLUS RHAMNOSUS GG 1 CAPSULE. PO SCH ×2 (09:23→21:00)
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
[2021-09-14 11:00] VITALS: BP 91/52
--- NOTE | 2021-09-14 11:30 | NUR ---
SS following up with discharge planning. SS reviewed pt chart and discussed with pt RN. Pt is currently on room air. PO diet. Pt on IV Cefazolin. W/C approved through [facility] and is available to be delivered on day of discharge. Discharge plan is currently to return to the [facility] when medically ready for discharge. [facility] Department unable to provide IV medications at facility. Pt will need to be transitioned to PO antibiotics prior to discharge. SS will continue to follow for discharge planning.
--- NOTE | 2021-09-14 12:36 | PDOC ---
Infectious Disease Note Subjective: Subjective Pt feels better eaing lunch Pain is under control Remains afebrile Vital Signs: Vital Signs Vital Signs Date Time Temp Pulse Resp B/P (MAP) Pulse Ox O2 Delivery O2 Flow Rate FiO2 09/13/21 23:12 98.4 69 16 101/64 (76) 96 Room Air 98.4 09/13/21 09:23 Physical Exam: PHYSICAL EXAM GENERAL: awake alert male in no acute distress, on O2 by VM HEENT: Normocephalic, atraumatic. Anicteric. Pupils equal, reactive. Poor dentition. NECK: No JVD, no lymphadenopathy. Anterior cervical incision site redness and mild swelling improved Left IJ present clean LUNGS: Left chest tube removed, decreased breath sounds, otherwise no accessory muscle use. ABDOMEN: Soft, nontender, nondistended. Bowel sounds present. GENITOURINARY: Kuo in place. EXTREMITIES: No edema, no cyanosis. DERMATOLOGIC: Warm, dry, no generalized rash. NEUROLOGIC: alert awake able to move both upper ext, could not move lower ext PSYCHIATRIC: calm cooperative Central line RT Neck clean Placed 09/03 Medications: Inpatient Meds: Medications reviewed. Objective: Assessment: 1 MSSA Cervical epidural abscess at C6-C7 with severe cervical myelopathy. Status post anterior cervical decompression with corpectomy of C6, evacuation of epidural abscess, placement of interbody fusion cage and anterior plate on 09/04/2021. Cultures positive for staph aureus MSSA 2. Staphylococcus aureus bacteremia MSSA at [facility] on 09/03/2021 and here at [facility]. 3. MSSA UC likely spillage from bacteremia 4. Left pneumothorax, status post CTS. 5 polysubstance dependence. HIV and hepatitis profile negative 6. Schizophrenia, bipolar disorder, anxiety. 7 chronic low back pain. 8 hypertension. 9. Protein-calorie malnutrition. 10 anemia. 11. PCN allergy with hives, does not recall taking amoxicillin or augmentin Plan: Plan of Care Cont IV cefazolin Repeat blood cultures negative from 09/05/2021 Monitor cervical incision site , Neurosurgery following. DC central line PICC line, Maintain aspiration precautions Monitor labs and cultures Continue supportive care D/W BENJI VICENTE MD Sep 14, 2021 12:36
[2021-09-14] MEDS: HEPARIN for SUB-Q USE 5,000 UNIT/ML VIAL. SQ SCH ×3 (14:00→21:53)
[2021-09-14 15:00] VITALS: BP 90/58
--- NOTE | 2021-09-14 16:36 | PDOC ---
PROGRESS NOTES Date of Service DATE: 09/14/21 TIME: 16:32 Subjective Subjective Patient seen and examined at 0945 POD #11 S/P C6 corpectomy and partial corpectomy C7, fusion, evacuation of epidural abscess denies pain, no complaints Objective Objective Vital Signs Date Time Temp Pulse Resp B/P (MAP) Pulse Ox O2 Delivery O2 Flow Rate FiO2 09/14/21 08:00 Room Air 09/13/21 23:12 98.4 69 16 101/64 (76) 96 98.4 09/13/21 09:23 Intake and Output 09/14/21 07:00 Intake Total 2931 ml Output Total 5725 ml Balance -2794 ml Intake Oral 2270 ml IV Total 661 ml Output Urine Total 5725 ml Physical Exam General: Alert, Cooperative, No acute distress Neuro: Normal speech, Other (not moving lower extremities, sensation intact, upper extremities continue to improve, stronger) Skin: Other (incision less erythema today) Plan Plan of Care Antibiotics per ID PT awaiting placement has refused any further surgery D/W RN Comment Review of Relevant I have reviewed the following items vanessa (where applicable) has been applied. Labs Laboratory Tests Test 09/13/21 06:30 White Blood Count 5.8 x10^3/uL (4.0-11.0) Red Blood Count 2.92 x10^6/uL (4.30-5.70) Hemoglobin 8.6 g/dL (13.0-17.5) Hematocrit 26.6 % (39.0-53.0) Mean Corpuscular Volume 91 fL (79-100) Mean Corpuscular Hemoglobin 29 pg (25-35) Mean Corpuscular Hemoglobin Concent 32 g/dL (31-37) Red Cell Distribution Width 15.4 % (11.5-14.5) Platelet Count 166 x10^3/uL (140-400) Neutrophils (%) (Auto) 75 % (31-73) Lymphocytes (%) (Auto) 16 % (24-48) Monocytes (%) (Auto) 7 % (0-9) Eosinophils (%) (Auto) 1 % (0-3) Basophils (%) (Auto) 1 % (0-3) Neutrophils # (Auto) 4.3 x10^3/uL (1.8-7.7) Lymphocytes # (Auto) 0.9 x10^3/uL (1.0-4.8) Monocytes # (Auto) 0.4 x10^3/uL (0.0-1.1) Eosinophils # (Auto) 0.0 x10^3/uL (0.0-0.7) Basophils # (Auto) 0.1 x10^3/uL (0.0-0.2) Sodium Level 136 mmol/L (136-145) Potassium Level 3.4 mmol/L (3.5-5.1) Chloride Level 99 mmol/L (98-107) Carbon Dioxide Level 30 mmol/L (21-32) Anion Gap 7 (6-14) Blood Urea Nitrogen 13 mg/dL (8-26) Creatinine 0.5 mg/dL (0.7-1.3) Estimated GFR (Cockcroft-Gault) 177.5 BUN/Creatinine Ratio 26 (6-20) Glucose Level 119 mg/dL (70-99) Calcium Level 7.6 mg/dL (8.5-10.1) Total Bilirubin 0.2 mg/dL (0.2-1.0) Aspartate Amino Transf (AST/SGOT) 36 U/L (15-37) Alanine Aminotransferase (ALT/SGPT) 34 U/L (16-63) Alkaline Phosphatase 67 U/L (46-116) Total Protein 5.7 g/dL (6.4-8.2) Albumin 1.7 g/dL (3.4-5.0) Albumin/Globulin Ratio 0.4 (1.0-1.7) Microbiology 09/06/21 Respiratory Culture Gram Stain - Final, Complete 09/06/21 Respiratory Culture - Final, Complete 09/05/21 Blood Culture - Final, Complete NO GROWTH AFTER 5 DAYS 09/03/21 AFB Specimen Processing Tissue - Final, Resulted 09/03/21 Acid Fast Bacilli Culture, Resulted Pending 09/03/21 Gram Stain - Final, Resulted 09/03/21 Fungal Culture, Resulted Pending 09/03/21 Fungal Culture Result 1, Resulted Pending 09/03/21 Urine Culture - Final, Complete Staphylococcus Aureus Medications Current Medications Ceftriaxone Sodium (Rocephin) 1 gm Q24H IVP Last administered on 09/04/21at 09:54; Start 09/04/21 at 10:00; Stop 09/04/21 at 12:33; Status DC Doxycycline Hyclate (Vibra-Tab) 100 mg BID PO Last administered on 09/04/21 09:54; Start 09/03/21 at 15:30; Stop 09/04/21 at 16:21; Status DC Vancomycin HCl (Vanco Per Pharmacy) 1 each PRN DAILY PRN MC SEE COMMENTS Last administered on 09/03/21at 16:01; Start 09/03/21 at 16:00; Stop 09/04/21 at 12:33; Status DC Vancomycin HCl 1 gm/Sodium Chloride 250 ml @ 250 mls/hr Q8H IV Last administered on 09/04/21at 04:55; Start 09/03/21 at 19:00; Stop 09/04/21 at 12:32; Status DC Vancomycin HCl (Vancomycin Trough Level) 1 each 1X ONCE MC Last administered on 09/04/21at 12:30; Start 09/04/21 at 12:30; Stop 09/04/21 at 12:31; Status DC Norepinephrine Bitartrate 8 mg/ Dextrose 258 ml @ 13.197 mls/ hr CONT PRN IV PER PROTOCOL Last administered on 09/08/21 15:48; Start 09/03/21 at 17:00 Gadoterate Meglumine (Clariscan) 13 ml 1X ONCE IVP Last administered on 09/03/21 19:54; Start 09/03/21 at 19:45; Stop 09/03/21 at 19:46; Status DC Rocuronium Quincy (Zemuron) 50 mg STK-MED ONCE .ROUTE ; Start 09/03/21 at 18: 38; Stop 09/03/21 at 20:39; Status DC Gelatin (Gelfoam Size 100) 1 each STK-MED ONCE .ROUTE Last administered on 09/03/21 22:35; Start 09/03/21 at 20:43; Stop 09/03/21 at 20:43; Status DC Bupivacaine HCl/ Epinephrine Bitart (Sensorcain-Epi 0.5% Kit) 30 ml STK-MED ONCE .ROUTE Last administered on 09/03/21 22:35; Start 09/03/21 at 20:43; Stop 09/03/21 at 20:43; Status DC Thrombin 20,000 unit STK-MED ONCE TP Last administered on 2/25/22at 22:35; Start 09/03/21 at 20:43; Stop 09/03/21 at 20:43; Status DC Remifentanil HCl (Ultiva) 2 mg STK-MED ONCE IV ; Start 09/03/21 at 18:47; Stop 09/03/21 at 20:47; Status DC Propofol 50 ml @ As Directed STK-MED ONCE IV ; Start 09/03/21 at 18:47; Stop 09/03/21 at 20:47; Status DC Ephedrine Sulfate (ePHEDrine PF IN SALINE SYRINGE) 50 mg STK-MED ONCE IV ; Start 09/03/21 at 18:47; Stop 09/03/21 at 20:48; Status DC Lidocaine HCl (Lidocaine Pf 2% Vial) 5 ml STK-MED ONCE .ROUTE ; Start 09/03/21 at 18:47; Stop 09/03/21 at 20:48; Status DC Dexamethasone Sodium Phosphate (Decadron) 4 mg STK-MED ONCE .ROUTE ; Start 09/03/21 at 18:47; Stop 09/03/21 at 20:48; Status DC Phenylephrine HCl (Jerome-Synephrine Inj) 10 mg STK-MED ONCE .ROUTE ; Start 09/03/21 at 18:48; Stop 09/03/21 at 20:48; Status DC Desflurane (Suprane) 90 ml STK-MED ONCE IH ; Start 09/03/21 at 18:52; Stop 09/03/21 at 20:52; Status DC Succinylcholine Chloride (Anectine) 200 mg STK-MED ONCE .ROUTE ; Start 09/03/21 at 21:17; Stop 09/03/21 at 21:17; Status DC Glycopyrrolate (Robinul) 1 mg STK-MED ONCE .ROUTE ; Start 09/03/21 at 19:43; Stop 09/03/21 at 21:44; Status DC Propofol 50 ml @ As Directed STK-MED ONCE IV ; Start 09/03/21 at 20:04; Stop 09/03/21 at 22:05; Status DC Ondansetron HCl (Zofran) 4 mg STK-MED ONCE .ROUTE ; Start 09/03/21 at 20:16; Stop 09/03/21 at 22:16; Status DC Sevoflurane (Ultane) 90 ml STK-MED ONCE IH ; Start 09/03/21 at 20:17; Stop 09/03/21 at 22:17; Status DC Thrombin 20,000 unit STK-MED ONCE TP ; Start 09/03/21 at 23:56; Stop 09/03/21 at 23:56; Status DC Fentanyl Citrate (Fentanyl 2ml Vial) 100 mcg STK-MED ONCE .ROUTE ; Start 09/03/21 at 22:32; Stop 09/04/21 at 00:33; Status DC Fentanyl Citrate (Fentanyl 2ml Vial) 25 mcg PRN Q5MIN PRN IVP Acute Pain; Start 09/04/21 at 01:15; Stop 09/05/21 at 01:14; Status DC Fentanyl Citrate (Fentanyl 2ml Vial) 50 mcg PRN Q5MIN PRN IVP Acute Pain; Start 09/04/21 at 01:15; Stop 09/05/21 at 01:14; Status DC Hydromorphone HCl (Dilaudid) 0.2 mg PRN Q10MIN PRN IV MILD PAIN 1-3; Start 09/04/21 at 01:15; Stop 09/05/21 at 01:14; Status DC Hydromorphone HCl (Dilaudid) 0.4 mg PRN Q10MIN PRN IV MODERATE TO SEVERE PAIN; Start 09/04/21 at 01:15; Stop 09/05/21 at 01:14; Status DC Ondansetron HCl (Zofran) 4 mg PRN Q6HRS PRN IVP Nausea, 1st Choice; Start 09/04/21 at 01:15; Stop 09/05/21 at 01:14; Status DC Prochlorperazine Edisylate (Compazine) 5 mg PRN Q6HRS PRN IVP Nausea/Vomiting, 2nd Choice; Start 09/04/21 at 01:15; Stop 09/05/21 at 01:14; Status DC Hydralazine HCl (Apresoline Inj) 5 mg PRN Q15MIN PRN IVP SBP>180; Start 09/04/21 at 01:15; Stop 09/05/21 at 01:14; Status DC Labetalol HCl (Normodyne Iv Push) 5 mg PRN Q15MIN PRN IVP SBP GREATER THAN [180]; Start 09/04/21 at 01:15; Stop 09/05/21 at 01:14; Status DC Ringer's Solution 1,000 ml @ 100 mls/hr Q10H IV ; Start 09/04/21 at 01:15; Stop 09/05/21 at 01:14; Status DC Acetaminophen (Tylenol) 650 mg PRN Q6HRS PRN PO MILD PAIN / TEMP > 100.3'F; Start 09/04/21 at 01:30 Al Hydroxide/Mg Hydroxide (Mylanta Plus Xs) 30 ml PRN Q3HRS PRN PO HEARTBURN / GAS; Start 09/04/21 at 01:30 Calcium Carbonate/ Glycine (Tums) 500 mg PRN Q3HRS PRN PO INDIGESTION; Start 09/04/21 at 01:30 Diphenhydramine HCl (Benadryl) 25 mg PRN Q6HRS PRN PO ITCHING Last administered on 09/04/21at 09:54; Start 09/04/21 at 01:30 Naloxone HCl (Narcan) 0.1 mg PRN Q2MIN PRN IV SEE COMMENTS; Start 09/04/21 at 01:30 Sodium Chloride (Normal Saline Flush) 3 ml QSHIFT PRN IV AFTER MEDS AND BLOOD DRAWS; Start 09/04/21 at 01:30 Acetaminophen/ Hydrocodone Bitart (Lortab 5/325) 1 tab PRN Q4HRS PRN PO MODERATE-SEVERE PAIN; Start 09/04/21 at 01:30 Fentanyl Citrate (Fentanyl 2ml Vial) 50 mcg PRN Q2HR PRN IVP SEVERE PAIN 7-10; Start 09/04/21 at 01:30 Potassium Chloride/Dextrose/ Sod Cl 1,000 ml @ 50 mls/hr Q20H IV Last administered on 09/13/21at 23:07; Start 09/04/21 at 01:30 Albuterol/ Ipratropium (Duoneb) 3 ml RTQID NEB Last administered on 09/08/21at 12:18; Start 09/04/21 at 08:00; Stop 09/08/21 at 20:29; Status DC Haloperidol Lactate (Haldol Inj) 1 mg 1X ONCE IM Last administered on 09/04/21at 07:23; Start 09/04/21 at 07:15; Stop 09/04/21 at 07:17; Status DC Lorazepam (Ativan Inj) 2 mg PRN Q4HRS PRN IVP ANXIETY / AGITATION Last administered on 09/04/21at 16:31; Start 09/04/21 at 09:15; Stop 09/05/21 at 07:47; Status DC Throat Lozenges (Cepacol Sore Throat Lozenge) 1 amparo PRN Q2HRS PRN PO SORE THROAT Last administered on 09/04/21at 09:54; Start 09/04/21 at 09:15; Stop 09/09/21 at 15:43; Status DC Haloperidol (Haldol) 2 mg BID PO Last administered on 09/14/21at 09:23; Start 09/04/21 at 11:00 Sertraline HCl (Zoloft) 25 mg DAILY PO Last administered on 09/14/21 09:23; Start 09/04/21 at 11:00 Bisacodyl (Dulcolax Supp) 10 mg 1X ONCE MS Last administered on 09/04/21at 11:00; Start 09/04/21 at 11:00; Stop 09/04/21 at 11:01; Status DC Daptomycin 680 mg/ Sodium Chloride 50 ml @ 100 mls/hr Q24H IV Last administered on 09/11/21at 14:01; Start 09/04/21 at 14:00; Stop 09/11/21 at 14:06; Status DC Cefepime HCl (Maxipime) 2 gm Q8HRS IVP Last administered on 09/11/21at 14:02; Start 09/04/21 at 13:30; Stop 09/11/21 at 14:06; Status DC Lactobacillus Rhamnosus (Culturelle) 1 cap BID PO Last administered on 09/14/21at 09:23; Start 09/04/21 at 21:00 Lorazepam (Ativan Inj) 1 mg PRN Q4HRS PRN IVP ANXIETY / AGITATION; Start 09/05/21 at 07:45 Bisacodyl (Dulcolax Supp) 10 mg PRN DAILY PRN MS CONSTIPATION; Start 09/05/21 at 07:45 Acetaminophen (Tylenol Supp) 650 mg PRN Q6HRS PRN MS MILD PAIN / TEMP > 100.3'F; Start 09/05/21 at 07:45 Furosemide (Lasix) 20 mg 1X ONCE IVP Last administered on 09/05/21at 08:40; Start 09/05/21 at 08:30; Stop 09/05/21 at 08:31; Status DC Linezolid (Zyvox) 600 mg BID PO Last administered on 09/11/21at 08:58; Start 09/07/21 at 12:00; Stop 09/11/21 at 14:06; Status DC Oxymetazoline HCl (Afrin) 2 spray 1X ONCE NS Last administered on 09/07/21at 20:01; Start 09/07/21 at 19:15; Stop 09/07/21 at 19:16; Status DC Potassium Chloride/Water 100 ml @ 100 mls/hr Q1H IV Last administered on 09/08/21at 14:17; Start 09/08/21 at 10:00; Stop 09/08/21 at 11:59; Status DC Barium Sulfate (Varibar Thin Liquid Apple) 148 gm 1X ONCE PO Last administered on 09/08/21at 11:30; Start 09/08/21 at 11:15; Stop 09/08/21 at 11:21; Status DC Albumin Human 250 ml @ 62.5 mls/hr 1X ONCE IV Last administered on 09/08/21at 14:19; Start 09/08/21 at 13:30; Stop 09/08/21 at 17:29; Status DC Albuterol Sulfate (Ventolin Neb Soln) 2.5 mg PRN Q6HRS PRN NEB SHORTNESS OF BREATH; Start 09/08/21 at 20:45; Stop 09/09/21 at 11:00; Status DC Albuterol Sulfate (Ventolin Neb Soln) 2.5 mg PRN Q6HRS PRN NEB SHORTNESS OF BREATH Last administered on 09/13/21at 19:44; Start 09/09/21 at 11:00 Albumin Human 500 ml @ 125 mls/hr 1X ONCE IV Last administered on 09/09/21at 12:46; Start 09/09/21 at 11:00; Stop 09/09/21 at 14:59; Status DC Throat Lozenges (Cepacol Sore Throat Lozenge) 1 amparo PRN Q2HRS PRN PO SORE THROAT; Start 09/09/21 at 14:30 Cefazolin Sodium/ Dextrose 50 ml @ 100 mls/hr Q8HRS IV Last administered on 09/14/21at 14:00; Start 09/11/21 at 22:00 Vitamin A/Vitamin D (Vitamin A & D Ointment) 1 trinity PRN Q1HR PRN TP SKIN PROTECTION Last administered on 09/14/21at 09:23; Start 09/13/21 at 12:45 Heparin Sodium (Porcine) (Heparin Sodium) 5,000 unit Q8HRS SQ ; Start 09/14/21 at 14:00 Vitals/I & O Vital Sign - Last 24 Hours 09/13/21 09/13/21 09/13/21 09/13/21 19:20 19:44 20:30 23:12 Temp 98.6 98.4 98.6 98.4 Pulse 76 69 Resp 18 16 B/P (MAP) 96/60 (72) 101/64 (76) Pulse Ox 96 96 96 O2 Delivery Room Air Room Air Room Air Room Air 09/14/21 08:00 O2 Delivery Room Air Intake and Output 09/13/21 09/13/21 09/14/21 15:00 23:00 07:00 Intake Total 1010 ml 1201 ml 720 ml Output Total 2075 ml 600 ml 3050 ml Balance -1065 ml 601 ml -2330 ml Justifications for Admission Other Justification Nutrition Consultation Dietary Evaluation: Recommendations by RD: Dietary education by RD, Increase Calorie Intake, Protein supplementation Comments: REC continue diet per RN CORONARY CARE UNIT sending vanilla ensure puddings and magic cup tid REC mvi and vit c per wound protocal Expected Outcomes/Goals: to meet >75% est nutr needs improved wound status Malnutrition Findings: Body Fat Depletion (Non Severe: Mild Depletion Weight Status: Underweight CLAIRE KAM APRN Sep 14, 2021 16:36
--- NOTE | 2021-09-14 17:07 | NUR ---
Allergies and reactions yes INR none BUN 13 Cr 0.5 Platelets 166 Blood culture done y blood culture results MSSA Order Verified yes Consent signed yes Previous PICC placement yes Past Medical/Surgical history and current diagnosis reviewed yes Patient Medical /Surgical History Related to PICC line placement Infectious Disease consult Past central line or venous access device placement Septicemia/Bacteremia Special considerations for PICC line placement Anticoagulation therapy Infections PICC placement indication Caustic medication class drug usage, nursing home antibiotic usage, Multiple/ Frequent blood draws, Poor peripheral intravenous access Candis Laboy RN PICC Nurse Addendum: 09/14/21 at 1712 by CANDIS LABOY RN Amended: Links added.
--- NOTE | 2021-09-14 17:10 | NUR ---
Procedure: Following complete explanation of the PICC procedure including the indications, risks, and potential complications, informed consent was obtained. The possibility for infection was discussed along with signs, symptoms, and prevention. All the questions were answered.yes Written and verbal patient education was provided. yes Hand hygiene performed. yes Standardized central line checklist was utilized. yes The patient was placed in the supine position, the arm was prepped with chlorhexidine and patient draped with maximum sterile barrier. 2 mL 1% lidocaine was infiltrated into the skin to provide local anesthesia. A thorough assessment of right upper extremity completed. Using real-time ultrasound guidance and standardized micro puncture set, the Basilic vein was punctured and a peel away sheath was placed using the modified Seldinger technique. A tip location device was used to ensure adequate catheter placement. The catheter was secured using a securement device and an antimicrobial patch was applied directly on the insertion site followed by a transparent dressing. All ports withdraw blood and flush without resistance. Patient tolerated the procedure without apparent complication(s). single Lumen Power PICC placement successful and uncomplicated. Placement verified by EKG tip confirmation system and/or chest x-ray. Tip located in the CAJ Complications:none Addendum: 09/14/21 at 1712 by HARLAN VILLAGRAN RN Amended: Links added.
--- NOTE | 2021-09-14 17:39 | NUR ---
patient arrived to unit 4N at approximately 1705.
[2021-09-14 19:00] VITALS: BP 90/57
--- NOTE | 2021-09-14 21:25 | NUR ---
Pt threw food, drinks, and toiletries all over room; stated "for the next 24 hours I do not want anything no meds nothing." Then ten minutes later stated he wanted to "get better and take his meds" while nurse was waiting for another staff member to stand by pt again stated "I want nothing. I don't care, I'm done." Pt continued this pattern for 25 minutes before refusing anything the nurse offered.
[2021-09-15 03:00] VITALS: BP 100/48
[2021-09-15] MEDS: POTASSIUM CL 20MEQ D5-0.45NACL 1,000 ML IV SCH (03:01)
[2021-09-15] MEDS: HEPARIN for SUB-Q USE 5,000 UNIT/ML VIAL. SQ SCH ×2 (05:37→13:25)
--- NOTE | 2021-09-15 05:59 | NUR ---
Pt refused all morning meds; stated "I will only do things for you if you do things for me."
[2021-09-15 07:00] VITALS: BP 99/59
[2021-09-15] MEDS: HALOPERIDOL 2 MG TABLET. PO SCH (08:07)
[2021-09-15] MEDS: LACTOBACILLUS RHAMNOSUS GG 1 CAPSULE. PO SCH (08:07)
[2021-09-15] MEDS: SERTRALINE 25 MG TABLET. PO SCH (08:08)
--- NOTE | 2021-09-15 08:37 | NUR ---
Pt refused morning meds stating "I will only take them if I have my bucket full of food back and cream of wheat with telugu toast". Pt became upset when nurse stated she would give snacks back slowly as long as he was cooperative and could not have those food items because of his diet.
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
[2021-09-15 10:55] VITALS: BP 101/61
[2021-09-15] MEDS ORDERED: SERT-266 PO (11:20)
[2021-09-15] MEDS ORDERED: HALO2TAB PO (11:20)
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
--- NOTE | 2021-09-15 13:22 | PDOC ---
Infectious Disease Note Subjective: Subjective Pt without complaints no pain eaing lunch no f/n/v/d/abdo pain/sob or cough cannot move his lower extremities Per team ready for dc today has picc line in place Vital Signs: Vital Signs Vital Signs Date Time Temp Pulse Resp B/P (MAP) Pulse Ox O2 Delivery O2 Flow Rate FiO2 09/15/21 10:55 97.8 73 16 101/61 (74) 97 Room Air 97.8 Physical Exam: PHYSICAL EXAM GENERAL: awake alert ox3 male in no acute distress, HEENT: Normocephalic, atraumatic. Anicteric. Pupils equal, reactive. Poor dentition. NECK: No JVD, no lymphadenopathy. Anterior cervical incision site redness and swelling improved Left IJ present removed LUNGS: Left chest tube removed, decreased breath sounds, otherwise no accessory muscle use. ABDOMEN: Soft, nontender, nondistended. Bowel sounds present. EXTREMITIES: No edema, no cyanosis. DERMATOLOGIC: Warm, dry, no generalized rash. NEUROLOGIC: alert awake able to move both upper ext, could not move lower ext PSYCHIATRIC: calm cooperative RUE PICC line clean Medications: Inpatient Meds: Medications reviewed. Objective: Assessment: 1 MSSA Cervical epidural abscess at C6-C7 with severe cervical myelopathy. Status post anterior emergent cervical decompression with corpectomy of C6, evacuation of epidural abscess, placement of interbody fusion cage and anterior plate on 09/04/2021. Cultures positive for staph aureus MSSA 2. Staphylococcus aureus bacteremia MSSA at [facility] on 09/03/2021 and here at [facility]. 3. MSSA UC likely spillage from bacteremia 4. Left pneumothorax, status post CTS.Removed 5 polysubstance dependence. HIV and hepatitis profile negative 6. Schizophrenia, bipolar disorder, anxiety. 7 chronic low back pain. 8 hypertension. 9. Protein-calorie malnutrition. 10 anemia. 11. PCN allergy with hives, does not recall taking amoxicillin or augmentin Plan: Plan of Care Continue IV cefazolin ,per RN refusing his doses. Patient refuses for IV antibiotics for discharge planned today He is insisting to be discharged on p.o. antibiotics instead as per his discussion with DR Sparks this am I discussed the rationale for IV antibiotics for his severe complicated staph aureus bacteremia, epidural abscess. I have discussed pros and cons of not taking IV antibiotics including recurrence of his infection including staph aureus bacteremia, osteomyelitis, discitis Epidural abscess,paraplegia, endocarditis, secondary metastatic infection including severe sepsis and Pt says it does not matter to him either ways and he is ready for whatever comes his way. Patient is adamant. I offered him to discuss this with his family. He says he does not have any and he makes all his decisions Mental health consult would be recommended but .Mental health is not available at this center per staff. Repeat blood cultures negative from 09/05/2021 Wound management per neurosurgery Discharge plans have been laid out per for this pm DC PICC line ID will sign off I attempted to reach DR Sparks twice to discuss regarding my recommendations Discussed with case management Total time spent 40 mins incuding face to face counselling. BENJI PECK MD Sep 15, 2021 13:22
--- NOTE | 2021-09-15 15:23 | NUR ---
Pt provided with discharge instructions and prescriptions. Pt was dressed and placed in wheel chair then taken by [facility].
== END 2021-09-15 15:25 | DRG 853 ==
LOC: 1 WEST ICU 09:50 → 4 NORTH 09-14 17:05
PROVIDERS: ADMIT Internal Medicine; ATTEND Internal Medicine
PROC: 0RG10A0 Fusion of Cervical Vertebral Joint with Interbody Fusion Device, Anterior Approach, Anterior Column, Open Approach (ICD-10-PCS; 2021-09-03)
PROC: 00NW0ZZ Release Cervical Spinal Cord, Open Approach (ICD-10-PCS; 2021-09-03)
PROC: 4A11X4G Monitoring of Peripheral Nervous Electrical Activity, Intraoperative, External Approach (ICD-10-PCS; 2021-09-03)
PROC: 0W9B30Z Drainage of Left Pleural Cavity with Drainage Device, Percutaneous Approach (ICD-10-PCS; principal; 2021-09-05)
PROC: 02HV33Z Insertion of Infusion Device into Superior Vena Cava, Percutaneous Approach (ICD-10-PCS; 2021-09-14)
PROC: B548ZZA Ultrasonography of Superior Vena Cava, Guidance (ICD-10-PCS; 2021-09-14)
DX: A41.9 Sepsis, unspecified organism (principal); G93.41 Metabolic encephalopathy; G82.50 Quadriplegia, unspecified; J96.01 Acute respiratory failure with hypoxia; R65.21 Severe sepsis with septic shock; E46 Unspecified protein-calorie malnutrition; J98.11 Atelectasis; M51.06 Intervertebral disc disorders with myelopathy, lumbar region; N39.0 Urinary tract infection, site not specified; J93.9 Pneumothorax, unspecified; D64.9 Anemia, unspecified; E86.0 Dehydration; E87.6 Hypokalemia; F17.200 Nicotine dependence, unspecified, uncomplicated; F20.9 Schizophrenia, unspecified; F31.9 Bipolar disorder, unspecified; F41.9 Anxiety disorder, unspecified; G89.29 Other chronic pain; I10 Essential (primary) hypertension; J44.9 Chronic obstructive pulmonary disease, unspecified; F19.10 Other psychoactive substance abuse, uncomplicated; I44.0 Atrioventricular block, first degree; M48.02 Spinal stenosis, cervical region; N32.89 Other specified disorders of bladder; Z82.49 Family history of ischemic heart disease and other diseases of the circulatory system; Z86.61 Personal history of infections of the central nervous system; Z88.0 Allergy status to penicillin; Z88.8 Allergy status to other drugs, medicaments and biological substances
CPT/HCPCS: 31720; 36415; 36569; 36600; 71045; 72040; 72141; 72156; 74230; 76000; 80048; 80053; 80202; 81001; 82550; 82565; 82805; 83605; 83615; 84443; 85007; 85025; 86703; 86705; 86709; 86803; 87040; 87070; 87075; 87077; 87086; 87102; 87116; 87186; 87340; 88304; 88311; 94640; 94660; 94760; A4209; A4213; A4222; A4364; A4452; A4930; A6254; A6255; A6258; A6402; A9575; C1713; C1821; G0238; J0330; J0690; J0692; J0696; J0878; J1100; J1630; J1644; J1940; J2060; J2370; J2405; J2704; J3010; J3370; J3480; J3490; J7050; J7060; P9041; P9045; 92526-GN; 92610-GN; 92611-GN; 97530-GO; 97530-GP; 97535-GO; G0378; J7030; J7613; Q0163

== ENCOUNTER 2021-10-09 13:06 | Inpatient (IN) | payer MEDICAID, MEDICARE, OTHER ==
[~2021-10-09] VITALS: Ht 180.3 cm; Wt 67.5 kg
[~2021-10-09 13:06] MED LIST: ALBU2.5V8 INH; BENZ2TAB5 PO; BUSP10TA PO; HALO10TA PO; HALO2TAB PO; SERT-266 PO; SERT100T PO
[2021-10-09] MEDS ORDERED: VANCOMYCIN 1.5 GM in IV NORMAL SALINE 500ML BAG 500 ML IV ONE (13:45)
[2021-10-09] MEDS ORDERED: CEFEPIME HCL IV Push 1 GM VIAL. IVP ONE (13:45)
[2021-10-09 14:06] LABS: BASO # 0.1 x10^3/uL (0.0-0.2); BASO % 1 % (0-3); EOS % 0 % (0-3); HEMOGLOBIN 12.8 g/dL (13.0-17.5); LYMPH # 0.6 x10^3/uL (1.0-4.8); LYMPH % 5 % (24-48); MEAN CORPUSCULAR HEMOGLOBIN 28 pg (25-35); MEAN CORPUSCULAR HGB CONC 33 g/dL (31-37); MEAN CORPUSCULAR VOLUME 84 fL (79-100); MONO # 0.4 x10^3/uL (0.0-1.1); MONO % 3 % (0-9); NEUT % 92 % (31-73); PLATELET COUNT 339 x10^3/uL (140-400); RED BLOOD COUNT 4.66 x10^6/uL (4.30-5.70); RED CELL DISTRIBUTION WIDTH 17.9 % (11.5-14.5)
[2021-10-09 14:20] LABS: ANION GAP 8 (6-14); BLOOD UREA NITROGEN 26 mg/dL (8-26); BUN/CREATININE RATIO 87 (6-20); CALCIUM 9.3 mg/dL (8.5-10.1); CARBON DIOXIDE 28 mmol/L (21-32); CHLORIDE 97 mmol/L (98-107); CREATININE 0.3 mg/dL (0.7-1.3); GFR > 300.0; GLUCOSE 140 mg/dL (70-99); POTASSIUM 4.6 mmol/L (3.5-5.1); SODIUM 133 mmol/L (136-145)
--- NOTE | 2021-10-09 14:20 | RAD ---
XR CHEST 1V Clinical History: Reason: ams / Spl. Instructions: / History: Technique: AP view of the chest was obtained at 10/09/2021 1:46 PM. Comparison: September 09, 2021. Findings: The cardiomediastinal silhouette is normal. The pulmonary vasculature is normal. The lungs and pleura l margins are clear. Impression: No evidence of an acute cardiopulmonary process. Electronically signed by: Cezar Villa III, MD (10/09/2021 2:17 PM) [facility]
[2021-10-09 14:26] LABS: ALBUMIN 2.4 g/dL (3.4-5.0); ALBUMIN/GLOBULIN RATIO 0.5 (1.0-1.7); ALK PHOS 98 U/L (46-116); ALT (SGPT) 68 U/L (16-63); AST (SGOT) 84 U/L (15-37); TOTAL BILIRUBIN 0.3 mg/dL (0.2-1.0); TOTAL PROTEIN 6.9 g/dL (6.4-8.2)
--- NOTE | 2021-10-09 14:45 | RAD ---
STUDY: CT head without contrast INDICATION: Altered mental status. COMPARISON: 10/08/2021 TECHNIQUE: Axial CT imaging through the head without the use of intravenous contrast. Sagittal and co kavin reformats were obtained. One or more of the following individualized dose reduction techniques were utilized for this examinat ion: 1. Automated exposure control 2. Adjustment of the mA and/or kV according to patient size 3. Use of iterative reconstruction technique. FINDINGS: No acute intracranial hemorrhage. Naik-white matter differentiation is maintained. No localized mass effect, midline shift or hydrocephalus. Cavum septum pellucidum. Unchanged attenuation pattern of the brain parenchyma. Well delineated deep naik nuclei. Nonspecific slight leftward gaze preference. Intact calvarium. Normally aerated mastoid air cells and visualized paranasal sinuses. IMPRESSION: No acute intracranial abnormality by CT. No change from the 10/08/2021 comparison. Electronically signed by: NOLA SALAZAR MD (10/09/2021 2:42 PM) [facility]
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
[2021-10-09 15:41] LABS: AMPHETAMINE/METHAMPHETAMINE POS (NEG); BARBITURATES NEG (NEG); BENZODIAZEPINES NEG (NEG); CANNABINOIDS NEG (NEG); COCAINE NEG (NEG); METHADONE NEG (NEG); OPIATES NEG (NEG); PHENCYCLIDINE NEG (NEG)
[2021-10-09 15:58] LABS: BACTERIA,URINE FEW /HPF (0-FEW)
--- NOTE | 2021-10-09 17:42 | EKG ---
[facility] [address] [place] [address] Test Date: 2021-10-09 Test Time: 16:24:09 Pat Name: KRISTA SOSA Department: Room: [facility] Gender: M Infectious Diseases Physician: : [id number] Requested By: REJI GALAN Order Number: [id number] Reading MD: Cholo Rivera Measurements Intervals [place] Rate: 52 P: 61 VT: 162 QRS: 69 QRSD: 102 T: 41 QT: 596 QTc: 562 Interpretive Statements SINUS RHYTHM PROLONGED QT Electronically Signed On 10-09-2021 21:14:41 CDT by Cholo Rivera
[2021-10-09 19:00] VITALS: BP 124/99
--- NOTE | 2021-10-09 19:58 | PDOC1 ---
History and Physical Date of Admission Date of Admission DATE: 10/09/21 TIME: 19:58 Identification/Chief Complaint Chief Complaint Confusion Source Source: Chart review, Patient History of Present Illness History of Present Illness Mr Tiwari is a 46-year-old homeless male with past medical history hypertension, bipolar disease, schizophrenia, and recent cervical epidural abscess with MSSA bacteremia and polysubstance abuse who presents to the ED via EMS after being found outside on the ground half naked behind a [employer] on the ground next to a crystal meth pipe. Patient was found by PD who states that this is patient's baseline. Patient was seen in the hospital yesterday and signed out AMA after being admitted to the hospital. His motorized scooter had been taken to [place] ED in [place] where he signed out AMA. He was confused, disoriented and says he was try to kill himself. He has complaints of decubital ulcers for weeks for which he left the hospital AMA twice and is now asking for food an help. He is not oriented to location or month. He has a recent history of cervical decompression with corpectomy of C6, partial corpectomy C7, and evacuation of epidural abscess. He was recently discharged on 09/15/2021 [facility]. When he bonded out of senior living 09/23/2021 he returned to [facility] with his complaints of decubitus ulcers.and nowhere to stay. He was hospitalized 09/23-10/01 and left the hospitalized in [facility] against medical advice. Labs WBC 13, Hb 12.8, platelets 339, NA 133, K4.6, BUN 26, CR 0.3, glucose 140, calcium 9.3, bilirubin 0.3, AST 84, ALT 68, alk phos 98, ammonia 32, albumin 2.4, urine with moderate leuk esterase moderate blood, urine drug screen positive for amphetamines, rapid COVID-[address] negative Chest [address]ograph and CT head with no acute abnormalities by my interpretation. Past Medical History Cardiovascular: HTN GI: No pertinent hx Heme/Onc: No pertinent hx Psych: Anxiety, Addictions, Bipolar, Schizophrenia Musculoskeletal: low back pain Rheumatologic: No pertinent hx Renal/: No pertinent hx Endocrine: No pertinent hx Past Surgical History Past Surgical History: Other Family History Family History reviewed Family History: No Significant Social History Smoke: 1 pack per day ALCOHOL: rare Drugs: Crystal meth Current Problem List Problem List Problems Medical Problems: (1) Altered mental status Status: Acute (2) Infected abrasion of skin of sacral region Status: Acute Current Medications Current Medications Current Medications Vancomycin HCl 1.5 gm/Sodium Chloride 500 ml @ 250 mls/hr 1X ONCE IV Last administered on 10/09/21at 14:01; Start 10/09/21 at 13:45; Stop 10/09/21 at 15:44; Status DC Cefepime HCl (Maxipime) 1 gm 1X ONCE IVP Last administered on 10/09/21at 14:02; Start 10/09/21 at 13:45; Stop 10/09/21 at 13:52; Status DC Active Scripts Active Reported Haloperidol 10 Mg Tablet 10 Mg PO QHS Proair Hfa Inhaler (Albuterol Sulfate) 8.5 Gm Hfa.aer.ad 2 Puff INH PRN Q6HRS PRN Benztropine Mesylate 2 Mg Tablet 2 Mg PO DAILY Zoloft (Sertraline Hcl) 100 Mg Tablet 100 Mg PO DAILY Allergies Allergies: Coded Allergies: Penicillins (Verified Allergy, Intermediate, 09/23/21) ketorolac (Verified Allergy, Intermediate, 09/23/21) tramadol (Verified Allergy, Intermediate, 09/23/21) ROS General: YES: Fatigue, Malaise PSYCHOLOGICAL ROS: YES: Anxiety, Behavioral Disorder, Concentration difficultie , Depression, Disorientation, Hallucinations, Irritablity, Memory difficulties, Mood Swings, Obsessive thoughts, Sleep disturbances, Suicidal ideation Eyes: No Blurry vision, No Decreased vision, No Double vision, No Dry eyes, No Excessive tearing, No Eye Pain, No Itchy Eyes, No Loss of vision, No Photophobia, No Scotomata, No Uses contacts, No Uses glasses, No Other HEENT: No: Heacaches, Visual Changes, Hearing change, Nasal congestion, Nasal discharge, Oral lesions, Sinus pain, Sore Throat, Epistaxis, Sneezing, Snoring, Tinnitus, Vertigo, Vocal changes, Other ALLERGY AND IMMUNOLOGY: No: Hives, Insect Bite Sensitivity, Itchy/Watery Eyes, Nasal Congestion, Post Nasal Drip, Seasonal Allergies, Other Hematological and Lymphatic: No: Bleeding Problems, Blood Clots, Blood Transfusions, Brusing, Night Sweats, Pallor, Swollen Lymph Nodes, Other ENDOCRINE: No: Breast Changes, Galactorrhea, Hair Pattern Changes, Hot Flashes, Malaise/lethargy, Mood Swings, Palpitations, Polydipsia/polyuria, Skin Changes, Temperature Intolerance, Unexpected Weight Changes, Other Breast: No New/Changing Breast Lumps, No Nipple changes, No Nipple discharge, No Other Respiratory: No: Cough, Hemoptysis, Orthopnea, Pleuritic Pain, Shortness of breath, SOB with excertion, Sputum Changes, Stridor, Tachypnea, Wheezing, Other Cardiovascular: No Chest Pain, No Palpitations, No Orthopnea, No Paroxysmal Noc. Dyspnea, No Edema, No Lt Headedness, No Other Gastrointestinal: No Nausea, No Vomiting, No Abdominal Pain, No Diarrhea, No Constipation, No Melena, No Hematochezia, No Other Genitourinary: No Dysuria, No Frequency, No Incontinence, No Hematuria, No Retention, No Discharge, No Urgency, No Pain, No Flank Pain, No Other, No , No , No , No , No , No , No Musculoskeletal: Yes Gait Disturbance, Yes Muscular Weakness; No Joint Pain, No Joint Stiffness, No Joint Swelling, No Muscle Pain, No Pain In:, No Swelling In:, No Other Neurological: Yes Confusion, Yes Gait Disturbance, Yes Impaired Coord/balance, Yes Memory Loss, Yes Weakness; No Behavorial Changes, No Bowel/Bladder ControlChng, No Dizziness, No Headaches, No Numbness/Tingling, No Seizures, No Speech Problems, No Tremors, No Visual Changes, No Other Skin: Yes Skin Lesion Changes; No Dry Skin, No Eczema, No Hair Changes, No Lumps, No Mole Changes, No Mottling, No Nail Changes, No Pruritus, No Rash, No Other, No Acne Physical Exam General: Alert, Cooperative, mild distress, Other (Cachectic appearing) HEENT: Atraumatic, PERRLA, EOMI, Mucous membr. moist/pink Lungs: Clear to auscultation, Normal air movement Heart: S1S2, RRR, no thrills, no rubs, no gallops, no murmurs Abdomen: Normal bowel sounds, Soft, No tenderness, No hepatosplenomegaly, No m asses Extremities: No clubbing, No cyanosis, No edema, Normal pulses, No tenderness/swelling Skin: Other (sacral ulcer 4x8 with eschar) Neuro: Sensation intact, Cranial nerves 3-12 NL, Reflexes 2+, Other (spastic paraplegia bilateral lower legs) Psych/Mental Status: Other (confused) Vitals Vitals Vital Signs Date Time Temp Pulse Resp B/P (MAP) Pulse Ox O2 Delivery O2 Flow Rate FiO2 10/09/21 18:05 71 20 93/56 (68) 97 Room Air Labs Labs Laboratory Tests Test 10/09/21 13:43 10/09/21 14:06 10/09/21 15:15 White Blood Count 13.0 x10^3/uL (4.0-11.0) Red Blood Count 4.66 x10^6/uL (4.30-5.70) Hemoglobin 12.8 g/dL (13.0-17.5) Hematocrit 39.0 % (39.0-53.0) Mean Corpuscular Volume 84 fL (79-100) Mean Corpuscular Hemoglobin 28 pg (25-35) Mean Corpuscular Hemoglobin Concent 33 g/dL (31-37) Red Cell Distribution Width 17.9 % (11.5-14.5) Platelet Count 339 x10^3/uL (140-400) Neutrophils (%) (Auto) 92 % (31-73) Lymphocytes (%) (Auto) 5 % (24-48) Monocytes (%) (Auto) 3 % (0-9) Eosinophils (%) (Auto) 0 % (0-3) Basophils (%) (Auto) 1 % (0-3) Neutrophils # (Auto) 12.0 x10^3/uL (1.8-7.7) Lymphocytes # (Auto) 0.6 x10^3/uL (1.0-4.8) Monocytes # (Auto) 0.4 x10^3/uL (0.0-1.1) Eosinophils # (Auto) 0.0 x10^3/uL (0.0-0.7) Basophils # (Auto) 0.1 x10^3/uL (0.0-0.2) Sodium Level 133 mmol/L (136-145) Potassium Level 4.6 mmol/L (3.5-5.1) Chloride Level 97 mmol/L (98-107) Carbon Dioxide Level 28 mmol/L (21-32) Anion Gap 8 (6-14) Blood Urea Nitrogen 26 mg/dL (8-26) Creatinine 0.3 mg/dL (0.7-1.3) Estimated GFR (Cockcroft-Gault) > 300.0 BUN/Creatinine Ratio 87 (6-20) Glucose Level 140 mg/dL (70-99) Calcium Level 9.3 mg/dL (8.5-10.1) Total Bilirubin 0.3 mg/dL (0.2-1.0) Aspartate Amino Transf (AST/SGOT) 84 U/L (15-37) Alanine Aminotransferase (ALT/SGPT) 68 U/L (16-63) Alkaline Phosphatase 98 U/L (46-116) Ammonia 32 mcmol/L (11-34) Total Protein 6.9 g/dL (6.4-8.2) Albumin 2.4 g/dL (3.4-5.0) Albumin/Globulin Ratio 0.5 (1.0-1.7) SARS-CoV-2 Antigen (Rapid) Negative (NEGATIVE) Urine Collection Type Unknown Urine Color (Auto) Light orange Urine Turbidity Turbid Urine pH (Auto) 5.5 (<5.0-8.0) Urine Specific Jessie 1.036 (1.000-1.030) Urine Protein (Auto) 50 mg/dL (Negative) Urine Glucose (Auto)(UA) Negative mg/dL (Negative) Urine Ketones (Auto) Negative mg/dL (Negative) Urine Blood (Auto) Moderate (Negative) Urine Nitrite (Auto) Negative (Negative) Urine Bilirubin (Auto) Negative (Negative) Urine Urobilinogen (Auto) Normal mg/dL (Normal) Urine Leukocyte Esterase (Auto) Moderate (Negative) Urine RBC 3-5 /HPF (0-2) Urine WBC 11-20 /HPF (0-4) Urine Bacteria Few /HPF (0-FEW) Urine Mucus Mod /LPF Urine Opiates Screen Neg (NEG) Urine Methadone Screen Neg (NEG) Urine Barbiturates Neg (NEG) Urine Phencyclidine Screen Neg (NEG) Urine Amphetamine/Methamphetamine Pos (NEG) Urine Benzodiazepines Screen Neg (NEG) Urine Cocaine Screen Neg (NEG) Urine Cannabinoids Screen Neg (NEG) Urine Ethyl Alcohol Neg (NEG) Laboratory Tests Test 10/09/21 13:43 10/09/21 14:06 10/09/21 15:15 White Blood Count 13.0 x10^3/uL (4.0-11.0) Red Blood Count 4.66 x10^6/uL (4.30-5.70) Hemoglobin 12.8 g/dL (13.0-17.5) Hematocrit 39.0 % (39.0-53.0) Mean Corpuscular Volume 84 fL (79-100) Mean Corpuscular Hemoglobin 28 pg (25-35) Mean Corpuscular Hemoglobin Concent 33 g/dL (31-37) Red Cell Distribution Width 17.9 % (11.5-14.5) Platelet Count 339 x10^3/uL (140-400) Neutrophils (%) (Auto) 92 % (31-73) Lymphocytes (%) (Auto) 5 % (24-48) Monocytes (%) (Auto) 3 % (0-9) Eosinophils (%) (Auto) 0 % (0-3) Basophils (%) (Auto) 1 % (0-3) Neutrophils # (Auto) 12.0 x10^3/uL (1.8-7.7) Lymphocytes # (Auto) 0.6 x10^3/uL (1.0-4.8) Monocytes # (Auto) 0.4 x10^3/uL (0.0-1.1) Eosinophils # (Auto) 0.0 x10^3/uL (0.0-0.7) Basophils # (Auto) 0.1 x10^3/uL (0.0-0.2) Sodium Level 133 mmol/L (136-145) Potassium Level 4.6 mmol/L (3.5-5.1) Chloride Level 97 mmol/L (98-107) Carbon Dioxide Level 28 mmol/L (21-32) Anion Gap 8 (6-14) Blood Urea Nitrogen 26 mg/dL (8-26) Creatinine 0.3 mg/dL (0.7-1.3) Estimated GFR (Cockcroft-Gault) > 300.0 BUN/Creatinine Ratio 87 (6-20) Glucose Level 140 mg/dL (70-99) Calcium Level 9.3 mg/dL (8.5-10.1) Total Bilirubin 0.3 mg/dL (0.2-1.0) Aspartate Amino Transf (AST/SGOT) 84 U/L (15-37) Alanine Aminotransferase (ALT/SGPT) 68 U/L (16-63) Alkaline Phosphatase 98 U/L (46-116) Ammonia 32 mcmol/L (11-34) Total Protein 6.9 g/dL (6.4-8.2) Albumin 2.4 g/dL (3.4-5.0) Albumin/Globulin Ratio 0.5 (1.0-1.7) SARS-CoV-2 Antigen (Rapid) Negative (NEGATIVE) Urine Collection Type Unknown Urine Color (Auto) Light orange Urine Turbidity Turbid Urine pH (Auto) 5.5 (<5.0-8.0) Urine Specific Jessie 1.036 (1.000-1.030) Urine Protein (Auto) 50 mg/dL (Negative) Urine Glucose (Auto)(UA) Negative mg/dL (Negative) Urine Ketones (Auto) Negative mg/dL (Negative) Urine Blood (Auto) Moderate (Negative) Urine Nitrite (Auto) Negative (Negative) Urine Bilirubin (Auto) Negative (Negative) Urine Urobilinogen (Auto) Normal mg/dL (Normal) Urine Leukocyte Esterase (Auto) Moderate (Negative) Urine RBC 3-5 /HPF (0-2) Urine WBC 11-20 /HPF (0-4) Urine Bacteria Few /HPF (0-FEW) Urine Mucus Mod /LPF Urine Opiates Screen Neg (NEG) Urine Methadone Screen Neg (NEG) Urine Barbiturates Neg (NEG) Urine Phencyclidine Screen Neg (NEG) Urine Amphetamine/Methamphetamine Pos (NEG) Urine Benzodiazepines Screen Neg (NEG) Urine Cocaine Screen Neg (NEG) Urine Cannabinoids Screen Neg (NEG) Urine Ethyl Alcohol Neg (NEG) Images Images CT head without contrast INDICATION: Altered mental status. COMPARISON: 10/08/2021 TECHNIQUE: Axial CT imaging through the head without the use of intravenous contrast. Sagittal and coronal reformats were obtained. One or more of the following individualized dose reduction techniques were utilized for this examination: 1. Automated exposure control 2. Adjustment of the mA and/or kV according to patient size 3. Use of iterative reconstruction technique. FINDINGS: No acute intracranial hemorrhage. Naik-white matter differentiation is maintained. No localized mass effect, midline shift or hydrocephalus. Cavum septum pellucidum. Unchanged attenuation pattern of the brain parenchyma. Well delineated deep naik nuclei. Nonspecific slight leftward gaze preference. Intact calvarium. Normally aerated mastoid air cells and visualized paranasal sinuses. IMPRESSION: No acute intracranial abnormality by CT. No change from the 10/08/2021 comparison. Electronically signed by: NOLA SALAZAR MD (10/09/2021 2:42 PM) [facility] XR CHEST 1V Clinical History: Reason: ams / Spl. Instructions: / History: Technique: AP view of the chest was obtained at 10/09/2021 1:46 PM. Comparison: September 09, 2021. Findings: The cardiomediastinal silhouette is normal. The pulmonary vasculature is normal. The lungs and pleural margins are clear. Impression: No evidence of an acute cardiopulmonary process. VTE Prophylaxis Ordered VTE Prophylaxis Devices: Yes VTE Pharmacological Prophylaxi: Yes Assessment/Plan Assessment/Plan Acute encephalopathy - metabolic due to amphetamine intoxication Suicidal ideation - no current plan, just asking for food Paraplegia - due to cervical epidural abscess previously undertreated due to patient choice Decubitus ulcers - patient not moving, refusing care History of cervical epidural abscess at C6-7 with severe cervical myelopathy History of MSSA bacteremia - not completely treated Sepsis - due to above - given empiric antibiotics Transaminitis - likely due to amphetamine intoxication Schizophrenia, bipolar disorder Polysubstance abuse - meth Hypertension Anemia Protein calorie malnutrition Homelessness Debilitation/wheelchair-bound FEN - Regular diet PPX - lovenox FULL CODE DIspo - inpatient, needs [facility] Justifications for Admission Other Justification ANTONIO MAZARIEGOS MD Oct 09, 2021 19:58
[2021-10-09] MEDS ORDERED: ONDANSETRON ODT 4 MG TAB.RAPDIS. PO PRN (20:30)
[2021-10-09] MEDS ORDERED: ONDANSETRON PF 4 MG/2 ML VIAL. IVP PRN (20:30)
[2021-10-09] MEDS ORDERED: ACETAMINOPHEN 325 MG TABLET. PO PRN (20:30)
[2021-10-09] MEDS ORDERED: VANCOMYCIN PER PHARMACY MC PRN (20:30)
--- NOTE | 2021-10-09 20:49 | NUR ---
Pharmacy Vancomycin Dosing Note S: Consulted to monitor and dose vancomycin started 10/09/21. O: KRISTA SOSA is a 46 year old M with , INFECTED SACRAL WOUND . Other Antibiotics: NONE LABS: Last BUN: 26 Last Creatinine: 0.3 Creatinine Clearance: >100 mL/min Last WBC: 13.0 Tmax (past 24 hours): AFEBRILE Vancomycin Dosing: Dosing Weight: Actual Target Trough: 10-20 A: Based on: VANCO dosing guidelines P: 1. Begin Vancomycin 1500mg LOAD dose, then 1000 mg IV q8h 2. Follow up Trough level on 10/10/21 at 1330 3. Pharmacy will continue to monitor, follow and adjust therapy as needed. [facility], 10/09/21 [id number]
[2021-10-09] MEDS: VANCOMYCIN 1 GM in IV NORMAL SALINE 250ML 250 ML IV SCH (22:31)
[2021-10-09] MEDS: ENOXAPARIN 40 MG/0.4 ML SYRINGE. SQ SCH (22:32)
[2021-10-09 23:16] VITALS: BP 95/53
[2021-10-10 02:54] VITALS: BP 82/48
[2021-10-10] MEDS: VANCOMYCIN 1 GM in IV NORMAL SALINE 250ML 250 ML IV SCH ×4 (06:00→22:13)
--- NOTE | 2021-10-10 06:32 | NUR ---
Patient admitted to [address] [place] [address] on 10/09/21 at the change of shift. Initially, at the beginning of the shift when nurse went in room to introduce herself, the patient stated that he was willing to do better than his last admission. RN asked patient what he meant by this. Patient admits on his last admission he did not comply with the treatment but he is willing to comply. RN went to administer the 2200 Vancomycin and patient refused IV antibiotic stating he is "allergic to all IV antibiotics" RN convinced patient that he needed to allow administration of IV antibiotic because he has a sacral wound. RN explained the consequences of not allowing IV antibiotics including the possibility of sepsis. Patient finally agreed to 2200 dose IV Vancomycin and says he will allow IV antibiotics. RN also had to convince patient to allow vital signs. At one point his blood pressure had gotten as low as 82/48. RN went in the room to blood pressure and patient refused, stating "I'm fine, my blood pressure runs low and it runs high. I know my body" RN explained to patient that blood pressure needed to be recheck to ensure that it is not dropping any lower. Patient refused. RN attempted to hang 0600 Vancomycin, patient refused IV antibiotic and he also refused lab draw. Patient states he does not want to be at this hospital and he is not taking anymore antibiotics and he is not allowing any blood work. RN notified and made him aware of above.
[2021-10-10 07:00] VITALS: BP 70/42
--- NOTE | 2021-10-10 08:27 | NUR ---
Blood pressure 70/42, MD notified. Received new order to consult Dr. Jonathan MARROQUIN and to administer 1 L bolus of NS, then run NS rate at 100cc/hr.
--- NOTE | 2021-10-10 08:57 | NUR ---
Patient refused a bolus of NS, patient stated that "I don't trust you, you guys are trying to poison me".
[2021-10-10] MEDS ORDERED: IV NORMAL SALINE 1000ML BAG 1,000 ML IV ONE (09:00)
--- NOTE | 2021-10-10 09:00 | NUR ---
Patient refused head to toe and wound assessment.
[2021-10-10] MEDS: IV NORMAL SALINE 1000ML BAG 1,000 ML IV SCH ×2 (10:00→19:46)
[2021-10-10 14:17] LABS: BASO % 0 % (0-3); EOS % 0 % (0-3); HEMATOCRIT 27.6 % (39.0-53.0); LYMPH # 0.7 x10^3/uL (1.0-4.8); LYMPH % 8 % (24-48); MEAN CORPUSCULAR HEMOGLOBIN 28 pg (25-35); MEAN CORPUSCULAR HGB CONC 33 g/dL (31-37); MEAN CORPUSCULAR VOLUME 84 fL (79-100); MONO # 0.3 x10^3/uL (0.0-1.1); MONO % 3 % (0-9); NEUT # 7.6 x10^3/uL (1.8-7.7); NEUT % 88 % (31-73); PLATELET COUNT 364 x10^3/uL (140-400); RED BLOOD COUNT 3.27 x10^6/uL (4.30-5.70); RED CELL DISTRIBUTION WIDTH 18.8 % (11.5-14.5); WHITE BLOOD COUNT 8.7 x10^3/uL (4.0-11.0)
[2021-10-10 14:51] LABS: VANC TR 15.7 mcg/mL (10.0-20.0)
[2021-10-10 14:53] LABS: ALBUMIN 1.9 g/dL (3.4-5.0); TOTAL PROTEIN 5.4 g/dL (6.4-8.2)
[2021-10-10 14:54] LABS: ALBUMIN/GLOBULIN RATIO 0.5 (1.0-1.7); CALCIUM 7.9 mg/dL (8.5-10.1); CREATININE 0.9 mg/dL (0.7-1.3); GFR 90.1; POTASSIUM 4.4 mmol/L (3.5-5.1); TOTAL BILIRUBIN 0.1 mg/dL (0.2-1.0)
[2021-10-10 15:00] VITALS: BP 82/39
--- NOTE | 2021-10-10 15:19 | PDOC ---
[employer] PROGRESS NOTE Date of Service DOS: DATE: 10/10/21 TIME: 15:16 Chief Complaint Chief Complaint Acute encephalopathy - metabolic due to amphetamine intoxication Suicidal ideation - no current plan, just asking for food Paraplegia - due to cervical epidural abscess previously undertreated due to patient choice Decubitus ulcers - patient not moving, refusing care History of cervical epidural abscess at C6-7 with severe cervical myelopathy History of MSSA bacteremia - not completely treated Sepsis - due to above - given empiric antibiotics Transaminitis - likely due to amphetamine intoxication Schizophrenia, bipolar disorder Polysubstance abuse - meth Hypertension Anemia Protein calorie malnutrition Homelessness Debilitation/wheelchair-bound Severe protein calorie malnutrition History of Present Illness History of Present Illness 10/10: Patient seen and evaluated bedside. He is very somnolent but arousable. When I did wake him, patient tells me "I am going to sleep ". Had no complaints of my assessment. Multiple reports from RN and RESEARCH AND DEVELOPMENT SPECIALIST that patient is refusing IV fluids and wants to transfer out. Continue IV antibiotics. Vitals/I&O Vitals/I&O: Vital Signs Date Time Temp Pulse Resp B/P (MAP) Pulse Ox O2 Delivery O2 Flow Rate FiO2 10/10/21 15:00 99.6 94 18 82/39 (53) 98 Room Air 99.6 I & O 10/09/21 10/09/21 10/10/21 15:00 23:00 07:00 Intake Total 500 ml 720 ml Output Total 250 ml Balance 500 ml 470 ml Physical Exam General: Alert, Cooperative, No acute distress, Other (Cachectic appearing) Heart: Regular rate Lungs: Crackles, Other Abdomen: Normal bowel sounds, Soft, No tenderness, No hepatosplenomegaly, No masses Extremities: No clubbing, No cyanosis, No edema, Normal pulses, No tenderness/swelling Skin: Other (sacral ulcer 4x8 with eschar) Labs Labs: Laboratory Tests Test 10/10/21 13:50 White Blood Count 8.7 x10^3/uL (4.0-11.0) Red Blood Count 3.27 x10^6/uL (4.30-5.70) Hemoglobin 9.0 g/dL (13.0-17.5) Hematocrit 27.6 % (39.0-53.0) Mean Corpuscular Volume 84 fL (79-100) Mean Corpuscular Hemoglobin 28 pg (25-35) Mean Corpuscular Hemoglobin Concent 33 g/dL (31-37) Red Cell Distribution Width 18.8 % (11.5-14.5) Platelet Count 364 x10^3/uL (140-400) Neutrophils (%) (Auto) 88 % (31-73) Lymphocytes (%) (Auto) 8 % (24-48) Monocytes (%) (Auto) 3 % (0-9) Eosinophils (%) (Auto) 0 % (0-3) Basophils (%) (Auto) 0 % (0-3) Neutrophils # (Auto) 7.6 x10^3/uL (1.8-7.7) Lymphocytes # (Auto) 0.7 x10^3/uL (1.0-4.8) Monocytes # (Auto) 0.3 x10^3/uL (0.0-1.1) Eosinophils # (Auto) 0.0 x10^3/uL (0.0-0.7) Basophils # (Auto) 0.0 x10^3/uL (0.0-0.2) Sodium Level 133 mmol/L (136-145) Potassium Level 4.4 mmol/L (3.5-5.1) Chloride Level 99 mmol/L (98-107) Carbon Dioxide Level 24 mmol/L (21-32) Anion Gap 10 (6-14) Blood Urea Nitrogen 44 mg/dL (8-26) Creatinine 0.9 mg/dL (0.7-1.3) Estimated GFR (Cockcroft-Gault) 90.1 BUN/Creatinine Ratio 49 (6-20) Glucose Level 130 mg/dL (70-99) Calcium Level 7.9 mg/dL (8.5-10.1) Total Bilirubin 0.1 mg/dL (0.2-1.0) Aspartate Amino Transf (AST/SGOT) 44 U/L (15-37) Alanine Aminotransferase (ALT/SGPT) 52 U/L (16-63) Alkaline Phosphatase 71 U/L (46-116) Total Protein 5.4 g/dL (6.4-8.2) Albumin 1.9 g/dL (3.4-5.0) Albumin/Globulin Ratio 0.5 (1.0-1.7) Vancomycin Level Trough 15.7 mcg/mL (10.0-20.0) Vancomycin Last Dose Date Vancomycin Last Dose Time Assessment and Plan Assessmemt and Plan Problems Medical Problems: (1) Altered mental status Status: Acute (2) Infected abrasion of skin of sacral region Status: Acute Comment Review of Relevant I have reviewed the following items vanessa (where applicable) has been applied. Medications: Current Medications Medications (Trade) Dose Ordered Sig/Reinier Route PRN Reason Start Time Stop Time Status Last Admin Dose Admin Enoxaparin Sodium (Lovenox 40mg Syringe) 40 mg Q24H SQ 10/09/21 21:00 10/09/21 22:32 Vancomycin HCl (Vanco Per Pharmacy) 1 each PRN DAILY PRN MC SEE COMMENTS 10/09/21 20:30 10/09/21 20:45 Vancomycin HCl 1 gm/Sodium Chloride 250 ml @ 250 mls/hr Q8H IV 10/09/21 22:00 10/09/21 22:31 Sodium Chloride 1,000 ml @ 1,000 mls/hr 1X ONCE IV 10/10/21 09:00 10/10/21 09:59 DC 10/10/21 09:00 Justifications for Admission Other Justification JARAD MUJICA MD Oct 10, 2021 15:19
[2021-10-10 19:15] VITALS: BP 88/48
[2021-10-10] MEDS: LACTOBACILLUS RHAMNOSUS GG 1 CAPSULE. PO SCH (20:07)
[2021-10-10] MEDS: ENOXAPARIN 40 MG/0.4 ML SYRINGE. SQ SCH (20:08)
[2021-10-10 23:14] VITALS: BP 86/48
[2021-10-11 03:00] VITALS: BP 88/47
--- NOTE | 2021-10-11 04:40 | NUR ---
Patient has mckayla refusing assessment, wound assessment and neuro checks. Patient agreed to take 2200 Vancomycin, but refusing any running IVF. Patient continues to state "I don't need the IVF!"
[2021-10-11] MEDS: VANCOMYCIN 1 GM in IV NORMAL SALINE 250ML 250 ML IV SCH (05:55)
[2021-10-11] MEDS: IV NORMAL SALINE 1000ML BAG 1,000 ML IV SCH ×2 (05:59→15:19)
[2021-10-11 07:00] VITALS: BP 92/51
[2021-10-11 07:32] LABS: BASO % 1 % (0-3); EOS % 0 % (0-3); HEMATOCRIT 31.5 % (39.0-53.0); HEMOGLOBIN 9.9 g/dL (13.0-17.5); LYMPH % 15 % (24-48); MEAN CORPUSCULAR HEMOGLOBIN 27 pg (25-35); MEAN CORPUSCULAR HGB CONC 32 g/dL (31-37); MEAN CORPUSCULAR VOLUME 86 fL (79-100); MONO # 0.4 x10^3/uL (0.0-1.1); MONO % 6 % (0-9); NEUT # 5.4 x10^3/uL (1.8-7.7); NEUT % 79 % (31-73); PLATELET COUNT 326 x10^3/uL (140-400); RED BLOOD COUNT 3.67 x10^6/uL (4.30-5.70); RED CELL DISTRIBUTION WIDTH 18.9 % (11.5-14.5); WHITE BLOOD COUNT 6.8 x10^3/uL (4.0-11.0)
[2021-10-11 08:18] LABS: C-REACTIVE PROTEIN 57.1 mg/L (0-3.3); CALCIUM 8.5 mg/dL (8.5-10.1); CREATININE 0.7 mg/dL (0.7-1.3); GFR 120.4; POTASSIUM 4.3 mmol/L (3.5-5.1)
[2021-10-11] MEDS: LACTOBACILLUS RHAMNOSUS GG 1 CAPSULE. PO SCH ×2 (09:00→21:15)
[2021-10-11 11:00] VITALS: BP 90/48
--- NOTE | 2021-10-11 11:23 | NUR ---
Patient refused P500 bed. Refused to continue having IVF connected, Patient educated on importance of following physicians orders.
--- NOTE | 2021-10-11 12:23 | PDOC ---
[employer] PROGRESS NOTE Date of Service DOS: DATE: 10/11/21 TIME: 12:20 Chief Complaint Chief Complaint Suicidal ideation Encephalopathy Noncompliance Severe wounds with probable infection Paraplegia Methamphetamine abuse History of epidural abscess with paraplegia MSSA bacteremia Sepsis Transaminase-itis Schizophrenia Polysubstance abuse Hypertension Anemia Homeless Debility Malnutrition History of Present Illness History of Present Illness 10/12/2019 Patient seen and examined Discussed with RN Discussed with case management Chart reviewed His room has a foul odor I suspect his wound is infected again Discussed with the wound care nurse he agrees it needs to be debrided He is on IV Zosyn Has Kuo bedside drainage 10/10: Patient seen and evaluated bedside. He is very somnolent but arousable. When I did wake him, patient tells me "I am going to sleep ". Had no complaints of my assessment. Multiple reports from RN and LIBRARY CLERK [employer] that patient is refusing IV fluids and wants to transfer out. Continue IV antibiotics. Vitals/I&O Vitals/I&O: Vital Signs Date Time Temp Pulse Resp B/P (MAP) Pulse Ox O2 Delivery O2 Flow Rate FiO2 10/11/21 11:00 97.8 85 16 90/48 (62) 99 Room Air 97.8 I & O 10/10/21 10/10/21 10/11/21 15:00 23:00 07:00 Intake Total 1200 ml 240 ml 1150 ml Output Total 3500 ml Balance 1200 ml 240 ml -2350 ml Physical Exam General: Alert, Cooperative, No acute distress, Other (Cachectic appearing) Heart: Regular rate Lungs: Crackles, Other Abdomen: Normal bowel sounds, Soft, No tenderness, No hepatosplenomegaly, No masses Extremities: No clubbing, No cyanosis, No edema, Normal pulses, No tenderness/swelling Skin: Other (sacral ulcer 4x8 with eschar) Labs Labs: Laboratory Tests Test 10/10/21 13:50 10/11/21 06:40 White Blood Count 8.7 x10^3/uL (4.0-11.0) 6.8 x10^3/uL (4.0-11.0) Red Blood Count 3.27 x10^6/uL (4.30-5.70) 3.67 x10^6/uL (4.30-5.70) Hemoglobin 9.0 g/dL (13.0-17.5) 9.9 g/dL (13.0-17.5) Hematocrit 27.6 % (39.0-53.0) 31.5 % (39.0-53.0) Mean Corpuscular Volume 84 fL (79-100) 86 fL (79-100) Mean Corpuscular Hemoglobin 28 pg (25-35) 27 pg (25-35) Mean Corpuscular Hemoglobin Concent 33 g/dL (31-37) 32 g/dL (31-37) Red Cell Distribution Width 18.8 % (11.5-14.5) 18.9 % (11.5-14.5) Platelet Count 364 x10^3/uL (140-400) 326 x10^3/uL (140-400) Neutrophils (%) (Auto) 88 % (31-73) 79 % (31-73) Lymphocytes (%) (Auto) 8 % (24-48) 15 % (24-48) Monocytes (%) (Auto) 3 % (0-9) 6 % (0-9) Eosinophils (%) (Auto) 0 % (0-3) 0 % (0-3) Basophils (%) (Auto) 0 % (0-3) 1 % (0-3) Neutrophils # (Auto) 7.6 x10^3/uL (1.8-7.7) 5.4 x10^3/uL (1.8-7.7) Lymphocytes # (Auto) 0.7 x10^3/uL (1.0-4.8) 1.0 x10^3/uL (1.0-4.8) Monocytes # (Auto) 0.3 x10^3/uL (0.0-1.1) 0.4 x10^3/uL (0.0-1.1) Eosinophils # (Auto) 0.0 x10^3/uL (0.0-0.7) 0.0 x10^3/uL (0.0-0.7) Basophils # (Auto) 0.0 x10^3/uL (0.0-0.2) 0.0 x10^3/uL (0.0-0.2) Sodium Level 133 mmol/L (136-145) 140 mmol/L (136-145) Potassium Level 4.4 mmol/L (3.5-5.1) 4.3 mmol/L (3.5-5.1) Chloride Level 99 mmol/L (98-107) 105 mmol/L (98-107) Carbon Dioxide Level 24 mmol/L (21-32) 28 mmol/L (21-32) Anion Gap 10 (6-14) 7 (6-14) Blood Urea Nitrogen 44 mg/dL (8-26) 36 mg/dL (8-26) Creatinine 0.9 mg/dL (0.7-1.3) 0.7 mg/dL (0.7-1.3) Estimated GFR (Cockcroft-Gault) 90.1 120.4 BUN/Creatinine Ratio 49 (6-20) Glucose Level 130 mg/dL (70-99) 107 mg/dL (70-99) Calcium Level 7.9 mg/dL (8.5-10.1) 8.5 mg/dL (8.5-10.1) Total Bilirubin 0.1 mg/dL (0.2-1.0) Aspartate Amino Transf (AST/SGOT) 44 U/L (15-37) Alanine Aminotransferase (ALT/SGPT) 52 U/L (16-63) Alkaline Phosphatase 71 U/L (46-116) Total Protein 5.4 g/dL (6.4-8.2) Albumin 1.9 g/dL (3.4-5.0) Albumin/Globulin Ratio 0.5 (1.0-1.7) Vancomycin Level Trough 15.7 mcg/mL (10.0-20.0) Vancomycin Last Dose Date Vancomycin Last Dose Time C-Reactive Protein, Quantitative 57.1 mg/L (0-3.3) Assessment and Plan Assessmemt and Plan Problems Medical Problems: (1) Altered mental status Status: Acute (2) Infected abrasion of skin of sacral region Status: Acute Acute encephalopathy - metabolic due to amphetamine intoxication Suicidal ideation - no current plan, just asking for food Paraplegia - due to cervical epidural abscess previously undertreated due to patient choice Decubitus ulcers - patient not moving, refusing care History of cervical epidural abscess at C6-7 with severe cervical myelopathy History of MSSA bacteremia - not completely treated Sepsis - due to above - given empiric antibiotics Transaminitis - likely due to amphetamine intoxication Schizophrenia, bipolar disorder Polysubstance abuse - meth Hypertension Anemia Protein calorie malnutrition Homelessness Debilitation/wheelchair-bound Severe protein calorie malnutrition Continue Zosyn Trend labs Homans DVT prophylaxis Full code Long-term prognosis guarded Comment Review of Relevant I have reviewed the following items vanessa (where applicable) has been applied. Justifications for Admission Other Justification OLY LUNA III DO Oct 11, 2021 12:23
--- NOTE | 2021-10-11 14:14 | PDOC ---
Infectious Disease Note Subjective: Subjective Mr Tiwari is a 46-year-old homeless male with complicated past medical history well-known to our service from last admissions See last ID note from 09/30 and ID consult previous admission for full details Patient has complicated history of MSSA bacteremia, MSSA thoracic epidural abscess status post I&D. Patient was found to have sacral decubitus ulcer last admission with eschar. Patient refused taking p.o. medication off and on. He has been on daptomycin and was started on Keflex Patient was brought in by EMS after being found outside on the ground half naked behind a [email or web address] restaurant on the ground next to a crystal meth pipe. Patient recently signed out AMA from the hospital. Patient was found to be confused and disoriented CT head was negative. Chest x-ray was negative for acute process. Labs reveal leukocytosis creatinine of 0.3. UA showed moderate leukocyte esterase moderate blood. UDS was positive for amphetamines. COVID-19 was negative. BC neg from 10/09 on IV Vanc currently Vital Signs: Vital Signs Vital Signs Date Time Temp Pulse Resp B/P (MAP) Pulse Ox O2 Delivery O2 Flow Rate FiO2 10/11/21 11:00 97.8 85 16 90/48 (62) 99 Room Air 97.8 Physical Exam: PHYSICAL EXAM General: Thin cachectic alert male in no acute distress HEENT: Atraumatic normocephalic oral mucosa moist dentition poor Neck supple, scar well-healed Lungs clear bilaterally no wheezing Heart: S1S2, no murmurs Abdomen: Normal bowel sounds, Soft, No hepatosplenomegaly, nontender nondistended Extremities: 1-2+ pitting edema no cyanosis Derm warm dry multiple abrasions present in both lower extremity Neuro: aleart awake, (spastic paraplegia bilateral lower legs) Psych/Mental Status: Alert awake moves all 4 extremities Medications: Inpatient Meds: Medications reviewed. Labs: Lab Laboratory Tests Test 10/11/21 06:40 White Blood Count 6.8 x10^3/uL (4.0-11.0) Red Blood Count 3.67 x10^6/uL (4.30-5.70) Hemoglobin 9.9 g/dL (13.0-17.5) Hematocrit 31.5 % (39.0-53.0) Mean Corpuscular Volume 86 fL (79-100) Mean Corpuscular Hemoglobin 27 pg (25-35) Mean Corpuscular Hemoglobin Concent 32 g/dL (31-37) Red Cell Distribution Width 18.9 % (11.5-14.5) Platelet Count 326 x10^3/uL (140-400) Neutrophils (%) (Auto) 79 % (31-73) Lymphocytes (%) (Auto) 15 % (24-48) Monocytes (%) (Auto) 6 % (0-9) Eosinophils (%) (Auto) 0 % (0-3) Basophils (%) (Auto) 1 % (0-3) Neutrophils # (Auto) 5.4 x10^3/uL (1.8-7.7) Lymphocytes # (Auto) 1.0 x10^3/uL (1.0-4.8) Monocytes # (Auto) 0.4 x10^3/uL (0.0-1.1) Eosinophils # (Auto) 0.0 x10^3/uL (0.0-0.7) Basophils # (Auto) 0.0 x10^3/uL (0.0-0.2) Sodium Level 140 mmol/L (136-145) Potassium Level 4.3 mmol/L (3.5-5.1) Chloride Level 105 mmol/L (98-107) Carbon Dioxide Level 28 mmol/L (21-32) Anion Gap 7 (6-14) Blood Urea Nitrogen 36 mg/dL (8-26) Creatinine 0.7 mg/dL (0.7-1.3) Estimated GFR (Cockcroft-Gault) 120.4 Glucose Level 107 mg/dL (70-99) Calcium Level 8.5 mg/dL (8.5-10.1) C-Reactive Protein, Quantitative 57.1 mg/L (0-3.3) Objective: Assessment: MSSA bacteremia 09/03/2021 and at [place] during his admission from September 03, 2021 Repeat blood culture 09/27/2021 last admission for MSSA likely from noncompliance with antibiotic MSSA Cervical epidural abscess at C6-C7 with severe cervical myelopathy. Status post anterior emergent cervical decompression with corpectomy of C6, evacuation of epidural abscess, placement of interbody fusion cage and anterior plate on 09/04/2021. Cultures positive for staph aureus MSSA MSSA UTI August 2021 Left pneumothorax, status post CTS.Removed Polysubstance dependence. HIV and hepatitis profile negative Schizophrenia, bipolar disorder, anxiety. Protein calorie malnutrition Anemia Penicillin allergy with hives does not recall taking Augmentin or amoxicillin. Today he tells me he is not allergic to any medications. Hypertension Sacral decubitus ulcer Noncompliance Protein calorie malnutrition Homelessness Plan: Plan of Care Pt needs off load which he has been refusing Patient did not allow me to examine his wound today He refused for wound pictures earlier with Patient has been hospitalized multiple times. Signed out AMA DC IV vancomycin Restart daptomycin and cefepime Monitor labs and cultures Repeat blood cultures negative from 10/09/2020 We will try to evaluate patient when patient agrees Discussed with BENJI VICENTE MD Oct 11, 2021 14:14
[2021-10-11 14:22] LABS: VANC TR 24.6 mcg/mL (10.0-20.0)
[2021-10-11 15:00] VITALS: BP 92/53
[2021-10-11] MEDS: DAPTOmycin (GENERIC) IVPB 410 MG in IV NORMAL SALINE 50ML 50 ML IV SCH (16:51)
--- NOTE | 2021-10-11 17:05 | NUR ---
Wound Care Wound Type/Assessment: Repeat consult for multiple wounds present on admission. On last admission, pt was argumentative and threatening to wound care staff, at which point Wound care services signed off. Per pt's RN today, pt has been refusing all offers for care and treatment stating he would only allow Wound Care to treat him. Pt informed wound care today that he is here to get better and will do whatever we recommend. Wound care informed pt that we would not continue to offer treatment if he did not follow our recommendations and allow all hospital staff to treat him as well. Pt stated understanding. Pt feet soiled with dry mud and blood with several abrasions with pink margins and dry, intact scabs. Open pressure wound to L heel with pink, pearly margins and a pink moist wound base, minimal slough; ST III. Unstageable DTI to R lateral 5th metatarsal head, purple, yellow, fluctuant. Unstageable pressure ulcer to coccyx with foul odor, black leathery eschar covering yellow, stringy slough. Wound margins have some granulation, but are macerated, red, nonblanchable.No other wounds noted on head to toe assessment. Treatment Recommendations/Plan: Coccyx: Cleanse and pat dry. Apply medihoney gel to xeroform gauze and place honey-side down to wound. Cover with ABD and tape. Change every 3 days. If pt continues to experience frequent incontinence of bowel, switch to barrier cream and leave TODD. L heel: Apply xeroform and foam dressing. Change every 3 days. R lateral foot: Apply skin prep and foam dressing. Change every 4-5 days. Turn Q2H. Float heels. Wear Rooke boots to both legs while in bed. Education provided: Turn Q2H, wear rooke boots, allow nurses, aids and physicians to help treat him. Offloading surface/device: P500, pillows for comfort and positioning. Rooke boots Recommended Referrals/Tests: Surgical consult for OR debridement of coccyx Discharge Recommendations for dressings: As above pending changes in treatment plan by general surgery
[2021-10-11 19:00] VITALS: BP 93/59
[2021-10-11] MEDS: CEFEPIME HCL IV Push 2 GM VIAL. IVP SCH (21:14)
[2021-10-11] MEDS: ENOXAPARIN 40 MG/0.4 ML SYRINGE. SQ SCH (21:15)
[2021-10-11] MEDS: metroNIDAZOLE 500 MG TABLET PO SCH (21:30)
--- NOTE | 2021-10-12 00:22 | NUR ---
Pt refused his Lovenox and all oral medications. Pt has also refused his 2300 vitals signs and wanted his IV fluids disconnected because it was "hurting and getting caught on the bed". Advised pt of the importances of care he is receiving, he did not change his mind. Will continue to monitor
[2021-10-12] MEDS: IV NORMAL SALINE 1000ML BAG 1,000 ML IV SCH ×3 (02:00→22:00)
[2021-10-12 03:28] VITALS: BP 97/57
[2021-10-12] MEDS: metroNIDAZOLE 500 MG TABLET PO SCH ×3 (05:06→22:00)
[2021-10-12 07:00] VITALS: BP 95/58
--- NOTE | 2021-10-12 07:47 | NUR ---
Pt. pleasant this am, stated he would do whatever the nurses needed him to do today.
[2021-10-12] MEDS: LACTOBACILLUS RHAMNOSUS GG 1 CAPSULE. PO SCH ×2 (09:00→20:02)
[2021-10-12] MEDS: CEFEPIME HCL IV Push 2 GM VIAL. IVP SCH ×3 (09:18→20:10)
--- NOTE | 2021-10-12 10:08 | PDOC ---
Infectious Disease Note Subjective: Subjective Pt without complaints Refuses for wound exam Vital Signs: Vital Signs Vital Signs Date Time Temp Pulse Resp B/P (MAP) Pulse Ox O2 Delivery O2 Flow Rate FiO2 10/12/21 07:47 Room Air 10/12/21 07:00 98.1 76 18 95/58 (70) 98 98.1 Physical Exam: PHYSICAL EXAM General: Thin cachectic alert male in no acute distress HEENT: Atraumatic normocephalic oral mucosa moist dentition poor Neck supple, scar well-healed Lungs clear bilaterally no wheezing Heart: S1S2, no murmurs Abdomen: Normal bowel sounds, Soft, No hepatosplenomegaly, nontender nondistended Back not examined as patient refused exam again today Extremities: 1-2+ pitting edema no cyanosis Derm warm dry multiple abrasions present in both lower extremity Neuro: aleart awake, spastic paraplegia bilateral lower legs Psych/Mental Status: Alert awake moves all 4 extremities Medications: Inpatient Meds: Medications reviewed. Labs: Lab Laboratory Tests Test 10/11/21 13:33 Vancomycin Level Trough 24.6 mcg/mL (10.0-20.0) Vancomycin Last Dose Date 10/10/21 Vancomycin Last Dose Time 0600 Objective: Assessment: MSSA bacteremia 09/03/2021 and at [place] during his admission from September 03, 2021 Repeat blood culture 09/27/2021 last admission for MSSA likely from noncompliance with antibiotic MSSA Cervical epidural abscess at C6-C7 with severe cervical myelopathy. Status post anterior emergent cervical decompression with corpectomy of C6, evacuation of epidural abscess, placement of interbody fusion cage and anterior plate on 09/04/2021. Cultures positive for staph aureus MSSA MSSA UTI August 2021 Left pneumothorax, status post CTS.Removed Polysubstance dependence. HIV and hepatitis profile negative Schizophrenia, bipolar disorder, anxiety. Protein calorie malnutrition Anemia Penicillin allergy with hives does not recall taking Augmentin or amoxicillin. Today he tells me he is not allergic to any medications. Hypertension Sacral decubitus ulcer per wound team Noncompliance Patient has been hospitalized multiple times. Signed out AMA multiple times Protein calorie malnutrition Homelessness Plan: Plan of Care Patient refused for wound exam today again No pictures available for my review at this time States wound team is planning for I&D.... Encourage offload which she is refusing Cont daptomycin and cefepime Monitor labs and cultures Repeat blood cultures negative from 10/09/2020 BENJI PECK MD Oct 12, 2021 10:08
--- NOTE | 2021-10-12 10:17 | NUR ---
Pt. refusing labs this am. Pt. accepted IV abx but refused probiotic.
[2021-10-12] MEDS ORDERED: CONTRAST GIVEN. MC PRN (10:30)
[2021-10-12] MEDS ORDERED: IOHEXOL 300 MG/ML 100ML VIAL. IV ONE (10:30)
--- NOTE | 2021-10-12 10:54 | NUR ---
Pt. returning from CT via bed per transportation. Transportation stating pt says he is not coming out of his room again if he has to wear a mask. Transportation asked him to pull his mask up, pt refused. Pt. Placed back in room.
[2021-10-12 11:00] VITALS: BP 96/59
--- NOTE | 2021-10-12 12:42 | PDOC ---
[employer] PROGRESS NOTE Date of Service DOS: DATE: 10/12/21 TIME: 12:41 Chief Complaint Chief Complaint Suicidal ideation Encephalopathy Noncompliance Severe wounds with probable infection Paraplegia Methamphetamine abuse History of epidural abscess with paraplegia MSSA bacteremia Sepsis Transaminase-itis Schizophrenia Polysubstance abuse Hypertension Anemia Homeless Debility Malnutrition History of Present Illness History of Present Illness 10/12 Patient evaluated examined at bedside. Patient is resting in bed. Definitely does have a foul odor in the room. Patient not really letting many people examined the wound. We will see if a CT will be helpful to further characterize. Surgical consult for possible washout. Continue antibiotics per infectious disease. 10/12/2019 Patient seen and examined Discussed with RN Discussed with case management Chart reviewed His room has a foul odor I suspect his wound is infected again Discussed with the wound care nurse he agrees it needs to be debrided He is on IV Zosyn Has Kuo bedside drainage 10/10: Patient seen and evaluated bedside. He is very somnolent but arousable. When I did wake him, patient tells me "I am going to sleep ". Had no complaints of my assessment. Multiple reports from RN and APPLICATION SECURITY ARCHITECT that patient is refusing IV fluids and wants to transfer out. Continue IV antibiotics. Vitals/I&O Vitals/I&O: Vital Signs Date Time Temp Pulse Resp B/P (MAP) Pulse Ox O2 Delivery O2 Flow Rate FiO2 10/12/21 11:00 99.5 90 18 96/59 (71) 97 Room Air 99.5 I & O 10/11/21 10/11/21 10/12/21 15:00 23:00 07:00 Intake Total 1000 ml 135 ml Output Total 1800 ml 1400 ml Balance 1000 ml -1800 ml -1265 ml Physical Exam Physical Exam: General: Thin cachectic alert male in no acute distress HEENT: Atraumatic normocephalic oral mucosa moist dentition poor Neck supple, scar well-healed Lungs clear bilaterally no wheezing Heart: S1S2, no murmurs Abdomen: Normal bowel sounds, Soft, No hepatosplenomegaly, nontender nondistended Back not examined as patient refused exam again today Extremities: 1-2+ pitting edema no cyanosis Derm warm dry multiple abrasions present in both lower extremity Neuro: aleart awake, spastic paraplegia bilateral lower legs Psych/Mental Status: Alert awake moves all 4 extremities General: Alert, Cooperative, No acute distress, Other (Cachectic appearing) Heart: Regular rate Lungs: Crackles, Other Abdomen: Normal bowel sounds, Soft, No tenderness, No hepatosplenomegaly, No masses Extremities: No clubbing, No cyanosis, No edema, Normal pulses, No tenderness/swelling Skin: Other (sacral ulcer 4x8 with eschar) Labs Labs: Laboratory Tests Test 10/11/21 13:33 Vancomycin Level Trough 24.6 mcg/mL (10.0-20.0) Vancomycin Last Dose Date 10/10/21 Vancomycin Last Dose Time 0600 Assessment and Plan Assessmemt and Plan Problems Medical Problems: (1) Altered mental status Status: Acute (2) Infected abrasion of skin of sacral region Status: Acute Comment Review of Relevant I have reviewed the following items vanessa (where applicable) has been applied. Medications: Current Medications Medications (Trade) Dose Ordered Sig/[place]inier Route PRN Reason Start Time Stop Time Status Last Admin Dose Admin Daptomycin 410 mg/ Sodium Chloride 50 ml @ 100 mls/hr Q24H IV 10/11/21 17:00 10/11/21 16:51 Cefepime HCl (Maxipime) 2 gm Q12HR IVP 10/11/21 21:00 10/12/21 09:18 Justifications for Admission Other Justification ANTONIO RODRIGES MD Oct 12, 2021 12:42
--- NOTE | 2021-10-12 15:20 | RAD ---
EXAMINATION: CT ABDOMEN+PELVIS W. Technique: Axial images with coronal and sagittal reconstructions are performed of abdomen and pelvis with intravenous contrast. 75 mL of Omnipaque 300 was administered intravenously. One or more of the following radiation dose reduction techniques was used: automated exposure control , adjustment of mA and/or KV according to patient size, and/or utilization of iterative reconstructio n technique. HISTORY: 46 years Male Reason: eval extent of sacral wound / . COMPARISON: September 03, 2021. FINDINGS: Minimal foci of subsegmental atelectasis is seen in the lung bases. The liver, gallbladder, pancreas, the adrenal glands and the spleen appear unremarkable. The kidneys have symmetric enhancement. No hydronephrosis. There is a hypodense lesion measuring the 1.2 cm in th e mid the to upper right kidney probably a cyst. The abdominal aorta is normal in caliber. No significantly enlarged lymph nodes are seen. Moderate amounts of fecal material is seen in the colon and rectum suggestive of constipation. The ap pendix appear normal. No significantly dilated small bowel bowel loops to suggest obstruction. There is a Kuo's catheter in the urinary bladder. There is a sacral ulcer developed since the previous exam. There is associated the erosion of the pos terior margin of the catheter first and second coccygeal bones suggestive of osteomyelitis. The adjac ent sacral levels appear intact. The soft tissues demonstrate no fluid collection to suggest an absce ss. IMPRESSION: 1. Sacral ulcer with erosion along the posterior margin of the coccyx compatible with osteomyelitis. 2. Constipation. Electronically signed by: Juancho Barragan MD (10/12/2021 3:18 PM) [id number]
[2021-10-12] MEDS: DAPTOmycin (GENERIC) IVPB 410 MG in IV NORMAL SALINE 50ML 50 ML IV SCH (16:55)
[2021-10-12 19:00] VITALS: BP 92/57
--- NOTE | 2021-10-12 19:52 | PDOC2 ---
CONSULT Date of Consult Date of Consult DATE: 10/12/21 TIME: 19:45 Reason for Consult Reason for Consult: sacral ulcer Referring Physician Referring Physician: Dr. Sparks Identification/Chief Complaint Chief Complaint none Source Source: Chart review, Patient History of Present Illness Reason for Visit: 46 yo M with multiple medical problems and spastic paraplegic with necrotic sacral ulcer. Past Medical History Cardiovascular: HTN GI: No pertinent hx Heme/Onc: No pertinent hx Psych: Anxiety, Addictions, Bipolar, Schizophrenia Musculoskeletal: low back pain Rheumatologic: No pertinent hx Renal/: No pertinent hx Endocrine: No pertinent hx Past Surgical History Past Surgical History: Other Family History Family History: No Significant Social History 1 pack per day ALCOHOL: rare Drugs: Crystal meth Current Problem List Problem List Problems Medical Problems: (1) Altered mental status Status: Acute (2) Infected abrasion of skin of sacral region Status: Acute Current Medications Current Medications Current Medications Vancomycin HCl 1.5 gm/Sodium Chloride 500 ml @ 250 mls/hr 1X ONCE IV Last administered on 10/09/21at 14:01; Start 10/09/21 at 13:45; Stop 10/09/21 at 15:44; Status DC Cefepime HCl (Maxipime) 1 gm 1X ONCE IVP Last administered on 10/09/21at 14:02; Start 10/09/21 at 13:45; Stop 10/09/21 at 13:52; Status DC Olanzapine (ZyPREXA ZYDIS) 5 mg PRN BID PRN PO ANXIETY / AGITATION; Start 10/09/21 at 20:30 Ondansetron HCl (Zofran) 4 mg PRN Q4HRS PRN IVP NAUSEA/VOMITING; Start 10/09/21 at 20:30 Acetaminophen (Tylenol) 650 mg PRN Q6HRS PRN PO MILD PAIN / TEMP > 100.3'F; Start 10/09/21 at 20:30 Enoxaparin Sodium (Lovenox 40mg Syringe) 40 mg Q24H SQ Last administered on 10/09/21at 22:32; Start 10/09/21 at 21:00 Ondansetron HCl (Zofran Odt) 4 mg PRN Q4HRS PRN PO NAUSEA; Start 10/09/21 at 20:30 Vancomycin HCl (Vanco Per Pharmacy) 1 each PRN DAILY PRN MC SEE COMMENTS Last administered on 10/09/21at 20:45; Start 10/09/21 at 20:30; Stop 10/11/21 at 15:06; Status DC Vancomycin HCl 1 gm/Sodium Chloride 250 ml @ 250 mls/hr Q8H IV Last administered on 10/11/21at 05:55; Start 10/09/21 at 22:00; Stop 10/11/21 at 15:05; Status DC Vancomycin HCl (Vancomycin Trough Level) 1 each 1X ONCE MC ; Start 10/10/21 at 13:30; Stop 10/10/21 at 13:31; Status Cancel Sodium Chloride 1,000 ml @ 1,000 mls/hr 1X ONCE IV Last administered on 10/10/21at 09:00; Start 10/10/21 at 09:00; Stop 10/10/21 at 09:59; Status DC Sodium Chloride 1,000 ml @ 100 mls/hr Q10H IV Last administered on 10/11/21at 05:59; Start 10/10/21 at 10:00 Lactobacillus Rhamnosus (Culturelle) 1 cap BID PO ; Start 10/10/21 at 21:00 Vancomycin HCl (Vancomycin Trough Level) 1 each 1X ONCE MC ; Start 10/11/21 at 13:30; Stop 10/11/21 at 15:06; Status DC Daptomycin 410 mg/ Sodium Chloride 50 ml @ 100 mls/hr Q24H IV Last administered on 10/12/21at 16:55; Start 10/11/21 at 17:00 Cefepime HCl (Maxipime) 2 gm Q12HR IVP Last administered on 10/12/21at 09:18; Start 10/11/21 at 21:00 Metronidazole (Flagyl) 500 mg Q8HRS PO ; Start 10/11/21 at 22:00 Iohexol (Omnipaque 300 Mg/ml) 75 ml 1X ONCE IV ; Start 10/12/21 at 10:30; Stop 10/12/21 at 10:31; Status DC Info (CONTRAST GIVEN -- Rx MONITORING) 1 each PRN DAILY PRN MC SEE COMMENTS; Start 10/12/21 at 10:30; Stop 10/14/21 at 10:29 Active Scripts Active Reported Haloperidol 10 Mg Tablet 10 Mg PO QHS Proair Hfa Inhaler (Albuterol Sulfate) 8.5 Gm Hfa.aer.ad 2 Puff INH PRN Q6HRS PRN Benztropine Mesylate 2 Mg Tablet 2 Mg PO DAILY Zoloft (Sertraline Hcl) 100 Mg Tablet 100 Mg PO DAILY Allergies Allergies: Coded Allergies: Penicillins (Verified Allergy, Intermediate, 09/23/21) ketorolac (Verified Allergy, Intermediate, 09/23/21) tramadol (Verified Allergy, Intermediate, 09/23/21) ROS Neurological: Yes Impaired Coord/balance Physical Exam General: Alert, Oriented X3, No acute distress, Other (thin) HEENT: Atraumatic Lungs: Normal air movement Abdomen: Soft, No tenderness Vitals VITALS Vital Signs Date Time Temp Pulse Resp B/P (MAP) Pulse Ox O2 Delivery O2 Flow Rate FiO2 10/12/21 11:00 99.5 90 18 96/59 (71) 97 Room Air 99.5 Labs Labs Laboratory Tests Test 10/11/21 06:40 10/11/21 13:33 White Blood Count 6.8 x10^3/uL (4.0-11.0) Red Blood Count 3.67 x10^6/uL (4.30-5.70) Hemoglobin 9.9 g/dL (13.0-17.5) Hematocrit 31.5 % (39.0-53.0) Mean Corpuscular Volume 86 fL (79-100) Mean Corpuscular Hemoglobin 27 pg (25-35) Mean Corpuscular Hemoglobin Concent 32 g/dL (31-37) Red Cell Distribution Width 18.9 % (11.5-14.5) Platelet Count 326 x10^3/uL (140-400) Neutrophils (%) (Auto) 79 % (31-73) Lymphocytes (%) (Auto) 15 % (24-48) Monocytes (%) (Auto) 6 % (0-9) Eosinophils (%) (Auto) 0 % (0-3) Basophils (%) (Auto) 1 % (0-3) Neutrophils # (Auto) 5.4 x10^3/uL (1.8-7.7) Lymphocytes # (Auto) 1.0 x10^3/uL (1.0-4.8) Monocytes # (Auto) 0.4 x10^3/uL (0.0-1.1) Eosinophils # (Auto) 0.0 x10^3/uL (0.0-0.7) Basophils # (Auto) 0.0 x10^3/uL (0.0-0.2) Sodium Level 140 mmol/L (136-145) Potassium Level 4.3 mmol/L (3.5-5.1) Chloride Level 105 mmol/L (98-107) Carbon Dioxide Level 28 mmol/L (21-32) Anion Gap 7 (6-14) Blood Urea Nitrogen 36 mg/dL (8-26) Creatinine 0.7 mg/dL (0.7-1.3) Estimated GFR (Cockcroft-Gault) 120.4 Glucose Level 107 mg/dL (70-99) Calcium Level 8.5 mg/dL (8.5-10.1) C-Reactive Protein, Quantitative 57.1 mg/L (0-3.3) Vancomycin Level Trough 24.6 mcg/mL (10.0-20.0) Vancomycin Last Dose Date 10/10/21 Vancomycin Last Dose Time 0600 Images Images 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 SHY CHAVEZ MD Oct 12, 2021 19:52
[2021-10-12] MEDS: ENOXAPARIN 40 MG/0.4 ML SYRINGE. SQ SCH (20:02)
--- NOTE | 2021-10-12 22:06 | NUR ---
Pt refused all HS medications. Refused IV fluids and refused Cefepime IVP. Pt argued that he is only supposed to take IV antibiotics once every 24 hours. Nsg attempted to show him orders but pt refused and said "goodbye".
[2021-10-12 23:00] VITALS: BP 84/55
[2021-10-13] MEDS: metroNIDAZOLE 500 MG TABLET PO SCH ×3 (05:54→22:00)
[2021-10-13 07:00] VITALS: BP 97/53
[2021-10-13] MEDS: IV NORMAL SALINE 1000ML BAG 1,000 ML IV SCH ×2 (08:00→17:33)
[2021-10-13] MEDS: LACTOBACILLUS RHAMNOSUS GG 1 CAPSULE. PO SCH ×2 (09:00→21:00)
[2021-10-13] MEDS: CEFEPIME HCL IV Push 2 GM VIAL. IVP SCH ×2 (10:03→21:00)
--- NOTE | 2021-10-13 10:44 | PDOC ---
Infectious Disease Note Subjective: Subjective Pt without complaints Refusing oral antibiotics Refuses for wound exam Vital Signs: Vital Signs Vital Signs Date Time Temp Pulse Resp B/P (MAP) Pulse Ox O2 Delivery O2 Flow Rate FiO2 10/13/21 07:58 Room Air 10/13/21 07:00 99.5 71 16 97/53 (68) 95 99.5 Physical Exam: PHYSICAL EXAM General: Thin cachectic alert male in no acute distress HEENT: Atraumatic normocephalic oral mucosa moist dentition poor Neck supple, scar well-healed Lungs clear bilaterally no wheezing Heart: S1S2, no murmurs Abdomen: Normal bowel sounds, Soft, No hepatosplenomegaly, nontender nondistended Back not examined as patient refused exam again today Extremities: 1-2+ pitting edema no cyanosis Derm warm dry multiple abrasions present in both lower extremity Neuro: aleart awake, spastic paraplegia bilateral lower legs Psych/Mental Status: Alert awake moves all 4 extremities Medications: Inpatient Meds: Medications reviewed. Objective: Assessment: MSSA bacteremia 09/03/2021 and at [place] during his admission from September 03, 2021 Repeat blood culture 09/27/2021 last admission for MSSA likely from noncompliance with antibiotic MSSA Cervical epidural abscess at C6-C7 with severe cervical myelopathy. Status post anterior emergent cervical decompression with corpectomy of C6, evacuation of epidural abscess, placement of interbody fusion cage and anterior plate on 09/04/2021. Cultures positive for staph aureus MSSA MSSA UTI August 2021 Left pneumothorax, status post CTS.Removed Polysubstance dependence. HIV and hepatitis profile negative Schizophrenia, bipolar disorder, anxiety. Protein calorie malnutrition Anemia Penicillin allergy with hives does not recall taking Augmentin or amoxicillin. Today he tells me he is not allergic to any medications. Hypertension Sacral decubitus ulcer per wound team Noncompliance Patient has been hospitalized multiple times. Signed out AMA multiple times Protein calorie malnutrition Homelessness Plan: Plan of Care Patient refused for wound exam today again No pictures available for my review at this time Encourage offload which he is refusing Cont daptomycin Flagyl and cefepime Monitor labs and cultures Repeat blood cultures negative from 10/09/2020 Patient remains noncompliant Overall prognosis poor Consider palliative care BENJI PECK MD Oct 13, 2021 10:44
[2021-10-13 11:00] VITALS: BP 100/52
[2021-10-13 15:00] VITALS: BP 98/50
--- NOTE | 2021-10-13 15:45 | PDOC ---
SURGICAL PROGRESS NOTE DATE: 10/13/21 TIME: 15:43 Subjective Pt without new c/o Vital Signs Vital Signs Date Time Temp Pulse Resp B/P (MAP) Pulse Ox O2 Delivery O2 Flow Rate FiO2 10/13/21 15:00 98.4 78 16 98/50 (66) 98 Room Air 98.4 I&O Intake and Output 10/13/21 07:00 Intake Total 810 ml Output Total 7300 ml Balance -6490 ml Intake Oral 810 ml Output Urine Total 7300 ml General: Alert, Oriented X3, Cooperative, No acute distress Abdomen: Soft, No tenderness Problem List Problems Medical Problems: (1) Altered mental status Status: Acute (2) Infected abrasion of skin of sacral region Status: Acute Assessment/Plan decub ulcer pt has been previously recommended G-tube for nutrition, colostomy for ulcer. He is now interested in these and requests these with his debridement OR not available until 10/15 at 1200. Will plan above for then. Justicifation of Admission Dx: Justifications for Admission: Justification of Admission Dx: Yes SHY CHAVEZ MD Oct 13, 2021 15:45
[2021-10-13] MEDS: DAPTOmycin (GENERIC) IVPB 410 MG in IV NORMAL SALINE 50ML 50 ML IV SCH (17:26)
--- NOTE | 2021-10-13 18:34 | NUR ---
CENTRIFUGAL MACHINE TENDER assisting pt with clean up. He was heard cursing at her and began throwing cereal, his Bible and other things on his bedside tray. When RN entered the room, pt was upset and upon RN exiting, pt stated "you guys are dumb, fuck you". Pt. asked to not curse at staff.
[2021-10-13 19:00] VITALS: BP 89/62
[2021-10-13] MEDS: ENOXAPARIN 40 MG/0.4 ML SYRINGE. SQ SCH (21:00)
--- NOTE | 2021-10-13 22:01 | PDOC ---
[facility] PROGRESS NOTE Date of Service DOS: DATE: 10/13/21 TIME: 21:59 Chief Complaint Chief Complaint Suicidal ideation Encephalopathy Noncompliance Severe wounds with probable infection Paraplegia Methamphetamine abuse History of epidural abscess with paraplegia MSSA bacteremia Sepsis Transaminase-itis Schizophrenia Polysubstance abuse Hypertension Anemia Homeless Debility Malnutrition History of Present Illness History of Present Illness 10/13 Seen and evaluated examined at bedside. Still resistant to many treatments. possible OR tomorrow for washout. Continue antibiotics and patient will take them. N.p.o. midnight 10/12 Patient evaluated examined at bedside. Patient is resting in bed. Definitely does have a foul odor in the room. Patient not really letting many people examined the wound. We will see if a CT will be helpful to further characterize. Surgical consult for possible washout. Continue antibiotics per infectious disease. 10/12/2019 Patient seen and examined Discussed with RN Discussed with case management Chart reviewed His room has a foul odor I suspect his wound is infected again Discussed with the wound care nurse he agrees it needs to be debrided He is on IV Zosyn Has Kuo bedside drainage 10/10: Patient seen and evaluated bedside. He is very somnolent but arousable. When I did wake him, patient tells me "I am going to sleep ". Had no complaints of my assessment. Multiple reports from RN and INSPECTOR FIBROUS WALLBOARD that patient is refusing IV fluids and wants to transfer out. Continue IV antibiotics. Vitals/I&O Vitals/I&O: Vital Signs Date Time Temp Pulse Resp B/P (MAP) Pulse Ox O2 Delivery O2 Flow Rate FiO2 10/13/21 19:00 98.2 83 14 89/62 (71) 96 Room Air 98.2 I & O 10/12/21 10/12/21 10/13/21 15:00 23:00 07:00 Intake Total 240 ml 170 ml 400 ml Output Total 3000 ml 4300 ml Balance 240 ml -2830 ml -3900 ml Physical Exam Physical Exam: General: Thin cachectic alert male in no acute distress HEENT: Atraumatic normocephalic oral mucosa moist dentition poor Neck supple, scar well-healed Lungs clear bilaterally no wheezing Heart: S1S2, no murmurs Abdomen: Normal bowel sounds, Soft, No hepatosplenomegaly, nontender nondistended Back not examined as patient refused exam again today Extremities: 1-2+ pitting edema no cyanosis Derm warm dry multiple abrasions present in both lower extremity Neuro: aleart awake, spastic paraplegia bilateral lower legs Psych/Mental Status: Alert awake moves all 4 extremities General: Alert, Oriented X3, Cooperative, No acute distress Heart: Regular rate Lungs: Crackles, Other Abdomen: Soft, No tenderness Extremities: No clubbing, No cyanosis, No edema, Normal pulses, No tenderness/swelling Skin: Other (sacral ulcer 4x8 with eschar) Assessment and Plan Assessmemt and Plan Problems Medical Problems: (1) Altered mental status Status: Acute (2) Infected abrasion of skin of sacral region Status: Acute Comment Review of Relevant I have reviewed the following items vanessa (where applicable) has been applied. Justifications for Admission Other Justification ANTONIO RODRIGES MD Oct 13, 2021 22:01
[2021-10-14] MEDS: IV NORMAL SALINE 1000ML BAG 1,000 ML IV SCH ×2 (04:00→14:00)
[2021-10-14] MEDS: metroNIDAZOLE 500 MG TABLET PO SCH ×3 (05:52→22:00)
--- NOTE | 2021-10-14 05:56 | NUR ---
Pt refused all medications, IV fluids, and assessments during shift nurse manager. Pt yelled "What are you doing?! at FUEL VERIFICATION TECHNICIAN when she emptied his cade.
[2021-10-14 07:00] VITALS: BP 92/62
--- NOTE | 2021-10-14 07:37 | NUR ---
Patient removed IV and stated he did not want another one placed. Cussing at staff while in room and throwing items from bedside table onto floor.
[2021-10-14] MEDS: LACTOBACILLUS RHAMNOSUS GG 1 CAPSULE. PO SCH ×2 (08:56→21:00)
[2021-10-14] MEDS: CEFEPIME HCL IV Push 2 GM VIAL. IVP SCH ×2 (08:56→21:00)
--- NOTE | 2021-10-14 10:00 | PDOC ---
SURGICAL PROGRESS NOTE DATE: 10/14/21 TIME: 10:00 Subjective wants colostomy, debridement, not feeding tube Vital Signs Vital Signs Date Time Temp Pulse Resp B/P (MAP) Pulse Ox O2 Delivery O2 Flow Rate FiO2 10/14/21 07:00 97.6 78 20 92/62 (72) 99 Room Air 97.6 I&O Intake and Output 10/14/21 07:00 Intake Total 150 ml Output Total 4650 ml Balance -4500 ml Intake Oral 150 ml Output Urine Total 4650 ml # Voids 1 # Bowel Movements 2 General: Alert, Oriented X3, Cooperative Abdomen: Soft Problem List Problems Medical Problems: (1) Altered mental status Status: Acute (2) Infected abrasion of skin of sacral region Status: Acute Assessment/Plan OR planned for 10/[address] Pelletier Justicifation of Admission Dx: Justifications for Admission: Justification of Admission Dx: Yes MINO SOLIS APRN Oct 14, 2021 10:00
--- NOTE | 2021-10-14 10:40 | NUR ---
Patient requested a drink, water provided, patient stated he would "not accept that cup". Patient called nurses station and was informed that this was all that was currently available and began banging call light on table and throwing items. Security called.
--- NOTE | 2021-10-14 13:38 | PDOC ---
Infectious Disease Note Subjective: Subjective Pt without complaints Refusing medications Refuses for wound exam Vital Signs: Vital Signs Vital Signs Date Time Temp Pulse Resp B/P (MAP) Pulse Ox O2 Delivery O2 Flow Rate FiO2 10/14/21 07:00 97.6 78 20 92/62 (72) 99 Room Air 97.6 Physical Exam: PHYSICAL EXAM General: Thin cachectic alert male in no acute distress HEENT: Atraumatic normocephalic oral mucosa moist dentition poor Neck supple, scar well-healed Lungs clear bilaterally no wheezing Heart: S1S2, no murmurs Abdomen: Normal bowel sounds, Soft, No hepatosplenomegaly, nontender nondistended Back not examined as patient refused exam again today Extremities: 1-2+ pitting edema no cyanosis Derm warm dry multiple abrasions present in both lower extremity Neuro: aleart awake, spastic paraplegia bilateral lower legs Psych/Mental Status: Alert awake moves all 4 extremities Medications: Inpatient Meds: Medications reviewed. Objective: Assessment: MSSA bacteremia 09/03/2021 and at [place] during his admission from September 03, 2021 Repeat blood culture 09/27/2021 last admission for MSSA likely from noncompliance with antibiotic MSSA Cervical epidural abscess at C6-C7 with severe cervical myelopathy. Status post anterior emergent cervical decompression with corpectomy of C6, evacuation of epidural abscess, placement of interbody fusion cage and anterior plate on 09/04/2021. Cultures positive for staph aureus MSSA MSSA UTI August 2021 Left pneumothorax, status post CTS.Removed Polysubstance dependence. HIV and hepatitis profile negative Schizophrenia, bipolar disorder, anxiety. Protein calorie malnutrition Anemia Penicillin allergy with hives does not recall taking Augmentin or amoxicillin. Today he tells me he is not allergic to any medications. Hypertension Sacral decubitus ulcer ,OM Noncompliance Patient has been hospitalized multiple times. Signed out AMA multiple times Protein calorie malnutrition Pyuria Homelessness Plan: Plan of Care Cont daptomycin Flagyl and cefepime Monitor labs and cultures Repeat blood cultures negative from 10/09/2020 Patient remains noncompliant Encourage offload which he is refusing awiating I and D by Gen surgery Off load Overall prognosis poor Consider palliative care BENJI PECK MD Oct 14, 2021 13:38
[2021-10-14 15:10] VITALS: BP 102/57
[2021-10-14] MEDS: DAPTOmycin (GENERIC) IVPB 410 MG in IV NORMAL SALINE 50ML 50 ML IV SCH (17:00)
[2021-10-14 20:28] VITALS: BP 84/59
[2021-10-14] MEDS: ENOXAPARIN 40 MG/0.4 ML SYRINGE. SQ SCH (21:00)
--- NOTE | 2021-10-14 21:02 | PDOC ---
[facility] [facility] PROGRESS NOTE Date of Service DOS: DATE: 10/14/21 TIME: 21:01 Chief Complaint Chief Complaint Suicidal ideation Encephalopathy Noncompliance Severe wounds with probable infection Paraplegia Methamphetamine abuse History of epidural abscess with paraplegia MSSA bacteremia Sepsis Transaminase-itis Schizophrenia Polysubstance abuse Hypertension Anemia Homeless Debility Malnutrition History of Present Illness History of Present Illness 10/14 Patient evaluated examined at bedside. Resting in bed no complaints. Planning for surgical intervention tomorrow. Continue antibiotics. N.p.o. midnight. 10/13 Seen and evaluated examined at bedside. Still resistant to many treatments. possible OR tomorrow for washout. Continue antibiotics and patient will take them. N.p.o. midnight 10/12 Patient evaluated examined at bedside. Patient is resting in bed. Definitely does have a foul odor in the room. Patient not really letting many people examined the wound. We will see if a CT will be helpful to further characterize. Surgical consult for possible washout. Continue antibiotics per infectious disease. 10/12/2019 Patient seen and examined Discussed with RN Discussed with case management Chart reviewed His room has a foul odor I suspect his wound is infected again Discussed with the wound care nurse he agrees it needs to be debrided He is on IV Zosyn Has Kuo bedside drainage 10/10: Patient seen and evaluated bedside. He is very somnolent but arousable. When I did wake him, patient tells me "I am going to sleep ". Had no complaints of my assessment. Multiple reports from RN and COLLECTIONS ATTORNEY that patient is refusing IV fluids and wants to transfer out. Continue IV antibiotics. Vitals/I&O Vitals/I&O: Vital Signs Date Time Temp Pulse Resp B/P (MAP) Pulse Ox O2 Delivery O2 Flow Rate FiO2 10/14/21 20:28 78 22 84/59 (67) Room Air 10/14/21 15:10 98.0 96 98.0 I & O 10/13/21 10/13/21 10/14/21 15:00 23:00 07:00 Intake Total 150 ml Output Total 4000 ml 650 ml Balance -3850 ml -650 ml Physical Exam Physical Exam: General: Thin cachectic alert male in no acute distress HEENT: Atraumatic normocephalic oral mucosa moist dentition poor Neck supple, scar well-healed Lungs clear bilaterally no wheezing Heart: S1S2, no murmurs Abdomen: Normal bowel sounds, Soft, No hepatosplenomegaly, nontender nondistended Back not examined as patient refused exam again today Extremities: 1-2+ pitting edema no cyanosis Derm warm dry multiple abrasions present in both lower extremity Neuro: aleart awake, spastic paraplegia bilateral lower legs Psych/Mental Status: Alert awake moves all 4 extremities General: Alert, Oriented X3, Cooperative Heart: Regular rate Lungs: Crackles, Other Abdomen: Soft Extremities: No clubbing, No cyanosis, No edema, Normal pulses, No tenderness/swelling Skin: Other (sacral ulcer 4x8 with eschar) Assessment and Plan Assessmemt and Plan Problems Medical Problems: (1) Altered mental status Status: Acute (2) Infected abrasion of skin of sacral region Status: Acute Comment Review of Relevant I have reviewed the following items vanessa (where applicable) has been applied. Justifications for Admission Other Justification ANTONIO RODRIGES MD Oct 14, 2021 21:02
[2021-10-15] MEDS: cefOXitin SODIUM IV Push 2 GM VIAL. IVP SCH ×3 (01:00→07:37)
[2021-10-15] MEDS ORDERED: PROCHLORPERAZINE 10 MG/2 ML VIAL. IVP PRN (06:00)
[2021-10-15] MEDS ORDERED: MORPHINE SULFATE 2 MG/ML INJ. IVP PRN (06:00)
[2021-10-15] MEDS: metroNIDAZOLE 500 MG TABLET PO SCH ×3 (06:00→22:00)
[2021-10-15] MEDS ORDERED: fentaNYL PF VIAL 100 MCG/2 ML VIAL IVP PRN ×2 (06:00)
[2021-10-15] MEDS ORDERED: HYDROmorphone 2 MG/ML INJ. IVP PRN (06:00)
[2021-10-15] MEDS ORDERED: IV RINGERS,LACTATED 1000ML 1,000 ML IV SCH (06:00)
--- NOTE | 2021-10-15 06:00 | NUR ---
Patient has refused all care for this shift. Patient refusing all medications IV and PO. Patient also stated that he does not want surgery today. I have kept patient NPO in case he changes his mind this morning.
[2021-10-15 07:00] VITALS: BP 89/62
[2021-10-15] MEDS: LACTOBACILLUS RHAMNOSUS GG 1 CAPSULE. PO SCH ×2 (07:09→21:00)
--- NOTE | 2021-10-15 07:34 | NUR ---
Patient allowed assembly instructions writer to do partial head to toe assessment. He refused IV and IV antibiotics. Patient stated he would allow surgery to be done today, IV to be inserted and consent forms to be completed in surgery area. Addendum: 10/15/21 at 1622 by DAX MATTSON RN Patient also refused 1200 and 1500 vital signs.
[2021-10-15] MEDS: CEFEPIME HCL IV Push 2 GM VIAL. IVP SCH ×2 (07:35→21:00)
[2021-10-15] MEDS: IV NORMAL SALINE 1000ML BAG 1,000 ML IV SCH ×3 (07:36→20:00)
[2021-10-15] MEDS: DAPTOmycin (GENERIC) IVPB 410 MG in IV NORMAL SALINE 50ML 50 ML IV SCH (07:36)
--- NOTE | 2021-10-15 09:20 | NUR ---
Patient "forgot" he was NPO and ate breakfast today, notified surgery. Per Bernice in surgery, his procedures are postponed until Monday, NPO Monday at midnight, notified patient.
--- NOTE | 2021-10-15 15:11 | PDOC ---
Infectious Disease Note Subjective Subjective Pt without complaints Refusing medications Refuses for wound exam ROS ROS No nausea vomiting diarrhea Vital Sign Vital Signs Vital Signs Date Time Temp Pulse Resp B/P (MAP) Pulse Ox O2 Delivery O2 Flow Rate FiO2 10/15/21 08:00 Room Air 10/15/21 07:00 98.2 67 20 89/62 (71) 98.2 10/14/21 15:10 96 Physical Exam PHYSICAL EXAM General: Thin cachectic alert male in no acute distress HEENT: Atraumatic normocephalic oral mucosa moist dentition poor Neck supple, scar well-healed Lungs clear bilaterally no wheezing Heart: S1S2, no murmurs Abdomen: Normal bowel sounds, Soft, No hepatosplenomegaly, nontender nondistended Back not examined as patient refused exam again today Extremities: 1-2+ pitting edema no cyanosis Derm warm dry multiple abrasions present in both lower extremity Neuro: aleart awake, spastic paraplegia bilateral lower legs Psych/Mental Status: Alert awake moves all 4 extremities Labs Micro Microbiology 10/09/21 Blood Culture - Final, Complete NO GROWTH AFTER 5 DAYS Objective Assessment MSSA bacteremia 09/03/2021 and at [place] during his admission from September 03, 2021 Repeat blood culture 09/27/2021 last admission for MSSA likely from noncompliance with antibiotic MSSA Cervical epidural abscess at C6-C7 with severe cervical myelopathy. Status post anterior emergent cervical decompression with corpectomy of C6, evacuation of epidural abscess, placement of interbody fusion cage and anterior plate on 09/04/2021. Cultures positive for staph aureus MSSA MSSA UTI August 2021 Left pneumothorax, status post CTS.Removed Polysubstance dependence. HIV and hepatitis profile negative Schizophrenia, bipolar disorder, anxiety. Protein calorie malnutrition Anemia Penicillin allergy with hives does not recall taking Augmentin or amoxicillin. Today he tells me he is not allergic to any medications. Hypertension Sacral decubitus ulcer ,OM Noncompliance Patient has been hospitalized multiple times. Signed out AMA multiple times Protein calorie malnutrition Pyuria Homelessness Plan Plan of Care Cont daptomycin Flagyl and cefepime Monitor labs and cultures Repeat blood cultures negative from 10/09/2020 Patient remains noncompliant Encourage offload which he is refusing awiating I and D by Gen surgery Off load Overall prognosis poor Consider palliative care LOGAN PECK MD Oct 15, 2021 15:11
--- NOTE | 2021-10-15 15:41 | NUR ---
Went to patients room to insert IV for IV antibiotics. Patient said "not right now, I want my room cleaned". Will notify next shift to attempt IV insertion.
[2021-10-15 19:00] VITALS: BP 102/47
--- NOTE | 2021-10-15 19:29 | PDOC3 ---
[facility]-Discharge Summary Date of Admission: Date of Admission: Oct 09, 2021 Date of Discharge: Date of Discharge: Oct 15, 2021 Admission Diagnosis: Problems: (1) Schizophrenia (2) Infected abrasion of skin of sacral region Hospital Course: Hospital Course: hief Complaint Suicidal ideation Encephalopathy Noncompliance Severe wounds with probable infection Paraplegia Methamphetamine abuse History of epidural abscess with paraplegia MSSA bacteremia Sepsis Transaminase-itis Schizophrenia Polysubstance abuse Hypertension Anemia Homeless Debility Malnutrition History of Present Illness History of Present Illness 10/15 Patient ate breakfast this morning claiming he forgot he had surgery. Surgery on hold till Monday. Continues to refuse most medications and really any interventions besides surgery. Given ongoing refusal I will discharge this patient today. Administration would like to provide a hotel which may or may not happen. Either way discharge from the hospital. Greater than 30 minutes spent on this discharge. We will also communicate with emergency room he may return and that we will not plan on admission 10/14 Patient evaluated examined at bedside. Resting in bed no complaints. Planning for surgical intervention tomorrow. Continue antibiotics. N.p.o. midnight. 10/13 Seen and evaluated examined at bedside. Still resistant to many treatments. possible OR tomorrow for washout. Continue antibiotics and patient will take them. N.p.o. midnight 10/12 Patient evaluated examined at bedside. Patient is resting in bed. Definitely does have a foul odor in the room. Patient not really letting many people examined the wound. We will see if a CT will be helpful to further characterize. Surgical consult for possible washout. Continue antibiotics per infectious disease. 10/12/2019 Patient seen and examined Discussed with RN Discussed with case management Chart reviewed His room has a foul odor I suspect his wound is infected again Discussed with the wound care nurse he agrees it needs to be debrided He is on IV Zosyn Has Kuo bedside drainage 10/10: Patient seen and evaluated bedside. He is very somnolent but arousable. When I did wake him, patient tells me "I am going to sleep ". Had no complaints of my assessment. Multiple reports from RN and EVENT HOST that patient is refusing IV fluids and wants to transfer out. Continue IV antibiotics. Disposition: Disposition/Orders: D/C to Home Activity: Activity: Resume previous activity Diet: Diet: Regular Medications: Home Meds Reported Medications Haloperidol (HALOPERIDOL) 10 Mg Tablet, 10 MG PO QHS for anxiety, TAB 09/24/21 Albuterol Sulfate (PROAIR HFA INHALER) 8.5 Gm Hfa.aer.ad, 2 PUFF INH PRN Q6HRS PRN for SHORTNESS OF BREATH, EACH 0 Refills 09/24/21 Benztropine Mesylate (BENZTROPINE MESYLATE) 2 Mg Tablet, 2 MG PO DAILY for TD, TAB 09/24/21 Sertraline Hcl (ZOLOFT) 100 Mg Tablet, 100 MG PO DAILY for ANTI-DEPRESSANT, TAB 0 Refills 09/24/21 Scheduled Benztropine Mesylate (Benztropine Mesylate), 2 MG PO DAILY, (Reported) Haloperidol (Haloperidol), 10 MG PO QHS, (Reported) Sertraline Hcl (Zoloft), 100 MG PO DAILY, (Reported) Scheduled PRN Albuterol Sulfate (Proair Hfa Inhaler), 2 PUFF INH PRN Q6HRS PRN for SHORTNESS OF BREATH, (Reported) Justicifation of Admission Dx: Justifications for Admission: Justification of Admission Dx: Yes ANTONIO RODRIGES MD Oct 15, 2021 19:29
--- NOTE | 2021-10-15 20:00 | NUR ---
Patient refusing all care and medications. Patient states he does not trust the staff at [facility] and wants to be transferred to [facility] or for surgery on Monday. Patient extremely paranoid and stated that if he didn't get transferred on Monday that he would contact the media. Patient stated he was not going to leave AMA.
--- NOTE | 2021-10-15 20:36 | PDOC ---
SURGICAL PROGRESS NOTE DATE: 10/15/21 TIME: 20:32 Subjective Pt without new c/o, ate this morning and unable to schedule surgery today. Vital Signs Vital Signs Date Time Temp Pulse Resp B/P (MAP) Pulse Ox O2 Delivery O2 Flow Rate FiO2 10/15/21 20:00 Room Air 10/15/21 19:00 98.0 70 20 102/47 (65) 97.0 98.0 10/14/21 15:10 96 I&O Intake and Output 10/15/21 07:00 Intake Total 120 ml Output Total 1700 ml Balance -1580 ml Intake Oral 120 ml Output Urine Total 1700 ml General: Alert, Oriented X3, No acute distress Abdomen: Soft Problem List Problems Medical Problems: (1) Altered mental status Status: Acute (2) Infected abrasion of skin of sacral region Status: Acute Assessment/Plan decub ulcer rescheduled colostomy and debridement to 10/18 Justicifation of Admission Dx: Justifications for Admission: Justification of Admission Dx: Yes SHY CHAVEZ MD Oct 15, 2021 20:35
[2021-10-15] MEDS: ENOXAPARIN 40 MG/0.4 ML SYRINGE. SQ SCH (21:00)
[2021-10-16] MEDS: metroNIDAZOLE 500 MG TABLET PO SCH ×3 (06:00→22:00)
[2021-10-16] MEDS: IV NORMAL SALINE 1000ML BAG 1,000 ML IV SCH ×2 (06:00→07:32)
[2021-10-16] MEDS: LACTOBACILLUS RHAMNOSUS GG 1 CAPSULE. PO SCH ×2 (07:32→21:00)
[2021-10-16] MEDS: CEFEPIME HCL IV Push 2 GM VIAL. IVP SCH ×2 (07:32→21:00)
[2021-10-16] MEDS: DAPTOmycin (GENERIC) IVPB 410 MG in IV NORMAL SALINE 50ML 50 ML IV SCH (13:28)
[2021-10-16 15:00] VITALS: BP 94/60
--- NOTE | 2021-10-16 16:50 | PDOC ---
Infectious Disease Note Subjective Subjective Pt without complaints Refusing medications Refuses for wound exam Vital Sign Vital Signs Vital Signs Date Time Temp Pulse Resp B/P (MAP) Pulse Ox O2 Delivery O2 Flow Rate FiO2 10/16/21 15:00 98.1 78 16 94/60 (71) 97 Room Air 98.1 10/15/21 19:00 97.0 Physical Exam PHYSICAL EXAM General: Thin cachectic alert male in no acute distress HEENT: Atraumatic normocephalic oral mucosa moist dentition poor Neck supple, scar well-healed Lungs clear bilaterally no wheezing Heart: S1S2, no murmurs Abdomen: Normal bowel sounds, Soft, No hepatosplenomegaly, nontender nondistended Back not examined as patient refused exam again today Extremities: 1-2+ pitting edema no cyanosis Derm warm dry multiple abrasions present in both lower extremity Neuro: aleart awake, spastic paraplegia bilateral lower legs Psych/Mental Status: Alert awake moves all 4 extremities Labs Micro Microbiology 10/09/21 Blood Culture - Final, Complete NO GROWTH AFTER 5 DAYS Objective Assessment MSSA bacteremia 09/03/2021 and at [place] during his admission from September 03, 2021 Repeat blood culture 09/27/2021 last admission for MSSA likely from noncompliance with antibiotic MSSA Cervical epidural abscess at C6-C7 with severe cervical myelopathy. Status post anterior emergent cervical decompression with corpectomy of C6, evacuation of epidural abscess, placement of interbody fusion cage and anterior plate on 09/04/2021. Cultures positive for staph aureus MSSA MSSA UTI August 2021 Left pneumothorax, status post CTS.Removed Polysubstance dependence. HIV and hepatitis profile negative Schizophrenia, bipolar disorder, anxiety. Protein calorie malnutrition Anemia Penicillin allergy with hives does not recall taking Augmentin or amoxicillin. Today he tells me he is not allergic to any medications. Hypertension Sacral decubitus ulcer ,OM Noncompliance Patient has been hospitalized multiple times. Signed out AMA multiple times Protein calorie malnutrition Pyuria Homelessness Plan Plan of Care since pt refuses antibiotics and even examination will s/o call if questions LOGNA PECK MD Oct 16, 2021 16:50
--- NOTE | 2021-10-16 17:20 | NUR ---
Patient states, " That doctor pissed me off. Ill do the IV now, put the antibiotics in, but just for right now and Ill take it off." RN attempted to explain to patient that IV has to stay multiple days for antibiotics, surgery, and patient has to be compliant. Patient upset, cursing at RN. RN left room.
[2021-10-16] MEDS: ENOXAPARIN 40 MG/0.4 ML SYRINGE. SQ SCH (21:00)
--- NOTE | 2021-10-16 21:04 | NUR ---
Addendum10/16/21@ 2007 Pt verbalized he wanted me to leave room now and he does not want to be bothered at all, he wants to be transferred I explained I will find out if you are to be transferred, he said leave now turn off lights and close door.
--- NOTE | 2021-10-16 21:28 | PDOC ---
[facility] PROGRESS NOTE Date of Service DOS: DATE: 10/16/21 TIME: 21:21 Chief Complaint Chief Complaint Suicidal ideation Encephalopathy Noncompliance Severe wounds with probable infection Paraplegia Methamphetamine abuse History of epidural abscess with paraplegia MSSA bacteremia Sepsis Transaminase-itis Schizophrenia Polysubstance abuse Hypertension Anemia Homeless Debility Malnutrition History of Present Illness History of Present Illness 10/16 Patient evaluated examined at bedside. I was instructed by administration ye to discharge this patient and they would provide him a hotel. This apparently fell through. Planning surgery saturday 10/14 Patient evaluated examined at bedside. Resting in bed no complaints. Planning for surgical intervention tomorrow. Continue antibiotics. N.p.o. midnight. 10/13 Seen and evaluated examined at bedside. Still resistant to many treatments. possible OR tomorrow for washout. Continue antibiotics and patient will take them. N.p.o. midnight 10/12 Patient evaluated examined at bedside. Patient is resting in bed. Definitely does have a foul odor in the room. Patient not really letting many people examined the wound. We will see if a CT will be helpful to further characterize. Surgical consult for possible washout. Continue antibiotics per infectious disease. 10/12/2019 Patient seen and examined Discussed with RN Discussed with case management Chart reviewed His room has a foul odor I suspect his wound is infected again Discussed with the wound care nurse he agrees it needs to be debrided He is on IV Zosyn Has Kuo bedside drainage 10/10: Patient seen and evaluated bedside. He is very somnolent but arousable. When I did wake him, patient tells me "I am going to sleep ". Had no complaints of my assessment. Multiple reports from RN and BI SPECIALIST that patient is refusing IV fluids and wants to transfer out. Continue IV antibiotics. Vitals/I&O Vitals/I&O: Vital Signs Date Time Temp Pulse Resp B/P (MAP) Pulse Ox O2 Delivery O2 Flow Rate FiO2 10/16/21 15:00 98.1 78 16 94/60 (71) 97 Room Air 98.1 10/15/21 19:00 97.0 I & O 10/15/21 10/15/21 10/16/21 15:00 23:00 07:00 Intake Total 300 ml 240 ml 120 ml Output Total 2100 ml 0 ml 0 ml Balance -1800 ml 240 ml 120 ml Physical Exam Physical Exam: General: Thin cachectic alert male in no acute distress HEENT: Atraumatic normocephalic oral mucosa moist dentition poor Neck supple, scar well-healed Lungs clear bilaterally no wheezing Heart: S1S2, no murmurs Abdomen: Normal bowel sounds, Soft, No hepatosplenomegaly, nontender nondistended Back not examined as patient refused exam again today Extremities: 1-2+ pitting edema no cyanosis Derm warm dry multiple abrasions present in both lower extremity Neuro: aleart awake, spastic paraplegia bilateral lower legs Psych/Mental Status: Alert awake moves all 4 extremities General: Alert, Oriented X3, No acute distress Heart: Regular rate Lungs: Crackles, Other Abdomen: Soft Extremities: No clubbing, No cyanosis, No edema, Normal pulses, No tenderness/swelling Skin: Other (sacral ulcer 4x8 with eschar) Assessment and Plan Assessmemt and Plan Problems Medical Problems: (1) Altered mental status Status: Acute (2) Infected abrasion of skin of sacral region Status: Acute Comment Review of Relevant I have reviewed the following items vanessa (where applicable) has been applied. Justifications for Admission Other Justification ANTONIO RODRIGES MD Oct 16, 2021 21:28
--- NOTE | 2021-10-17 00:11 | NUR ---
pt took off diaper and dressing off sacral wound and threw it on the floor... currently in bed.
[2021-10-17] MEDS: IV NORMAL SALINE 1000ML BAG 1,000 ML IV SCH ×3 (02:00→22:00)
[2021-10-17] MEDS: metroNIDAZOLE 500 MG TABLET PO SCH ×3 (06:00→22:00)
[2021-10-17 07:00] VITALS: BP 86/49
[2021-10-17] MEDS: LACTOBACILLUS RHAMNOSUS GG 1 CAPSULE. PO SCH ×2 (07:24→21:00)
[2021-10-17] MEDS: CEFEPIME HCL IV Push 2 GM VIAL. IVP SCH ×2 (07:24→21:00)
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
[2021-10-17] MEDS: DAPTOmycin (GENERIC) IVPB 410 MG in IV NORMAL SALINE 50ML 50 ML IV SCH (16:13)
[2021-10-17 19:00] VITALS: BP 90/57
[2021-10-17] MEDS: ENOXAPARIN 40 MG/0.4 ML SYRINGE. SQ SCH (21:00)
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
[2021-10-17 23:00] VITALS: BP 91/54
[2021-10-18] MEDS ORDERED: MORPHINE SULFATE 2 MG/ML INJ. IVP PRN (06:00)
[2021-10-18] MEDS ORDERED: IV RINGERS,LACTATED 1000ML 1,000 ML IV SCH (06:00)
[2021-10-18] MEDS ORDERED: HYDROmorphone 2 MG/ML INJ. IVP PRN (06:00)
[2021-10-18] MEDS ORDERED: fentaNYL PF VIAL 100 MCG/2 ML VIAL IVP PRN ×2 (06:00)
[2021-10-18] MEDS ORDERED: PROCHLORPERAZINE 10 MG/2 ML VIAL. IVP PRN (06:00)
[2021-10-18] MEDS: metroNIDAZOLE 500 MG TABLET PO SCH ×2 (06:00→14:00)
[2021-10-18 07:00] VITALS: BP 83/48
[2021-10-18] MEDS: IV NORMAL SALINE 1000ML BAG 1,000 ML IV SCH ×2 (08:00→17:09)
[2021-10-18] MEDS: LACTOBACILLUS RHAMNOSUS GG 1 CAPSULE. PO SCH (09:00)
[2021-10-18] MEDS: CEFEPIME HCL IV Push 2 GM VIAL. IVP SCH (09:00)
--- NOTE | 2021-10-18 09:59 | NUR ---
Patient refused to have scheduled surgery today because he wanted to eat breakfast and wanted a second opinion. notified and removed from surgery schedule. Patient refusing medications.
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
[2021-10-18] MEDS: DAPTOmycin (GENERIC) IVPB 410 MG in IV NORMAL SALINE 50ML 50 ML IV SCH (17:00)
--- NOTE | 2021-10-19 01:58 | NUR ---
Addendum 0135: Patient discharged with security at bedside and security walked alongside staff during transport to vehicle. Staff (two RN's and 2 nurses assistants) assisted with placing patient in wheelchair and gathering patients belongings in the room. Patient continued to be verbally abusive cursing and using the word nigger with professional security officer and used every other curse word while also being combative with upper extremities when trying to clean up patients soiled depends. Snacks and discharge papers given to patient. He refused to listen to discharge instruction over talking me and refused to sign off on discharge paper.
--- NOTE | 2021-10-19 02:38 | NUR ---
[facility] [employer] is who picked patient up.
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
== END 2021-10-19 02:00 | disposition home or self-care (01) | DRG 871 ==
LOC: ER 13:06 → 4 NORTH 17:30
PROVIDERS: ADMIT Internal Medicine; ATTEND Internal Medicine
DX: A41.01 Sepsis due to Methicillin susceptible Staphylococcus aureus (principal); G93.41 Metabolic encephalopathy; E43 Unspecified severe protein-calorie malnutrition; G06.1 Intraspinal abscess and granuloma; R45.851 Suicidal ideations; G82.20 Paraplegia, unspecified; F19.20 Other psychoactive substance dependence, uncomplicated; G95.9 Disease of spinal cord, unspecified; J93.9 Pneumothorax, unspecified; R74.01 Elevation of levels of liver transaminase levels; F20.9 Schizophrenia, unspecified; Z59.00 Homelessness unspecified; D64.9 Anemia, unspecified; F15.129 Other stimulant abuse with intoxication, unspecified; F17.210 Nicotine dependence, cigarettes, uncomplicated; F31.9 Bipolar disorder, unspecified; F41.9 Anxiety disorder, unspecified; I10 Essential (primary) hypertension; K59.00 Constipation, unspecified; L08.9 Local infection of the skin and subcutaneous tissue, unspecified; T14.8XXA Other injury of unspecified body region, initial encounter; Z20.822 Contact with and (suspected) exposure to COVID-19; Z53.29 Procedure and treatment not carried out because of patient's decision for other reasons; Z86.19 Personal history of other infectious and parasitic diseases; Z86.61 Personal history of infections of the central nervous system; Z88.0 Allergy status to penicillin; Z91.19 Patient's noncompliance with other medical treatment and regimen; Z93.3 Colostomy status; Z99.3 Dependence on wheelchair; Z88.8 Allergy status to other drugs, medicaments and biological substances
CPT/HCPCS: 36415; 70450; 71045; 74177; 80048; 80053; 80202; 80307; 81001; 82140; 85025; 86140; 87040; 87426; 93005; 96365; 96366; 96375; J0692; J0878; J1650; J3370; J7030; J7040; J7050; 99285-25; G0378